=== PATIENT | female | born 1965 | race Hispanic/Latino ===

== ENCOUNTER → 2017-11-22 | Outpatient (CLI) | payer OTHER ==
[~2017-11-22] MED LIST: ADVAIR 250/501 EA INH; BUDESONIDE EC3 MG PO; CHLORDIAZEPOXI1 EACH PO; CIPROFLOXACIN750 MG PO; GLIMEPIRIDE2 MG PO; LANTUS 3ML100 UNITS/ SQ; LEVOTHYROXINE25 MCG PO; LISINOPRIL-HCT1 EAC2 PO; METFORMIN HCL500 MG PO; METOPROLOL TART50 MG PO; NORCO 5-325 TA1 EACH PO; OMEPRAZOLE20 MG PO; PENTASA500 MG PO; PRILOSEC OTC20 MG PO; PROBIOTIC ACID1 EACH PO; SYMBICORT 80-46.9 GM IH; TRAMADOL HCL50 MG PO; ULTRAM50 MG PO; VITAMIN D 1.25 MG PO; Z ACIDOPHILUS PO; Z VITAMIN D; Z.0.GLIMEPIRIDE4 MG PO; Z.0.GLUCOPHAGE850 MG PO; Z.0.LANTUS 3ML100 UN SQ; Z.0.LEVAQUIN500 MG PO; Z.0.LIBRAX CAPSULE1 PO; Z.0.LIPITOR10 MG PO; Z.0.MELOXICAM15 MG PO; Z.0.OMEPRAZOLE20 MG PO; Z.0.PENTASA500 MG PO; Z.0.PRINIVIL10 MG PO; ZOFRAN ODT8 MG PO; [UNRECOGNIZED DRUG - OTHER] PO
--- NOTE | 2017-11-22 18:59 | Diagnostic Imaging Report ---
PROCEDURE: Frontal and lateral views of the chest. COMPARISON: [facility], , CHEST 2 VIEWS, 03/01/2012, 22:37. INDICATIONS: cough, fever FINDINGS: Lines/tubes: None. Lungs: The lungs are well inflated. There is no evidence of pneumonia or pulmonary edema. Pleura: There is no pleural effusion or pneumothorax. Mild right apical pleural-parenchymal coarsening, which may represent scarring. Heart and mediastinum: The heart and the mediastinum are normal. Bones: No acute bony abnormality. IMPRESSION: 1. no consolidation or effusion. 2. Mild right apical pleural-parenchymal coarsening, which may represent scarring. Recommend followup chest, PA and lateral in 2 months to document stability. Adam Kearney M.D. Dictated by: Adam Kearney M.D. on 11/22/2017 at 19:01 Electronically approved by: Adam Kearney M.D. on 11/22/2017 at 19:01
== END ==
LOC: RAD 17:48
PROVIDERS: ATTEND Family Medicine
DX: R05 Cough (principal); R50.9 Fever, unspecified; J44.9 Chronic obstructive pulmonary disease, unspecified
CPT/HCPCS: 71046

== ENCOUNTER 2018-03-30 12:39 | Inpatient (IN) | payer SELFPAY ==
[~2018-03-30] VITALS: Ht 152.4 cm; Wt 89.4 kg
[2018-03-30] MEDS ORDERED: SODIUM CHLORIDE 0.9% 1000ML 1,000 ML IV SCH (13:00)
[2018-03-30] MEDS ORDERED: LIDOCAINE VISC 2% SOLN 15 ML UDC PO ONE (13:15)
[2018-03-30] MEDS ORDERED: MAGNESIUM/ALUMINUM/SIMETHICONE 30 ML UDC PO ONE (13:15)
[2018-03-30 13:34] LABS: BASOPHILS % 0.3 % (0.0-1.0); EOSINOPHILS # (AUTO) 0.1 (0.0-0.4); EOSINOPHILS % 0.7 % (0.0-6.0); HEMATOCRIT 42.4 % (34.2-44.1); HEMOGLOBIN 13.6 g/dL (12.0-16.0); LYMPHOCYTES # (AUTO) 3.7 (1.0-3.2); LYMPHOCYTES % 29.7 % (18.0-39.1); MEAN CORPUSCULAR HEMOGLOBIN 32.2 pg (28-32); MEAN CORPUSCULAR HGB CONC 32.1 g/dL (31-35); MEAN CORPUSCULAR VOLUME 100.2 fL (81-99); MONOCYTES # (AUTO) 1.1 (0.2-0.8); MONOCYTES % 8.6 % (4.4-11.3); NEUTROPHILS # (AUTO) 7.2 (2.1-6.9); NEUTROPHILS % 58.4 % (38.7-80.0); PLATELET COUNT 226 x10e3/uL (140-360); RED BLOOD COUNT 4.23 x10e6/uL (3.6-5.1); RED CELL DISTRIBUTION WIDTH 13.9 % (11.7-14.4)
[2018-03-30 13:45] LABS: INR 0.88; PROTHROMBIN TIME 12.8 seconds (11.9-14.5)
[2018-03-30 13:46] LABS: PARTIAL THROMBOPLASTIN TIME 23.8 seconds (23.8-35.5)
[2018-03-30 13:52] LABS: BLOOD UREA NITROGEN 24 mg/dL (7-26); BUN/CREATININE RATIO 26 (6-25); CARBON DIOXIDE 21 mmol/L (22-29); CHLORIDE 101 mmol/L (98-107); CREATININE, SERUM 0.91 mg/dL (0.57-1.11); EST GLOMERULAR FILTRATION RATE > 60 ML/MIN (60-); GLUCOSE 256 mg/dL (74-118); SODIUM 134 mmol/L (136-145)
[2018-03-30] MEDS ORDERED: MORPHINE SULFATE 2 MG/ML SYR IV STA (14:36)
[2018-03-30] MEDS ORDERED: DEXTROSE 50% SYRINGE 50 ML IV PRN (14:45)
[2018-03-30] MEDS ORDERED: ONDANSETRON HCL INJ 2 MG/ML VIAL IV PRN (14:45)
[2018-03-30] MEDS ORDERED: MORPHINE SULFATE 2 MG/ML SYR IV PRN (14:45)
[2018-03-30] MEDS: CLINDAMYCIN PHOS 900MG/ 50ML 50 ML IV SCH ×2 (15:35→21:00)
[2018-03-30] MEDS: VANCOMYCIN 1GM/NS 250 ML 250 ML IV SCH (16:11)
[2018-03-30] MEDS: INSULIN REGULAR, HUMAN 100 UNIT/1 ML 3ML VIAL SQ SCH ×2 (16:30→21:50)
[2018-03-30 17:06] LABS: LYMPHOCYTES % (MANUAL) 25 % (19-48); MICROCYTOSIS SLIGHT; MONOCYTES % (MANUAL) 6 % (3.4-9.0); NEUTROPHILS % (MANUAL) 66 % (40-74); PLATELET ESTIMATE ADEQUATE; PLATELET MORPHOLOGY COMMENT NORMAL; RBC MORPHOLOGY COMMENT NORMAL
[2018-03-30] MEDS ORDERED: HYDROMORPHONE 2MG/ML 2 MG/ML ML IV ONE (17:45)
[2018-03-30 19:18] VITALS: BP 128/85
[2018-03-30] MEDS: MORPHINE SULFATE INJ 4 MG/ML INJ IV PRN (20:44)
[2018-03-30] MEDS: SODIUM CHLORIDE 0.9% 1000ML 1,000 ML IV SCH (22:39)
[2018-03-30 22:57] VITALS: BP 128/85
[2018-03-30 23:50] VITALS: BP 131/74
[2018-03-31] MEDS: VANCOMYCIN 1GM/NS 250 ML 250 ML IV SCH (02:49)
[2018-03-31] MEDS: MORPHINE SULFATE INJ 4 MG/ML INJ IV PRN ×4 (02:49→16:30)
[2018-03-31] MEDS: CLINDAMYCIN PHOS 900MG/ 50ML 50 ML IV SCH ×4 (02:49→20:40)
[2018-03-31 04:10] VITALS: BP 104/64
[2018-03-31] MEDS: SODIUM CHLORIDE 0.9% 1000ML 1,000 ML IV SCH ×4 (06:21→22:39)
[2018-03-31] MEDS ORDERED: HYDROCODONE/APAP 5MG-325MG TAB PO PRN (07:15)
[2018-03-31] MEDS: INSULIN REGULAR, HUMAN 100 UNIT/1 ML 3ML VIAL SQ SCH ×4 (07:30→21:00)
[2018-03-31 08:00] VITALS: BP 130/99
[2018-03-31] MEDS ORDERED: PANTOPRAZOLE SOD 40 MG TABEC PO SCH (09:00)
[2018-03-31] MEDS ORDERED: FLUCONAZOLE 100 MG TAB PO SCH (09:00)
[2018-03-31] MEDS: BUDESONIDE 3 MG CAPCR PO SCH (09:03)
[2018-03-31] MEDS: HYDROCHLOROTHIAZIDE 25 MG TAB PO SCH (09:03)
[2018-03-31] MEDS: GLIMEPIRIDE 2 MG TAB PO SCH ×2 (09:03→16:48)
[2018-03-31] MEDS: LISINOPRIL 10 MG TAB PO SCH (09:04)
[2018-03-31] MEDS: METFORMIN HCL 500 MG TAB PO SCH ×2 (09:04→16:48)
[2018-03-31] MEDS: CHLORDIAZEPOXIDE/CLIDINIUM 1 CAP PO SCH ×3 (09:04→20:40)
[2018-03-31] MEDS: MESALAMINE 500 MG CAPCR PO SCH ×4 (09:05→20:40)
[2018-03-31] MEDS: PANTOPRAZOLE SOD 40 MG TABEC PO SCH ×2 (09:05→16:54)
[2018-03-31] MEDS: ATORVASTATIN 10 MG TAB PO SCH (09:05)
[2018-03-31] MEDS: METOPROLOL TARTRATE 50 MG TAB PO SCH ×2 (09:05→16:54)
[2018-03-31] MEDS: LEVOTHYROXINE SODIUM 25 MCG TABLET PO SCH (09:05)
[2018-03-31] MEDS: INSULIN DETEMIR 100 UNIT/ML PEN SQ SCH (09:06)
[2018-03-31 12:00] VITALS: BP 124/72
[2018-03-31] MEDS ORDERED: IPRATROPIUM BROMIDE 0.02% 2.5 ML NEB NEB SCH (13:00)
--- NOTE | 2018-03-31 15:19 | Consultation ---
DATE OF CONSULTATION: REASON FOR CONSULTATION: Cellulitis of the right upper extremity. HISTORY OF PRESENT ILLNESS: This patient is a 52-year-old female who denies any past medical history. She does have history of obesity, asthma, COPD, diabetes mellitus, hyperlipidemia, Crohn disease, hiatal hernia, gastroesophageal reflux disease, ulcerative colitis, chronic back pain and depression. PAST MEDICAL HISTORY: As above. PAST SURGICAL HISTORY: Appendectomy, , cholecystectomy and tonsillectomy. The patient comes in with redness and swelling of her arm which started a week ago. She remembered a week ago or so that a dog of her friend scratched her. She did not make too much of it, but started to have redness and swelling and pain and so she came to the hospital and she is being admitted because of redness and swelling of her right upper extremity. ALLERGIES: PENICILLIN, BUT SHE AN TAKE KEFLEX. SOCIAL HISTORY: Does not smoke, no drug abuse or alcohol abuse. FAMILY HISTORY: Otherwise unremarkable. REVIEW OF SYSTEMS: Beside the redness around the arm and the pain, she denies any. LABORATORY DATA: White count 12.37. Hemoglobin 13.6. Sodium 144, potassium 4.0, creatinine 0.9. PHYSICAL EXAMINATION: GENERAL: She is currently alert and oriented and does not seem to be in any acute distress. VITALS: Stable. Currently afebrile. HEENT: She is not icteric. NECK: Supple. CHEST: Clear bilaterally. HEART: S1 and S2. No murmurs. ABDOMEN: Soft. EXTREMITIES: There is erythema and edema involving the whole arm. IMPRESSION: Dog scratch, resulted with cellulitis in a patient who is obese with diabetes mellitus. RECOMMENDATIONS: I agree with the choice of clindamycin. Discontinue vancomycin. Keep the arm elevated. Await blood cultures. Recheck CBC. Recheck chem panel. Further recommendations to follow. Job#: [id number]
[2018-03-31 16:00] VITALS: BP 124/61
[2018-03-31 20:31] VITALS: BP 123/68
[2018-03-31] MEDS: HYDROCODONE/APAP 5MG-325MG TAB PO PRN (20:35)
[2018-04-01] VITALS (8 sets, daily range): BP systolic 101–109; BP diastolic 52–73
[2018-04-01] MEDS: MORPHINE SULFATE INJ 4 MG/ML INJ IV PRN ×3 (00:40→17:00)
[2018-04-01] MEDS: CLINDAMYCIN PHOS 900MG/ 50ML 50 ML IV SCH ×4 (03:00→21:50)
[2018-04-01 05:29] LABS: BASOPHILS % 0.2 % (0.0-1.0); EOSINOPHILS # (AUTO) 0.1 (0.0-0.4); EOSINOPHILS % 1.2 % (0.0-6.0); HEMATOCRIT 32.1 % (34.2-44.1); HEMOGLOBIN 10.4 g/dL (12.0-16.0); LYMPHOCYTES # (AUTO) 2.5 (1.0-3.2); LYMPHOCYTES % 26.1 % (18.0-39.1); MEAN CORPUSCULAR HEMOGLOBIN 32.4 pg (28-32); MEAN CORPUSCULAR HGB CONC 32.4 g/dL (31-35); MONOCYTES % 10.5 % (4.4-11.3); NEUTROPHILS # (AUTO) 5.8 (2.1-6.9); PLATELET COUNT 148 x10e3/uL (140-360); RED BLOOD COUNT 3.21 x10e6/uL (3.6-5.1); RED CELL DISTRIBUTION WIDTH 13.6 % (11.7-14.4)
[2018-04-01 05:50] LABS: ANION GAP 14.8 mmol/L (8-16); BLOOD UREA NITROGEN 8 mg/dL (7-26); BUN/CREATININE RATIO 12 (6-25); CALCIUM 8.3 mg/dL (8.4-10.2); CARBON DIOXIDE 22 mmol/L (22-29); CHLORIDE 106 mmol/L (98-107); CREATININE, SERUM 0.65 mg/dL (0.57-1.11); EST GLOMERULAR FILTRATION RATE > 60 ML/MIN (60-); GLUCOSE 109 mg/dL (74-118); POTASSIUM 3.8 mmol/L (3.5-5.1); SODIUM 139 mmol/L (136-145)
[2018-04-01] MEDS: SODIUM CHLORIDE 0.9% 1000ML 1,000 ML IV SCH ×3 (06:39→22:39)
[2018-04-01] MEDS: INSULIN REGULAR, HUMAN 100 UNIT/1 ML 3ML VIAL SQ SCH ×4 (07:30→21:00)
[2018-04-01] MEDS: NYSTATIN SUSPENSION 5 ML UDC PO SCH ×4 (10:25→21:50)
[2018-04-01] MEDS: INSULIN DETEMIR 100 UNIT/ML PEN SQ SCH (10:25)
[2018-04-01] MEDS: GLIMEPIRIDE 2 MG TAB PO SCH ×2 (10:25→17:00)
[2018-04-01] MEDS: HYDROCODONE/APAP 5MG-325MG TAB PO PRN ×2 (10:25→21:15)
[2018-04-01] MEDS: METOPROLOL TARTRATE 50 MG TAB PO SCH ×2 (10:25→17:00)
[2018-04-01] MEDS: METFORMIN HCL 500 MG TAB PO SCH ×2 (10:25→17:00)
[2018-04-01] MEDS: PANTOPRAZOLE SOD 40 MG TABEC PO SCH ×2 (10:25→17:00)
[2018-04-01] MEDS: BUDESONIDE 3 MG CAPCR PO SCH (10:25)
[2018-04-01] MEDS: HYDROCHLOROTHIAZIDE 25 MG TAB PO SCH (10:25)
[2018-04-01] MEDS: LISINOPRIL 10 MG TAB PO SCH (10:25)
[2018-04-01] MEDS: LEVOTHYROXINE SODIUM 25 MCG TABLET PO SCH (10:25)
[2018-04-01] MEDS: ATORVASTATIN 10 MG TAB PO SCH (10:25)
[2018-04-01] MEDS: MESALAMINE 500 MG CAPCR PO SCH ×4 (10:25→21:50)
[2018-04-01] MEDS: CHLORDIAZEPOXIDE/CLIDINIUM 1 CAP PO SCH ×3 (10:25→21:50)
[2018-04-02] VITALS: BP 124/74
[2018-04-02] MEDS: CLINDAMYCIN PHOS 900MG/ 50ML 50 ML IV SCH ×2 (03:00→08:50)
[2018-04-02] MEDS: MORPHINE SULFATE INJ 4 MG/ML INJ IV PRN ×3 (03:27→12:35)
[2018-04-02 04:00] VITALS: BP 118/74
[2018-04-02] MEDS: NYSTATIN SUSPENSION 5 ML UDC PO SCH ×3 (05:58→12:35)
[2018-04-02] MEDS: INSULIN REGULAR, HUMAN 100 UNIT/1 ML 3ML VIAL SQ SCH ×2 (07:30→12:35)
[2018-04-02 08:46] VITALS: BP 132/75
[2018-04-02 08:50] VITALS: BP 132/75
[2018-04-02] MEDS: PANTOPRAZOLE SOD 40 MG TABEC PO SCH (08:50)
[2018-04-02] MEDS: LEVOTHYROXINE SODIUM 25 MCG TABLET PO SCH (08:50)
[2018-04-02] MEDS: GLIMEPIRIDE 2 MG TAB PO SCH (08:50)
[2018-04-02] MEDS: LISINOPRIL 10 MG TAB PO SCH (08:50)
[2018-04-02] MEDS: CHLORDIAZEPOXIDE/CLIDINIUM 1 CAP PO SCH (08:50)
[2018-04-02] MEDS: INSULIN DETEMIR 100 UNIT/ML PEN SQ SCH (08:50)
[2018-04-02] MEDS: BUDESONIDE 3 MG CAPCR PO SCH (08:50)
[2018-04-02] MEDS: ATORVASTATIN 10 MG TAB PO SCH (08:50)
[2018-04-02] MEDS: HYDROCHLOROTHIAZIDE 25 MG TAB PO SCH (08:50)
[2018-04-02] MEDS: MESALAMINE 500 MG CAPCR PO SCH ×2 (08:50→12:35)
[2018-04-02] MEDS: METOPROLOL TARTRATE 50 MG TAB PO SCH (08:50)
[2018-04-02] MEDS: METFORMIN HCL 500 MG TAB PO SCH (08:50)
[2018-04-02] MEDS ORDERED: SUCRALFATE 1 GM TAB PO SCH (11:30)
[2018-04-02] MEDS: ALBUTEROL SULF 0.083% NEB SOLN 3 ML NEB NEB SCH ×2 (14:29→14:32)
[2018-04-02] MEDS ORDERED: CLINDAMYCIN HC150 MG PO (14:52)
--- OUTSIDE RECORDS SUMMARY | 2018-04-04 13:02 | XMS REPORT | Continuity of Care Document ---
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 [facility] HEMATOLOGY Eosinophils # 0.1 K/CMM 0.0 - 0.5 10/13/2011 Normal [facility] HEMATOLOGY Monocytes # 0.8 K/CMM 0.0 - 0.8 10/13/2011 Normal [facility] HEMATOLOGY Lymphocytes 23.3 % 20.0 - 40.0 10/13/2011 Normal [facility] HEMATOLOGY Segs 66.4 % 45.0 - 75.0 10/13/2011 Normal [facility] HEMATOLOGY INR 1.01 0.85 - 1.17 10/13/2011 Normal 2Interpretive Data: RECOMMENDED RANGES FOR PROTIME INR: 2.0-3.0 for most medical and surgical thromboembolic states. 2.5-3.5 for artificial heart valves and recurrent embolism.INR SHOULD BE USED ONLY FOR PATIENTS ON STABLE ANTICOAGULANT THERAPY. [facility] HEMATOLOGY PTT 29.2 s 22.9 - 35.8 10/13/2011 Normal 3Interpretive Data: Heparin Therapeutic Range: 57 - 92 Seconds [facility] HEMATOLOGY PT 13.3 s 12.0 - 14.7 10/13/2011 Normal [facility] HEMATOLOGY MCH 32.4 pg 27.0 - 31.0 10/13/2011 HI [facility] HEMATOLOGY MCV 94.9 fL 81.0 - 99.0 10/13/2011 Normal [facility] HEMATOLOGY MCHC 34.1 g/dL 32.0 - 36.0 10/13/2011 Normal [facility] HEMATOLOGY WBC 8.6 K/CMM 3.7 - 10.4 10/13/2011 Normal [facility] HEMATOLOGY Hgb 14.4 g/dL 12.0 - 16.0 10/13/2011 Normal [facility] HEMATOLOGY RBC 4.45 M/CMM 4.20 - 5.40 10/13/2011 Normal [facility] HEMATOLOGY Hct 42.3 % 36.0 - 48.0 10/13/2011 Normal [facility] HEMATOLOGY Platelet 237 K/CMM 133 - 450 10/13/2011 Normal [facility] HEMATOLOGY MPV 8.6 fL 7.4 - 10.4 10/13/2011 Normal [facility] HEMATOLOGY RDW 12.8 % 11.5 - 14.5 10/13/2011 Normal [facility] CHEMISTRY U Preg Negative (10/13/2011 10:02:00) Negative 10/13/2011 Normal [facility] URINALYSIS UA Color Yellow *NA* (10/13/2011 10:02:00) Yellow 10/13/2011 NA [facility] URINALYSIS UA Spec Grav 1.025 <=1.030 10/13/2011 Normal [facility] URINALYSIS UA Turbidity Clear (10/13/2011 10:02:00) Clear 10/13/2011 Normal [facility] URINALYSIS UA Blood Negative (10/13/2011 10:02:00) Negative 10/13/2011 Normal [facility] URINALYSIS UA Nitrite Negative (10/13/2011 10:02:00) Negative 10/13/2011 Normal [facility] URINALYSIS UA Bili Negative *NA* (10/13/2011 10:02:00) Negative 10/13/2011 NA [facility] URINALYSIS UA Ketones Trace *ABN* (10/13/2011 10:02:00) Negative 10/13/2011 ABN [facility] URINALYSIS UA Urobilinogen 0.2 EU/dL 0.1 - 1.0 10/13/2011 Normal [facility] URINALYSIS UA Protein 30 mg/dL *ABN* (10/13/2011 10:02:00) Negative 10/13/2011 ABN [facility] URINALYSIS UA Glucose >=1000 mg/dL *ABN* (10/13/2011 10:02:00) Negative 10/13/2011 ABN [facility] URINALYSIS UA pH 6.0 5.0 - 8.0 10/13/2011 Normal [facility] URINALYSIS UA Leuk Est Negative (10/13/2011 10:02:00) Negative 10/13/2011 Normal [facility] URINALYSIS UA Mucus Few /LPF (10/13/2011 10:02:00) None Seen 10/13/2011 Normal [facility] URINALYSIS UA Bacteria None Seen (10/13/2011 10:02:00) None Seen 10/13/2011 Normal [facility] URINALYSIS UA Sq Epi Rare /LPF (10/13/2011 10:02:00) Few 10/13/2011 Normal [facility] URINALYSIS Micro? Performed (10/13/2011 10:02:00) 10/13/2011 Normal [facility] URINALYSIS UA WBC 0-2 /HPF (10/13/2011 10:02:00) None Seen 10/13/2011 Normal [facility] URINALYSIS UA RBC None Seen (10/13/2011 10:02:00) 0 - 2 10/13/2011 Normal [facility] BEDSIDE GLUCOSE TESTING Comment1 Notify RN/MD 02/22/2011 NA [facility] BEDSIDE GLUCOSE TESTING Gluc POC Lifscn 112.0 mg/dL 65 - 110 02/22/2011 [place] 1Interpretive Data: Upper Reportable Limit: 200 mg/dL. [facility] BEDSIDE GLUCOSE TESTING Gluc POC Lifscn 243.0 mg/dL 65 - 110 02/22/2011 [place] 2Interpretive Data: Upper Reportable Limit: 200 mg/dL. [facility] BEDSIDE GLUCOSE TESTING Gluc POC Lifscn 128.0 mg/dL 65 - 110 02/22/2011 [place] 3Interpretive Data: Upper Reportable Limit: 200 mg/dL. [facility] HEMATOLOGY MPV 8.4 fL 7.4 - 10.4 02/22/2011 Normal [facility] HEMATOLOGY RDW 12.9 % 11.5 - 14.5 02/22/2011 Normal [facility] HEMATOLOGY Platelet 251.0 K/CMM 133 - 450 02/22/2011 Normal [facility] HEMATOLOGY MCH 31.7 pg 27.0 - 31.0 02/22/2011 HI [facility] MCHC 34.4 g/dL 32.0 - 36.0 02/22/2011 Normal [facility] HEMATOLOGY Hct 31.6 % 36.0 - 48.0 02/22/2011 LOW [facility] HEMATOLOGY Hgb 10.9 g/dL 12.0 - 16.0 02/22/2011 LOW [facility] HEMATOLOGY MCV 92.3 fL 81.0 - 99.0 02/22/2011 Normal [facility] HEMATOLOGY RBC 3.43 M/CMM 4.20 - 5.40 02/22/2011 [facility] HEMATOLOGY WBC 10.6 K/CMM 3.7 - 10.4 02/22/2011 [facility] HEMATOLOGY Basophils # 0.0 K/CMM 0.0 - 0.2 02/22/2011 Normal [facility] HEMATOLOGY Monocytes 9.2 % 2.0 - 12.0 02/22/2011 Normal [facility] HEMATOLOGY Eosinophils 1.1 % 0.0 - 4.0 02/22/2011 Normal [facility] HEMATOLOGY Monocytes # 1.0 K/CMM 0.0 - 0.8 02/22/2011 [facility] HEMATOLOGY Lymphocytes # 2.0 K/CMM 1.0 - 5.5 02/22/2011 Normal [facility] HEMATOLOGY Eosinophils # 0.1 K/CMM 0.0 - 0.5 02/22/2011 Normal [facility] HEMATOLOGY Segs-Bands # 7.5 K/CMM 1.5 - 8.1 02/22/2011 Normal [facility] HEMATOLOGY Basophils 0.2 % 0.0 - 1.0 02/22/2011 Normal [facility] HEMATOLOGY Segs 70.4 % 45.0 - 75.0 02/22/2011 Normal [facility] HEMATOLOGY Lymphocytes 19.1 % 20.0 - 40.0 02/22/2011 [facility] BEDSIDE GLUCOSE TESTING Comment1 Notify ТАТЬЯНА 02/22/2011 [facility] BEDSIDE GLUCOSE TESTING Comment1 Notify JONA/ 02/21/2011 [facility] CHEMISTRY Creatinine Lvl 0.7 mg/dL 0.5 - 1.4 02/21/2011 Normal [facility] CHEMISTRY Total Protein 6.2 g/dL 6.4 - 8.4 02/21/2011 [facility] CHEMISTRY Albumin Lvl 2.6 g/dL 3.5 - 5.0 02/21/2011 [facility] CHEMISTRY B/C Ratio 7.0 6 - 25 02/21/2011 Normal [facility] CHEMISTRY Calcium Lvl 7.8 mg/dL 8.5 - 10.5 02/21/2011 [facility] CHEMISTRY AGAP 12.7 meq/L 10.0 - 20.0 02/21/2011 Normal [facility] CHEMISTRY Bili Total 0.5 mg/dL 0.2 - 1.3 02/21/2011 Normal [facility] CHEMISTRY AST 14.0 U/L 0 - 37 02/21/2011 Normal [facility] CHEMISTRY Globulin 3.6 g/dL 2.0 - 4.0 02/21/2011 Normal [facility] CHEMISTRY ALT 23.0 U/L 0 - 65 02/21/2011 Normal [facility] CHEMISTRY Alk Phos 126.0 U/L 39 - 136 02/21/2011 Normal [facility] CHEMISTRY A/G Ratio 0.7 0.7 - 1.6 02/21/2011 Normal [facility] CHEMISTRY Chloride Lvl 104.0 meq/L 95 - 109 02/21/2011 Normal [facility] CHEMISTRY Sodium Lvl 139.0 meq/L 135 - 145 02/21/2011 Normal [facility] CHEMISTRY Potassium Lvl 3.7 meq/L 3.5 - 5.1 02/21/2011 Normal [facility] CHEMISTRY CO2 26.0 meq/L 24 - 32 02/21/2011 Normal [facility] CHEMISTRY Glucose Lvl 153.0 mg/dL 02/21/2011 NA 4Interpretive Data: Reference Ranges : 0 - 7 days : 41 - 90 mg/dL7 days - 150 yrs : 70 - 99 mg/dL (fasting), based on the clinical recommendations of the [place] [employer]. [facility] CHEMISTRY BUN 5.0 mg/dL 7 - 22 02/21/2011 LOW [facility] HEMATOLOGY WBC 14.1 K/CMM 3.7 - 10.4 02/21/2011 HI [facility] HEMATOLOGY RBC 3.68 M/CMM 4.20 - 5.40 02/21/2011 LOW [facility] HEMATOLOGY Hgb 11.6 g/dL 12.0 - 16.0 02/21/2011 LOW [facility] HEMATOLOGY Hct 33.6 % 36.0 - 48.0 02/21/2011 LOW [facility] HEMATOLOGY MCHC 34.5 g/dL 32.0 - 36.0 02/21/2011 Normal [facility] HEMATOLOGY MCV 91.3 fL 81.0 - 99.0 02/21/2011 Normal [facility] HEMATOLOGY MCH 31.5 pg 27.0 - 31.0 02/21/2011 HI [facility] HEMATOLOGY RDW 12.9 % 11.5 - 14.5 02/21/2011 Normal [facility] HEMATOLOGY Platelet 277.0 K/CMM 133 - 450 02/21/2011 Normal [facility] HEMATOLOGY MPV 8.4 fL 7.4 - 10.4 02/21/2011 Normal [facility] HEMATOLOGY Eosinophils # 0.1 K/CMM 0.0 - 0.5 02/21/2011 Normal [facility] HEMATOLOGY Eosinophils 0.9 % 0.0 - 4.0 02/21/2011 Normal [facility] HEMATOLOGY Basophils 0.3 % 0.0 - 1.0 02/21/2011 Normal [facility] HEMATOLOGY Segs-Bands # 10.3 K/CMM 1.5 - 8.1 02/21/2011 [place] [facility] HEMATOLOGY Lymphocytes # 2.4 K/CMM 1.0 - 5.5 02/21/2011 Normal [facility] HEMATOLOGY Monocytes # 1.2 K/CMM 0.0 - 0.8 02/21/2011 [place] [facility] HEMATOLOGY Basophils # 0.0 K/CMM 0.0 - 0.2 02/21/2011 Normal [facility] HEMATOLOGY Segs 73.1 % 45.0 - 75.0 02/21/2011 Normal [facility] HEMATOLOGY Lymphocytes 16.9 % 20.0 - 40.0 02/21/2011 LOW [facility] HEMATOLOGY Monocytes 8.8 % 2.0 - 12.0 02/21/2011 Normal [facility] CHEMISTRY Lipase Lvl 158.0 U/L 73 - 393 02/20/2011 Normal [facility] CHEMISTRY AST 19.0 U/L 0 - 37 02/20/2011 Normal [facility] CHEMISTRY Albumin Lvl 3.1 g/dL 3.5 - 5.0 02/20/2011 LOW [facility] CHEMISTRY ALT 30.0 U/L 0 - 65 02/20/2011 Normal [facility] CHEMISTRY Alk Phos 170.0 U/L 39 - 136 02/20/2011 [place] [facility] CHEMISTRY Bili Total 0.3 mg/dL 0.2 - 1.3 02/20/2011 Normal [facility] CHEMISTRY Total Protein 7.3 g/dL 6.4 - 8.4 02/20/2011 Normal [facility] CHEMISTRY Potassium Lvl 3.7 meq/L 3.5 - 5.1 02/20/2011 Normal [facility] CHEMISTRY Chloride Lvl 98.0 meq/L 95 - 109 02/20/2011 Normal [facility] CHEMISTRY CO2 25.0 meq/L 24 - 32 02/20/2011 Normal [facility] CHEMISTRY Calcium Lvl 8.8 mg/dL 8.5 - 10.5 02/20/2011 Normal [facility] CHEMISTRY Creatinine Lvl 0.9 mg/dL 0.5 - 1.4 02/20/2011 Normal [facility] CHEMISTRY Sodium Lvl 136.0 meq/L 135 - 145 02/20/2011 Normal [facility] CHEMISTRY Glucose Lvl 380.0 mg/dL 02/20/2011 NA 5Interpretive Data: Reference Ranges : 0 - 7 days : 41 - 90 mg/dL7 days - 150 yrs : 70 - 99 mg/dL (fasting), based on the clinical recommendations of the [place] [employer]. [facility] CHEMISTRY BUN 11.0 mg/dL 7 - 22 02/20/2011 Normal [facility] CHEMISTRY AGAP 16.7 meq/L 10.0 - 20.0 02/20/2011 Normal [facility] CHEMISTRY B/C Ratio 12.0 6 - 25 02/20/2011 Normal [facility] CHEMISTRY Globulin 4.2 g/dL 2.0 - 4.0 02/20/2011 [facility] CHEMISTRY A/G Ratio 0.7 0.7 - 1.6 02/20/2011 Normal [facility] CHEMISTRY Hgb A1C 11.5 % 02/20/2011 NA 6Interpretive Data: HbA1C% eAG(mg/dL) Interpretation 6.0 126 Very good control 6.5 140 Very good control 7.0 154 Good Control 7.5 169 Good Control 8.0 183 Marginal Control, take action to lower 8.5 197 Marginal Control, take action to lower 9.0 212 Poor Control, take action to lower 9.5 226 Poor Control, take action to lower10.0 240 Poor Control, take action to lower [facility] HEMATOLOGY RBC 4.06 M/CMM 4.20 - 5.40 02/20/2011 LOW [facility] HEMATOLOGY WBC 15.5 K/CMM 3.7 - 10.4 02/20/2011 [facility] HEMATOLOGY MCH 31.6 pg 27.0 - 31.0 02/20/2011 [facility] HEMATOLOGY MCHC 34.4 g/dL 32.0 - 36.0 02/20/2011 Normal [facility] HEMATOLOGY Hct 37.3 % 36.0 - 48.0 02/20/2011 Normal [facility] HEMATOLOGY MCV 91.8 fL 81.0 - 99.0 02/20/2011 Normal [facility] HEMATOLOGY Hgb 12.8 g/dL 12.0 - 16.0 02/20/2011 Normal [facility] HEMATOLOGY Platelet 306.0 K/CMM 133 - 450 02/20/2011 Normal [facility] HEMATOLOGY MPV 8.7 fL 7.4 - 10.4 02/20/2011 Normal [facility] HEMATOLOGY RDW 13.1 % 11.5 - 14.5 02/20/2011 Normal [facility] HEMATOLOGY Eosinophils # 0.1 K/CMM 0.0 - 0.5 02/20/2011 Normal [facility] HEMATOLOGY Basophils # 0.0 K/CMM 0.0 - 0.2 02/20/2011 Normal [facility] HEMATOLOGY Segs 77.1 % 45.0 - 75.0 02/20/2011 HI [facility] HEMATOLOGY Lymphocytes 16.5 % 20.0 - 40.0 02/20/2011 LOW [facility] HEMATOLOGY Plt Morph Normal (02/20/2011 11:35:00) ?? 02/20/2011 Normal [facility] HEMATOLOGY Eosinophils 0.9 % 0.0 - 4.0 02/20/2011 Normal [facility] HEMATOLOGY Lymphocytes # 2.6 K/CMM 1.0 - 5.5 02/20/2011 Normal [facility] HEMATOLOGY Monocytes # 0.8 K/CMM 0.0 - 0.8 02/20/2011 Normal [facility] HEMATOLOGY Monocytes 5.3 % 2.0 - 12.0 02/20/2011 Normal [facility] HEMATOLOGY Segs-Bands # 12.0 K/CMM 1.5 - 8.1 02/20/2011 HI [facility] HEMATOLOGY Basophils 0.2 % 0.0 - 1.0 02/20/2011 Normal [facility] HEMATOLOGY RBC Morph Normal (02/20/2011 11:35:00) ?? 02/20/2011 Normal [facility] URINALYSIS UA Ketones Negative mg/dL *NA* (02/20/2011 11:35:00) ?? >Negative 02/20/2011 [facility] URINALYSIS UA Glucose >=1000 mg/dL *ABN* (02/20/2011 11:35:00) ?? >Negative 02/20/2011 ABN [facility] URINALYSIS UA Spec Grav 1.015 <<=1.030 02/20/2011 Normal [facility] URINALYSIS UA Bili Negative *NA* (02/20/2011 11:35:00) ?? >Negative 02/20/2011 [facility] URINALYSIS UA Protein Negative mg/dL (02/20/2011 11:35:00) ?? >Negative 02/20/2011 Normal [facility] URINALYSIS UA pH 5.0 5.0 - 8.0 02/20/2011 Normal [facility] URINALYSIS UA Color Yellow *NA* (02/20/2011 11:35:00) ?? >Yellow 02/20/2011 NA [facility] URINALYSIS UA Turbidity Clear (02/20/2011 11:35:00) ?? >Clear 02/20/2011 Normal [facility] URINALYSIS UA Urobilinogen 0.2 EU/dL 0.1 - 1.0 02/20/2011 Normal [facility] URINALYSIS UA Blood Negative (02/20/2011 11:35:00) ?? >Negative 02/20/2011 Normal [facility] URINALYSIS UA Leuk Est Negative (02/20/2011 11:35:00) ?? >Negative 02/20/2011 Normal [facility] URINALYSIS UA Nitrite Negative (02/20/2011 11:35:00) ?? >Negative 02/20/2011 Normal [facility] URINALYSIS UA Mucus Few /LPF (02/20/2011 11:35:00) ?? >None Seen 02/20/2011 Normal [facility] URINALYSIS UA RBC None Seen (02/20/2011 11:35:00) ?? >0 - 2 02/20/2011 Normal [facility] URINALYSIS UA WBC 0-2 /HPF (02/20/2011 11:35:00) ?? >None Seen 02/20/2011 Normal [facility] URINALYSIS UA Sq Epi Few /LPF (02/20/2011 11:35:00) ?? >Few 02/20/2011 Normal [facility] URINALYSIS UA Bacteria Few /HPF (02/20/2011 11:35:00) ?? >None Seen 02/20/2011 Normal [facility] Vital Signs Vital Sign Value Date Comments Source Systolic (mm Hg) 104 01/10/2015 [facility] Diastolic (mm Hg) 60 01/10/2015 [facility] Respitory Rate 18 01/10/2015 [facility] Respitory Rate 18 01/10/2015 [facility] Systolic (mm Hg) 92 01/10/2015 [facility] Diastolic (mm Hg) 58 01/10/2015 [facility] Systolic (mm Hg) 94 01/10/2015 [facility] Diastolic (mm Hg) 51 01/10/2015 [facility] Respitory Rate 80 01/10/2015 [facility] Heart Rate 90 01/10/2015 [facility] Temperature Oral (F) 98.1 F 01/10/2015 [facility] Temperature Oral (F) 98 F 01/10/2015 [facility] Weight 78.636 01/09/2015 [facility] Heart Rate 98 01/09/2015 [facility] Temperature Oral (F) 97.7 F 01/09/2015 [facility] Systolic (mm Hg) 109 09/21/2013 [facility] Diastolic (mm Hg) 72 09/21/2013 [facility] Temperature Oral (F) 98.3 F 09/21/2013 [facility] Respitory Rate 20 09/21/2013 [facility] Heart Rate 93 09/21/2013 [facility] Diastolic (mm Hg) 72 09/21/2013 [facility] Heart Rate 106 09/21/2013 [facility] Respitory Rate 17 09/21/2013 [facility] Systolic (mm Hg) 127 09/21/2013 [facility] Temperature Oral (F) 98.5 F 09/21/2013 [facility] Respitory Rate 16 09/21/2013 [facility] Systolic (mm Hg) 112 09/21/2013 [facility] Heart Rate 95 09/21/2013 [facility] Temperature Oral (F) 98.0 F 09/21/2013 [facility] Diastolic (mm Hg) 73 09/21/2013 [facility] Weight 88.636 09/18/2013 [facility] BMI Calculated 38.16 09/18/2013 [facility] Height 152.4 cm 09/18/2013 [facility] Weight 88.636 09/18/2013 [facility] Height 152.4 cm 09/18/2013 [facility] BMI Calculated 38.16 09/18/2013 [facility] Weight 86.364 10/13/2011 [facility] Height 152.40 cm 10/13/2011 [facility] Systolic (mm Hg) 128.0 02/22/2011 [facility] Respitory Rate 18.0 02/22/2011 [facility] Diastolic (mm Hg) 75.0 02/22/2011 [facility] Peripheral Pulse Rate 81.0 02/22/2011 [facility] Temperature Oral (F) 98.0 F 02/22/2011 [facility] Diastolic (mm Hg) 69.0 02/22/2011 [facility] Systolic (mm Hg) 112.0 02/22/2011 [facility] Respitory Rate 20.0 02/22/2011 [facility] Temperature Oral (F) 98.0 F 02/22/2011 [facility] Peripheral Pulse Rate 76.0 02/22/2011 [facility] Respitory Rate 18.0 02/22/2011 [facility] Systolic (mm Hg) 102.0 02/22/2011 [facility] Diastolic (mm Hg) 47.0 02/22/2011 [facility] Peripheral Pulse Rate 89.0 02/22/2011 [facility] Temperature Oral (F) 97.4 F 02/22/2011 [facility] Height 152.4 cm 02/21/2011 [facility] Weight 86.364 02/21/2011 [facility] Height 152.4 cm 02/20/2011 [facility] Weight 86.364 02/20/2011 [facility] Encounters Location Location Details Encounter Type Encounter Number Reason For Visit Attending Provider ADM Date DC Date Status Source [facility] Emergency [id number] SORE THROAT MIN MENDEZ 03/01/2004 03/01/2004 Active [facility] Emergency [id number] ABDOMINAL PAIN FAITH IELLO 09/29/2005 09/29/2005 Active [facility] Inpatient [id number] KACECE FANG 02/20/2011 02/22/2011 Active [facility] Emergency [id number] JEFFERSON SANTILLNA 10/13/2011 10/13/2011 Active [facility] Emergency [id number] FALL DEVON MARJORIE 07/28/[address] [facility] Inpatient [id number] _[id number] Kaden Nina 09/18/2013 09/21/2013 [facility] [id number] Zenonsiddharth Yariel 01/09/2015 01/10/2015 [facility] Procedures Procedure Code Date Perfomer Comments Source Appendectomy [id number] [facility] section [id number] [facility] Cholecystectomy [id number] [facility] Tonsillectomy [id number] [facility]
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
--- OUTSIDE RECORDS SUMMARY | 2018-04-04 13:03 | XMS REPORT | CCD ---
Author Author Auto Generated Organization [facility] Address Unknown Phone Unavailable Care Team Providers Care Fur Drummer Name Role Phone Jaden Lab CP Unavailable Juan David Young CP Nereyda Gutierrez CP Unavailable Rachel Quezada CP Unavailable McmorrowEleni CP Meagan, William CP Unavailable Faisal Cartagena CP [phone] John Garcia CP Unavailable Little Seo CP [phone] Lillie Felipe CP Unavailable Karolyn Darden CP Unavailable Anastasiya Paz CP Unavailable Shayy Pierre CP [phone] Syd Olsen CP Roseanne Dan CP Unavailable SYSTEM, SYSTEM CP Unavailable Yuki Hsu CP Unavailable Winter Mena CP Unavailable Natalie Chapman CP [phone] Gurjit Balderas CP Unavailable Aishwarya Francis CP [phone] RossMor CP [phone] Bushra Cruz CP Unavailable Galina Nieto CP [phone] Kalie Aguilar CP [phone] Florencia Valles CP Unavailable Arleen Hull CP Kwadwo Oshea CP Unavailable Kashif Gary CP Bozena Gordon CP Unavailable Chuyita Varma CP [phone] Carly Stanford CP Unavailable Allergies, Adverse Reactions, Alerts Substance Reaction Status Flagyl ?? Active penicillins ?? Active Problem List Condition Effective Dates Status Colitis ?? Active Diabetes mellitus ?? Active Hypertension ?? Active Medications Medication Instructions Start Date End Date Status clindamycin 600 mg, 4 mL, Route: IVPB, [id number], 02/20/2011 02/22/2011 Discontinued Start date: 02/20/11 22:00:00, Duration: 30 day, Stop date: 03/22/11 14:00:00 balsalazide 750 mg 2,250 mg, 3 cap, PO, TID, 300 cap, 02/22/2011 ?? Ordered oral capsule 5, 5, Substitution Allowed, CAP omeprazole 20 mg 40 mg, 2 tab, PO, Daily, 120 tab, 02/20/2011 ?? Ordered oral enteric coated Substitution Allowed, ECTAB tablet ciprofloxacin 500 mg 500 mg, 1 tab, PO, Q12H, 20 tab, 02/22/2011 03/04/2011 Ordered oral tablet Substitution Allowed, TAB Cipro 400 mg, 200 mL, Route: IVPB, Drug 02/20/2011 02/22/2011 Discontinued form: INJ, [id number], Start date: 02/20/11 21:00:00, Duration: 30 day, Stop date: 03/22/11 9:00:00 Acidophilus 2 cap, PO, BID, Substitution 02/20/2011 ?? Ordered Probiotic Blend Allowed, Maintenance glimepiride 2 mg 2 mg, 1 tab, PO, Daily, 30 tab, 02/22/2011 ?? Ordered oral tablet Substitution Allowed, TAB morphine Sulfate 2 mg, 1 mL, Route: IVP, Drug form: 02/20/2011 02/20/2011 Completed INJ, ONCE, Priority: STAT, Start date: 02/20/11 11:38:00, Stop date: 02/20/11 11:38:00 Phenergan 12.5 mg 12.5 mg, 1 tab, PO, Q4H, PRN, 15 02/20/2011 02/20/2011 Completed oral tablet tab, Nausea & Vomiting, Substitution Allowed, TAB Flagyl 500 mg, 100 mL, Route: IVPB, Drug 02/20/2011 02/20/2011 Discontinued form: INJ, ABXQ8H, Start date: 02/20/11 18:00:00, Duration: 30 day, Stop date: 03/22/11 10:00:00 ceftriaxone 1 gm, Route: IVPB, [id number], Start 02/20/2011 02/20/2011 Discontinued date: 02/20/11 19:00:00, Duration: 30 day, Stop date: 03/21/11 19:00:00 Protonix 40 mg, 1 tab, Route: PO, Drug form: 02/21/2011 02/22/2011 Discontinued ECTAB, Before Dinner, Start date: 02/21/11 16:30:00, Duration: 30 day, Stop date: 03/22/11 16:30:00 lactobacillus 160 mg, 2 cap, Route: PO, Drug 02/21/2011 02/22/2011 Discontinued rhamnosus GG Form: CAP, BID, Start date: 02/21/11 9:00:00, Duration: 30 day, Stop date: 03/22/11 17:00:00 Zofran 4 mg, 2 mL, Route: IVP, Drug form: 02/20/2011 02/20/2011 Completed INJ, ONCE, Priority: STAT, Start date: 02/20/11 11:37:00, Stop date: 02/20/11 11:37:00 mesalamine 800 mg 1,600 mg, 4 tab, Route: PO, Drug 02/20/2011 02/20/2011 Completed oral enteric coated form: ECTAB, ONCE, Start date: tablet 02/20/11 11:37:00, Stop date: 02/20/11 11:37:00 Cipro 500 mg oral 500 mg, 1 tab, PO, Q12H, 14 tab, 02/20/2011 02/20/2011 Completed tablet Substitution Allowed, TAB Flagyl 500 mg oral 500 mg, 1 tab, PO, Q8H, 30 tab, 02/20/2011 02/20/2011 Completed tablet Substitution Allowed ondansetron 4 mg, Route: IVP, Drug form: INJ, 02/20/2011 02/20/2011 Completed ONCE, Priority: STAT, Start date: 02/20/11 16:36:00, Stop date: 02/20/11 16:36:00 Saline Flush 0.9% 5 ml, Route: IVP, Drug Form: INJ, 02/20/2011 02/20/2011 Discontinued PRN, PRN Line Flush, Start date: 02/20/11 11:28:00, Duration: 24 hr, Stop date: 02/21/11 11:27:00 mesalamine 500 mg 1,000 mg, 2 cap, PO, QID, 240 cap, 02/20/2011 02/20/2011 Completed oral capsule, Substitution Allowed extended release mesalamine 800 mg, 2 tab, Route: PO, Drug 02/21/2011 02/22/2011 Discontinued form: ECTAB, BID, Start date: 02/21/11 9:00:00, Duration: 30 day, Stop date: 03/22/11 17:00:00 Saline Flush 0.9% 5 ml, Route: IVP, Drug Form: INJ, 02/20/2011 02/22/2011 Discontinued PRN, PRN Line Flush, Start date: 02/20/11 18:29:00, Duration: 30 day, Stop date: 03/22/11 18:28:00 ondansetron 4 mg, 2 mL, Route: IVP, Drug form: 02/20/2011 02/22/2011 Discontinued INJ, Q6H, PRN Nausea & Vomiting, Start date: 02/20/11 18:29:00, Duration: 30 day, Stop date: 03/22/11 18:28:00 morphine Sulfate 2 mg, 1 mL, Route: IVP, Drug form: 02/20/2011 02/22/2011 Discontinued INJ, Q3H, PRN Pain Score 4-6, Start date: 02/20/11 18:29:00, Duration: 30 day, Stop date: 03/22/11 18:28:00 Sodium Chloride 0.9% 1,000 mL, Rate: 125 ml/hr, Infuse 02/20/2011 02/22/2011 Discontinued IV 1,000 mL over: 8 hr, Route: IV, Total Volume: 1,000, Start date: 02/20/11 18:29:00, Duration: 30 day, Stop date: 03/22/11 18:28:00 Apriso 0.375 g oral 4 cap, PO, QAM, 120 cap, 02/20/2011 02/22/2011 Discontinued capsule, extended Substitution Allowed, ERCAP release Reglan 10 mg, 2 mL, Route: IV, Drug form: 02/20/2011 02/22/2011 Discontinued INJ, Before Meals & Bedtime, Start date: 02/20/11 21:00:00, Duration: 30 day, Stop date: 03/22/11 16:30:00 omeprazole 40 mg, Route: PO, Drug form: ECTAB, 02/21/2011 02/20/2011 Deleted Daily, Start date: 02/21/11 9:00:00, Duration: 30 day, Stop date: 03/22/11 9:00:00 metFORmin 850 mg, 1 tab, Route: PO, Drug 02/21/2011 02/22/2011 Discontinued form: TAB, BID-Meals, Start date: 02/21/11 8:00:00, Duration: 30 day, Stop date: 03/22/11 17:00:00 lactobacillus 2 cap, Route: PO, BID, Start date: 02/21/2011 02/20/2011 Deleted acidophilus 02/21/11 9:00:00, Duration: 30 day, Stop date: 03/22/11 17:00:00 glimepiride 2 mg, 1 tab, Route: PO, Drug form: 02/21/2011 02/22/2011 Discontinued TAB, Daily, Start date: 02/21/11 9:00:00, Duration: 30 day, Stop date: 03/22/11 9:00:00 enalapril 10 mg, 1 tab, Route: PO, Drug form: 02/21/2011 02/22/2011 Discontinued TAB, Daily, Start date: 02/21/11 9:00:00, Duration: 30 day, Stop date: 03/22/11 9:00:00 morphine Sulfate 2 mg, Route: IVP, ONCE, PRN as 02/20/2011 02/20/2011 Completed needed for pain, Start date: 02/20/11 17:55:00, Stop date: 03/22/11 17:54:00 insulin aspart 1 unit, 0.01 mL, Route: SUB-Q, Drug 02/20/2011 02/22/2011 Discontinued form: SOLN, Bedtime, PRN Blood Glucose Results, Start date: 02/20/11 18:27:00, Duration: 30 day, Stop date: 03/22/11 18:26:00 glucagon 1 mg, Route: IM, Drug form: 02/20/2011 02/22/2011 Discontinued PDR/INJ, PRN, PRN Blood Glucose Results, Priority: STAT, Start date: 02/20/11 18:27:00, Duration: 30 day, Stop date: 03/22/11 18:26:00 Dextrose 50% Syringe 12.5 gm, 25 mL, Route: IVP, Drug 02/20/2011 02/22/2011 Discontinued Form: INJ, PRN, PRN Blood Glucose Results, Start date: 02/20/11 18:27:00, Duration: 30 day, Stop date: 03/22/11 18:26:00 Dextrose 50% Syringe 25 gm, 50 mL, Route: IVP, Drug 02/20/2011 02/22/2011 Discontinued Form: INJ, PRN, PRN Blood Glucose Results, Start date: 02/20/11 18:27:00, Duration: 30 day, Stop date: 03/22/11 18:26:00 insulin aspart 5 unit, 0.05 mL, Route: SUB-Q, Drug 02/20/2011 02/22/2011 Discontinued form: SOLN, TID-Before Meals, PRN Blood Glucose Results, Start date: 02/20/11 18:27:00, Duration: 30 day, Stop date: 03/22/11 18:26:00 insulin aspart 1 unit, 0.01 mL, Route: SUB-Q, Drug 02/20/2011 02/22/2011 Discontinued form: SOLN, TID-Before Meals, PRN Blood Glucose Results, Start date: 02/20/11 18:27:00, Duration: 30 day, Stop date: 03/22/11 18:26:00 insulin aspart 2 unit, 0.02 mL, Route: SUB-Q, Drug 02/20/2011 02/22/2011 Discontinued form: SOLN, Bedtime, PRN Blood Glucose Results, Start date: 02/20/11 18:27:00, Duration: 30 day, Stop date: 03/22/11 18:26:00 insulin aspart 4 unit, 0.04 mL, Route: SUB-Q, Drug 02/20/2011 02/22/2011 Discontinued form: SOLN, TID-Before Meals, PRN Blood Glucose Results, Start date: 02/20/11 18:27:00, Duration: 30 day, Stop date: 03/22/11 18:26:00 insulin aspart 3 unit, 0.03 mL, Route: SUB-Q, Drug 02/20/2011 02/22/2011 Discontinued form: SOLN, TID-Before Meals, PRN Blood Glucose Results, Start date: 02/20/11 18:27:00, Duration: 30 day, Stop date: 03/22/11 18:26:00 insulin aspart 2 unit, 0.02 mL, Route: SUB-Q, Drug 02/20/2011 02/22/2011 Discontinued form: SOLN, TID-Before Meals, PRN Blood Glucose Results, Start date: 02/20/11 18:27:00, Duration: 30 day, Stop date: 03/22/11 18:26:00 insulin aspart 4 unit, 0.04 mL, Route: SUB-Q, Drug 02/20/2011 02/22/2011 Discontinued form: SOLN, Bedtime, PRN Blood Glucose Results, Start date: 02/20/11 18:27:00, Duration: 30 day, Stop date: 03/22/11 18:26:00 insulin aspart 3 unit, 0.03 mL, Route: SUB-Q, Drug 02/20/2011 02/22/2011 Discontinued form: SOLN, Bedtime, PRN Blood Glucose Results, Start date: 02/20/11 18:27:00, Duration: 30 day, Stop date: 03/22/11 18:26:00 Lantus 100 units/mL 15 unit, SUB-Q, Daily, 10 mL, 2, 2, 02/22/2011 ?? Ordered subcutaneous Substitution Allowed, SOLN solution Levemir 15 unit, 0.15 mL, Route: SUB-Q, 02/20/2011 02/22/2011 Discontinued Drug form: INJ, Bedtime, Start date: 02/20/11 21:00:00, Duration: 30 day, Stop date: 03/21/11 21:00:00 Phenergan 25 mg oral 25 mg, 1 tab, PO, Q6H, PRN, 30 tab, 02/22/2011 ?? Ordered tablet 2, 2, Nausea, Substitution Allowed Sodium Chloride 0.9% 1,000 mL, Rate: 1,000 ml/hr, Infuse 02/20/2011 02/20/2011 Completed (Bolus) IV 1,000 mL over: 1 hr, Route: IV, Total Volume: 1,000, Bolus Dose, Priority: STAT, Start date: 02/20/11 16:09:00, Duration: 1 doses or times, Stop date: 02/20/11 17:08:00 Sodium Chloride 0.9% IV, 0 ml/hr, ONCE, Start date: 02/21/2011 02/21/2011 Completed IV 02/21/11 0:51:00, 500 ml Vital Signs Most recent to oldest [Reference Range]: 1 2 3 Height 152.40 cm (02/20/2011 19:26:00) ?? 152.40 cm (02/20/2011 11:20:00) ? Temperature Oral [96.4-99.1 DegF] 98.0 DegF (02/22/2011 12:00:00) ?? 98.0 DegF (02/22/2011 08:00:00) ?? 97.4 DegF (02/22/2011 05:04:00) ?? Systolic Blood Pressure [90-140 mmHg] 128 mmHg (02/22/2011 12:00:00) ?? 112 mmHg (02/22/2011 08:00:00) ?? 102 mmHg (02/22/2011 05:04:00) ?? Diastolic Blood Pressure [60-90 mmHg] 75 mmHg (02/22/2011 12:00:00) ?? 69 mmHg (02/22/2011 08:00:00) ?? 47 mmHg *LOW* (02/22/2011 05:04:00) ?? Respiratory Rate [14-20 BRMIN] 18 BRMIN (02/22/2011 12:00:00) ?? 20 BRMIN (02/22/2011 08:00:00) ?? 18 BRMIN (02/22/2011 05:04:00) ?? Peripheral Pulse Rate [60-100 bpm] 81 bpm (02/22/2011 12:00:00) ?? 76 bpm (02/22/2011 08:00:00) ?? 89 bpm (02/22/2011 05:04:00) ?? Weight 86.364 kg (02/20/2011 19:26:00) ?? 86.364 kg (02/20/2011 11:20:00) ? Results BEDSIDE GLUCOSE TESTING Most recent to oldest [Reference Range]: 1 2 3 Gluc POC Lifscn [65-110 mg/dL] 112 mg/dL 1 *HI* (02/22/2011 16:00:00) ?? 243 mg/dL 2 *HI* (02/22/2011 11:30:00) ?? 128 mg/dL 3 *HI* (02/22/2011 06:02:00) ?? Comment1 Notify RN/MD *NA* (02/22/2011 16:00:00) ?? Notify RN/MD *NA* (02/21/2011 20:43:00) ?? Notify RN/MD *NA* (02/21/2011 15:26:00) ?? 1Interpretive Data: Upper Reportable Limit: 200 mg/dL. 2Interpretive Data: Upper Reportable Limit: 200 mg/dL. 3Interpretive Data: Upper Reportable Limit: 200 mg/dL. URINALYSIS Most recent to oldest [Reference Range]: 1 2 3 UA Turbidity [>Clear] Clear (02/20/2011 11:35:00) ? UA Color [>Yellow] Yellow *NA* (02/20/2011 11:35:00) ? UA pH [5.0-8.0] 5.0 (02/20/2011 11:35:00) ? UA Spec Grav [<<=1.030] 1.015 (02/20/2011 11:35:00) ? UA Glucose [>Negative mg/dL] >=1000 mg/dL *ABN* (02/20/2011 11:35:00) ? UA Blood [>Negative] Negative (02/20/2011 11:35:00) ? UA Ketones [>Negative mg/dL] Negative mg/dL *NA* (02/20/2011 11:35:00) ? UA Protein [>Negative mg/dL] Negative mg/dL (02/20/2011 11:35:00) ? UA Urobilinogen [0.1-1.0 EU/dL] 0.2 EU/dL (02/20/2011 11:35:00) ? UA Bili [>Negative] Negative *NA* (02/20/2011 11:35:00) ? UA Leuk Est [>Negative] Negative (02/20/2011 11:35:00) ? UA Nitrite [>Negative] Negative (02/20/2011 11:35:00) ? UA WBC [>None Seen /HPF] 0-2 /HPF (02/20/2011 11:35:00) ? UA RBC [>0-2] None Seen (02/20/2011 11:35:00) ? UA Bacteria [>None Seen /HPF] Few /HPF (02/20/2011 11:35:00) ? UA Sq Epi [>Few /LPF] Few /LPF (02/20/2011 11:35:00) ? UA Mucus [>None Seen /LPF] Few /LPF (02/20/2011 11:35:00) ? CHEMISTRY Most recent to oldest [Reference Range]: 1 2 3 Sodium Lvl [135-145 mEq/L] 139 mEq/L (02/21/2011 03:52:00) ?? 136 mEq/L (02/20/2011 11:35:00) ? Potassium Lvl [3.5-5.1 mEq/L] 3.7 mEq/L (02/21/2011 03:52:00) ?? 3.7 mEq/L (02/20/2011 11:35:00) ? Chloride Lvl [95-109 mEq/L] 104 mEq/L (02/21/2011 03:52:00) ?? 98 mEq/L (02/20/2011 11:35:00) ? CO2 [24-32 mEq/L] 26 mEq/L (02/21/2011 03:52:00) ?? 25 mEq/L (02/20/2011 11:35:00) ? AGAP [10.0-20.0 mEq/L] 12.7 mEq/L (02/21/2011 03:52:00) ?? 16.7 mEq/L (02/20/2011 11:35:00) ? Creatinine Lvl [0.5-1.4 mg/dL] 0.7 mg/dL (02/21/2011 03:52:00) ?? 0.9 mg/dL (02/20/2011 11:35:00) ? BUN [7-22 mg/dL] 5 mg/dL *LOW* (02/21/2011 03:52:00) ?? 11 mg/dL (02/20/2011 11:35:00) ? B/C Ratio [6-25] 7 (02/21/2011 03:52:00) ?? 12 (02/20/2011 11:35:00) ? Glucose Lvl 153 mg/dL 4 *NA* (02/21/2011 03:52:00) ?? 380 mg/dL 5 *NA* (02/20/2011 11:35:00) ? Total Protein [6.4-8.4 g/dL] 6.2 g/dL *LOW* (02/21/2011 03:52:00) ?? 7.3 g/dL (02/20/2011 11:35:00) ? Albumin Lvl [3.5-5.0 g/dL] 2.6 g/dL *LOW* (02/21/2011 03:52:00) ?? 3.1 g/dL *LOW* (02/20/2011 11:35:00) ? Globulin [2.0-4.0 g/dL] 3.6 g/dL (02/21/2011 03:52:00) ?? 4.2 g/dL *HI* (02/20/2011 11:35:00) ? A/G Ratio [0.7-1.6] 0.7 (02/21/2011 03:52:00) ?? 0.7 (02/20/2011 11:35:00) ? Calcium Lvl [8.5-10.5 mg/dL] 7.8 mg/dL *LOW* (02/21/2011 03:52:00) ?? 8.8 mg/dL (02/20/2011 11:35:00) ? ALT [0-65 U/L] 23 U/L (02/21/2011 03:52:00) ?? 30 U/L (02/20/2011 11:35:00) ? AST [0-37 U/L] 14 U/L (02/21/2011 03:52:00) ?? 19 U/L (02/20/2011 11:35:00) ? Alk Phos [39-136 U/L] 126 U/L (02/21/2011 03:52:00) ?? 170 U/L *HI* (02/20/2011 11:35:00) ? Bili Total [0.2-1.3 mg/dL] 0.5 mg/dL (02/21/2011 03:52:00) ?? 0.3 mg/dL (02/20/2011 11:35:00) ? Lipase Lvl [73-393 U/L] 158 U/L (02/20/2011 11:35:00) ? Hgb A1C 11.5 % 6 *NA* (02/20/2011 11:35:00) ? 4Interpretive Data: Reference Ranges : 0 - 7 days : 41 - 90 mg/dL7 days - 150 yrs : 70 - 99 mg/dL (fasting), based on the clinical recommendations of the [employer] [employer]. 5Interpretive Data: Reference Ranges : 0 - 7 days : 41 - 90 mg/dL7 days - 150 yrs : 70 - 99 mg/dL (fasting), based on the clinical recommendations of the [place] [employer]. 6Interpretive Data: HbA1C% eAG(mg/dL) Interpretation 6.0 126 Very good control 6.5 140 Very good control 7.0 154 Good Control 7.5 169 Good Control 8.0 183 Marginal Control, take action to lower 8.5 197 Marginal Control, take action to lower 9.0 212 Poor Control, take action to lower 9.5 226 Poor Control, take action to lower10.0 240 Poor Control, take action to lower HEMATOLOGY Most recent to oldest [Reference Range]: 1 2 3 WBC [3.7-10.4 K/CMM] 10.6 K/CMM *HI* (02/22/2011 05:55:00) ?? 14.1 K/CMM *HI* (02/21/2011 03:52:00) ?? 15.5 K/CMM *HI* (02/20/2011 11:35:00) ?? RBC [4.20-5.40 M/CMM] 3.43 M/CMM *LOW* (02/22/2011 05:55:00) ?? 3.68 M/CMM *LOW* (02/21/2011 03:52:00) ?? 4.06 M/CMM *LOW* (02/20/2011 11:35:00) ?? Hgb [12.0-16.0 g/dL] 10.9 g/dL *LOW* (02/22/2011 05:55:00) ?? 11.6 g/dL *LOW* (02/21/2011 03:52:00) ?? 12.8 g/dL (02/20/2011 11:35:00) ?? Hct [36.0-48.0 %] 31.6 % *LOW* (02/22/2011 05:55:00) ?? 33.6 % *LOW* (02/21/2011 03:52:00) ?? 37.3 % (02/20/2011 11:35:00) ?? MCV [81.0-99.0 fL] 92.3 fL (02/22/2011 05:55:00) ?? 91.3 fL (02/21/2011 03:52:00) ?? 91.8 fL (02/20/2011 11:35:00) ?? MCH [27.0-31.0 pg] 31.7 pg *HI* (02/22/2011 05:55:00) ?? 31.5 pg *HI* (02/21/2011 03:52:00) ?? 31.6 pg *HI* (02/20/2011 11:35:00) ?? MCHC [32.0-36.0 g/dL] 34.4 g/dL (02/22/2011 05:55:00) ?? 34.5 g/dL (02/21/2011 03:52:00) ?? 34.4 g/dL (02/20/2011 11:35:00) ?? RDW [11.5-14.5 %] 12.9 % (02/22/2011 05:55:00) ?? 12.9 % (02/21/2011 03:52:00) ?? 13.1 % (02/20/2011 11:35:00) ?? Platelet [133-450 K/CMM] 251 K/CMM (02/22/2011 05:55:00) ?? 277 K/CMM (02/21/2011 03:52:00) ?? 306 K/CMM (02/20/2011 11:35:00) ?? MPV [7.4-10.4 fL] 8.4 fL (02/22/2011 05:55:00) ?? 8.4 fL (02/21/2011 03:52:00) ?? 8.7 fL (02/20/2011 11:35:00) ?? Segs [45.0-75.0 %] 70.4 % (02/22/2011 05:55:00) ?? 73.1 % (02/21/2011 03:52:00) ?? 77.1 % *HI* (02/20/2011 11:35:00) ?? Lymphocytes [20.0-40.0 %] 19.1 % *LOW* (02/22/2011 05:55:00) ?? 16.9 % *LOW* (02/21/2011 03:52:00) ?? 16.5 % *LOW* (02/20/2011 11:35:00) ?? Monocytes [2.0-12.0 %] 9.2 % (02/22/2011 05:55:00) ?? 8.8 % (02/21/2011 03:52:00) ?? 5.3 % (02/20/2011 11:35:00) ?? Eosinophils [0.0-4.0 %] 1.1 % (02/22/2011 05:55:00) ?? 0.9 % (02/21/2011 03:52:00) ?? 0.9 % (02/20/2011 11:35:00) ?? Basophils [0.0-1.0 %] 0.2 % (02/22/2011 05:55:00) ?? 0.3 % (02/21/2011 03:52:00) ?? 0.2 % (02/20/2011 11:35:00) ?? Segs-Bands # [1.5-8.1 K/CMM] 7.5 K/CMM (02/22/2011 05:55:00) ?? 10.3 K/CMM *HI* (02/21/2011 03:52:00) ?? 12.0 K/CMM *HI* (02/20/2011 11:35:00) ?? Lymphocytes # [1.0-5.5 K/CMM] 2.0 K/CMM (02/22/2011 05:55:00) ?? 2.4 K/CMM (02/21/2011 03:52:00) ?? 2.6 K/CMM (02/20/2011 11:35:00) ?? Monocytes # [0.0-0.8 K/CMM] 1.0 K/CMM *HI* (02/22/2011 05:55:00) ?? 1.2 K/CMM *HI* (02/21/2011 03:52:00) ?? 0.8 K/CMM (02/20/2011 11:35:00) ?? Eosinophils # [0.0-0.5 K/CMM] 0.1 K/CMM (02/22/2011 05:55:00) ?? 0.1 K/CMM (02/21/2011 03:52:00) ?? 0.1 K/CMM (02/20/2011 11:35:00) ?? Basophils # [0.0-0.2 K/CMM] 0.0 K/CMM (02/22/2011 05:55:00) ?? 0.0 K/CMM (02/21/2011 03:52:00) ?? 0.0 K/CMM (02/20/2011 11:35:00) ?? RBC Morph Normal (02/20/2011 11:35:00) ? Plt Morph Normal (02/20/2011 11:35:00) ?
--- OUTSIDE RECORDS SUMMARY | 2018-04-04 13:03 | XMS REPORT ---
Author Author [facility] Address Unknown Phone Unavailable Care Team Providers Care Lead Net Software Developer Name Role Phone Torres COONEY Unavailable Unavailable Problems This patient has no known problems. Allergies, Adverse Reactions, Alerts This patient has no known allergies or adverse reactions. Medications This patient has no known medications. Results Test Description Test Time Test Comments Text Results Atomic Results Result Comments CHEST 2 VIEWS [place] [address] Patient Name: NATALIA CARRILLO MR #: [id number] : 1965 Age/Sex: 52/F Req #: [id number] Adm Physician: Ordered by: ADONAY COONEY MD Report #: [id number] Location: [facility] Room/Bed: Procedure: DX/CHEST 2 VIEWS Exam Date: 11/22/17 Exam Time: 1805 REPORT STATUS: Signed PROCEDURE: Frontal and lateral views of the chest. COMPARISON: [facility], DX, CHEST 2 VIEWS, 03/01/2012, 22:37. INDICATIONS: cough, fever FINDINGS: Lines/tubes: None. Lungs: The lungs are well inflated. There is no evidence of pneumonia or pulmonary edema. Pleura: There is no pleural effusion or pneumothorax. Mild right apical pleural-parenchymal coarsening, which may represent scarring. Heart and mediastinum: The heart and the mediastinum are normal. Bones: No acute bony abnormality. IMPRESSION: 1. no consolidation or effusion. 2. Mild right apical pleural-parenchymal coarsening, which may represent scarring. Recommend followup chest, PA and lateral in 2 months to document stability. Marielos Morales M.D. Dictated by: Marielos Morales M.D. on 11/22/2017 at 19:01 Electronically approved by: Marielos Moraels M.D. on 11/22/2017 at 19:01 Dictated By: MARIELOS MORALES MD 00 Transcribed By: FRANK on 11/22/171900 COPY TO: ADONAY COONEY MD
--- OUTSIDE RECORDS SUMMARY | 2018-04-04 13:03 | XMS REPORT | Summary of Care ---
Author Organization Unknown Address Unknown Phone Unavailable Encounter Dates Location Diagnoses Discharge Providers [facility] Nina 09/21/2013 [id number] [place] Susan NinaKaden ocampo [address] , [facility] Reason for Visit VOMITING,ABD PAIN,CHRONIC COLITIS Vital Signs 1 2 3 Most recent to oldest [Reference Range]: 152.4 cm (09/18/2013 12:14:00 [facility]) 152.4 cm (09/18/2013 12:11:00 [facility]) Height 98.3 DegF (09/21/2013 17:02:00 [facility]) 98.5 DegF (09/21/2013 11:21:00 [facility]) 98.0 DegF (09/21/2013 08:00:00 [facility]) Temperature Oral [96.4-99.1 DegF] 109 mmHg (09/21/2013 17:02:00 [facility]) 127 mmHg (09/21/2013 11:21:00 [facility]) 112 mmHg (09/21/2013 08:00:00 [facility]) Systolic Blood Pressure [90-140 mmHg] 72 mmHg (09/21/2013 17:02:00 [facility]) 72 mmHg (09/21/2013 11:21:00 [facility]) 73 mmHg (09/21/2013 08:00:00 [facility]) Diastolic Blood Pressure [60-90 mmHg] 20 BRMIN (09/21/2013 17:02:00 [facility]) 17 BRMIN (09/21/2013 11:21:00 [facility]) 16 BRMIN (09/21/2013 08:00:00 [facility]) Respiratory Rate [14-20 BRMIN] 93 bpm (09/21/2013 17:02:00 [facility]) 106 bpm *HI* (09/21/2013 11:21:00 [facility]) 95 bpm (09/21/2013 08:00:00 [facility]) Peripheral Pulse Rate [60-100 bpm] 88.636 kg (09/18/2013 12:14:00 [facility]) 88.636 kg (09/18/2013 12:11:00 [facility]) Weight 38.16 m2 (09/18/2013 12:14:00 [facility]) 38.16 m2 (09/18/2013 12:11:00 [facility]) Body Mass Index Problem List Condition Effective Dates Status Health Status Informant Colitis(Confirmed) Active Crohn Resolved disease(Confirmed) Diabetes Active mellitus(Confirmed) Diabetes Resolved mellitus(Confirmed) High Resolved cholesterol(Confirme d) HTN - Resolved Hypertension(Confirm ed) Hypertension(Confirm Active ed) Allergies, Adverse Reactions, Alerts Status Substance Reaction Severity Active Flagyl 375 Active penicillins Medications Medication Instructions Start Date Stop Date Status atorvastatin PO, Daily, 0 Refill(s) 09/19/2013 Ordered atropine 0.5 mg, 5 mL, Route: IVP, Drug 09/18/2013 09/21/2013 Discontinued form: INJ, PRN, PRN Bradycardia, Start date: 09/18/13 13:49:00, Duration: 30 day, Stop date: 10/18/13 13:48:00 [id number]-cli 1 cap, PO, TID-Before Meals, 09/20/2013 Ordered dinium 5 mg-2.5 mg Indigestion, # 40 cap, 0 Refill(s) oral capsule D10W 1,000 mL 1,000 mL, Rate: 50 ml/hr, Infuse 09/19/2013 09/19/2013 Discontinued over: 20 hr, Route: IV, Dosing Weight 88.636 kg, Total Volume: 1,000, Start date: 09/19/13 0:30:00, Duration: 30 day, Stop date: 10/19/13 0:29:00 d50 syringe Route: INJ, Drug Form: INJ, Dosing 09/19/2013 09/19/2013 Completed Weight 88.636, kg, ONCE, Start date: 09/19/13 0:36:00, Stop date: 09/19/13 0:36:00 D50W 1000 mL 1,000 mL, Rate: 20 ml/hr, Infuse 09/19/2013 09/19/2013 Deleted over: 50 hr, Route: IV, Dosing Weight 88.636 kg, Total Volume: 1,000, Start date: 09/19/13 0:27:00, Duration: 30 day, Stop date: 10/19/13 0:26:00 D5NS 1,000 mL 1,000 mL, Rate: 50 ml/hr, Infuse 09/19/2013 09/21/2013 Discontinued over: 20 hr, Route: IV, Dosing Weight 88.636 kg, Total Volume: 1,000, Start date: 09/19/13 23:05:00, Duration: 30 day, Stop date: 10/19/13 23:04:00 Dextrose 5% with 1,000 mL, Rate: 100 ml/hr, Infuse 09/18/2013 09/19/2013 Discontinued 0.45% NaCl IV 1,000 over: 10 hr, Route: IV, Dosing mL Weight 88.636 kg, Total Volume: 1,000, Start date: 09/18/13 15:42:00, Stop date: 10/18/13 15:41:00 Dextrose 50% Syringe 25 gm, 50 mL, Route: IVP, Drug 09/19/2013 09/21/2013 Discontinued Form: INJ, Dosing Weight 88.636, kg, PRN, PRN Blood Glucose Results, Start date: 09/19/13 23:45:00, Duration: 30 day, Stop date: 10/19/13 23:44:00 Dextrose 50% Syringe 12.5 gm, 25 mL, Route: IVP, Drug 09/19/2013 09/21/2013 Discontinued Form: INJ, Dosing Weight 88.636, kg, PRN, PRN Blood Glucose Results, Start date: 09/19/13 23:45:00, Duration: 30 day, Stop date: 10/19/13 23:44:00 glimepiride PO, BID, 0 Refill(s) 09/19/2013 Ordered glucagon 1 mg, Route: IM, Drug form: 09/19/2013 09/21/2013 Discontinued PDR/INJ, PRN, Dosing Weight 88.636, kg, PRN Blood Glucose Results, Start date: 09/19/13 23:45:00, Duration: 30 day, Stop date: 10/19/13 23:44:00 insulin aspart 5 unit, 0.05 mL, Route: IV, Drug 09/19/2013 09/19/2013 Completed form: SOLN, ONCE, Dosing Weight 88.636, kg, Priority: STAT, Start date: 09/19/13 21:02:00, Stop date: 09/19/13 21:02:00 Roll in palms of hands gently; Do not shake vigorously. (Same as: NovoLOG)"single patient use only" Stable for 28 days at room temperature.Expires in days from Date insulin aspart 4 unit, 0.04 mL, Route: SUB-Q, Drug 09/19/2013 09/21/2013 Discontinued form: SOLN, TID-Before Meals, Dosing Weight 88.636, kg, PRN Blood Glucose Results, Start date: 09/19/13 23:45:00, Duration: 30 day, Stop date: 10/19/13 23:44:00 Roll in palms of hands gently; Do not shake vigorously. (Same as: NovoLOG)"single patient use only" Stable for 28 days at room temperature.Expires in days from Date insulin aspart 5 unit, 0.05 mL, Route: SUB-Q, Drug 09/19/2013 09/21/2013 Discontinued form: SOLN, TID-Before Meals, Dosing Weight 88.636, kg, PRN Blood Glucose Results, Start date: 09/19/13 23:45:00, Duration: 30 day, Stop date: 10/19/13 23:44:00 Roll in palms of hands gently; Do not shake vigorously. (Same as: NovoLOG)"single patient use only" Stable for 28 days at room temperature.Expires in days from Date insulin aspart 1 unit, 0.01 mL, Route: SUB-Q, Drug 09/19/2013 09/21/2013 Discontinued form: SOLN, TID-Before Meals, Dosing Weight 88.636, kg, PRN Blood Glucose Results, Start date: 09/19/13 23:45:00, Duration: 30 day, Stop date: 10/19/13 23:44:00 Roll in palms of hands gently; Do not shake vigorously. (Same as: NovoLOG)"single patient use only" Stable for 28 days at room temperature.Expires in days from Date insulin aspart 2 unit, 0.02 mL, Route: SUB-Q, Drug 09/19/2013 09/21/2013 Discontinued form: SOLN, TID-Before Meals, Dosing Weight 88.636, kg, PRN Blood Glucose Results, Start date: 09/19/13 23:45:00, Duration: 30 day, Stop date: 10/19/13 23:44:00 Roll in palms of hands gently; Do not shake vigorously. (Same as: NovoLOG)"single patient use only" Stable for 28 days at room temperature.Expires in days from Date insulin aspart 3 unit, 0.03 mL, Route: SUB-Q, Drug 09/19/2013 09/21/2013 Discontinued form: SOLN, TID-Before Meals, Dosing Weight 88.636, kg, PRN Blood Glucose Results, Start date: 09/19/13 23:45:00, Duration: 30 day, Stop date: 10/19/13 23:44:00 Roll in palms of hands gently; Do not shake vigorously. (Same as: NovoLOG)"single patient use only" Stable for 28 days at room temperature.Expires in days from Date insulin aspart 4 unit, 0.04 mL, Route: SUB-Q, Drug 09/19/2013 09/21/2013 Discontinued form: SOLN, Bedtime, Dosing Weight 88.636, kg, PRN Blood Glucose Results, Start date: 09/19/13 23:45:00, Duration: 30 day, Stop date: 10/19/13 23:44:00 Roll in palms of hands gently; Do not shake vigorously. (Same as: NovoLOG)"single patient use only" Stable for 28 days at room temperature.Expires in days from Date insulin aspart 2 unit, 0.02 mL, Route: SUB-Q, Drug 09/19/2013 09/21/2013 Discontinued form: SOLN, Bedtime, Dosing Weight 88.636, kg, PRN Blood Glucose Results, Start date: 09/19/13 23:45:00, Duration: 30 day, Stop date: 10/19/13 23:44:00 Roll in palms of hands gently; Do not shake vigorously. (Same as: NovoLOG)"single patient use only" Stable for 28 days at room temperature.Expires in days from Date insulin aspart 3 unit, 0.03 mL, Route: SUB-Q, Drug 09/19/2013 09/21/2013 Discontinued form: SOLN, Bedtime, Dosing Weight 88.636, kg, PRN Blood Glucose Results, Start date: 09/19/13 23:45:00, Duration: 30 day, Stop date: 10/19/13 23:44:00 Roll in palms of hands gently; Do not shake vigorously. (Same as: NovoLOG)"single patient use only" Stable for 28 days at room temperature.Expires in days from Date insulin aspart 1 unit, 0.01 mL, Route: SUB-Q, Drug 09/19/2013 09/21/2013 Discontinued form: SOLN, Bedtime, Dosing Weight 88.636, kg, PRN Blood Glucose Results, Start date: 09/19/13 23:45:00, Duration: 30 day, Stop date: 10/19/13 23:44:00 Roll in palms of hands gently; Do not shake vigorously. (Same as: NovoLOG)"single patient use only" Stable for 28 days at room temperature.Expires in days from Date Kayexalate 30 gm, 120 mL, Route: PO, Drug 09/19/2013 09/19/2013 Completed form: SUSP, ONCE, Dosing Weight 88.636, kg, Priority: STAT, Start date: 09/19/13 20:58:00, Stop date: 09/19/13 20:58:00 (sodium polystyrene sulfonate 15 gm/60 ml TARYN) Shake well before use. (Same as: Kayexalate, SPS) Kayexalate 30 gm, 120 mL, Route: PO, Drug 09/19/2013 09/19/2013 Completed form: SUSP, ONCE, Dosing Weight 88.636, kg, Start date: 09/19/13 11:40:00, Stop date: 09/19/13 11:40:00 (sodium polystyrene sulfonate 15 gm/60 ml TARYN) Shake well before use. (Same as: Kayexalate, SPS) Kayexalate 30 gm, 120 mL, Route: PO, Drug 09/19/2013 09/19/2013 Completed form: SUSP, ONCE, Dosing Weight 88.636, kg, Start date: 09/19/13 6:43:00, Stop date: 09/19/13 6:43:00 (sodium polystyrene sulfonate 15 gm/60 ml TARYN) Shake well before use. (Same as: Kayexalate, SPS) Lantus 18 unit, SUB-Q, Bedtime, 0 09/19/2013 Ordered Refill(s) Levaquin 500 mg, 100 mL, Route: IVPB, Drug 09/18/2013 09/21/2013 Discontinued form: INJ, [id number], Start date: 09/18/13 13:00:00, Duration: 30 day, Stop date: 10/17/13 13:00:00 (Same as:Levaquin) Librax oral capsule 1 cap, Route: PO, Drug Form: CAP, 09/20/2013 09/21/2013 Discontinued Dosing Weight 88.636, kg, QID-Before Meals, PRN Other -See Comment, Start date: 09/20/13 13:03:00, Duration: 30 day, Stop date: 10/20/13 13:02:00, abdominal pain (Same As: Librax) Lipitor 10 mg, 1 tab, Route: PO, Drug form: 09/18/2013 09/21/2013 Discontinued TAB, Bedtime, Start date: 09/18/13 21:00:00, Duration: 30 day, Stop date: 10/17/13 21:00:00 (Same As: Lipitor) magnesium sulfate 2 gm, 50 mL, Route: IVPB, Drug 09/20/2013 09/20/2013 Completed form: INJ, Q2H, Dosing Weight 88.636, kg, Total dose=6 gm, Priority: NOW, Start date: 09/20/13 6:51:00, Duration: 3 doses or times, Stop date: 09/20/13 10:51:00 magnesium sulfate 2 gm, Route: IVPB, Drug form: INJ, 09/20/2013 09/20/2013 Discontinued ONCE, Dosing Weight 88.636, kg, Total dose=2 gm, Start date: 09/20/13 12:02:00, Duration: 1 doses or times, Stop date: 09/20/13 12:02:00 magnesium sulfate 2 2 gm, 50 mL, Route: IVPB, Drug 09/18/2013 09/18/2013 Completed gm in Water 50 ml form: INJ, ONCE, Dosing Weight 88.636, kg, Start date: 09/18/13 15:41:00, Duration: 2 hr, Stop date: 09/18/13 15:41:00 meloxicam PO, Daily, 0 Refill(s) 09/19/2013 09/21/2013 Discontinued metoprolol extended 25 mg, 1 tab, Route: PO, Drug form: 09/18/2013 09/19/2013 Discontinued release ERTAB, Q24H, Start date: 09/18/13 21:00:00, Duration: 30 day, Stop date: 10/17/13 21:00:00 (Same as: Toprol XL) Do Not Crush metoprolol extended 50 mg, 1 tab, Route: PO, Drug form: 09/19/2013 09/21/2013 Discontinued release ERTAB, Daily, Start date: 09/19/13 9:00:00, Duration: 30 day, Stop date: 10/18/13 9:00:00 (Same as: Toprol XL) May split tab, but do not crush. morphine Sulfate Route: IV, Q4H, Dosing Weight 09/18/2013 09/18/2013 Deleted 88.636, kg, PRN as needed for pain, Start date: 09/18/13 21:19:00, Duration: 30 day, Stop date: 10/18/13 21:18:00 morphine Sulfate 2 mg, 1 mL, Route: IV, Drug form: 09/18/2013 09/21/2013 Discontinued INJ, Q4H, PRN Pain Score 7-10, Start date: 09/18/13 21:38:00, Duration: 30 day, Stop date: 10/18/13 21:37:00 (Same as:MORPhine Sulfate) morphine Sulfate 1 mg, 0.5 mL, Route: IV, Drug form: 09/18/2013 09/21/2013 Discontinued INJ, Q4H, PRN Pain Score 4-6, Start date: 09/18/13 21:37:00, Duration: 30 day, Stop date: 10/18/13 21:36:00 (Same as:MORPhine Sulfate) nitroglycerin 0.4 mg 0.4 mg, 1 tab, Route: SL, Drug 09/18/2013 09/21/2013 Discontinued sublingual tablet form: TAB, Q5Min, PRN Chest Pain, Start date: 09/18/13 13:49:00, Duration: 30 day, Stop date: 10/18/13 13:48:00 (Same as:Nitroquick, Nitrostat)"Do Not Crush" Sublingual tablet NS (Bolus) IV - - 500 mL, 500 ml/hr, Infuse Over: 1 09/18/2013 09/18/2013 Completed hr, Route: IV, 500, Drug form: INJ, ONCE, Priority: STAT, Dosing Weight 88.636 kg, Start date: 09/18/13 20:43:00, Duration: 1 doses or times, Stop date: 09/18/13 20:43:00 Pentasa 1,000 mg, 4 cap, Route: PO, Drug 09/19/2013 09/21/2013 Discontinued form: ERCAP, QID, Dosing Weight 88.636, kg, Start date: 09/19/13 12:00:00, Duration: 30 day, Stop date: 10/19/13 6:00:00 Pentasa 500 mg oral 3 caps TID with meals, PO, 0 09/19/2013 Ordered capsule, extended Refill(s) release predniSONE 40 mg, 2 tab, Route: PO, Drug form: 09/19/2013 09/21/2013 Discontinued TAB, Daily, Dosing Weight 88.636, kg, Start date: 09/19/13 9:00:00, Duration: 30 day, Stop date: 10/18/13 9:00:00 Take with food. predniSONE 10 mg See Special Instructions, PO, 09/21/2013 10/19/2013 Ordered oral tablet Daily, 28 day regimen: 1st week - 40 mg (4 tabs) daily 2nd week - 30 mg (3 tabs) daily 3rd week - 20 mg (2 tabs) daily 4th week - 10 mg (1 tab) daily, # 70 tab, 0 Refill(s) 28 day regimen:1st week - 40 mg (4 tabs) [id number] week - 30 mg (3 tabs) [id number] week - 20 mg (2 tabs) [id number] week - 10 mg (1 tab) daily predniSONE taper 10 mg, PO, Daily, Substitution 09/21/2013 10/21/2013 Ordered weekly Allowed Prinivil 40 mg, 2 tab, Route: PO, Drug form: 09/19/2013 09/19/2013 Canceled TAB, Daily, Start date: 09/19/13 9:00:00, Duration: 30 day, Stop date: 10/18/13 9:00:00 (Same as: Prinivil, Zestril) Protonix 40 mg, 1 tab, Route: PO, Drug form: 09/18/2013 09/21/2013 Discontinued ECTAB, Before Dinner, Dosing Weight 88.636, kg, Priority: NOW, Start date: 09/18/13 21:11:00, Duration: 30 day, Stop date: 10/18/13 16:30:00 Tablet should not be chewed or crushed.(Same as: Protonix) Restoril 15 mg, 1 cap, Route: PO, Drug form: 09/18/2013 09/21/2013 Discontinued CAP, Bedtime, Dosing Weight 88.636, kg, PRN Sleep, Start date: 09/18/13 15:32:00, Duration: 30 day, Stop date: 10/18/13 15:31:00 (Same As: Restoril) Sodium Chloride 0.9% 1,000 mL, Rate: 120 ml/hr, Infuse 09/18/2013 09/18/2013 Discontinued IV 1,000 mL over: 8.3 hr, Route: IV, Dosing Weight 88.636 kg, Total Volume: 1,000, Start date: 09/18/13 14:00:00, Duration: 30 day, Stop date: 10/18/13 13:59:00 Sodium Chloride 0.9% 500 mL, Rate: 500 ml/hr, Infuse 09/18/2013 09/18/2013 Completed IV 500 mL over: 1 hr, Route: IV, Dosing Weight 88.636 kg, Total Volume: 500, Start date: 09/18/13 13:00:00, Duration: 1 hr, Stop date: 09/18/13 13:59:00 Synthroid 50 microgram, 1 tab, Route: PO, 09/19/2013 09/21/2013 Discontinued Drug form: TAB, [id number], Dosing Weight 88.636, kg, Start date: 09/19/13 6:30:00, Duration: 30 day, Stop date: 10/18/13 6:30:00 Take 1 hour before or 2 hours after meal; Enteral feeds may interefere with the absorption of this medication.(Same as:Levothroid, Synthroid) Tylenol 650 mg, 2 tab, Route: PO, Drug 09/18/2013 09/21/2013 Discontinued form: TAB, Q4H, Dosing Weight 88.636, kg, PRN Pain, Start date: 09/18/13 19:32:00, Duration: 30 day, Stop date: 10/18/13 19:31:00 Do not exceed 4 gm/day. (Same as: Tylenol) Unknown Home 3 caps, PO, Daily, Refill(s) 0 09/19/2013 Ordered Medication Zofran 4 mg, 2 mL, Route: IV, Drug form: 09/18/2013 09/21/2013 Discontinued INJ, Q6H, Dosing Weight 88.636, kg, PRN Nausea, Start date: 09/18/13 15:32:00, Duration: 30 day, Stop date: 10/18/13 15:31:00 (Same as: Zofran) Results ELECTROLYTES 1 2 3 Most recent to oldest [Reference Range]: 138 mEq/L (09/21/2013 04:01:00 [facility]) 139 mEq/L (09/20/2013 03:44[facility] 131 mEq/L *LOW* (09/19/2013 17:18:00 [facility]) Sodium Lvl [135-145 mEq/L] 4.3 mEq/L (09/21/2013 04:01:00 [facility]) 4.4 mEq/L (09/20/2013 03:44:00 [facility]) 5.7 mEq/L *HI* (09/19/2013 17:18:00 [facility]) Potassium Lvl [3.5-5.1 mEq/L] 104 mEq/L (09/21/2013 04:01:00 [facility]) 106 mEq/L (09/20/2013 03:44:00 [facility]) 102 mEq/L (09/19/2013 17:18:00 [facility]) Chloride Lvl [95-109 mEq/L] 29 mEq/L (09/21/2013 04:01:00 [facility]) 26 mEq/L (09/20/2013 03:44:00 [facility]) 21 mEq/L *LOW* (09/19/2013 17:18:00 [facility]) CO2 [24-32 mEq/L] 9.3 mEq/L *LOW* (09/21/2013 04:01:00 [facility]) 11.4 mEq/L (09/20/2013 03:44:00 [facility]) 13.7 mEq/L (09/19/2013 17:18:00 [facility]) AGAP [10.0-20.0 mEq/L] CHEM PANEL 1 2 3 Most recent to oldest [Reference Range]: 1.1 mg/dL (09/21/2013 04:01:00 [facility]) 0.9 mg/dL (09/20/2013 03:44:00 [facility]) 1.2 mg/dL (09/19/2013 17:18:00 [facility]) Creatinine Lvl [0.5-1.4 mg/dL] 59 mL/min/1.73m2 1 *NA* (09/21/2013 04:01:00 [facility]) 75 mL/min/1.73m2 2 *NA* (09/20/2013 03:44:00 [facility]) 53 mL/min/1.73m2 3 *NA* (09/19/2013 17:18:00 [facility]) eGFR 20 mg/dL (09/21/2013 04:01:00 [facility]) 14 mg/dL (09/20/2013 03:44:00 [facility]) 18 mg/dL (09/19/2013 17:18:00 [facility]) BUN [7-22 mg/dL] 16 (09/20/2013 03:44:00 [facility]) 23 (09/19/2013 03:44:00 [facility]) 29 *HI* (09/18/2013 13:21:00 [facility]) B/C Ratio [6-25] 192 mg/dL 4 *HI* (09/21/2013 04:01:00 [facility]) 104 mg/dL 5 *HI* (09/20/2013 03:44:00 [facility]) 344 mg/dL 6 *HI* (09/19/2013 17:18:00 [facility]) Glucose Lvl [70-99 mg/dL] 6.1 g/dL *LOW* (09/20/2013 03:44:00 [facility]) 6.4 g/dL (09/19/2013 03:44:00 [facility]) 8.2 g/dL (09/18/2013 13:21:00 [facility]) Total Protein [6.4-8.4 g/dL] 3.3 g/dL *LOW* (09/20/2013 03:44:00 [facility]) 3.5 g/dL (09/19/2013 03:44:00 [facility]) 4.0 g/dL (09/18/2013 13:21:00 [facility]) Albumin Lvl [3.5-5.0 g/dL] 2.8 g/dL (09/20/2013 03:44:00 [facility]) 2.9 g/dL (09/19/2013 03:44:00 [facility]) 4.2 g/dL *HI* (09/18/2013 13:21:00 [facility]) Globulin [2.0-4.0 g/dL] 1.2 (09/20/2013 03:44:00 [facility]) 1.2 (09/19/2013 03:44:00 [facility]) 1.0 (09/18/2013 13:21:00 [facility] A/G Ratio [0.7-1.6] 8.2 mg/dL *LOW* (09/21/2013 04:01:00 [facility]) 8.9 mg/dL (09/20/2013 03:44:00 [facility]) 8.9 mg/dL (09/19/2013 17:18:00 [facility]) Calcium Lvl [8.5-10.5 mg/dL] 1.8 mg/dL (09/21/2013 04:01:00 [facility]) 1.3 mg/dL *LOW* (09/20/2013 03:44:00 [facility]) 1.9 mg/dL (09/19/2013 03:44:00 [facility]) Magnesium Lvl [1.8-2.4 mg/dL] 29 unit/L (09/20/2013 03:44:00 [facility]) 27 unit/L (09/19/2013 03:44:00 [facility]) 32 unit/L (09/18/2013 13:21:00 [facility]) ALT [0-65 unit/L] 14 unit/L (09/20/2013 03:44:00 [facility]) 15 unit/L (09/19/2013 03:44:00 [facility]) 13 unit/L (09/18/2013 13:21:00 [facility]) AST [0-37 unit/L] 90 unit/L (09/20/2013 03:44:00 [facility]) 95 unit/L (09/19/2013 03:44:00 [facility]) 110 unit/L (09/18/2013 13:21:00 [facility]) Alk Phos [39-136 unit/L] 0.4 mg/dL (09/20/2013 03:44:00 [facility]) 0.4 mg/dL (09/19/2013 03:44:00 [facility]) 0.3 mg/dL (09/18/2013 13:21:00 [facility]) Bili Total [0.2-1.3 mg/dL] 49 unit/L (09/18/2013 13:21:00 [facility]) Amylase Lvl [25-115 unit/L] 199 unit/L (09/18/2013 13:21:00 [facility]) Lipase Lvl [73-393 unit/L] 1Result Comment: The eGFR is calculated using [...] be mul tiplied by the estimated BMI. 2Result Comment: The eGFR is calculated using [...] be mul tiplied by the estimated BMI. 3Result Comment: The eGFR is calculated using [...] be mul tiplied by the estimated BMI. 4Interpretive Data: Adult reference range values reflect the clinical guidelines of the [place] [employer]. 5Interpretive Data: Adult reference range values reflect the clinical guidelines of the [place] [employer]. 6Interpretive Data: Adult reference range values reflect the clinical guidelines of the [place] [employer]. CARDIAC ENZYMES 1 2 3 Most recent to oldest [Reference Range]: 55 unit/L (09/19/2013 03:44:00 [facility]) 62 unit/L (09/18/2013 13:21:00 [facility]) Total CK [12-191 unit/L] 0.7 ng/mL (09/19/2013 03:44:00 [facility]) 1.0 ng/mL (09/18/2013 13:21:00 [facility]) CK MB [0.5-3.6 ng/mL] 1.3 (09/19/2013 03:44:00 [facility]) 1.6 (09/18/2013 13:21:00 [facility]) CK MB Index [0.0-2.5] <0.02 ng/mL (09/19/2013 03:44:00 [facility]) <0.02 ng/mL (09/18/2013 13:21:00 [facility]) Troponin-I [0.00-0.40 ng/mL] <2 pg/mL 7 (09/19/2013 03:44:00 [facility]) BNP [<=100 pg/mL] 7Interpretive Data: Elevated results are in line with increasing severity of congestive heart failure. Minor elevations between 100 and 300 may be seen with Myocardial Ischemia, Sodium retaining drugs, and compensated/treated heart failure. LIPIDS 1 2 3 Most recent to oldest [Reference Range]: 2.03 *LOW* (09/19/2013 03:44:00 [facility]) CHD Risk [3.90-5.80] 140 mg/dL (09/19/2013 03:44:00 [facility]) Chol [<=199 mg/dL] 137 mg/dL (09/19/2013 03:44:00 [facility]) Trig [<=149 mg/dL] 69 mg/dL (09/19/2013 03:44:00 [facility]) HDL [>=61 mg/dL] 44 mg/dL (09/19/2013 03:44:00 [facility]) LDL (Calculated) [<=99 mg/dL] 27 *NA* (09/19/2013 03:44:00 [facility]) VLDL SPECIAL CHEMISTRY 1 2 3 Most recent to oldest [Reference Range]: 7.1 % *HI* (09/18/2013 13:21:00 [facility]) Hgb A1C [<=5.6 %] THYROID PANEL 1 2 3 Most recent to oldest [Reference Range]: 4.090 uIU/mL *HI* (09/18/2013 13:21:00 [facility]) TSH [0.360-3.740 uIU/mL] URINE AND STOOL 1 2 3 Most recent to oldest [Reference Range]: Clear (09/19/2013 03:00:00 [facility]) UA Turbidity [Clear] Ltyellow *NA* (09/19/2013 03:00:00 [facility]) UA Color 5.0 (09/19/2013 03:00:00 [facility]) UA pH [5.0-8.0] 1.008 (09/19/2013 03:00:00 [facility]) UA Spec Grav [<=1.030] Negative mg/dL *NA* (09/19/2013 03:00:00 [facility]) UA Glucose [Negative mg/dL] Negative (09/19/2013 03:00:00 [facility]) UA Blood [Negative] Negative mg/dL *NA* (09/19/2013 03:00:00 [facility]) UA Ketones [Negative mg/dL] Negative mg/dL (09/19/2013 03:00:00 [facility]) UA Protein [Negative mg/dL] <=1.0 mg/dL *NA* (09/19/2013 03:00:00 [facility]) UA Urobilinogen [0.1-1.0 mg/dL] Negative *NA* (09/19/2013 03:00:00 [facility]) UA Bili [Negative] Negative (09/19/2013 03:00:00 [facility]) UA Leuk Est [Negative] Negative (09/19/2013 03:00:00 [facility]) UA Nitrite [Negative] <1 /HPF (09/19/2013 03:00:00 [facility]) UA WBC [0-5 /HPF] None Seen *NA* (09/19/2013 03:00:00 [facility]) UA Sq Epi 2 /LPF (09/19/2013 03:00:00 [facility]) UA Hyal Cast [0-2 /LPF] HEMATOLOGY 1 2 3 Most recent to oldest [Reference Range]: 12.0 K/CMM *HI* (09/21/2013 04:01:00 [facility]) 10.9 K/CMM *HI* (09/20/2013 03:44:00 [facility]) 10.8 K/CMM *HI* (09/19/2013 03:44:00 [facility]) WBC [3.7-10.4 K/CMM] 3.77 M/CMM *LOW* (09/21/2013 04:01:00 [facility]) 4.04 M/CMM *LOW* (09/20/2013 03:44:00 [facility]) 4.32 M/CMM (09/19/2013 03:44:00 [facility]) RBC [4.20-5.40 M/CMM] 11.5 g/dL *LOW* (09/21/2013 04:01:00 [facility]) 12.3 g/dL (09/20/2013 03:44:00 [facility]) 13.3 g/dL (09/19/2013 03:44:00 [facility]) Hgb [12.0-16.0 g/dL] 35.0 % *LOW* (09/21/2013 04:01:00 [facility]) 37.6 % (09/20/2013 03:44:00 [facility]) 39.6 % (09/19/2013 03:44:00 [facility]) Hct [36.0-48.0 %] 92.7 fL (09/21/2013 04:01:00 [facility]) 93.0 fL (09/20/2013 03:44:00 [facility]) 91.7 fL (09/19/2013 03:44:00 [facility]) MCV [81.0-99.0 fL] 30.5 pg (09/21/2013 04:01:00 [facility]) 30.5 pg (09/20/2013 03:44:00 [facility]) 30.8 pg (09/19/2013 03:44:00 [facility] MCH [27.0-31.0 pg] 32.9 g/dL (09/21/2013 04:01:00 [facility] 32.8 g/dL (09/20/2013 03:44:00 [facility]) 33.6 g/dL (09/19/2013 03:44:00 [facility]) MCHC [32.0-36.0 g/dL] 14.3 % (09/21/2013 04:01:00 [facility]) 14.2 % (09/20/2013 03:44:00 [facility]) 14.2 % (09/19/2013 03:44:00 [facility]) RDW [11.5-14.5 %] 264 K/CMM (09/21/2013 04:01:00 [facility]) 278 K/CMM (09/20/2013 03:44:00 [facility]) 291 K/CMM (09/19/2013 03:44:00 [facility]) Platelet [133-450 K/CMM] 8.0 fL (09/21/2013 04:01:00 [facility]) 8.3 fL (09/20/2013 03:44:00 [facility]) 8.1 fL (09/19/2013 03:44:00 [facility]) MPV [7.4-10.4 fL] 58.5 % (09/21/2013 04:01:00 [facility]) 57.1 % (09/20/2013 03:44:00 [facility]) 61.0 % (09/19/2013 03:44:00 [facility]) Segs [45.0-75.0 %] 32.4 % (09/21/2013 04:01:00 [facility]) 31.9 % (09/20/2013 03:44:00 [facility]) 28.4 % (09/19/2013 03:44:00 [facility]) Lymphocytes [20.0-40.0 %] 8.4 % (09/21/2013 04:01:00 [facility]) 9.6 % (09/20/2013 03:44:00 [facility]) 9.3 % (09/19/2013 03:44:00 [facility]) Monocytes [2.0-12.0 %] 0.5 % (09/21/2013 04:01:00 [facility]) 1.1 % (09/20/2013 03:44:00 [facility]) 1.0 % (09/19/2013 03:44:00 [facility]) Eosinophils [0.0-4.0 %] 0.2 % (09/21/2013 04:01:00 [facility]) 0.3 % (09/20/2013 03:44:00 [facility]) 0.3 % (09/19/2013 03:44:00 [facility]) Basophils [0.0-1.0 %] 7.0 K/CMM (09/21/2013 04:01:00 [facility]) 6.2 K/CMM (09/20/2013 03:44:00 [facility]) 6.6 K/CMM (09/19/2013 03:44:00 [facility]) Segs-Bands # [1.5-8.1 K/CMM] 3.9 K/CMM (09/21/2013 04:01:00 [facility]) 3.5 K/CMM (09/20/2013 03:44:00 [facility]) 3.1 K/CMM (09/19/2013 03:44:00 [facility]) Lymphocytes # [1.0-5.5 K/CMM] 1.0 K/CMM *HI* (09/21/2013 04:01:00 [facility]) 1.0 K/CMM *HI* (09/20/2013 03:44:00 [facility]) 1.0 K/CMM *HI* (09/19/2013 03:44:00 [facility]) Monocytes # [0.0-0.8 K/CMM] 0.1 K/CMM (09/21/2013 04:01:00 [facility]) 0.1 K/CMM (09/20/2013 03:44:00 [facility]) 0.1 K/CMM (09/19/2013 03:44:00 [facility]) Eosinophils # [0.0-0.5 K/CMM] 0.0 K/CMM (09/21/2013 04:01:00 [facility]) 0.0 K/CMM (09/20/2013 03:44:00 [facility]) 0.0 K/CMM (09/19/2013 03:44:00 [facility]) Basophils # [0.0-0.2 K/CMM] Slight *ABN* (09/18/2013 13:21:00 [facility]) [place] Cell [None Seen] Normal (09/18/2013 13:21:00 [facility]) Plt Morph Medications Administered During Your Visit No data available for this section Immunizations Vaccine Date Refusal Reason tetanus toxoid 07/28/2012 Procedures Procedure Type Body Site Date of Procedure Related Diagnosis Appendectomy section Cholecystectomy Tonsillectomy Social History Social History Type Response Smoking Status Use: Current every day smoker. Tobacco smoke exposure: Lives with someone who smokes. Did the Patient Smoke Cigarettes Anytime During the Last 365 Days? No. Cessation Counseling Provided? No. Assessment and Plan Extracted from: Title: Clinical Document Author: Kaden Nina Date: 09/21/2013 DISCHARGE SUMMARY Diagnosis: Chrons Exacerbation DM Continue home meds nausea/ vomiting resolve HTN Hospital Course: Patient was admitted with the above medical problems. Iv fluids and electrolyte replacement. GI and Cardiology called, Patient did well and was discharge home in stable condition. Diet: See E order Activity: See E order Follow Up: See E order Physical Examination: Genenral: Not in acute distress Neuro: Awake and alert CV: RRR , no rub , no gallop , no murmur Pulm: Clear to ascultation Abd: BS + , soft , not distented , not tender to palpation Ext: No edema Skin: Not mottle
--- OUTSIDE RECORDS SUMMARY | 2018-04-04 13:03 | XMS REPORT | CCD ---
Author Author Auto Generated Organization [facility] Address Unknown Phone Unavailable Care Team Providers Care Meeting/Event Planner Name Role Phone MAMIE Stanley Lab CP Unavailable Mahsa Huff CP Unavailable Juan David Young CP Nereyda Gutierrez CP Unavailable Rachel Quezada CP Unavailable Sheela Cheng CP Unavailable McmorrowEleni CP ChartServer, Login CP Unavailable Faisal Cartagena CP [phone] John Garcia CP Unavailable Little Seo CP [phone] Lillie Felipe CP Unavailable Karolyn Darden CP Unavailable Anastasiya Paz CP Unavailable Shayy Pierre CP [id number] Syd Olsen CP Roseanne Dan CP Unavailable SYSTEM, SYSTEM CP Unavailable Yuki Hsu CP Unavailable Winter Mena CP Unavailable Natalie Chapman CP [phone] Gurjit Balderas CP Unavailable Aishwarya Francis CP [phone] Mor Hawkins CP [phone] Bushra Cruz CP Unavailable Galina Nieto CP [phone] Kalie Aguilar CP [phone] Florencia Valles CP Unavailable Arleen Hull CP Kwadwo Oshea CP Unavailable Kashif Gary CP Bozena Gordon CP Unavailable Chuyita Varma CP [phone] Carly Stanford CP Unavailable Allergies, Adverse Reactions, [...] IVPB, Drug 02/20/2011 02/22/2011 Discontinued form: INJ, [id number], Start date: 02/20/11 21:00:00, Duration: 30 day, [...] 03/22/11 10:00:00 ceftriaxone 1 gm, Route: IVPB, [id number], Start 02/20/2011 02/20/2011 Discontinued date: 02/20/11 19:00:00, [...] based on the clinical recommendations of the [place] [employer]. 5Interpretive Data: Reference Ranges : 0 - 7 days : 41 - 90 mg/dL7 days - 150 yrs : 70 - 99 mg/dL (fasting), based on the clinical recommendations of the [place] [employer]. 6Interpretive Data: HbA1C% eAG(mg/dL) Interpretation [...]
--- OUTSIDE RECORDS SUMMARY | 2018-04-04 13:03 | XMS REPORT | CCD ---
Author Author Auto Generated Organization [facility] Address Unknown Phone Unavailable Care Team Providers Care Quad Stayer Name Role Phone Braxton Pro CP Allergies, Adverse Reactions, Alerts Substance Reaction Status Flagyl Canceled penicillins Active Problem List Condition Effective Dates Status Colitis Active Diabetes mellitus Active Hypertension Active Medications Medication Instructions Start Date End Date Status Flexeril 5 mg oral 5 mg, 1 tab, PO, TID, 12 tab, 10/13/2011 10/23/2011 Ordered tablet Substitution Allowed, TAB morphine Sulfate 2 mg, Route: IVP, ONCE, Priority: 10/13/2011 10/13/2011 Completed STAT, Start date: 10/13/11 11:44:00, Stop date: 10/13/11 11:44:00 ondansetron 4 mg, Route: PO, Drug form: TABDIS, 10/13/2011 10/13/2011 Completed ONCE, Priority: STAT, Start date: 10/13/11 11:49:00, Stop date: 10/13/11 11:49:00 Vital Signs Most recent to oldest [Reference Range]: 1 Height 152.40 cm (10/13/2011 08:53:00) Weight 86.364 kg (10/13/2011 08:53:00) Results URINALYSIS Most recent to oldest [Reference Range]: 1 UA Turbidity [Clear] Clear (10/13/2011 10:02:00) UA Color [Yellow] Yellow *NA* (10/13/2011 10:02:00) UA pH [5.0-8.0] 6.0 (10/13/2011 10:02:00) UA Spec Grav [<=1.030] 1.025 (10/13/2011 10:02:00) UA Glucose [Negative mg/dL] >=1000 mg/dL *ABN* (10/13/2011 10:02:00) UA Blood [Negative] Negative (10/13/2011 10:02:00) UA Ketones [Negative] Trace *ABN* (10/13/2011 10:02:00) UA Protein [Negative mg/dL] 30 mg/dL *ABN* (10/13/2011 10:02:00) UA Urobilinogen [0.1-1.0 EU/dL] 0.2 EU/dL (10/13/2011 10:02:00) UA Bili [Negative] Negative *NA* (10/13/2011 10:02:00) UA Leuk Est [Negative] Negative (10/13/2011 10:02:00) UA Nitrite [Negative] Negative (10/13/2011 10:02:00) UA WBC [None Seen /HPF] 0-2 /HPF (10/13/2011 10:02:00) UA RBC [0-2] None Seen (10/13/2011 10:02:00) UA Bacteria [None Seen] None Seen (10/13/2011 10:02:00) UA Sq Epi [Few /LPF] Rare /LPF (10/13/2011 10:02:00) UA Mucus [None Seen /LPF] Few /LPF (10/13/2011 10:02:00) Micro? Performed (10/13/2011 10:02:00) CHEMISTRY Most recent to oldest [Reference Range]: 1 Sodium Lvl [135-145 mEq/L] 140 mEq/L (10/13/2011 11:35:00) Potassium Lvl [3.5-5.1 mEq/L] 4.0 mEq/L (10/13/2011 11:35:00) Chloride Lvl [95-109 mEq/L] 102 mEq/L (10/13/2011 11:35:00) CO2 [24-32 mEq/L] 28 mEq/L (10/13/2011 11:35:00) AGAP [10.0-20.0 mEq/L] 14.0 mEq/L (10/13/2011 11:35:00) Creatinine Lvl [0.5-1.4 mg/dL] 0.8 mg/dL (10/13/2011 11:35:00) BUN [7-22 mg/dL] 6 mg/dL *LOW* (10/13/2011 11:35:00) B/C Ratio [6-25] 8 (10/13/2011 11:35:00) Glucose Lvl [70-99 mg/dL] 214 mg/dL 1 *HI* (10/13/2011 11:35:00) Total Protein [6.4-8.4 g/dL] 7.8 g/dL (10/13/2011 11:35:00) Albumin Lvl [3.5-5.0 g/dL] 3.2 g/dL *LOW* (10/13/2011 11:35:00) Globulin [2.0-4.0 g/dL] 4.6 g/dL *HI* (10/13/2011 11:35:00) A/G Ratio [0.7-1.6] 0.7 (10/13/2011 11:35:00) Calcium Lvl [8.5-10.5 mg/dL] 8.7 mg/dL (10/13/2011 11:35:00) ALT [0-65 U/L] 26 U/L (10/13/2011 11:35:00) AST [0-37 U/L] 17 U/L (10/13/2011 11:35:00) Alk Phos [39-136 U/L] 229 U/L *HI* (10/13/2011 11:35:00) Bili Total [0.2-1.3 mg/dL] 0.3 mg/dL (10/13/2011 11:35:00) U Preg [Negative] Negative (10/13/2011 10:02:00) 1Interpretive Data: Adult reference range values reflect the clinical guidelinesof the [place] [employer]. HEMATOLOGY Most recent to oldest [Reference Range]: 1 WBC [3.7-10.4 K/CMM] 8.6 K/CMM (10/13/2011 11:35:00) RBC [4.20-5.40 M/CMM] 4.45 M/CMM (10/13/2011 11:35:00) Hgb [12.0-16.0 g/dL] 14.4 g/dL (10/13/2011 11:35:00) Hct [36.0-48.0 %] 42.3 % (10/13/2011 11:35:00) MCV [81.0-99.0 fL] 94.9 fL (10/13/2011:35:00) MCH [27.0-31.0 pg] 32.4 pg *HI* (10/13/2011:35:00) MCHC [32.0-36.0 g/dL] 34.1 g/dL (10/13/2011:35:00) RDW [11.5-14.5 %] 12.8 % (10/13/2011 11:35:00) Platelet [133-450 K/CMM] 237 K/CMM (10/13/2011 11:35:00) MPV [7.4-10.4 fL] 8.6 fL (10/13/2011:35:00) Segs [45.0-75.0 %] 66.4 % (10/13/2011:35:00) Lymphocytes [20.0-40.0 %] 23.3 % (10/13/2011 11:35:00) Monocytes [2.0-12.0 %] 9.3 % (10/13/2011 11:35:00) Eosinophils [0.0-4.0 %] 0.6 % (10/13/2011:35:00) Basophils [0.0-1.0 %] 0.4 % (10/13/2011:35:00) Segs-Bands # [1.5-8.1 K/CMM] 5.7 K/CMM (10/13/2011 11:35:00) Lymphocytes # [1.0-5.5 K/CMM] 2.0 K/CMM (10/13/2011 11:35:00) Monocytes # [0.0-0.8 K/CMM] 0.8 K/CMM (10/13/2011 11:35:00) Eosinophils # [0.0-0.5 K/CMM] 0.1 K/CMM (10/13/2011 11:35:00) Basophils # [0.0-0.2 K/CMM] 0.0 K/CMM (10/13/2011 11:35:00) PT [12.0-14.7 seconds] 13.3 seconds (10/13/2011 11:35:00) INR [0.85-1.17] 1.01 2 (10/13/2011 11:35:00) PTT [22.9-35.8 seconds] 29.2 seconds 3 (10/13/2011 11:35:00) 2Interpretive Data: RECOMMENDED RANGES FOR PROTIME INR: 2.0-3.0 for most medical and surgical thromboembolic states. 2.5-3.5 for artificial heart valves and recurrent embolism.INR SHOULD BE USED ONLY FOR PATIENTS ON STABLE ANTICOAGULANT THERAPY. 3Interpretive Data: Heparin Therapeutic Range: 57 - 92 Seconds
--- OUTSIDE RECORDS SUMMARY | 2018-04-04 13:03 | XMS REPORT ---
Author Author Eligio Prescott [facility] eClinicalWorks Address Unknown Phone Unavailable Care Team Providers Care Loading Inspector Name Role Phone Eligio Prescott CP Unavailable Allergies No Known Allergies Problems Problem Type Condition Code Onset Dates Condition Status Problem Avascular necrosis M87.00 Active Problem Osteochondral defect M95.8 Active Problem Pain in right foot M79.671 Active Problem Joint stiffness of right foot M25.674 Active Medications No Known Medications Results No Known Results Summary Purpose eClinicalWorks Submission
--- NOTE | 2018-06-05 02:04 | Discharge Summary ---
HOSPITAL COURSE: The patient came in with cellulitis of the arm, on clindamycin q.6 h. Patient was started back on her diabetic medication also and also on hypothyroidism medicine. Patient's cellulitis did get better with IV clindamycin. Patient was discharged home on IV clindamycin, to be followed up on a later date by me. Patient also has additional history of dog scratch which started the cellulitis and also COPD which we started the patient on Solu-Medrol. The patient was discharged home on clindamycin, to be seen back by me in about 1 week's time. FINAL DIAGNOSES 1. Cellulitis of the upper extremity, status post dog scratch. 2. Diabetes mellitus. 3. Chronic obstructive pulmonary disease. 4. Hypertension. 5. Uncontrolled diabetes mellitus. For further information, look in the chart. For medicines on discharge, look in the medical reconciliation sheet. ADONAY COONEY MD Job#: [id number]
== END 2018-04-02 16:30 | disposition home or self-care (01) | DRG 603 ==
LOC: ER 12:39 → ERHOLD 14:52 → MED/SURG2 18:06
PROVIDERS: ADMIT Family Medicine; ATTEND Family Medicine
DX: L03.113 Cellulitis of right upper limb (principal); E87.1 Hypo-osmolality and hyponatremia; K50.90 Crohn's disease, unspecified, without complications; E86.0 Dehydration; E11.65 Type 2 diabetes mellitus with hyperglycemia; I10 Essential (primary) hypertension; J45.909 Unspecified asthma, uncomplicated; K21.9 Gastro-esophageal reflux disease without esophagitis; K44.9 Diaphragmatic hernia without obstruction or gangrene; S50.811A Abrasion of right forearm, initial encounter; W45.8XXA Other foreign body or object entering through skin, initial encounter; W22.8XXA Striking against or struck by other objects, initial encounter; I25.10 Atherosclerotic heart disease of native coronary artery without angina pectoris; E78.5 Hyperlipidemia, unspecified; E66.9 Obesity, unspecified; Z68.38 Body mass index [BMI] 38.0-38.9, adult; Z88.0 Allergy status to penicillin
CPT/HCPCS: 36415; 80048; 82948; 83605; 85025; 85610; 85730; 87040; 93971; 94640; 99284; J2270; J3370; J7030

== ENCOUNTER 2018-04-10 16:28 | Inpatient (IN) | payer SELFPAY ==
[~2018-04-10] VITALS: Ht 152.4 cm; Wt 88.5 kg
[~2018-04-10 16:28] MED LIST changes: +CLINDAMYCIN HC150 MG PO
[2018-04-10] MEDS ORDERED: IBUPROFEN 200 MG TAB PO PRN ×2 (17:00→18:30)
[2018-04-10] MEDS ORDERED: ONDANSETRON HCL INJ 2 MG/ML VIAL IV PRN ×2 (17:00→18:30)
[2018-04-10] MEDS ORDERED: ACETAMINOPHEN 325 MG TAB PO PRN ×2 (17:00→18:30)
[2018-04-10] MEDS ORDERED: HYDROCODONE/APAP 7.5MG-325MG 1 EA TAB PO PRN (17:00)
[2018-04-10] MEDS ORDERED: PROMETHAZINE 12.5MG/ NACL 0.9% 12.5 MG/50 ML BAG IV PRN (17:00)
[2018-04-10] MEDS ORDERED: NOVOLOG100 UNITS1 SQ (17:53)
[2018-04-10] MEDS ORDERED: PROAIR HFA INH8.5 GM (17:53)
[2018-04-10] MEDS ORDERED: XIFAXAN550 MG PO (17:53)
[2018-04-10] MEDS ORDERED: SYMBICORT 80-10.2 GM INH (17:53)
[2018-04-10] MEDS ORDERED: GABAPENTIN300 MG PO (17:53)
[2018-04-10] MEDS ORDERED: GLIMEPIRIDE4 MG PO (17:53)
[2018-04-10] MEDS ORDERED: CLONAZEPAM0.5 MG PO (17:53)
[2018-04-10] MEDS ORDERED: SUCRALFATE1 GM PO (17:53)
[2018-04-10] MEDS ORDERED: ASPIR 8181 MG PO (17:53)
[2018-04-10] MEDS ORDERED: LANTUS 3ML100 UNITS/ SQ (17:53)
[2018-04-10] MEDS ORDERED: CYCLOBENZAPRINE10 MG PO (17:53)
[2018-04-10] MEDS: MORPHINE SULFATE INJ 4 MG/ML INJ IV PRN ×2 (18:01→22:16)
[2018-04-10] MEDS: VANCOMYCIN 1GM/NS 250 ML 250 ML IV SCH (18:02)
[2018-04-10 18:15] LABS: BASOPHILS % 0.3 % (0.0-1.0); EOSINOPHILS # (AUTO) 0.1 (0.0-0.4); EOSINOPHILS % 1.1 % (0.0-6.0); HEMATOCRIT 35.2 % (34.2-44.1); HEMOGLOBIN 11.2 g/dL (12.0-16.0); LYMPHOCYTES # (AUTO) 2.6 (1.0-3.2); LYMPHOCYTES % 20.9 % (18.0-39.1); MEAN CORPUSCULAR HEMOGLOBIN 32.2 pg (28-32); MEAN CORPUSCULAR HGB CONC 31.8 g/dL (31-35); MEAN CORPUSCULAR VOLUME 101.1 fL (81-99); MONOCYTES # (AUTO) 1.2 (0.2-0.8); MONOCYTES % 10.1 % (4.4-11.3); PLATELET COUNT 390 x10e3/uL (140-360); RED BLOOD COUNT 3.48 x10e6/uL (3.6-5.1); RED CELL DISTRIBUTION WIDTH 13.8 % (11.7-14.4)
[2018-04-10] MEDS ORDERED: CLONIDINE HCL 0.1 MG TAB PO PRN (18:30)
[2018-04-10] MEDS ORDERED: ENALAPRILAT IV INJ 1.25 MG/ML VIAL IV PRN (18:30)
[2018-04-10] MEDS ORDERED: LACTULOSE SYRUP 20 GM/30 ML UDC PO PRN (18:30)
[2018-04-10] MEDS ORDERED: DIPHENHYDRAMINE HCL 25 MG CAP PO PRN (18:30)
[2018-04-10] MEDS ORDERED: DIPHENHYDRAMINE HCL INJ 50 MG/ML VIAL IV PRN (18:30)
[2018-04-10] MEDS ORDERED: SODIUM CHLORIDE FLUSH 10 ML SYR INJ PRN (18:30)
[2018-04-10] MEDS ORDERED: ZOLPIDEM TARTRATE 5 MG TAB PO PRN (18:30)
[2018-04-10 18:37] LABS: ALANINE AMINOTRANSFERASE 20 IU/L (0-55); ALBUMIN 2.8 g/dL (3.5-5.0); ALBUMIN/GLOBULIN RATIO 0.8 (0.8-2.0); ALKALINE PHOSPHATASE 91 IU/L (40-150); ANION GAP 18.7 mmol/L (8-16); BLOOD UREA NITROGEN 14 mg/dL (7-26); BUN/CREATININE RATIO 17 (6-25); CALCIUM 8.6 mg/dL (8.4-10.2); CARBON DIOXIDE 22 mmol/L (22-29); CHLORIDE 102 mmol/L (98-107); CREATININE, SERUM 0.82 mg/dL (0.57-1.11); EST GLOMERULAR FILTRATION RATE > 60 ML/MIN (60-); GLUCOSE 187 mg/dL (74-118); POTASSIUM 3.7 mmol/L (3.5-5.1); SODIUM 139 mmol/L (136-145)
[2018-04-10] MEDS ORDERED: MORPHINE SULFATE INJ 4 MG/ML INJ IV PRN (18:45)
[2018-04-10 18:57] LABS: HYPOCHROMASIA SLIGHT; LYMPHOCYTES % (MANUAL) 12 % (19-48); MONOCYTES % (MANUAL) 6 % (3.4-9.0); NEUTROPHILS % (MANUAL) 82 % (40-74); PLATELET ESTIMATE SLIGHTLY INCREASED; PLATELET MORPHOLOGY COMMENT NORMAL; RBC MORPHOLOGY COMMENT NORMAL
[2018-04-10] MEDS ORDERED: MORPHINE SULFATE 2 MG/ML SYR IV PRN (20:00)
[2018-04-10] MEDS: AZTREONAM 2GM/NS 100ML 100 ML IV SCH (20:21)
[2018-04-11] MEDS: AZTREONAM 2GM/NS 100ML 100 ML IV SCH (04:54)
[2018-04-11] MEDS: VANCOMYCIN 1GM/NS 250 ML 250 ML IV SCH ×2 (06:32→17:30)
[2018-04-11] MEDS ORDERED: ALBUTEROL SULFATE HFA 8GM INHALATION AEROSOL INH PRN (07:00)
[2018-04-11] MEDS ORDERED: HYDROCODONE/APAP 5MG-325MG TAB PO PRN (07:00)
--- NOTE | 2018-04-11 07:22 | History and Physical ---
A 52-year-old female who was recently discharged from the hospital comes back with complaint of right arm pain and redness. HISTORY OF PRESENT ILLNESS: This is Ms. Shayy Meraz who was recently admitted to the hospital for infection of the right arm, status post cat bite, and was given IV antibiotics, and was discharged home on clindamycin. The patient comes back here today with increased pain and tenderness in the area of the cat scratch, and also spreading lymphangitis on the right upper arm. The patient also complains of some weakness and tiredness, and also is very lethargic and came in, and was found to have increased white count and was admitted for cellulitis of the right upper arm. PAST MEDICAL HISTORY: History of hypertension, history of hyperlipidemia, history of ulcerative colitis, history of COPD, history of diabetes mellitus. PAST SURGICAL HISTORY: Gallbladder surgery, appendectomy, tonsillectomy, , and also history of left wrist broken. SOCIAL HISTORY: The patient is a current smoker of half a pack a day. No ETOH. No IV drug abuse either. MEDICATIONS: She takes: 1. Albuterol inhaler. 2. Aspirin 81 mg. 3. Atorvastatin. 4. Budesonide. 5. Clindamycin 3 times a day. 6. Clonazepam 0.5 mg daily. 7. Cyclobenzaprine 10 mg b.i.d. 8. Gabapentin 300 mg 3 times a day. 9. Hydrocodone q.4 h. as needed. 10. Insulin glargine and NovoLog. 11. Levothyroxine. 12. Pentasa. 13. Metformin. 14. Metoprolol. 15. Omeprazole. 16. Xifaxan. 17. Carafate. REVIEW OF SYSTEMS: Negative for chest pain. Positive for shortness of breath. No nausea, vomiting, diarrhea. No constipation. No rectal bleeding. No hematochezia. No hematemesis. PHYSICAL EXAM GENERAL: The patient is alert and oriented times 3. In no acute distress. VITAL SIGNS: Temperature is 98.5, pulse 106, respirations 20, blood pressure 128/87, pulse ox 99%. HEENT: Normocephalic and atraumatic. Pupils reactive to light and accommodation. CV: S1 and S2 normal. Regular rate and rhythm. LUNGS: Decreased air entry in all lung wing. ABDOMEN: Nontender and nondistended. EXTREMITIES: No clubbing. No cyanosis. No edema. Right upper extremity with multiple areas of small abscess like lesions. Small spreading lymphangitis . Positive for axillary lymph node in the right upper extremity. LABORATORY VALUES: Initial white count is 12.23. of 65. Chemistry shows sodium 139, glucose 187. MICROBIOLOGY: Blood cultures are pending. ASSESSMENT 1. Cellulitis of the right upper extremity: Status post right cat scratch. Will go ahead and start her back on Azactam and vancomycin. Troughs will be done. Infectious disease consult has been done. Blood cultures will be followed. Will restart all of her home medications for diabetes and chronic obstructive pulmonary disease. 2. The patient also has a history of coronary artery disease. Further recommendations per clinical course. Will continue monitoring the patient along with the consultants. Job#: [id number] THONY
[2018-04-11] MEDS: CYCLOBENZAPRINE HCL 10 MG TAB PO SCH ×3 (08:00→21:53)
[2018-04-11] MEDS: METOPROLOL TARTRATE 50 MG TAB PO SCH ×2 (08:00→17:00)
[2018-04-11] MEDS: PANTOPRAZOLE SOD 40 MG TABEC PO SCH ×2 (08:00→17:00)
[2018-04-11] MEDS: MESALAMINE 500 MG CAPCR PO SCH ×4 (08:00→21:52)
[2018-04-11] MEDS: SUCRALFATE 1 GM TAB PO SCH ×4 (08:00→21:52)
[2018-04-11] MEDS: ASPIRIN 81 MG CHEW TAB PO SCH (08:00)
[2018-04-11] MEDS: METFORMIN HCL 500 MG TAB PO SCH ×2 (08:00→17:00)
[2018-04-11] MEDS: GABAPENTIN 300 MG CAP PO SCH ×3 (08:00→21:54)
[2018-04-11] MEDS: FAMOTIDINE 20 MG TAB PO SCH ×2 (08:00→17:00)
[2018-04-11] MEDS: CLONAZEPAM 0.5 MG TAB PO SCH (08:00)
[2018-04-11] MEDS ORDERED: PANTOPRAZOLE SOD 40 MG TABEC PO SCH (09:00)
[2018-04-11] MEDS: BUDESONIDE/FORMOTEROL FUMARATE 80/4.5MCG 6.9 GM INH AEROSOL IH SCH ×2 (09:00→19:30)
[2018-04-11] MEDS ORDERED: LEVOTHYROXINE SODIUM 25 MCG TABLET PO SCH (09:00)
[2018-04-11] MEDS ORDERED: ATORVASTATIN 10 MG TAB PO SCH (09:00)
[2018-04-11 09:10] VITALS: BP 143/93
[2018-04-11] MEDS: MORPHINE SULFATE INJ 4 MG/ML INJ IV PRN ×2 (09:29→13:40)
[2018-04-11] MEDS ORDERED: LIDOCAINE 1% 5ML-MPF INJ ONE (11:38)
--- NOTE | 2018-04-11 12:09 | Diagnostic Imaging Report ---
EXAMINATION: CHEST XRAY LINE PLACEMENT INDICATION: PICC Placement COMPARISON: None FINDINGS: TUBES and LINES: Left sided PICC with tip coursing cranially into the neck, the tip is not seen, but likely in the internal jugular vein. LUNGS: Low lung volumes. Mild patchy bibasilar opacities, likely atelectasis. There is no evidence of pneumonia or pulmonary edema. PLEURA: No pleural effusion or pneumothorax. HEART AND MEDIASTINUM: The cardiomediastinal silhouette is unremarkable. BONES AND SOFT TISSUES: No acute osseous lesion. Soft tissues are unremarkable. UPPER ABDOMEN: No free air under the diaphragm. IMPRESSION: Left sided PICC with tip coursing cranially into the neck, the tip is not seen, but likely in the internal jugular vein. Findings discussed in person with PICC team, plan for fluoroscopic guided exchange/repositioning. No evidence of pneumothorax. Signed by: Dr. Kelley Barragan MD on 04/11/2018 12:06 PM
[2018-04-11 12:22] VITALS: BP 114/72
[2018-04-11 12:26] VITALS: BP 114/72
--- NOTE | 2018-04-11 12:37 | Diagnostic Imaging Report ---
PROCEDURE: Left PICC exchange with fluoroscopic guidance INDICATION: Malpositioned tip to previously inserted left sided PICC line OPERATORS: Kelley Barragan MD SEDATION: Local MEDICATION: 2 cc of 1% subcutaneous lidocaine RADIATION EXPOSURE: Fluoroscopy Time: 0.7 min, Dose:17.33 mGy, TECHNIQUE: Informed consent was obtained. Maximum sterile barrier technique was used throughout the procedure, with sterile gown and gloves, cap, mask and protective eye shielding. The skin of the left arm was sterilely prepped with chlorhexidine and was sterilely draped. Through the existing PICC, a 0.018 inch glide wire was advanced into the inferior vena cava, using fluoroscopic guidance. Over this wire, the previously inserted PICC was removed and a new peel away sheath was placed in the right arm. The PICC was re-measured and cut to length. Through the sheath, a 41 cm dual lumen PICC was inserted with its tip at the cavo-atrial junction, in satisfactory position. No evidence of kinking or pneumothorax. Final length is 41 cm with 1.5 cm external to the skin. IMPRESSION: Fluoroscopic exchange of left arm PICC with tip at the cavoatrial junction. Catheter is ready for use. Signed by: Dr. Kelley Barragan MD on 04/11/2018 12:34 PM
[2018-04-11 12:40] VITALS: BP 114/72
[2018-04-11] MEDS ORDERED: GADOBENATE DIMEGLUMINE 0 ML IV ONE (14:51)
[2018-04-11] MEDS: ALBUTEROL SULFATE HFA 8GM INHALATION AEROSOL INH PRN (14:52)
--- NOTE | 2018-04-11 15:44 | Consultation ---
DATE OF CONSULTATION: REASON FOR CONSULTATION: Cellulitis of the arm. HISTORY OF PRESENT ILLNESS: This patient who is recently here with infection of the arm after a dog bite. She received few days of IV antibiotic with improvement, discharged home with oral antibiotic. Patient apparently had a cat scratch. The patient who has underlying history of hypertension, hyperlipidemia, ulcerative colitis, COPD, diabetes mellitus, comes back with worsening condition of her arm. LABS: White count 12.23, hemoglobin 11, hematocrit 35. Sodium 139, potassium 3.7, creatinine 0.82. PHYSICAL EXAMINATION GENERAL: She is currently alert, oriented. Does not seem to be in acute distress. VITALS: Stable. Currently afebrile. HEENT: She does not appear icteric. NECK: Supple. CHEST: Clear. EXTREMITIES: The arm has erythema and edema. IMPRESSION: Cellulitis of the arm, worsening after initial improvement. We will put her on vancomycin 1 g q.12, meropenem 500 IV q.6. Obtain MRI of the hand and arm to rule out an abscess. Surgical evaluation. Job#: [id number] SARAVANAN
[2018-04-11 17:00] VITALS: BP 154/78
[2018-04-11] MEDS: MEROPENEM 500MG 500 MG in SODIUM CHLORIDE 0.9% 50ML 50 ML IV SCH (17:00)
[2018-04-11] MEDS ORDERED: SODIUM CHLORIDE 0.9% 250ML 250 ML ONE (17:24)
[2018-04-11 20:00] VITALS: BP 146/88
[2018-04-11] MEDS: ATORVASTATIN 10 MG TAB PO SCH (21:52)
[2018-04-11] MEDS: INSULIN DETEMIR 100 UNIT/ML PEN SQ SCH (21:56)
[2018-04-11] MEDS: HYDROCODONE/APAP 5MG-325MG TAB PO PRN (21:59)
[2018-04-12] VITALS (8 sets, daily range): BP systolic 98–156; BP diastolic 57–92
[2018-04-12] MEDS: MEROPENEM 500MG 500 MG in SODIUM CHLORIDE 0.9% 50ML 50 ML IV SCH ×5 (00:42→23:34)
[2018-04-12] MEDS: MORPHINE SULFATE INJ 4 MG/ML INJ IV PRN ×3 (04:12→19:44)
[2018-04-12] MEDS: VANCOMYCIN 1GM/NS 250 ML 250 ML IV SCH ×2 (05:28→18:20)
[2018-04-12] MEDS: LEVOTHYROXINE SODIUM 25 MCG TABLET PO SCH (07:29)
--- NOTE | 2018-04-12 08:52 | Diagnostic Imaging Report ---
TECHNIQUE: Magnetic resonance imaging of the RIGHT HAND and forearm was performed WITHOUT injected contrast. HISTORY: Pain, cellulitis, without fracture COMPARISON: None. FINDINGS: Bone marrow signal is normal. No edema or T1 replacement. Soft tissue edema throughout the forearm and hand within the subcutaneous tissues. No deep muscle edema. No foci of air visualized. No soft tissue abscess. No muscle atrophy. No joint effusions. IMPRESSION: Edema/cellulitis of the forearm and hand. No abscess or osteomyelitis. Signed by: Dr. James Love M.D. on 04/12/2018 8:49 AM
[2018-04-12] MEDS: CLONAZEPAM 0.5 MG TAB PO SCH (09:23)
[2018-04-12] MEDS: FAMOTIDINE 20 MG TAB PO SCH ×2 (09:23→17:28)
[2018-04-12] MEDS: SUCRALFATE 1 GM TAB PO SCH ×4 (09:23→21:49)
[2018-04-12] MEDS: CYCLOBENZAPRINE HCL 10 MG TAB PO SCH ×3 (09:23→21:49)
[2018-04-12] MEDS: MESALAMINE 500 MG CAPCR PO SCH ×4 (09:23→21:50)
[2018-04-12] MEDS: GABAPENTIN 300 MG CAP PO SCH ×3 (09:23→21:50)
[2018-04-12] MEDS: ASPIRIN 81 MG CHEW TAB PO SCH (09:23)
[2018-04-12] MEDS: BUDESONIDE 3 MG CAPCR PO SCH ×2 (09:23→09:24)
[2018-04-12] MEDS: METFORMIN HCL 500 MG TAB PO SCH ×2 (09:23→17:28)
[2018-04-12] MEDS: PANTOPRAZOLE SOD 40 MG TABEC PO SCH ×2 (09:23→17:28)
[2018-04-12] MEDS: METOPROLOL TARTRATE 50 MG TAB PO SCH ×2 (09:23→17:28)
[2018-04-12] MEDS: HYDROCODONE/APAP 5MG-325MG TAB PO PRN ×2 (15:22→23:33)
[2018-04-12] MEDS: BUDESONIDE/FORMOTEROL FUMARATE 80/4.5MCG 6.9 GM INH AEROSOL IH SCH (17:00)
[2018-04-12] MEDS: ATORVASTATIN 10 MG TAB PO SCH (21:49)
[2018-04-12] MEDS: INSULIN DETEMIR 100 UNIT/ML PEN SQ SCH (21:50)
[2018-04-13] VITALS (8 sets, daily range): BP systolic 110–149; BP diastolic 55–80
[2018-04-13] MEDS: MORPHINE SULFATE INJ 4 MG/ML INJ IV PRN ×6 (01:07→23:55)
[2018-04-13] MEDS: VANCOMYCIN 1GM/NS 250 ML 250 ML IV SCH ×2 (04:54→18:04)
[2018-04-13] MEDS: LEVOTHYROXINE SODIUM 25 MCG TABLET PO SCH (05:54)
[2018-04-13] MEDS: MEROPENEM 500MG 500 MG in SODIUM CHLORIDE 0.9% 50ML 50 ML IV SCH ×4 (06:40→23:18)
[2018-04-13] MEDS: ALBUTEROL SULFATE HFA 8GM INHALATION AEROSOL INH PRN (08:00)
[2018-04-13] MEDS: BUDESONIDE/FORMOTEROL FUMARATE 80/4.5MCG 6.9 GM INH AEROSOL IH SCH ×2 (08:12→19:36)
[2018-04-13] MEDS: GABAPENTIN 300 MG CAP PO SCH ×3 (08:25→21:12)
[2018-04-13] MEDS: METFORMIN HCL 500 MG TAB PO SCH ×2 (08:25→17:08)
[2018-04-13] MEDS: ASPIRIN 81 MG CHEW TAB PO SCH (08:25)
[2018-04-13] MEDS: BUDESONIDE 3 MG CAPCR PO SCH (08:25)
[2018-04-13] MEDS: PANTOPRAZOLE SOD 40 MG TABEC PO SCH ×2 (08:25→17:08)
[2018-04-13] MEDS: SUCRALFATE 1 GM TAB PO SCH ×4 (08:25→21:12)
[2018-04-13] MEDS: CLONAZEPAM 0.5 MG TAB PO SCH (08:25)
[2018-04-13] MEDS: MESALAMINE 500 MG CAPCR PO SCH ×4 (08:25→21:12)
[2018-04-13] MEDS: METOPROLOL TARTRATE 50 MG TAB PO SCH ×2 (08:25→17:08)
[2018-04-13] MEDS: FAMOTIDINE 20 MG TAB PO SCH ×2 (08:25→17:08)
[2018-04-13] MEDS: CYCLOBENZAPRINE HCL 10 MG TAB PO SCH ×3 (08:25→21:12)
[2018-04-13] MEDS ORDERED: DEXTROSE 50% SYRINGE 50 ML IV PRN (12:00)
[2018-04-13] MEDS: INSULIN REGULAR, HUMAN 100 UNIT/1 ML 3ML VIAL SQ SCH ×3 (12:03→21:12)
[2018-04-13] MEDS ORDERED: INSULIN REGULAR, HUMAN 100 UNIT/1 ML 3ML VIAL SQ SCH (16:30)
[2018-04-13] MEDS: ATORVASTATIN 10 MG TAB PO SCH (21:12)
[2018-04-13] MEDS: INSULIN DETEMIR 100 UNIT/ML PEN SQ SCH (21:13)
[2018-04-14 04:00] VITALS: BP 135/77
[2018-04-14] MEDS: VANCOMYCIN 1GM/NS 250 ML 250 ML IV SCH (04:41)
[2018-04-14] MEDS: MORPHINE SULFATE INJ 4 MG/ML INJ IV PRN ×2 (04:41→09:00)
[2018-04-14] MEDS: LEVOTHYROXINE SODIUM 25 MCG TABLET PO SCH (06:36)
[2018-04-14] MEDS: MEROPENEM 500MG 500 MG in SODIUM CHLORIDE 0.9% 50ML 50 ML IV SCH ×2 (06:36→12:00)
[2018-04-14] MEDS: INSULIN REGULAR, HUMAN 100 UNIT/1 ML 3ML VIAL SQ SCH ×2 (07:30→11:30)
[2018-04-14] MEDS: BUDESONIDE/FORMOTEROL FUMARATE 80/4.5MCG 6.9 GM INH AEROSOL IH SCH (08:26)
[2018-04-14] MEDS: FAMOTIDINE 20 MG TAB PO SCH (08:45)
[2018-04-14 08:53] VITALS: BP 153/85
[2018-04-14 09:00] VITALS: BP 140/75
[2018-04-14] MEDS: CYCLOBENZAPRINE HCL 10 MG TAB PO SCH (09:00)
[2018-04-14] MEDS: METOPROLOL TARTRATE 50 MG TAB PO SCH (09:00)
[2018-04-14] MEDS: SUCRALFATE 1 GM TAB PO SCH ×2 (09:00→13:15)
[2018-04-14] MEDS: MESALAMINE 500 MG CAPCR PO SCH ×2 (09:00→13:00)
[2018-04-14] MEDS: GABAPENTIN 300 MG CAP PO SCH (09:00)
[2018-04-14] MEDS: ASPIRIN 81 MG CHEW TAB PO SCH (09:00)
[2018-04-14] MEDS: BUDESONIDE 3 MG CAPCR PO SCH (09:00)
[2018-04-14] MEDS: PANTOPRAZOLE SOD 40 MG TABEC PO SCH (09:00)
[2018-04-14] MEDS: METFORMIN HCL 500 MG TAB PO SCH (09:00)
[2018-04-14] MEDS: CLONAZEPAM 0.5 MG TAB PO SCH (09:00)
[2018-04-14] MEDS ORDERED: LEVAQUIN500 MG PO (14:11)
[2018-04-14] MEDS ORDERED: CLEOCIN HCL150 MG PO (14:11)
[2018-04-14 16:43] VITALS: BP 116/65
--- NOTE | 2018-06-04 18:25 | Discharge Summary ---
This patient came in with cellulitis of the right upper extremity. Patient was placed on IV vancomycin and Merrem. Hypertension, continued to antihypertensive medication for COPD to give albuterol Atrovent treatments. Diabetes mellitus, continue insulin and patient was doing better. ID consult was done. Patient's swelling and erythema went down, and the patient was discharged home on clindamycin. Also, an MRI done of the right upper extremity did not show any abscess. Diagnosed of the cellulitis of the right upper extremity, diabetes mellitus uncontrolled, obesity, COPD, and history of dog scratch. For further information, look in the chart. For medicines on discharge, look in the medical reconciliation sheet. ADONAY COONEY MD Job#: [id number] CQ
== END 2018-04-14 17:01 | disposition home or self-care (01) | DRG 603 ==
LOC: ER 16:28 → ERHOLD 18:28 → MED/SURG3 04-11 12:09
PROVIDERS: ADMIT Family Medicine; ATTEND Family Medicine
PROC: 02HV33Z Insertion of Infusion Device into Superior Vena Cava, Percutaneous Approach (ICD-10-PCS; principal; 2018-04-10)
DX: L03.113 Cellulitis of right upper limb (principal); J44.9 Chronic obstructive pulmonary disease, unspecified; E11.9 Type 2 diabetes mellitus without complications; E78.5 Hyperlipidemia, unspecified; I10 Essential (primary) hypertension; E66.9 Obesity, unspecified; Z68.38 Body mass index [BMI] 38.0-38.9, adult; S50.871A Other superficial bite of right forearm, initial encounter; G89.11 Acute pain due to trauma; Z79.899 Other long term (current) drug therapy; W55.03XA Scratched by cat, initial encounter; Z79.4 Long term (current) use of insulin
CPT/HCPCS: 36415; 36569; 71045; 77001; 80053; 80202; 82948; 85025; 87040; 94640; 99284; C1769; J2185; J2270; J2405; J3370; J7050

== ENCOUNTER 2020-02-12 18:31 | Emergency (ER) | payer MEDICARE, OTHER ==
[~2020-02-12] VITALS: Ht 152.4 cm; Wt 88.5 kg
[~2020-02-12 18:31] MED LIST changes: +ASPIR 8181 MG PO; +CLEOCIN HCL150 MG PO; +CLONAZEPAM0.5 MG PO; +CYCLOBENZAPRINE10 MG PO; +GABAPENTIN300 MG PO; +GLIMEPIRIDE4 MG PO; +LEVAQUIN500 MG PO; +NOVOLOG100 UNITS1 SQ; +PROAIR HFA INH8.5 GM; +SUCRALFATE1 GM PO; +SYMBICORT 80-10.2 GM INH; +XIFAXAN550 MG PO
--- NOTE | 2020-02-12 18:39 | Emergency Department Note ---
History of Present Illnes History of Present Illness Chief Complaint: COVID PUI History of Present Illness This is a 54 year old female with one day h/o of cough and tactile fevers at home. Known h/o of tobacco abuse . 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 Any updates have been documented here. Past Medical History Recent Fever: Yes Clinical Suspicion of Infectio: Yes New/Unexplained Change in Ment: No Past Medical History: Hypertension, Diabetes, Asthma, Hypothyroidism, Hyperlipedemia, Chronic Back Pain Other Medical History: crohns, hiatal hernia, chronic hip pain, herniated disk Past Surgical History: Cholecysctectomy, Appendectomy, Other Surgery: tonsillectomy, kidney stent subclavian stent Social History Smoking Cessation: Current every day smoker Counseling Performed: Yes Alcohol Use: None Any Illegal Drug Use: No Other Last Tetanus: UNKNOWN Review of Systems Review of Systems Constitutional: Reports fever EENTM: Reports no symptoms Cardiovascular: Reports no symptoms Respiratory: Reports dyspnea Gastrointestinal: Reports no symptoms Genitourinary: Reports no symptoms Musculoskeletal: Reports no symptoms Integumentary: Reports no symptoms Neurological: Reports no symptoms Psychological: Reports no symptoms Endocrine: Reports no symptoms Hematological/Lymphatic: Reports no symptoms Physical Exam Related Data Allergies: Coded Allergies: Penicillins (Verified Allergy, Severe, TONGUE/THROAT SWELLS, 04/10/18) Metronidazole HCl (Verified Allergy, Unknown, VOMITING, 04/10/18) Triage Vital Signs Vital Signs Date Time Temp Pulse Resp B/P (MAP) Pulse Ox O2 Delivery O2 Flow Rate FiO2 02/12/20 18:34 98.8 117 24 156/87 99 Room Air Vital signs reviewed: Yes Physical Exam CONSTITUTIONAL Constitutional: Present obese, Present diaphoretic HENT HENT: Present normocephalic, Present atraumatic, Present oropharynx clear/moist, Present nose normal HENT L/R: Present left ext ear normal, Present right ext ear normal EYES Eyes: Reports PERRL, Reports conjunctivae normal NECK Neck: Present ROM normal PULMONARY Pulmonary: Present respiratory distress, Present other (decreased BS with wheezing) CARDIOVASCULAR Cardiovascular: Present regular rhythm, Present heart sounds normal, Present capillary refill normal, Present normal rate GASTROINTESTINAL Abdominal: Present soft, Present nontender, Present bowel sounds normal GENITOURINARY Genitourinary: Present exam deferred SKIN Skin: Present warm, Present dry MUSCULOSKELETAL Musculoskeletal: Present ROM normal NEUROLOGICAL Neurological: Present alert, Present oriented x 3, Present no gross motor or sensory deficits PSYCHOLOGICAL Psychological: Present mood/affect normal, Present judgement normal Results Laboratory Lab results reviewed: Yes Laboratory comments Laboratory Tests Test 02/12/20 21:21 02/12/20 19:40 02/12/20 19:27 02/12/20 18:56 Lactic Acid Level 3.7 mmol/L (0.5-2.0) B-Type Natriuretic Peptide 21.6 pg/mL (0-100) Coronavirus (PCR) Not detected (NOTDETECTED) White Blood Count 16.89 x10e3/uL (4.8-10.8) Red Blood Count 4.18 x10e6/uL (3.6-5.1) Hemoglobin 13.4 g/dL (12.0-16.0) Hematocrit 41.4 % (34.2-44.1) Mean Corpuscular Volume 99.0 fL (81-99) Mean Corpuscular Hemoglobin 32.1 pg (28-32) Mean Corpuscular Hemoglobin Concent 32.4 g/dL (31-35) Red Cell Distribution Width 13.2 % (11.7-14.4) Platelet Count 364 x10e3/uL (140-360) Neutrophils (%) (Auto) 78.2 % (38.7-80.0) Lymphocytes (%) (Auto) 13.0 % (18.0-39.1) Monocytes (%) (Auto) 6.4 % (4.4-11.3) Eosinophils (%) (Auto) 0.5 % (0.0-6.0) Basophils (%) (Auto) 0.4 % (0.0-1.0) Neutrophils # (Auto) 13.2 (2.1-6.9) Lymphocytes # (Auto) 2.2 (1.0-3.2) Monocytes # (Auto) 1.1 (0.2-0.8) Eosinophils # (Auto) 0.1 (0.0-0.4) Basophils # (Auto) 0.1 (0.0-0.1) Absolute Immature Granulocyte (auto 0.25 x10e3/uL (0-0.1) Sodium Level 137 mmol/L (136-145) Potassium Level 4.2 mmol/L (3.5-5.1) Chloride Level 101 mmol/L (98-107) Carbon Dioxide Level 19 mmol/L (22-29) Anion Gap 21.2 mmol/L (8-16) Blood Urea Nitrogen 14 mg/dL (7-26) Creatinine 1.11 mg/dL (0.57-1.11) Estimat Glomerular Filtration Rate 51 ML/MIN (60-) BUN/Creatinine Ratio 13 (6-25) Glucose Level 253 mg/dL (74-118) Calcium Level 9.5 mg/dL (8.4-10.2) Total Bilirubin 0.4 mg/dL (0.2-1.2) Aspartate Amino Transf (AST/SGOT) 26 IU/L (5-34) Alanine Aminotransferase (ALT/SGPT) 24 IU/L (0-55) Alkaline Phosphatase 127 IU/L (40-150) Creatine Kinase 51 IU/L (29-168) Creatine Kinase MB 1.10 ng/mL (0-5.0) Troponin I < 0.001 ng/mL (0-0.300) Total Protein 7.5 g/dL (6.5-8.1) Albumin 3.0 g/dL (3.5-5.0) Globulin 4.5 g/dL (2.3-3.5) Albumin/Globulin Ratio 0.7 (0.8-2.0) Imaging Imaging results reviewed: Yes Impressions [place] [id number] Patient Name: NATALIA CARRILLO MR #: [id number] : 1965 Age/Sex: 54/F Req #: [id number] Adm Physician: Ordered by: CHEYENNE BEAR DO Report #: [id number] Location: ER Room/Bed: Procedure: [id number] DX/CHEST SINGLE (PORTABLE) Exam Date: 02/12/20 Exam Time: 2040 REPORT STATUS: Signed EXAMINATION: CHEST SINGLE (PORTABLE) INDICATION: COMPARISON: Chest x-ray on 04/11/2018. FINDINGS: TUBES and LINES: None. LUNGS: There is patchy airspace consolidative opacity in the right lower lobe. PLEURA: No pleural effusion or pneumothorax. HEART AND MEDIASTINUM: The cardiomediastinal silhouette is unremarkable. BONES AND SOFT TISSUES: No acute osseous lesion. Soft tissues are unremarkable. UPPER ABDOMEN: No free air under the diaphragm. IMPRESSION: Right lower lobe pneumonia. Recommend follow-up chest radiograph in 6-8 weeks to ensure resolution. Signed by: Kemar Ramírez MD on 02/12/2020 9:50 PM Dictated By: KEMAR RAMÍREZ MD 49 Transcribed By: OR[place]O on 02/12/202149 COPY TO: CHEYENNE BEAR DO~ Procedures 12 Lead ECG Interpretation ECG Interpretation : ECG: ECG 1 Urban Gardening Specialist: Interpreted by ED physician Date: Feb 12, 2020 Time: 18:45 Prior ECG tracings: reviewed Rhythm: sinus tachycardia Ectopy: infrequent PVC's Rate: tachycardia BPM: 113 QRS axis: normal ST segments normal: Yes T waves normal: Yes Clinical Impression: abnormal ECG Critical Care Time Total Critical Care Time (min): 31 Critcal care necessary due to: respiratory failure, sepsis Critcal care time spent by me: develop tx plan w patient/surrogate, discussion w primary provider, examination of patient, obtaining hx from patient/surrogate, order/perform tx or interventions, order/review laboratory studies, order/review radiographic studies, pulse oximetry, re-evaluation of patient condition Assessment & Plan Medical Decision Making MDM 54 yof presents with dyspnea. CMP, CBC, EKG, and cardiac enzymes ordered for consideration of ACS, PE, costocondritis, COVID-19 URI , Sepsis ,Chest wall pain, pneumonia and pneumothorax considered. labs, imaging and EKG reviewed . Assessment & Plan Final Impression: (1) Severe sepsis (2) Right lower lobe pneumonia (3) COPD (chronic obstructive pulmonary disease) (4) Tobacco abuse Depart Disposition: [facility] Home Meds Reported Medications Clindamycin Hcl (CLEOCIN HCL) 150 Mg Capsule, 300 MG PO Q8H, CAP 04/14/18 Levofloxacin (LEVAQUIN) 500 Mg Tablet, 500 MG PO DAILY, TAB 04/14/18 Insulin Glargine (LANTUS 3ML PEN) 100 Units/1 Ml Inj, 25 SQ HS 04/10/18 Budesonide/Formoterol Fumarate (SYMBICORT 80-4.5 MCG INHALER) 10.2 Gm Hfa.aer.ad, 1 EACH INH, EACH 04/10/18 Albuterol Sulf* (PROAIR HFA INHALER*) 8.5 Gm Inh 04/10/18 Rifaximin (XIFAXAN) 550 Mg Tablet, MG PO QID 04/10/18 Sucralfate (SUCRALFATE) 1 Gm Tablet, 1 GM PO QID, TAB 04/10/18 Cyclobenzaprine Hcl (CYCLOBENZAPRINE HCL) 10 Mg Tablet, 10 MG PO TID, TAB 04/10/18 Aspirin (ASPIR 81) 81 Mg Tablet.dr, 81 MG PO 04/10/18 Gabapentin (GABAPENTIN) 300 Mg Capsule, 300 MG PO TID, #60 CAP 04/10/18 Clonazepam (CLONAZEPAM) 0.5 Mg Tablet, 0.5 MG PO DAILY, TAB 04/10/18 Glimepiride (GLIMEPIRIDE) 4 Mg Tablet, 4 MG PO BID 04/10/18 Insulin Aspart (NOVOLOG) 100 Units/1 Ml Inj, 5 SQ PC 04/10/18 Clindamycin Hcl (CLINDAMYCIN HCL) 150 Mg Capsule, 300 MG PO TID 04/02/18 Hydrocodone Bit/Acetaminophen (NORCO 5-325 TABLET) 1 Each Tablet, 1 EACH PO Q4, TAB 12/18/13 Levothyroxine Sodium (LEVOTHYROXINE SODIUM) 25 Mcg Tablet, 25 MCG PO DAILY 11/04/13 Omeprazole (OMEPRAZOLE) 20 Mg Capsule.dr, 20 MG PO BID 11/04/13 Budesonide (BUDESONIDE EC) 3 Mg Capdr...er, 3 MG PO DAILY 11/04/13 Metformin Hcl (METFORMIN HCL) 500 Mg Tablet, 500 MG PO BID 11/04/13 Metoprolol Tartrate (METOPROLOL TARTRATE) 50 Mg Tablet, 50 MG PO BID 11/04/13 Mesalamine (PENTASA) 500 Mg Capcr, 2 CAP PO QID 11/04/13 Atorvastatin Calcium (Lipitor) 10 Mg Tablet, 10 MG PO DAILY 10/10/11 CHEYENNE BEAR DO Feb 12, 2020 18:39
[2020-02-12] MEDS ORDERED: LEVOFLOXACIN 750MG/D5W 150ML 150 ML IV SCH (18:45)
[2020-02-12 19:04] LABS: BASOPHILS # (AUTO) 0.1 (0.0-0.1); BASOPHILS % 0.4 % (0.0-1.0); EOSINOPHILS # (AUTO) 0.1 (0.0-0.4); EOSINOPHILS % 0.5 % (0.0-6.0); HEMATOCRIT 41.4 % (34.2-44.1); HEMOGLOBIN 13.4 g/dL (12.0-16.0); LYMPHOCYTES # (AUTO) 2.2 (1.0-3.2); MEAN CORPUSCULAR HEMOGLOBIN 32.1 pg (28-32); MEAN CORPUSCULAR HGB CONC 32.4 g/dL (31-35); MONOCYTES # (AUTO) 1.1 (0.2-0.8); MONOCYTES % 6.4 % (4.4-11.3); NEUTROPHILS # (AUTO) 13.2 (2.1-6.9); NEUTROPHILS % 78.2 % (38.7-80.0); PLATELET COUNT 364 x10e3/uL (140-360); RED BLOOD COUNT 4.18 x10e6/uL (3.6-5.1); RED CELL DISTRIBUTION WIDTH 13.2 % (11.7-14.4)
--- OUTSIDE RECORDS SUMMARY | 2020-02-12 19:04 | XMS REPORT | Continuity of Care Document ---
Author Author [employer] Organization [employer] Address Unknown Phone Unavailable Care Team Providers Care Substance Abuse Technician Name Role Phone QR Artist Information [employer] Unavailable Un available Problems Problem Status Onset Date Classification Date Reported Comments Source Avascular necrosis Active Problem 03/21/2018 [facility] Osteochondral defect Active Problem 03/21/2018 [facility] Pain in right foot Active Problem 03/21/2018 [facility] Joint stiffness of right foot Active Problem 07/2017 [facility] Medications No Data Provided for This Section Allergies, Adverse Reactions, Alerts No Known Medication Allergies Immunizations No Data Provided for This Section Results No Data Provided for This Section Pathology Reports No Data Provided for This Section Diagnostic Reports No Data Provided for This Section Consultation Notes No Data Provided for This Section Discharge Summaries No Data Provided for This Section History and Physicals No Data Provided for This Section Vital Signs No Data Provided for This Section Encounters No Data Provided for This Section Procedures No Data Provided for This Section Assessment and Plan No Data Provided for This Section Plan of Care No Data Provided for This Section Social History No Data Provided for This Section Family History No Data Provided for This Section Advance Directives No Data Provided for This Section Functional Status No Data Provided for This Section
--- OUTSIDE RECORDS SUMMARY | 2020-02-12 19:05 | XMS REPORT | Continuity of Care Document ---
Author Author [facility] t Organization [facility] Address [address] [place] [address] Phone Unavailable Care Team Providers Care Insurance Loss Assessor Name Role Phone Torres COONEY MD PCP Torres COONEY Attphys Unavailable Torres COONEY Admphys Unavailable Payers Payer Name Policy Type Policy Number Effective Date Expiration Date Torres hernandez Aevladislavna Pos [id number] [facility] Problems Condition Name Condition Details Condition Category Status Onset Date Resolution Date Last Treatment Date Treating Clinician Comments Source Cellulitis of right forearm Cellulitis of right forearm Problem Active [facility] Hyperglycemia Hyperglycemia Problem Active [facility] Hyponatremia Hyponatremia Problem Active [facility] Leukocytosis Leukocytosis Problem Active [facility] Avascular necrosis Avas cular necrosis Active Problem 03/21/2018 [facility] Problem Active 2018-03-21 02 :45:44 Jacey Henson 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 03/21/2018 [facility] Problem Active 2018-03-21 02 :45:44 Jacey Henson Pain in right foot Pain in right foot Active Problem 03/21/2018 [facility] Problem Active 2018-03-21 02 :45:44 Jacey Henson Joint stiffness of right foot Joint stiffness of right foot Active Problem 03/21/2018 [facility] Problem Active 2018-03-21 02:45:44 Jacey Henson Allergies, Adverse Reactions, Alerts Allergy Name Allergy Type Status Severity Reaction(s) Onset Date Inacti ve Date Treating Clinician Comments Source Metronidazole HCl Allergy to Substance Active VOMITING 00:00:00 [facility] Penicillin Allergy to Substance Active Severe TONGUE/THROAT S WELLS 2018-03-30 00:00:00 [facility] Metronidazole Allergy to Substance Active VOMITING 2018-03-30 00:0 0:00 [facility] Penicillins DA Active SD 2015-05-23 00:00:00 [facility] metronidazole DA Active SD 2015-05-23 00:00:00 [facility] Medications Ordered Medication Name Filled Medication Name Start Date Stop Da te Current Medication? Ordering Clinician Indication Dosage Frequency Signature (SIG) Comments Components Source Atorvastatin Calcium (Lipitor) 10 Mg Tablet Atorvastat in Calcium (Lipitor) 10 Mg Tablet Yes 10 Daily [facility] Budesonide (Budesonide Ec) 3 Mg Capdr...er Budesonide (Budesonide Ec) 3 Mg Capdr...er Yes 3 Daily [facility] Chlordiazepoxide/Clidinium Br (Chlordiazepoxide-Clidin ium Cap) 1 Each Capsule Chlordiazepoxide/Clidinium Br (Chlordiazepoxide-Clidinium Cap) 1 Each Capsule Yes 1 Three Times A Day [facility] Clindamycin Hcl 150 Mg Capsule Clindamycin Hcl 150 Mg Capsule Yes 300 Three Times A Day [facility] Glimepiride 2 Mg Tablet Glimepiride 2 Mg Tablet Yes 2 Twice A Day [facility] Hydrocodone Bit/Acetaminophen (Wiley 5-325 Tablet) 1 E ach Tablet Hydrocodone Bit/Acetaminophen (Wiley 5-325 Tablet) 1 Each Tablet Yes 1 Every 4 Hours [facility] Insulin Glargine (Lantus 3ML Pen) 100 Units/1 Ml Inj I nsulin Glargine (Lantus 3ML Pen) 100 Units/1 Ml Inj Yes 20 Daily [facility] Janet/Rui.rhamn/B.bif/BIshalong (Probioti c Acidophilus Biobeads) 1 Each Tablet.dr L.acidoph/L.rhamn/B.bif/B.long (Probioti c Acidophilus Biobgove) 1 Each Tablet. Yes 1 Daily [facility] Levothyroxine Sodium 25 Mcg Tablet Levothyroxine Sodium 25 Mcg Tablet Yes 25 Daily [facility] Lisinopril/Hydrochlorothiazide (Lisinopril-Hctz 10-12. 5 Mg Tab) 1 Each Tablet Lisinopril/Hydrochlorothiazide (Lisinopril-Hctz 10-12.5 Mg Tab) 1 Each Tablet Yes 1 Daily [facility] Mesalamine (Pentasa) 500 Mg Capcr Mesalamine (Pentasa) 500 Mg Capcr Yes 2 Four Times Daily [facility] Metformin Hcl 500 Mg Tablet Metformin Hcl 500 Mg Tablet Yes 500 Twice A Day [facility] Metoprolol Tartrate 50 Mg Tablet Metoprolol Tartrate 50 Mg Tablet Yes 50 Twice A Day [facility] Omeprazole 20 Mg Capsule. Omeprazole 20 Mg Capsule.dr Molina 20 Twice A Day [facility] Omeprazole Magnesium (Prilosec Otc) 20 Mg Tablet. Om eprazole Magnesium (Prilosec Otc) 20 Mg Tablet.dr Molina 20 Daily [facility] Ondansetron (Zofran Odt) 8 Mg Tab.rapdis Ondansetron ( Zofran Odt) 8 Mg Tab.rapdis Yes 8 Daily [facility] Tramadol Hcl (Ultram) 50 Mg Tablet Tramadol Hcl (Ultram) 50 Mg Tablet Yes 5 Q6hrs [facility] Ciprofloxacin Hcl 750 Mg Tablet, 750 Mg Oral Ciproflox acin Hcl 750 Mg Tablet, 750 Mg Oral 2018-04-02 00:00:00 No 750 Twice A Day [facility] Balsalazide Disodium 750 Mg Capsule, 3 Cap Oral Balsal azide Disodium 750 Mg Capsule, 3 Cap Oral 2012-03-27 00:00:00 No 3 Thre e Times A Day [facility] Chlordiazepoxide/Clidinium Br (Librax Capsule) 1 Each Capsule, 1 Each Oral Chlordiazepoxide/Clidinium Br (Librax Capsule) 1 Each Capsule, 1 Each Oral 2012-03-27 00:00:00 No 1 Q 6 Hrs [facility] Salmeterol Xinaf/Fluticasone (Advair 250/50) 1 Ea Disk , 1 Inh Inhalation Salmeterol Xinaf/Fluticasone (Advair 250/50) 1 Ea Disk, 1 Inh Inhalation 2012-03-01 00:00:00 No 1 Twice A Day [facility] Vitamin D 1.25MG , 1.25 Mg Oral Vitamin D 1.25MG , 1.25 Mg Oral 2012-03-01 00:00:00 No 1.25 Every Week [facility] Cholecalciferol (Vitamin D) 400 Unit Capsule, Cholecal ciferol (Vitamin D) 400 Unit Capsule, 2011-10-10 00:00:00 No Daily [facility] Procedures Procedure Date / Time Performed Performing Clinician [facility] e X-ray of chest, two views 2017-11-22 00:00:00 ADONAY COONEY [facility] Encounters Start Date/Time End Date/Time Encounter Type Admission Type [facility] Facility Care Department Encounter ID Source 2018-03-30 14:52:00 2018-04-02 16:30:00 Discharged Inpatient [facility] [id number] [facility] 2018-03-17 10:36:00 2018-03-17 10:36:00 Outpatient [facility] [id number] [employer]ClinicalWorks 2017-11-22 17:48:00 2017-11-22 17:48:00 Registered Clinic 3 ADONAY COONEY [facility] [id number] [facility] Results Test Description Test Time Test Comments Results Result Comments Source Novel Coronavirus 2019 nCoV 2020-02-04 16:10:00 Test Item Novel Coronavirus 2019 nCoV (test code = COVID19) Negative Nega tive Does patient have the clinical criteria consistent with COVID-19? YIs the patien t going to be discharged home? YSTREPTOCOCCUS PCR [id number] 00:19:00* Test Item Value Reference Range Interpretation Comments STREPTOCOCCUS DYSGALACTIAE (test code = STREPGC) NEGATIVE FOR G/C N EGATIVE STREPA MOLECULAR (test code = STREPAMOL) NEGATIVE FOR GRP A NEGATIV E - XR FOOT 3 + V [id number] 20:37:00 Name: NATALIA CARRILLO [facility] : 1965 Age/S:53 /F [address] [facility] Unit#:[id number] Loc: [place] [address] Phys: Aditya Morgan LEADITE MAN Dis Date: PHONE #: [phone] Status: REG ER FAX #: [phone] Exam Date: 09/09/2018 Reason: 4TH TOE INJURY EXAMS: CPT CODE: [id number] XR FOOT 3 + [place] [id number] HISTORY: 4th toe injury. COMPARISON: None available. 3 views of the left foot: Nondisplaced oblique fracture of the distal diaphysis of the 4th proximal phalanx without intra-articular extension. Narrowed DIP and PIP joint spaces. Plantar calcaneal enthesophyte. Flatfoot deformity. No ankle joint fluid is noted. Marginal osteophytes from the tarsal bones. Soft tissue swelling. IMPRESSION: Nondisplaced oblique fracture of the distal diaphysis of the 4th proximal phalanx without intra-articular extension. at 2036 Reported and signed by: Yaron Lopez M.D. CC: Kaylee Rodriguez MD; Adonay Cooney; Aditya Morgan LEADITE MAN Technologist: RODNEY SCHULER CT Trnscrpt Data: 09/09/2018 (2036) [id number] Orig Print D/T: S: 09/09/2018 (2040) PAGE 1 Signed Report MRI FOREARM RIGHT [id number] 08:46:00 [place] [address] Patient Name: NATALIA CARRILLO MR #: [id number] : 1965 Age/Sex: 52/F Req #: [id number] Adm Physician: ADONAY COONEY MD Ordered by: SARAH MASSEY MD Report #: [id number] Location: MED/SURG3 Room/Bed: [facility] Procedure: [id number] MR I/MRI FOREARM RIGHT WO Exam Date: Exam Time: REPORT STATUS: Signed TECHNIQUE: Ma gnetic resonance imaging of the RIGHT HAND and forearm was performed WITHOUT i njected contrast. HISTORY: Pain, cellulitis, without fracture COMPARISO N: None. FINDINGS: Bone marrow signal is normal. No edema or T1 repla cement. Soft tissue edema throughout the forearm and hand within the subcut aneous tissues. No deep muscle edema. No foci of air visualized. No soft tissue abscess. No muscle atrophy. No joint effusions. IMPRESSION : Edema/cellulitis of the forearm and hand. No abscess or osteomyelit is. Signed by: Dr. Bladimir Mendenhall M.D. on 04/12/2018 8:49 AM Dictat ed By: BLADIMIR MENDENHALL MD 8 COPY TO: JACQUIE MASSEY MD MRI HAND RIGHT [id number] 08:46:00 [place] [address] Patient Name: NATALIA CARRILLO MR #: [id number] : 1965 Age/Sex: 52/F Req #: [id number] Adm Physician: ADONAY COONEY MD Ordered by: SARAH MASSEY MD Report #: [id number] Location: MED/SURG3 Room/Bed: 285-1 Procedure: [id number] MR I/MRI HAND RIGHT WO Exam Date: Exam Time: REPORT STATUS: Signed TECHNIQUE: Magne tic resonance imaging of the RIGHT HAND and forearm was performed WITHOUT inje cted contrast. HISTORY: Pain, cellulitis, without fracture COMPARISON: None. FINDINGS: Bone marrow signal is normal. No edema or T1 replacem ent. Soft tissue edema throughout the forearm and hand within the subcutane ous tissues. No deep muscle edema. No foci of air visualized. No soft tis becca abscess. No muscle atrophy. No joint effusions. IMPRESSION: Edema/cellulitis of the forearm and hand. No abscess or osteomyelitis. Signed by: Dr. Bladimir Mendenhall M.D. on 04/12/2018 8:49 AM Dictated By: BLADIMIR MENDENHALL MD 8 COPY TO: SARAH MASSEY MD FLUORO GUIDANCE [facility] [id number] 12:30:00 [place] [address] Patient Name: NATALIA CARRILLO MR #: [id number] : 1965 Age/Sex: 52/F Req #: [id number] Adm Physician: ADONAY COONEY MD Ordered by: ADONAY COONEY MD Report #: [id number] Location: MED/SURG3 Room/Bed: 285-1 Procedure: [id number] DX/FLUORO GUIDANCE [address]/REM Exam Date: 04/11/18 Exam Time: 1100 REPORT STATUS: Si gned PROCEDURE: Left PICC exchange with fluoroscopic guidance INDICATIO N: Malpositioned tip to previously inserted left sided PICC line OPERATORS : Issa Nelson MD SEDATION: Local MEDICATION: 2 cc of 1% subcutaneous lidocaine RADIATION EXPOSURE: Fluoroscopy Time: 0.7 min, Dose:17.33 mGy, TECHNIQUE: Informed consent was obtained. Maximum sterile esteban r technique was used throughout the procedure, with sterile gown and gloves, c ap, mask and protective eye shielding. The skin of the left arm was sterilely prepped with chlorhexidine and was sterilely draped. Through the existing P ICC, a 0.018 inch glide wire was advanced into the inferior vena cava, using f luoroscopic guidance. Over this wire, the previously inserted PICC was remove d and a new peel away sheath was placed in the right arm. The PICC was re-juan carlos ured and cut to length. Through the sheath, a 41 cm dual lumen PICC was insert ed with its tip at the cavo-atrial junction, in satisfactory position. No evid ence of kinking or pneumothorax. Final length is 41 cm with 1.5 cm exter nal to the skin. IMPRESSION: Fluoroscopic exchange of left arm PICC with tip at the cavoatrial junction. Catheter is ready for use. Signed by: Nimo Nelson MD on 04/11/2018 12:34 PM Dictated By: ISSA NELSON MD Elec tronically Signed By: ISSA NELSON MD on 04/11/18 1234 Transcribed By: ORLANDO on 04/11/18 1234 COPY TO: ADONAY COONEY MD PICC INSERT W OR W/O [id number] 12:30:00 [place] [address] Patient Name: NATALIA CARRILLO MR #: [id number] : 1965 Age/Sex: 52/F Req #: [id number] Adm Physician: ADONAY COONEY MD Ordered by: ADONAY COONEY MD Report #: [id number] Location: [facility] Room/Bed: [facility] Procedure: [id number] IR/PICC INSERT W OR W/O PORT Exam Date: 04/11/18 Exa m Time: 1100 REPORT STATUS: Signed PROCEDURE: Left PICC exchange with fluoroscopic guidance INDICATION: M alpositioned tip to previously inserted left sided PICC line OPERATORS: Torres Nelson MD SEDATION: Local MEDICATION: 2 cc of 1% subcutaneous lido martine RADIATION EXPOSURE: Fluoroscopy Time: 0.7 min, Dose:17.33 mGy, TECHNIQUE: Informed consent was obtained. Maximum sterile barrier jules hnique was used throughout the procedure, with sterile gown and gloves, cap, m ask and protective eye shielding. The skin of the left arm was sterilely prep ped with chlorhexidine and was sterilely draped. Through the existing PICC, a 0.018 inch glide wire was advanced into the inferior vena cava, using fluoro scopic guidance. Over this wire, the previously inserted PICC was removed and a new peel away sheath was placed in the right arm. The PICC was re-measured and cut to length. Through the sheath, a 41 cm dual lumen PICC was inserted wi th its tip at the cavo-atrial junction, in satisfactory position. No evidence of kinking or pneumothorax. Final length is 41 cm with 1.5 cm external t o the skin. IMPRESSION: Fluoroscopic exchange of left arm PICC with tip at the cavoatrial junction. Catheter is ready for use. Signed by: Dr. Chu Nelson MD on 04/11/2018 12:34 PM Dictated By: ISSA lincoln Signed By: ISSA NELSON MD on 04/11/18 1234 Transcribed By: ORLANDO on 03/21 09/04 1234 COPY TO: ADONAY COONEY MD CHEST XRAY LINE PLACEMENT 2018-04-11 12:04:00 [place] [address] Patient Name: NATALIA CARRILLO MR #: [id number] : 1965 Age/Sex: 52/F Req #: [id number] Adm Physician: ADONAY COONEY MD Ordered by: YULISSA WILKERSON MD Report #: [id number] Location: [facility] Room/Bed: [facility] Procedure: [id number] DX /CHEST XRAY LINE PLACEMENT Exam Date: Exam Time: REPORT STATUS: Signed EXAMINATION: CHEST XRAY LINE PLACEMENT INDICATION: PICC Placement COMPARISON: None FINDINGS: TUBES and LINES: Left sided PICC with tip coursing cranially into the neck, the tip is not seen, but likely in the internal jug ular vein. LUNGS: Low lung volumes. Mild patchy bibasilar opacities, like ly atelectasis. There is no evidence of pneumonia or pulmonary edema. PLE URA: No pleural effusion or pneumothorax. HEART AND MEDIASTINUM: The car diomediastinal silhouette is unremarkable. BONES AND SOFT TISSUES: No acu te osseous lesion. Soft tissues are unremarkable. UPPER ABDOMEN: No free air under the diaphragm. IMPRESSION: Left sided PICC with tip coursing cranially into the neck, the tip is not seen, but likely in the internal jugu lar vein. Findings discussed in person with PICC team, plan for fluoroscopic g uided exchange/repositioning. No evidence of pneumothorax. Signed by : Dr. Issa Nelson MD on 04/11/2018 12:06 PM Dictated By: ISSA NELSON MD E lectronically Signed By: ISSA NELSON MD on 04/11/181205 Transcribed By: ORLANDO on 04/11/181205 COPY TO: YULISSA WILKERSON MD Bedside Glucose 2018-04-02 15:56:00* Test Item Value Reference Range Interpretation Comments Bedside Glucose (test code = 57244-4) 166 70-120 H Meter ID: [id number] Health PlainviewBlood Culture 2018-04-02 13:29:00* Test Item Value Reference Range Interpretation Comments Blood Culture (test code = 32205310) NO GROWTH AFTER 72 HOURS [facility] [id number] 05:52:00* Test Item Value Reference Range Interpretation Comments Sodium Level (test code = 2951-2) 139 136-145 [facility]viewPotassium [id number] 05:52:00* Test Item Value Reference Range Interpretation Comments Potassium Level (test code = 2823-3) 3.8 3.5-5.1 [facility]viewChloride [id number] 05:52:00* Test Item Value Reference Range Interpretation Comments Chloride Level (test code = 2075-0) 106 98-107 [facility] PlainviewCarbon Dioxide [id number] 05:52:00* Test Item Value Reference Range Interpretation Comments Carbon Dioxide Level (test code = 2028-9) 22 22-29 [facility]viewAnion [id number] 05:52:00* Test Item Value Reference Range Interpretation Comments Anion Gap (test code = 01261-0) 14.8 8-16 [facility]viewBlood Urea [id number] 05:52:00* Test Item Value Reference Range Interpretation Comments Blood Urea Nitrogen (test code = 3094-0) 8 7-26 [facility]viewCreatinine2018-10-13 05:52:00* Test Item Value Reference Range Interpretation Comments Creatinine (test code = 2160-0) 0.65 0.57-1.11 [facility]viewBUN/Creatinine [id number] 05:52:00* Test Item Value Reference Range Interpretation Comments BUN/Creatinine Ratio (test code = 3097-3) 12 6-25 [facility] PlainviewEstimat Glomerular Filtration Rate 2018-04-01 05:52:00* Test Item Value Reference Range Interpretation Comments Estimat Glomerular Filtration Rate (test code = 462821418) 60- >60 Ranges were taken from the National Kidney Disease Education Program and the [facility] Kidney Foundation literature.Reference ranges:60 or greater: Hzeecx52-87 ( for 3 consecutive months): Chronic kidney disease 15 or less: Kidney failureCovenant Health PlainviewGlucose Uhqda9733-56-00 05:52:00* Test Item Value Reference Range Interpretation Comments Glucose Level (test code = THB5057) 109 74-118 [facility]viewCalcium Jnqoq7070-28-11 05:52:00* Test Item Value Reference Range Interpretation Comments Calcium Level (test code = 15061-5) 8.3 8.4-10.2 L [facility]viewWhite Blood [id number] 05:30:00* Test Item Value Reference Range Interpretation Comments White Blood Count (test code = 6690-2) 9.47 4.8-10.8 [facility]viewRed Blood [id number] 05:30:00* Test Item Value Reference Range Interpretation Comments Red Blood Count (test code = 789-8) 3.21 3.6-5.1 L [facility]viewHemoglobin2018-10-13 05:30:00* Test Item Value Reference Range Interpretation Comments Hemoglobin (test code = 66745-9) 10.4 12.0-16.0 L [facility]viewHematocrit2018-10-13 05:30:00* Test Item Value Reference Range Interpretation Comments Hematocrit (test code = 4544-3) 32.1 34.2-44.1 L [facility] PlainviewMean Corpuscular [id number] 05:30:00* Test Item Value Reference Range Interpretation Comments Mean Corpuscular Volume (test code = 787-2) 100.0 81-99 H [facility] PlainviewMean Corpuscular Wqqcnvmwpc9229-50-83 05:30:00* Test Item Value Reference Range Interpretation Comments Mean Corpuscular Hemoglobin (test code = 785-6) 32.4 28-32 H [facility] PlainviewMean Corpuscular Hemoglobin Concent 2018-04-01 05:30:00* Test Item Value Reference Range Interpretation Comments Mean Corpuscular Hemoglobin Concent (test code = 786-4) 32.4 31-35 [facility]viewRed Cell Distribution [id number] 05:30:00* Test Item Value Reference Range Interpretation Comments Red Cell Distribution Width (test code = 27109-6) 13.6 11.7 -14.4 [facility] PlainviewPlatelet [id number] 05:30:00* Test Item Value Reference Range Interpretation Comments Platelet Count (test code = 777-3) 148 140-360 [facility]viewNeutrophils (%) (Auto)2018-04-01 05:30:00 * Test Item Value Reference Range Interpretation Comments Neutrophils (%) (Auto) (test code = 21006-9) 61.0 38.7-80.0 [facility]viewLymphocytes (%) (Auto)2018-04-01 05:30:00 * Test Item Value Reference Range Interpretation Comments Lymphocytes (%) (Auto) (test code = 736-9) 26.1 18.0-39.1 [facility]viewMonocytes (%) (Auto)2018-04-01 05:30:00* Test Item Value Reference Range Interpretation Comments Monocytes (%) (Auto) (test code = 5905-5) 10.5 4.4-11.3 [facility]viewEosinophils (%) (Auto)2018-04-01 05:30:00 * Test Item Value Reference Range Interpretation Comments Eosinophils (%) (Auto) (test code = 713-8) 1.2 0.0-6.0 [facility]viewBasophils (%) (Auto)2018-04-01 05:30:00* Test Item Value Reference Range Interpretation Comments Basophils (%) (Auto) (test code = 706-2) 0.2 0.0-1.0 [facility] PlainviewIM GRANULOCYTES %2018-04-01 05:30:00* Test Item Value Reference Range Interpretation Comments IM GRANULOCYTES % (test code = IM GRANULOCYTES %) 1.0 0.0- 1.0 [facility]viewNeutrophils # (Auto)2018-04-01 05:30:00* Test Item Value Reference Range Interpretation Comments Neutrophils # (Auto) (test code = 751-8) 5.8 2.1-6.9 [facility]viewLymphocytes # (Auto)2018-04-01 05:30:00* Test Item Value Reference Range Interpretation Comments Lymphocytes # (Auto) (test code = 30225-9) 2.5 1.0-3.2 [facility]viewMonocytes # (Auto)2018-04-01 05:30:00* Test Item Value Reference Range Interpretation Comments Monocytes # (Auto) (test code = 742-7) 1.0 0.2-0.8 H [facility]viewEosinophils # (Auto)2018-04-01 05:30:00* Test Item Value Reference Range Interpretation Comments Eosinophils # (Auto) (test code = 711-2) 0.1 0.0-0.4 [facility]viewBasophils # (Auto)2018-04-01 05:30:00* Test Item Value Reference Range Interpretation Comments Basophils # (Auto) (test code = 704-7) 0.0 0.0-0.1 [facility]viewAbsolute Immature Granulocyte (auto 2018-04-01 05:30:00* Test Item Value Reference Range Interpretation Comments Absolute Immature Granulocyte (auto (mary t code = Absolute Immature Granulocyte (auto) 0.09 0-0.1 [facility] PlainviewDifferential Total Cells Counted 2018-03-30 17:06:00* Test Item Value Reference Range Interpretation Comments Differential Total Cells Counted (test code = Differen tial Total Cells Counted) 100 [facility]viewNeutrophils % (Manual)2018-03-30 17:06:00 * Test Item Value Reference Range Interpretation Comments Neutrophils % (Manual) (test code = 23943-9) 66 40-74 [facility] PlainviewLymphocytes % (Manual)2018-03-30 17:06:00 * Test Item Value Reference Range Interpretation Comments Lymphocytes % (Manual) (test code = 737-7) 25 19-48 [facility]viewMonocytes % (Manual)2018-03-30 17:06:00* Test Item Value Reference Range Interpretation Comments Monocytes % (Manual) (test code = 744-3) 6 3.4-9.0 [facility] PlainviewReactive Bsiwhznbrkb7253-29-88 17:06:00* Test Item Value Reference Range Interpretation Comments Reactive Lymphocytes (test code = 02090-9) 3 [facility] PlainviewPlatelet Fvppjfqz7394-39-81 17:06:00* Test Item Value Reference Range Interpretation Comments Platelet Estimate (test code = 15696-0) ADEQUATE [facility] PlainviewPlatelet Morphology [id number] 17:06:00* Test Item Value Reference Range Interpretation Comments Platelet Morphology Comment (test code = 10194-0) NORMAL [facility] PlainviewMicrocytosis2018-10-11 17:06:00* Test Item Value Reference Range Interpretation Comments Microcytosis (test code = 741-9) SLIGHT [facility] PlainviewRed Cell Morphology Uizrgng0502-11-84 17:06:00* Test Item Value Reference Range Interpretation Comments Red Cell Morphology Comment (test code = 6742-1) NORMAL [facility] PlainviewLactic Acid Mxvzb8399-63-51 13:50:00* Test Item Value Reference Range Interpretation Comments Lactic Acid Level (test code = Lactic Acid Level) 21.1 4.5- 19.8 HH Results called to SOFIA HAMMONDS at 1349 on 03/30/18 by DIONISIO DIXON. RB [place]. [facility] PlainviewProthrombin Lclh3914-92-55 13:46:00* Test Item Value Reference Range Interpretation Comments Prothrombin Time (test code = 5902-2) 12.8 11.9-14.5 [facility] PlainviewProthromb Time International Ratio 2018-03-30 13:46:00* Test Item Value Reference Range Interpretation Comments Prothromb Time International Ratio (test code = 6301-6) 0.88 Oral Anticoagulant Therapy INR Values:1. Low Intensity Therapy 1.5 - 2.02 . Moderate Intensity Therapy 2.0 - 3.03. High Intensity Therapy(1) 2.5 - 3. 54. High Intensity Therapy(2) 3.0 - 4.05. Panic Value INR > 5.0 [facility] 2018-03-30 13:46:00* Test Item Value Reference Range Interpretation Comments Activated Partial Thromboplast Time (test code = 87351-6) 23.8 23.8-35.5 [facility] [place] [id number] Patient Name: NATALIA CARRILLO MR #: [id number] : 1965 Age/Sex: 52/F Req #: [id number] Adm Physician: Ordered by: ADONAY COONEY MD Report #: [id number] Location: [facility] Room/Bed: Procedure: [id number] DX/CHEST 2 VIEWS Exam Date: 11/22/17 Exam Time: 1805 REPORT STATUS: Signed PROCEDURE: Frontal and lateral views of the chest. COMPARISON: [facility], DX, CHEST 2 VIEWS, 03/01/2012, 22:37. INDICATIONS: cough, fever FINDINGS: Lines/tubes: None. Lungs: The lungs are well inflated. There is no evidence of pneumonia or pulmonary edema. Pleura: There is no pleural effusion or pneumothorax. Mild right apical pl eural-parenchymal coarsening, which may represent scarring. Heart and medi astinum: The heart and the mediastinum are normal. Bones: No acute bony abnormality. IMPRESSION: 1. no consolidation or effusion. 2. Mild right apical pleural-parenchymal coarsening, which may represent scarring. R ecommend followup chest, PA and lateral in 2 months to document stability. Adam Morales M.D. Dictated by: Adam Morales M.D. on 10/2017 at 19:01 Electronically approved by: Adam Morales M.D. on 11/22/2017 at 19:01 Dictated By: ADAM MORALES MD Electronica lly Signed By: ADAM MORALES MD on 11/22/171900 Transcribed By: FRANK on 11/04 COPY TO: ADONAY COONEY MD
[2020-02-12 19:29] LABS: ALANINE AMINOTRANSFERASE 24 IU/L (0-55); ALBUMIN/GLOBULIN RATIO 0.7 (0.8-2.0); ALKALINE PHOSPHATASE 127 IU/L (40-150); ANION GAP 21.2 mmol/L (8-16); BLOOD UREA NITROGEN 14 mg/dL (7-26); BUN/CREATININE RATIO 13 (6-25); CALCIUM 9.5 mg/dL (8.4-10.2); CARBON DIOXIDE 19 mmol/L (22-29); CHLORIDE 101 mmol/L (98-107); CREATINE KINASE 51 IU/L (29-168); CREATININE, SERUM 1.11 mg/dL (0.57-1.11); EST GLOMERULAR FILTRATION RATE 51 ML/MIN (60-); GLUCOSE 253 mg/dL (74-118); POTASSIUM 4.2 mmol/L (3.5-5.1); SODIUM 137 mmol/L (136-145)
[2020-02-12] MEDS ORDERED: SODIUM CHLORIDE 0.9% 1000ML 1,000 ML IV STA (20:13)
[2020-02-12 20:29] LABS: B-TYPE NATRIURETIC PEPTIDE2 21.6 pg/mL (0-100)
[2020-02-12] MEDS ORDERED: ALBUTEROL SULF 0.083% NEB SOLN 3 ML NEB NEB NR (21:38)
[2020-02-12] MEDS ORDERED: METHYLPREDNISOLONE SOD SUCC 125 MG/2ML VIAL IV ONE (21:45)
--- NOTE | 2020-02-12 21:54 | Diagnostic Imaging Report ---
EXAMINATION: CHEST SINGLE (PORTABLE) INDICATION: COMPARISON: Chest x-ray on 04/11/2018. FINDINGS: TUBES and LINES: None. LUNGS: There is patchy airspace consolidative opacity in the right lower lobe. PLEURA: No pleural effusion or pneumothorax. HEART AND MEDIASTINUM: The cardiomediastinal silhouette is unremarkable. BONES AND SOFT TISSUES: No acute osseous lesion. Soft tissues are unremarkable. UPPER ABDOMEN: No free air under the diaphragm. IMPRESSION: Right lower lobe pneumonia. Recommend follow-up chest radiograph in 6-8 weeks to ensure resolution. Signed by: Dusty Bauman MD on 02/12/2020 9:50 PM
[2020-02-12] MEDS ORDERED: METOPROLOL TARTRATE INJ 1 MG/ML VIAL IV ONE (22:00)
[2020-02-12] MEDS ORDERED: KETOROLAC TROMETHAMINE 30 MG/ML VIAL IV STA (22:37)
[2020-02-12 22:57] LABS: BILIRUBIN,URINE NEGATIVE (NEGATIVE); CLARITY,URINE CLEAR (CLEAR); COLOR,URINE YELLOW (YELLOW); KETONES,URINE NEGATIVE (NEGATIVE); LEUKOCYTE ESTERASE ,URINE NEGATIVE (NEGATIVE); NITRITE,URINE NEGATIVE (NEGATIVE); PROTEIN,URINE DIPSTICK NEGATIVE (NEGATIVE); URINE UROBILINOGEN 0.2 mg/dL (0.2 - 1)
[2020-02-12 23:03] LABS: BACTERIA,URINE FEW /HPF; EPITHELIAL CELLS,URINE MODERATE /LPF; RBC,URINE 0-5 /HPF (0-5)
[2020-02-12 23:11] LABS: ABG HCO3 20 mmol/L (22-26); ABG PCO2 34 mmHg (35-45); ABG PH 7.38 (7.35-7.45); ABG PO2 87 mmHg (80-105); ABG TCO2 21
[2020-02-13 01:46] VITALS: BP 119/90
== END 2020-02-13 01:35 | disposition other institution (70) ==
LOC: ER 19:01
DX: A41.9 Sepsis, unspecified organism (principal); J18.9 Pneumonia, unspecified organism; R50.9 Fever, unspecified; R05 Cough; J44.9 Chronic obstructive pulmonary disease, unspecified; Z11.59 Encounter for screening for other viral diseases; F17.210 Nicotine dependence, cigarettes, uncomplicated
CPT/HCPCS: 36415; 36600; 71045; 80053; 81001; 82550; 82553; 82805; 83605; 83880; 84484; 85025; 87040; 93005; 99284; J1885; J2930; J7030; U0002

== ENCOUNTER 2020-02-24 22:21 | Inpatient (IN) | payer MEDICARE, OTHER ==
[~2020-02-24] VITALS: Ht 152.4 cm; Wt 81.4 kg
[2020-02-24] MEDS: ALBUTEROL SULFATE HFA 8GM INHALATION AEROSOL INH ONE (00:10)
[2020-02-24] MEDS ORDERED: SODIUM CHLORIDE 0.9% 1000ML 1,000 ML IV ONE ×3 (23:00→23:45)
[2020-02-24] MEDS ORDERED: CEFTRIAXONE SOD 1 GM/NS 50 ML 50 ML IV ONE (23:00)
[2020-02-24] MEDS ORDERED: METHYLPREDNISOLONE SOD SUCC 125 MG/2ML VIAL IV ONE (23:00)
--- NOTE | 2020-02-24 23:07 | Emergency Department Note ---
History of Present Illnes History of Present Illness Chief Complaint: Respiratory History of Present Illness This is a 54 year old female WITH H/O COPD AND RECENT ADMISSION TO [facility] FOR PNEUMONIA PRESENTS WITH SOB, COUGH, WORSE WITH EXERTION PT DISCHARGED FROM [facility] Tuesday02/16/20 AND FINISHED HE PO ANTIBIOTICS ON 02/20/20. STATES SHE HAS NEVER FELT BACK TO HER BASELINE AND FEELS SHE IS GETTING SOB AGAIN . Historian: Patient Arrival Mode: Car Onset (how long ago): hour(s) (151) Location: CHEST Quality: SOB, COUGH Radiation: Reports non-radiation Severity: moderate Onset quality: gradual Duration (how long): hour(s) (145) Timing of current episode: intermittent Progression: waxing and waning Chronicity: recurrent Context: Reports recent illness (PNEUMONIA DIAGNOSED ON 02/12/20) Relieving factors: rest Exacerbating factors: movement, other (COUGHING) Associated symptoms: Reports cough, Reports shortness of breath; Denies chest pain, Denies diaphoresis, Denies fever/chills, Denies headaches Treatments prior to arrival: none Past Medical/Family History Physician Review I have reviewed the patient's past medical and family history. Any updates have been documented here. Past Medical History Recent Fever: No Clinical Suspicion of Infectio: Yes New/Unexplained Change in Ment: No Past Medical History: Hypertension, Diabetes, COPD, Asthma, Hypothyroidism, CAD, Anemia, Depression, GERD, Hyperlipedemia, Chronic Back Pain, Osteoarthritis Other Medical History: crohns hiatal hernia chronic hip pain herniated disk +SMOKER Past Surgical History: Cholecysctectomy, Appendectomy, T&A, PCI, Other Surgery: kidney stent ARTERY CLOGGED PER PT subclavian stent ARTERY PLACEMENT Social History Smoking Cessation: Current some day smoker Alcohol Use: None Any Illegal Drug Use: No Family History Family history of heart diseas: No Other family history HTN,DM Other Last Tetanus: UNKNOWN Review of Systems Review of Systems Constitutional: Reports no symptoms EENTM: Reports no symptoms Cardiovascular: Reports no symptoms Respiratory: Reports as per HPI Gastrointestinal: Reports no symptoms Genitourinary: Reports no symptoms Musculoskeletal: Reports no symptoms Integumentary: Reports no symptoms Neurological: Reports no symptoms Psychological: Reports no symptoms Endocrine: Reports no symptoms Hematological/Lymphatic: Reports no symptoms Physical Exam Related Data Allergies: Coded Allergies: Penicillins (Verified Allergy, Severe, TONGUE/THROAT SWELLS, 04/10/18) Metronidazole HCl (Verified Allergy, Unknown, VOMITING, 04/10/18) Triage Vital Signs Vital Signs Date Time Temp Pulse Resp B/P (MAP) Pulse Ox O2 Delivery O2 Flow Rate FiO2 02/24/20 22:49 99.1 109 26 119/61 94 Room Air Vital signs reviewed: Yes Physical Exam CONSTITUTIONAL Constitutional: Present well-developed, Present well-nourished; Absent distressed HENT HENT: Present normocephalic, Present atraumatic, Present oropharynx clear/moist, Present nose normal HENT L/R: Present left ext ear normal, Present right ext ear normal EYES Eyes: Reports PERRL, Reports conjunctivae normal NECK Neck: Present ROM normal PULMONARY Pulmonary: Present effort normal, Present other (BREATH SOUNDS DECREASED AT BASES BILATERAL, FAINT WHEEZING NOTED); Absent respiratory distress CARDIOVASCULAR Cardiovascular: Present regular rhythm, Present heart sounds normal, Present capillary refill normal, Present tachycardia (110) GASTROINTESTINAL Abdominal: Present soft, Present nontender, Present bowel sounds normal GENITOURINARY Genitourinary: Present exam deferred SKIN Skin: Present warm, Present dry MUSCULOSKELETAL Musculoskeletal: Present ROM normal NEUROLOGICAL Neurological: Present alert, Present oriented x 3, Present no gross motor or sensory deficits PSYCHOLOGICAL Psychological: Present mood/affect normal, Present judgement normal Results Laboratory Laboratory Laboratory Tests Test 02/25/20 01:49 02/24/20 22:50 Lactic Acid Level 2.8 mmol/L (0.5-2.0) 5.9 mmol/L (0.5-2.0) White Blood Count 19.44 x10e3/uL (4.8-10.8) Red Blood Count 3.59 x10e6/uL (3.6-5.1) Hemoglobin 11.3 g/dL (12.0-16.0) Hematocrit 36.1 % (34.2-44.1) Mean Corpuscular Volume 100.6 fL (81-99) Mean Corpuscular Hemoglobin 31.5 pg (28-32) Mean Corpuscular Hemoglobin Concent 31.3 g/dL (31-35) Red Cell Distribution Width 13.5 % (11.7-14.4) Platelet Count 315 x10e3/uL (140-360) Neutrophils (%) (Auto) 79.6 % (38.7-80.0) Lymphocytes (%) (Auto) 9.5 % (18.0-39.1) Monocytes (%) (Auto) 7.7 % (4.4-11.3) Eosinophils (%) (Auto) 0.2 % (0.0-6.0) Basophils (%) (Auto) 0.4 % (0.0-1.0) Neutrophils # (Auto) 15.5 (2.1-6.9) Lymphocytes # (Auto) 1.9 (1.0-3.2) Monocytes # (Auto) 1.5 (0.2-0.8) Eosinophils # (Auto) 0.0 (0.0-0.4) Basophils # (Auto) 0.1 (0.0-0.1) Absolute Immature Granulocyte (auto 0.51 x10e3/uL (0-0.1) Sodium Level 146 mmol/L (136-145) Potassium Level 4.5 mmol/L (3.5-5.1) Chloride Level 107 mmol/L (98-107) Carbon Dioxide Level 17 mmol/L (22-29) Anion Gap 26.5 mmol/L (8-16) Blood Urea Nitrogen 13 mg/dL (7-26) Creatinine 0.86 mg/dL (0.57-1.11) Estimat Glomerular Filtration Rate > 60 ML/MIN (60-) BUN/Creatinine Ratio 15 (6-25) Glucose Level 69 mg/dL (74-118) Calcium Level 8.5 mg/dL (8.4-10.2) Total Bilirubin 0.4 mg/dL (0.2-1.2) Aspartate Amino Transf (AST/SGOT) 23 IU/L (5-34) Alanine Aminotransferase (ALT/SGPT) 15 IU/L (0-55) Alkaline Phosphatase 109 IU/L (40-150) Creatine Kinase 45 IU/L (29-168) Creatine Kinase MB 1.10 ng/mL (0-5.0) Troponin I 0.005 ng/mL (0-0.300) Total Protein 6.8 g/dL (6.5-8.1) Albumin 3.6 g/dL (3.5-5.0) Globulin 3.2 g/dL (2.3-3.5) Albumin/Globulin Ratio 1.1 (0.8-2.0) Coronavirus (PCR) Not detected (NOTDETECTED) Lab results reviewed: Yes Imaging Imaging results reviewed: Yes Impressions Procedure: DX/CHEST SINGLE (PORTABLE) Exam Date: 02/24/20 Exam Time: 2334 REPORT STATUS: Signed EXAMINATION: CHEST SINGLE (PORTABLE) INDICATION: ^Y ^SOB, RECENT PNEUMONIA, COPD ^[id number] ^2335 ^Y COMPARISON: 02/12/2020 FINDINGS: AP view TUBES and LINES: None. LUNGS: Limited by body habitus. Lungs are well inflated. Again seen bilateral airspace opacities, predominantly the lower lung wing. PLEURA: No significant pleural effusion or pneumothorax. HEART AND MEDIASTINUM: The cardiomediastinal silhouette is enlarged. BONES AND SOFT TISSUES: No acute osseous lesion. Soft tissues are unremarkable. UPPER ABDOMEN: No free air under the diaphragm. IMPRESSION: Enlarged cardiomediastinal silhouette with bilateral airspace opacities, probably [id number] interstitial edema. Underlying pneumonia cannot be excluded in the appropriate clinical context. Signed by: Dr. Bakari Mays MD on 02/25/2020 12:32 AM Dictated By: BAKARI MAYS MD Transcribed By: ORLANDO on 02/25/2031 COPY TO: JANNETTE QUINONES MD~ Procedures 12 Lead ECG Interpretation ECG Interpretation : ECG: ECG 1 Bench Molder: Interpreted by ED physician Date: Feb 24, 2020 Time: 23:13 Rhythm: sinus tachycardia Ectopy: atrial premature contractions Rate: tachycardia BPM: 105 QRS axis: normal ST segments normal: Yes T waves normal: Yes Clinical Impression: non-specific ECG Assessment & Plan Medical Decision Making MDM PT WITH H/O COPD AND RECENT PNEUMONIA WITH HOSPITALIZATION PRESENTS WITH SOB AND COUGH CBC, CMP, EKG, CARDIAC ENZYMES, CXR, BLOOD CULTURE, LACTIC ACID, COVID 19 ORDERED TO EVAL FOR COVID 19, PNEUMONIA, MYOCARDIAL INFARCTION, ELECTROLYTE ABNORMALITY, ROCEPHIN 1 GRAM IV ORDERED SOLU MEDROL 125 MG IV ORDERED NS 1 LITER IV BOLUS ORDERED PT WITH LACTIC ACID OF 5.9, NS BOLUS 30CC/KG ORDERED A TOTAL OF 3 LITERS NS IV ORDERED I SPOKE WITH DR EROS MCCARTY INPATIENT SECOND LACTIC ACID 2.8 0230 CURRENT VITALS Date Time Temp Pulse Resp B/P (MAP) Pulse Ox O2 Delivery O2 Flow Rate FiO2 02/25/20 02:01 99.1 100 24 122/76 97 Nasal Cannula 3.0 Reassessment Reassessment time: 00:57 Reassessment I DID A BEDSIDE FLUID RESUSCITATION EXAM Assessment & Plan Final Impression: (1) Pneumonia (2) Septic shock (3) Leukocytosis (4) COPD (chronic obstructive pulmonary disease) Depart Disposition: ADMITTED Last Vital Signs Date Time Temp Pulse Resp B/P (MAP) Pulse Ox O2 Delivery O2 Flow Rate FiO2 02/24/20 22:49 99.1 109 26 119/61 94 Room Air Home Meds Reported Medications Clindamycin Hcl (CLEOCIN HCL) 150 Mg Capsule, 300 MG PO Q8H, CAP 04/14/18 Levofloxacin (LEVAQUIN) 500 Mg Tablet, 500 MG PO DAILY, TAB 04/14/18 Insulin Glargine (LANTUS 3ML PEN) 100 Units/1 Ml Inj, 25 SQ HS 04/10/18 Budesonide/Formoterol Fumarate (SYMBICORT 80-4.5 MCG INHALER) 10.2 Gm Hfa.aer.ad, 1 EACH INH, EACH 04/10/18 Albuterol Sulf* (PROAIR HFA INHALER*) 8.5 Gm Inh 04/10/18 Rifaximin (XIFAXAN) 550 Mg Tablet, MG PO QID 04/10/18 Sucralfate (SUCRALFATE) 1 Gm Tablet, 1 GM PO QID, TAB 04/10/18 Cyclobenzaprine Hcl (CYCLOBENZAPRINE HCL) 10 Mg Tablet, 10 MG PO TID, TAB 04/10/18 Aspirin (ASPIR 81) 81 Mg Tablet.dr, 81 MG PO 04/10/18 Gabapentin (GABAPENTIN) 300 Mg Capsule, 300 MG PO TID, #60 CAP 04/10/18 Clonazepam (CLONAZEPAM) 0.5 Mg Tablet, 0.5 MG PO DAILY, TAB 04/10/18 Glimepiride (GLIMEPIRIDE) 4 Mg Tablet, 4 MG PO BID 04/10/18 Insulin Aspart (NOVOLOG) 100 Units/1 Ml Inj, 5 SQ PC 04/10/18 Clindamycin Hcl (CLINDAMYCIN HCL) 150 Mg Capsule, 300 MG PO TID 10/14/18 Hydrocodone Bit/Acetaminophen (NORCO 5-325 TABLET) 1 Each Tablet, 1 EACH PO Q4, TAB 12/18/13 Levothyroxine Sodium (LEVOTHYROXINE SODIUM) 25 Mcg Tablet, 25 MCG PO DAILY 11/04/13 Omeprazole (OMEPRAZOLE) 20 Mg Capsule.dr, 20 MG PO BID 11/04/13 Budesonide (BUDESONIDE EC) 3 Mg Capdr...er, 3 MG PO DAILY 11/04/13 Metformin Hcl (METFORMIN HCL) 500 Mg Tablet, 500 MG PO BID 11/04/13 Metoprolol Tartrate (METOPROLOL TARTRATE) 50 Mg Tablet, 50 MG PO BID 11/04/13 Mesalamine (PENTASA) 500 Mg Capcr, 2 CAP PO QID 11/04/13 Atorvastatin Calcium (Lipitor) 10 Mg Tablet, 10 MG PO DAILY 10/10/11 Medications in the ED Ceftriaxone Sodium 50 ml @ 100 mls/hr ONCE ONCE IV ; Start 02/24/20 at 23:00; Stop 02/24/20 at 23:29 Methylprednisolone Sodium Succinate 125 mg ONCE ONCE IV ; Start 02/24/20 at 23:00; Stop 02/24/20 at 23:01; Status DC Albuterol INHALE TWO PUFFS BY MOUTH ONCE ONCE ONCE INH ; Start 02/24/20 at 23:00; Stop 02/24/20 at 23:01; Status DC Sodium Chloride 1,000 ml @ 999 mls/hr Q1H1M ONCE IV ; Start 02/24/20 at 23:00; Stop 02/25/20 at 00:00 JANNETTE QUINONES MD Feb 24, 2020 23:07
--- OUTSIDE RECORDS SUMMARY | 2020-02-24 23:15 | XMS REPORT | Continuity of Care Document ---
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 Phone MD Torres COONEY MD PCP Douglas ZARATE Attphys Unavailable Douglas Zarate MD Attphys Volodymyr Boogie MD Attphys Ki Zuniga MD Attphys CHEYENNE BEAR Attphys Unavailable Torres COONEY Attphys Unavailable VOLODYMYR BOOGIE Admphys Unavailable Torres COONEY Admphys Unavailable Payers Payer Name Policy Type Policy Number Effective Date Expiration Date S mary [facility] - MEDICARE MGD CAREAARP/MEDICARE COMPLETEx xxxxxxxx xxxxxxxxx [facility] Aarp Medicare Complete [id number] [facility] Aetna Pos [id number] [facility] Problems Condition Name Condition Details Condition Category Status Onset Date Resolution Date Last Treatment Date Treating Clinician Comments Source Pneumonia Pneumonia Disease Active 2020-02-13 00:00:00 [facility] Cellulitis of right forearm Cellulitis of right forearm Problem Active [facility] Hyperglycemia Hyperglycemia Problem Active [facility] Hyponatremia Hyponatremia Problem Active [facility] Leukocytosis Leukocytosis Problem Active [facility] Severe sepsis Problem Active [facility] Chronic obstructive pulmonary disease Problem Active [facility] Right lower lobe pneumonia Problem Active [facility] Tobacco abuse Problem Active [facility] Avascular necrosis Avas cular necrosis Active Problem 03/21/2018 [facility] Problem Active 2018-03-21 02 :45:44 [facility] [address] 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 03/21/2018 [facility] Problem Active 2018-03-21 02 :45:44 [facility] [place] Pain in right foot Pain in right foot Active Problem 03/21/2018 [facility] Problem Active 2018-03-21 02 :45:44 [facility] [place] Joint stiffness of right foot Joint stiffness of right foot Active Problem 03/21/2018 [facility] Problem Active 2018-03-21 02:45:44 [facility] [place] Allergies, Adverse Reactions, Alerts Allergy Name Allergy Type Status Severity Reaction(s) Onset Date Inacti ve Date Treating Clinician Comments Source Metronidazole Hcl Propensity to adverse reactions Active 2020-02-13 00:00:00 vomit [facility] Penicillins Propensity to adverse reactions Active 2019 00:00:00 Throat swelling [facility] Metronidazole HCl Allergy to substance Active VOMITING 00:00:00 [facility] ical [place] Penicillin Allergy to substance Active Severe TONGUE/THROAT S WELLS 2018-04-10 00:00:00 [facility] Penicillins [place] Active [place] 2015-05-23 00:00:00 [facility] metronidazole [place] 2015-05-23 00:00:00 [facility] Social History Social Habit Start Date Stop Date Quantity Comments Source Sex Assigned At [facility] Smoking Status Start Date Stop Date Source Current every day smoker 2020-02-14 00:00:00 [facility] Medications Ordered Medication Name Filled Medication Name Start Date Stop Da te Current Medication? Ordering Clinician Indication Dosage Frequency Signature (SIG) Comments Components Source levoFLOXacin (LEVAQUIN) 750 MG tablet 2020-02-16 00:00 :00 2020-02-20 23:59:00 No 750mg QD Take 1 tablet (750 mg total) by mouth da mae for 4 days. [facility] predniSONE (DELTASONE) 20 MG tablet 2020-02-16 00:00:0 0 2020-02-18 23:59:00 No 20mg QD Take 1 tablet (20 mg total) by mouth taiwo ly for 2 days. [facility] levoFLOXacin (LEVAQUIN) 750 MG tablet 2020-02-16 00:00 :00 2020-02-15 00:00:00 No 750mg QD Take 1 tablet (750 mg total) by mouth da mae for 2 days. [facility] metoprolol tartrate (LOPRESSOR) 50 MG tablet 2020-02-13 04:25:31 Yes 50mg Q.5D Take 50 mg by mouth 2 (two) times daily. [facility] lisinopriL (PRINIVIL,ZESTRIL) 2.5 MG tablet 2020-02-13 04:23:17 Yes 2.5mg QD Take 2.5 mg by mouth daily. [facility] budesonide (ENTOCORT EC) 3 mg 24 hr capsule 2020-02-13 04:17:44 Yes 3mg QD Take 3 mg by mouth every morning. [facility] insulin lispro (HUMALOG) 100 unit/mL injection 2020-02-13 04:17: 43 Yes 8U Inject 8 Units subcutaneously 3 (three) times daily be fore meals. [facility] gabapentin (NEURONTIN) 300 MG capsule 2020-02-13 04:17:43 Yes 300mg Q.[id number] Take 300 mg by mouth 3 (three) times daily. [facility] albuterol HFA (PROVENTIL HFA) 90 mcg/actuation inhaler 2020-02-13 04:17:43 Yes 1{puff} Inhale 1 puff b y mouth via inhaler every 6 (six) hours as needed for Wheezing. [facility] budesonide-formoteroL (SYMBICORT) 80-4.5 mcg/actuation inhal er 2020-02-13 04:17:43 Yes 2{puff} Q.5D Inhale 2 p uffs by mouth via inhaler 2 (two) times daily. [facility] aspirin 81 MG EC tablet 2020-02-13 04:17:43 Yes 81mg QD Take 81 mg by mouth daily. [facility] HYDROcodone-acetaminophen (NORCO 5-325) 5-325 mg per tablet 2020-02-13 04:17:43 Yes 1{tbl} Take 1 tab let by mouth every 6 (six) hours as needed for Pain. [facility] cyclobenzaprine (FLEXERIL) 10 MG tablet 2020-02-13 04:17:43 Yes 10mg Take 10 mg by mouth 3 (three) times daily as needed for Muscle spasms. [facility] mesalamine (PENTASA) 500 MG CR capsule 2020-02-13 04:17:43 Yes 500mg Q.[id number] Take 500 mg by mouth 3 (three) times daily. [facility] atorvastatin (LIPITOR) 10 MG tablet 2020-02-13 04:17:42 Yes 10mg QD Take 10 mg by mouth daily. [facility] glimepiride (AMARYL) 4 MG tablet 2020-02-13 04:17:42 Yes 4mg Take 4 mg by mouth every morning before breakfast. [facility] levothyroxine (SYNTHROID, LEVOTHROID) 25 MCG tablet 02-12 04:17:42 Yes 25ug Take 25 mcg by mouth Every morning on an empty stomach. [facility] insulin detemir U-100 (LEVEMIR) 100 unit/mL (3 mL) InPn inje ction 2020-02-13 04:17:42 Yes 30U QD Inject 30 Units subcutaneousl y nightly. [facility] Albuterol Sulfate (Proair Hfa Inhaler*) 8.5 Gm INH Alb uterol Sulfate (Proair Hfa Inhaler*) 8.5 Gm INH Yes [facility] Aspirin (Aspir 81) 81 Mg TABLET. Aspirin (Aspir 81) 81 Mg TABLET. Yes 81 [facility] Atorvastatin Calcium (Lipitor) 10 Mg TABLET Atorvastat in Calcium (Lipitor) 10 Mg TABLET Yes 10 Daily [facility] Budesonide (Budesonide Ec) 3 Mg CAPDR...ER Budesonide (Budesonide Ec) 3 Mg CAPDR...ER Yes 3 Daily [facility] Budesonide/Formoterol Fumarate (Symbicor t 80-4.5 Mcg Inhaler) 10.2 Gm HFA.AER.AD Budesonide/Formoterol Fumarate (Symbicor t 80-4.5 Mcg Inhaler) 10.2 Gm HFA.AER.AD Yes 1 [facility] Clindamycin Hcl Clindamycin Hcl Yes 300 Three Ti mes A Day [facility] Clindamycin Hcl (Cleocin Hcl) 150 Mg CAPSULE Clindamyc in Hcl (Cleocin Hcl) 150 Mg CAPSULE Yes 300 Every 8 Hours [facility] Clonazepam Clonazepam Yes .5 Daily [facility] Cyclobenzaprine Hcl Cyclobenzaprine Hcl Yes 10 Three Times A Day [facility] Gabapentin Gabapentin Yes 300 Three Times A Day [facility] Glimepiride Glimepiride Yes 4 Twice A Day [facility] Hydrocodone Bit/Acetaminophen ([place] 5-325 Tablet) 1 E ach TABLET Hydrocodone Bit/Acetaminophen ([place] 5-325 Tablet) 1 Each TABLET Yes 1 Every 4 Hours [facility] Insulin Aspart (Novolog) 100 Units/1 Ml INJ Insulin As part (Novolog) 100 Units/1 Ml INJ Yes 5 After Meals [facility] Insulin Glargine (Lantus 3ML Pen) 100 Units/1 Ml INJ I nsulin Glargine (Lantus 3ML Pen) 100 Units/1 Ml INJ Yes 25 Bedtime [facility] Levofloxacin (Levaquin) 500 Mg TABLET Levofloxacin (Levaquin) 500 M g TABLET Yes 500 Daily [facility] Levothyroxine Sodium Levothyroxine Sodium Yes 25 Daily [facility] Mesalamine (Pentasa) 500 Mg CAPCR Mesalamine (Pentasa) 500 Mg CAPCR Yes 2 Four Times Daily [facility] Metformin Hcl Metformin Hcl Yes 500 Twice A Day [facility] Metoprolol Tartrate Metoprolol Tartrate Yes 50 Twice A Day [facility] Omeprazole Omeprazole Yes 20 Twice A Day [facility] Rifaximin (Xifaxan) 550 Mg TABLET Rifaximin (Xifaxan) 550 Mg TABLET Yes Four Times Daily [facility] Sucralfate Sucralfate Yes 1 Four Times Daily [facility] Chlordiazepoxide/Clidinium Br (Chlordiazepoxide-Clidin ium Cap) 1 Each CAPSULE Chlordiazepoxide/Clidinium Br (Chlordiazepoxide-Clidinium Cap) 1 Each CAPSULE 2018-04-10 00:00:00 No 1 Three Times A Day [facility] Glimepiride Glimepiride 2018-04-10 00:00:00 No 2 T wice A Day [facility] Insulin Glargine (Lantus 3ML Pen) 100 Units/1 Ml INJ I nsulin Glargine (Lantus 3ML Pen) 100 Units/1 Ml INJ 2018-04-10 00:00:00 No 20 Daily [facility] Janet/Yenniferrhamn/B.bif/B.long (Probioti c Acidophilus Biobeads) [address] Gonzales/Yenniferrhamn/B.bif/B.long (Probioti c Acidophilus Biobeads) 1 Each TABLET. 2018-04-10 00:00:00 No 1 Daily [facility] Lisinopril/Hydrochlorothiazide (Lisinopril-Hctz 10-12. 5 Mg Tab) 1 Each TABLET Lisinopril/Hydrochlorothiazide (Lisinopril-Hctz 10-12.5 Mg Tab) 1 Each TABLET 2018-04-10 00:00:00 No 1 Daily [facility] Omeprazole Magnesium (Prilosec Otc) 20 Mg [address]T.DR Villarreal eprazole Magnesium (Prilosec Otc) 20 Mg TABLET. 2018-04-10 00:00:00 No 20 Daily [facility] Ondansetron (Zofran Odt) 8 Mg TAB.RAPDIS Ondansetron ( Zofran Odt) 8 Mg TAB.RAPDIS 2018-04-10 00:00:00 No 8 Daily [facility] Tramadol Hcl (Ultram) 50 Mg TABLET Tramadol Hcl (Ultram) 50 Mg T ABLET 2018-04-10 00:00:00 No 5 Q6hrs [facility] Ciprofloxacin Hcl Ciprofloxacin Hcl 2018-04-02 00:00:00 No 750 Twice A Day [facility] Balsalazide Disodium Balsalazide Disodium 2012-03-27 00:00:00 No 3 Three Times A Day [facility] Chlordiazepoxide/Clidinium Br (Librax Capsule) 1 Each CAPSULE Chlordiazepoxide/Clidinium Br (Librax Capsule) 1 Each CAPSULE 2012-03-27 00:00:00 No 1 Q 6 Hrs [facility] Salmeterol Xinaf/Fluticasone (Advair 250/50) 1 Ea DISK Salmeterol Xinaf/Fluticasone (Advair 250/50) 1 Ea DISK 2012-03-01 00:00:00 No 1 Twice A Day [facility] Vitamin D 1.25MG Vitamin D 1.25MG 2012-03-01 00:00:00 No 1.25 Every Week [facility] Cholecalciferol (Vitamin D) 400 Unit CAPSULE Cholecalc iferol (Vitamin D) 400 Unit CAPSULE 2011-10-10 00:00:00 No Daily [facility] Vital Signs Vital Name Observation Time Observation Value Comments Source Systolic blood pressure 2020-02-15 16:11:00 135 mm[Hg] [facility] Diastolic blood pressure 2020-02-15 16:11:00 71 mm[Hg] [facility] Heart rate 2020-02-15 16:11:00 93 /min [facility] Body temperature 2020-02-15 16:11:00 36.83 Tisha [facility] Respiratory rate 2020-02-15 16:11:00 18 /min [facility] Oxygen saturation in Arterial blood by Pulse oximetry 02-14 16:11:00 93 /min [facility] Jiane r Body Temperature 2020-02-13 01:46:00 98.8 [degF] [facility] Weight 2020-02-12 18:34:00 195 [lb_av] [facility] BMI (Body Mass Index) 2020-02-12 18:34:00 38.1 kg/m2 [facility] Procedures Procedure Date / Time Performed Performing Clinician [facility] e REPORT OF PROCEDURE - ENDOSCOPY SCAN 2020-02-18 14:10:19 Pro vider, Default Scanning [facility] RHYTHM STRIP - SCAN 2020-02-18 14:10:18 Provider, Default Scanni jeimy [facility] POCT-GLUCOSE METER 2020-02-15 11:57:00 Mali Zuniga [facility] POCT-GLUCOSE METER 2020-02-15 09:00:00 Mali Zuniga [facility] POCT-GLUCOSE METER 2020-02-15 07:06:00 Volodymyr Boogie [facility] BASIC METABOLIC PANEL (7) 2020-02-15 04:23:00 Genesis Gutierrez sa [facility] CBC W/PLT COUNT & AUTO DIFFERENTIAL 2020-02-15 04:23:00 Genesis Gutierrez [facility] POCT-GLUCOSE METER 2020-02-14 20:55:00 Volodymyr Boogie [facility] POCT-GLUCOSE METER 2020-02-14 16:36:00 Volodymyr Boogie [facility] BASIC METABOLIC PANEL (7) 2020-02-14 15:39:00 Volodymyr Boogie [facility] POCT-GLUCOSE METER 2020-02-14 11:41:00 Keagan [facility] POCT-GLUCOSE METER 2020-02-14 07:37:[facility] (7[facility] 2020-02-14 01:01:00 Genesis Gutierrez [facility] CBC W/PLT COUNT & AUTO DIFFERENTIAL 2020-02-14 01:01:00 [facility] PO[facility]SE [facility]ER 2020-02-13 21:03:00 Keagan [facility] POCT-GLUCOSE METER 2020-02-13 17:21:00 [facility] 2020-02-13 12:39:00 [facility] 2020-02-13 07:58:00 [facility] BASIC METABOLIC PANEL (7) 2020-02-13 04:50:00 Genesis Gutierrez [facility] BLOOD GAS, VENOUS 2020-02-13 04:50:00 Genesis Guiterrez [facility] KETONE, BLOOD 2020-02-13 04:50:00 [facility] LACT[facility] ACID, VENOUS 2020-02-13 04:50:00 Genesis Gutierrez [facility] PROCALCITONIN 2020-02-13 04:50:00 Genesis Gutierrez [facility] CBC W/PLT COUNT & AUTO DIFFERENTIAL 2020-02-13 04:50:00 [facility]ST 1 VIEW PORTABLE/BEDSIDE 2020-02-13 04:27:00 Shobha Gutierrez ra [facility] Encounters Start Date/Time End Date/Time Encounter Type Admission Type Attendi [facility] Care Department Encounter ID Source 2020-02-12 19:01:00 2020-02-13 01:35:00 Departed Emergency Room 1 CHEYENNE BEAR [facility] [id number] [facility] 2018-03-30 14:52:00 2018-04-02 16:30:00 Discharged Inpatient [facility] [id number] [facility] 2018-03-17 10:36:00 2018-03-17 10:36:00 [facility]patient [facility] [id number] [employer] 2017-11-22 17:48:00 2017-11-22 17:48:00 Registered Clinic 3 ADONAY COONEY [facility] [id number] [facility] Results Test Description Test Time Test Comments Results Result Comments Source POCT-GLUCOSE METER 2020-02-16 07:14:00 Test Item POC-GLUCOSE METER (BEAKER) (test code = 1538) 397 mg/dL 70-110 H : TESTED AT [address], [address]: Slot Router/Drosser ID = [id number] for Chelle Zayas POC-Glucose [id number] 12:08:00* Test Item Value Reference Range Interpretation Comments POC-Glucose Meter (test code = 1538) 375 mg/dL 70-110 H : Notified RN/MD: TESTED AT [address], [address]: Slot Router/Drosser ID = [id number] for LEONILA JOSEDEBRA Lab Interpretation (test code = 52368-3) [facility]normal [facility] [id number] 12:08:00* Test Item Value Reference Range Interpretation Comments POC-GLUCOSE METER (BEAKER) (test code = 1538) 375 mg/dL 70-110 H : Notified RN/MD: TESTED AT [address], [address]: Slot Router/Drosser ID = [id number] for LEONILA DARNELL POCT-GLUCOSE [id number] 09:35:00* Test Item Value Reference Range Interpretation Comments POC-GLUCOSE METER (BEAKER) (test code = 1538) 153 mg/dL 70-110 H : TESTED AT [address], [address]: Slot Router/Drosser ID = [id number] for LEONILA DARNELL POCT-GLUCOSE [id number] 09:35:00* Test Item Value Reference Range Interpretation Comments POC-GLUCOSE METER (BEAKER) (test code = 1538) 105 mg/dL 70-110 : Notified RN/MD: TESTED AT [address], [address]: Slot Router/Drosser ID = [id number] for DARNELL KEEN POCT-GLUCOSE [id number] 05:50:00* Test Item Value Reference Range Interpretation Comments POC-GLUCOSE METER (BEAKER) (test code = 1538) 116 mg/dL 70-110 H : TESTED AT [address], [address]: Slot Router/Drosser ID = [id number] for YAIR COONEY POCT-GLUCOSE [id number] 05:50:00* Test Item Value Reference Range Interpretation Comments POC-GLUCOSE METER (BEAKER) (test code = 1538) 148 mg/dL 70-110 H : Notified RN/MD: TESTED AT [address], [address]: Slot Router/Drosser ID = [id number] for YAMEL CAREY POCT-GLUCOSE [id number] 05:49:00* Test Item Value Reference Range Interpretation Comments POC-GLUCOSE METER (BEAKER) (test code = 1538) 319 mg/dL 70-110 H : TESTED AT [address], [address]: Slot Router/Drosser ID = [id number] for ORESTELLESUKH, EVENS POCT-GLUCOSE [id number] 05:49:00* Test Item Value Reference Range Interpretation Comments POC-GLUCOSE METER (BEAKER) (test code = 1538) 252 mg/dL 70-110 H : TESTED AT [address], [address]: Slot Router/Drosser ID = [id number] for ORPHEY, EVENS POCT-GLUCOSE [id number] 05:49:00* Test Item Value Reference Range Interpretation Comments POC-GLUCOSE METER (BEAKER) (test code = 1538) 301 mg/dL 70-110 H : TESTED AT [address], [address]: Slot Router/Drosser ID = [id number] for ORPHEY, EVENS Basic Metabolic [id number] 05:21:00* Test Item Value Reference Range Interpretation Comments Sodium (test code = 2951-2) 135 meq/L 136-145 L Potassium (test code = 2823-3) 4.4 meq/L 3.5-5.1 Chloride (test code = 2075-0) 102 meq/L 98-107 CO2 (test code = 8-9) 23 meq/L 22-29 BUN (test code = 3094-0) 17 mg/dL 7-21 Creatinine (test code = 2160-0) 0.71 mg/dL 0.57-1.25 Glucose (test code = 2345-7) 129 mg/dL 70-105 H Calcium (test code = 17031-2) 9.0 mg/dL 8.4-10.2 EGFR (test code = 75181-6) 85 mL/min/1.73 sq m ESTIMATED GFR IS NOT ACCURATE CREATININE CLEARANCE IN PREDICTING GLOMERULAR FILTRATION RATE. ESTIMATED GFR IS NOT APPLICABLE FOR DIALYSIS PATIENTS. DEON (test code = DEON) Slot Router ID - PADMINI M Lab Interpretation (test code = 09280-0) [facility] [id number] 05:21:00* Test Item Value Reference Range Interpretation Comments SODIUM (BEAKER) (test code = 381) 135 meq/L 136-145 L POTASSIUM (BEAKER) (test code = 379) 4.4 meq/L 3.5-5.1 CHLORIDE (BEAKER) (test code = 382) 102 meq/L 98-107 CO2 (BEAKER) (test code = 355) 23 meq/L 22-29 BLOOD UREA NITROGEN (BEAKER) (test code = 354) 17 mg/dL 7-21 CREATININE (BEAKER) (test code = 358) 0.71 mg/dL 0.57-1.25 GLUCOSE RANDOM (BEAKER) (test code = 652) 129 mg/dL 70-105 H CALCIUM (BEAKER) (test code = 697) 9.0 mg/dL 8.4-10.2 EGFR (BEAKER) (test code = 1092) 85 mL/min/1.73 sq m ESTIMATED GFR IS NOT ACCURATE CREATININE CLEARANCE IN PREDICTING GLOMERULAR FILTRATION RATE. ESTIMATED GFR IS NOT APPLICABLE FOR DIALYSIS PATIENTS. Slot Router ID - PADMINI [facility]BC with platelet count + automated [id number] 05:09:00 * Test Item Value Reference Range Interpretation Comments WBC (test code = 6690-2) 14.4 3.5- 10.5 K/L H RBC (test code = 789-8) 3.72 3.93- 5.22 M/L L MCHC (test code = 786-4) 31.9 32.2- 35.5 GM/DL L Hematocrit (test code = 4544-3) 37.6 % 34.1-44.9 MCV (test code = 787-2) 101.1 fL 79.4-94.8 H MCH (test code = 785-6) 32.3 pg 25.6-32.2 H RDW (test code = 788-0) 13.0 % 11.7-14.4 Platelets (test code = 777-3) 361 150- 450 K/CU MM MPV (test code = 24106-5) 9.9 fL 9.4-12.3 nRBC (test code = 413) 0 0- 0 /100 WBC % Neutros (test code = 429) 63 % % Lymphs (test code = 430) 25 % % Monos (test code = 431) 9 % % Eos (test code = 432) 1 % % Baso (test code = 437) 0 % # Neutros (test code = 670) 9.07 1.56- 6.13 K/L H # Lymphs (test code = 414) 3.65 1.18- 3.74 K/L # Monos (test code = 415) 1.28 0.24- 0.36 K/L H # Eos (test code = 416) 0.09 0.04- 0.36 K/L # Baso (test code = 417) 0.06 0.01- 0.08 K/L Immature Granulocytes-Relative (test code = 2801) 2 % 0-1 H Lab Interpretation (test code = 79084-5) Abnormal [facility] W/PLT COUNT & AUTO [id number] 05:09:00* Test Item Value Reference Range Interpretation Comments WHITE BLOOD CELL COUNT (BEAKER) (test code = 775) 14.4 K/ L 3.5- 10.5 H RED BLOOD CELL COUNT (BEAKER) (test code = 761) 3.72 M/ L 3.93-5 .22 L HEMOGLOBIN (BEAKER) (test code = 410) 12.0 GM/DL 11.2-15.7 HEMATOCRIT (BEAKER) (test code = 411) 37.6 % 34.1-44.9 MEAN CORPUSCULAR VOLUME (BEAKER) (test code = 753) 101.1 fL 79. 4-94.8 H MEAN CORPUSCULAR HEMOGLOBIN (BEAKER) (test code = 751) 32.3 pg 25.6-32.2 H MEAN CORPUSCULAR HEMOGLOBIN CONC (BEAKER) (test code = 752) 31.9 GM/DL 32.2-35.5 L RED CELL DISTRIBUTION WIDTH (BEAKER) (test code = 412) 13.0 % 11.7-14.4 PLATELET COUNT (BEAKER) (test code = 756) 361 K/CU MM 150-450 MEAN PLATELET VOLUME (BEAKER) (test code = 754) 9.9 fL 9.4-12 .3 NUCLEATED RED BLOOD CELLS (BEAKER) (test code = 413) 0 /100 WBC 0 -0 NEUTROPHILS RELATIVE PERCENT (BEAKER) (test code = 429) 63 % LYMPHOCYTES RELATIVE PERCENT (BEAKER) (test code = 430) 25 % MONOCYTES RELATIVE PERCENT (BEAKER) (test code = 431) 9 % EOSINOPHILS RELATIVE PERCENT (BEAKER) (test code = 432) 1 % BASOPHILS RELATIVE PERCENT (BEAKER) (test code = 437) 0 % NEUTROPHILS ABSOLUTE COUNT (BEAKER) (test code = 670) 9.07 K/ L 1.56-6.13 H LYMPHOCYTES ABSOLUTE COUNT (BEAKER) (test code = 414) 3.65 K/ L 1.18-3.74 MONOCYTES ABSOLUTE COUNT (BEAKER) (test code = 415) 1.28 K/ L 0. 24-0.36 H EOSINOPHILS ABSOLUTE COUNT (BEAKER) (test code = 416) 0.09 K/ L 0.04-0.36 BASOPHILS ABSOLUTE COUNT (BEAKER) (test code = 417) 0.06 K/ L 0. 01-0.08 IMMATURE GRANULOCYTES-RELATIVE PERCENT (BEAKER) (test code = 2801) 2 % 0-1 H POCT-GLUCOSE [id number] 21:06:00* Test Item Value Reference Range Interpretation Comments POC-GLUCOSE METER (BEAKER) (test code = 1538) 289 mg/dL 70-110 H : TESTED AT [facility] [address] [facility], [address]: Slot Router/Drosser ID = [id number] for Chelle Zayas POCT-GLUCOSE [id number] 16:48:00* Test Item Value Reference Range Interpretation Comments POC-GLUCOSE METER (BEAKER) (test code = 1538) 278 mg/dL 70-110 H : TESTED AT [facility] [address] [facility], [address]: Slot Router/Drosser ID = [id number] for EVENS BALDERAS BASIC METABOLIC [id number] 16:48:00* Test Item Value Reference Range Interpretation Comments SODIUM (BEAKER) (test code = 381) 136 meq/L 136-145 POTASSIUM (BEAKER) (test code = 379) 5.2 meq/L 3.5-5.1 H CHLORIDE (BEAKER) (test code = 382) 102 meq/L 98-107 CO2 (BEAKER) (test code = 355) 24 meq/L 22-29 BLOOD UREA NITROGEN (BEAKER) (test code = 354) 22 mg/dL 7-21 H CREATININE (BEAKER) (test code = 358) 0.80 mg/dL 0.57-1.25 GLUCOSE RANDOM (BEAKER) (test code = 652) 289 mg/dL 70-105 H CALCIUM (BEAKER) (test code = 697) 9.1 mg/dL 8.4-10.2 EGFR (BEAKER) (test code = 1092) 74 mL/min/1.73 sq m ESTIMATED GFR IS NOT ACCURATE CREATININE CLEARANCE IN PREDICTING GLOMERULAR FILTRATION RATE. ESTIMATED GFR IS NOT APPLICABLE FOR DIALYSIS PATIENTS. Slot Router ID - [facility] METABOLIC [id number] 01:28:00* Test Item Value Reference Range Interpretation Comments SODIUM (BEAKER) (test code = 381) 132 meq/L 136-145 L POTASSIUM (BEAKER) (test code = 379) 5.2 meq/L 3.5-5.1 H Specimen slightly hemolyzed CHLORIDE (BEAKER) (test code = 382) 101 meq/L 98-107 CO2 (BEAKER) (test code = 355) 23 meq/L 22-29 BLOOD UREA NITROGEN (BEAKER) (test code = 354) 21 mg/dL 7-21 CREATININE (BEAKER) (test code = 358) 0.78 mg/dL 0.57-1.25 Specimen slightly hemolyzed GLUCOSE RANDOM (BEAKER) (test code = 652) 276 mg/dL 70-105 H CALCIUM (BEAKER) (test code = 697) 8.7 mg/dL 8.4-10.2 EGFR (BEAKER) (test code = 1092) 77 mL/min/1.73 sq m ESTIMATED GFR IS NOT ACCURATE CREATININE CLEARANCE IN PREDICTING GLOMERULAR FILTRATION RATE. ESTIMATED GFR IS NOT APPLICABLE FOR DIALYSIS PATIENTS. Slot Router SHUKRI YUSUF WCBC W/PLT COUNT & AUTO [id number] 01:24:00* Test Item Value Reference Range Interpretation Comments WHITE BLOOD CELL COUNT (BEAKER) (test code = 775) 17.8 K/ L 3.5- 10.5 H RED BLOOD CELL COUNT (BEAKER) (test code = 761) 3.52 M/ L 3.93-5 .22 L HEMOGLOBIN (BEAKER) (test code = 410) 11.2 GM/DL 11.2-15.7 HEMATOCRIT (BEAKER) (test code = 411) 35.2 % 34.1-44.9 MEAN CORPUSCULAR VOLUME (BEAKER) (test code = 753) 100.0 fL 79. 4-94.8 H MEAN CORPUSCULAR HEMOGLOBIN (BEAKER) (test code = 751) 31.8 pg 25.6-32.2 MEAN CORPUSCULAR HEMOGLOBIN CONC (BEAKER) (test code = 752) 31.8 GM/DL 32.2-35.5 L RED CELL DISTRIBUTION WIDTH (BEAKER) (test code = 412) 13.0 % 11.7-14.4 PLATELET COUNT (BEAKER) (test code = 756) 330 K/CU MM 150-450 MEAN PLATELET VOLUME (BEAKER) (test code = 754) 10.1 fL 9.4-12 .3 NUCLEATED RED BLOOD CELLS (BEAKER) (test code = 413) 0 /100 WBC 0 -0 NEUTROPHILS RELATIVE PERCENT (BEAKER) (test code = 429) 76 % LYMPHOCYTES RELATIVE PERCENT (BEAKER) (test code = 430) 15 % MONOCYTES RELATIVE PERCENT (BEAKER) (test code = 431) 7 % EOSINOPHILS RELATIVE PERCENT (BEAKER) (test code = 432) 0 % BASOPHILS RELATIVE PERCENT (BEAKER) (test code = 437) 0 % NEUTROPHILS ABSOLUTE COUNT (BEAKER) (test code = 670) 13.56 K/ L 1.56-6.13 H LYMPHOCYTES ABSOLUTE COUNT (BEAKER) (test code = 414) 2.68 K/ L 1.18-3.74 MONOCYTES ABSOLUTE COUNT (BEAKER) (test code = 415) 1.32 K/ L 0. 24-0.36 H EOSINOPHILS ABSOLUTE COUNT (BEAKER) (test code = 416) 0.00 K/ L 0.04-0.36 L BASOPHILS ABSOLUTE COUNT (BEAKER) (test code = 417) 0.02 K/ L 0. 01-0.08 IMMATURE GRANULOCYTES-RELATIVE PERCENT (BEAKER) (test code = 2801) 1 % 0-1 Bcuhhlplliyqx8290-02-09 07:12:00* Test Item Value Reference Range Interpretation Comments Procalcitonin (test code = 39694-5) 0.08 ng/mL <0.05 H DEON (test code = DEON) SEPSIS RISK (ng/mL)Low: 0.05-0.50Intermediate: 0.51-2.00High: >=2.01 Lab Interpretation (test code = 43726-2) [facility]normal [facility]ocvagCTQYFAXKDEIHK0398-47-08 07:12:00* Test Item Value Reference Range Interpretation Comments PROCALCITONIN (BEAKER) (test code = 3036) 0.08 ng/mL <0.05 H SEPSIS RISK (ng/mL)Low: 0.05-0.50Intermediate: 0.51-2.00High: > =2.01BASIC METABOLIC [id number] 06:00:00* Test Item Value Reference Range Interpretation Comments SODIUM (BEAKER) (test code = 381) 135 meq/L 136-145 L POTASSIUM (BEAKER) (test code = 379) 5.7 meq/L 3.5-5.1 H CHLORIDE (BEAKER) (test code = 382) 104 meq/L 98-107 CO2 (BEAKER) (test code = 355) 21 meq/L 22-29 L BLOOD UREA NITROGEN (BEAKER) (test code = 354) 17 mg/dL 7-21 CREATININE (BEAKER) (test code = 358) 0.86 mg/dL 0.57-1.25 GLUCOSE RANDOM (BEAKER) (test code = 652) 294 mg/dL 70-105 H CALCIUM (BEAKER) (test code = 697) 8.5 mg/dL 8.4-10.2 EGFR (BEAKER) (test code = 1092) 69 mL/min/1.73 sq m ESTIMATED GFR IS NOT ACCURATE CREATININE CLEARANCE IN PREDICTING GLOMERULAR FILTRATION RATE. ESTIMATED GFR IS NOT APPLICABLE FOR DIALYSIS PATIENTS. Slot Router ID - EDASICBC W/PLT COUNT & AUTO [id number] 05:45:00* Test Item Value Reference Range Interpretation Comments WHITE BLOOD CELL COUNT (BEAKER) (test code = 775) 12.4 K/ L 3.5- 10.5 H RED BLOOD CELL COUNT (BEAKER) (test code = 761) 3.61 M/ L 3.93-5 .22 L HEMOGLOBIN (BEAKER) (test code = 410) 11.7 GM/DL 11.2-15.7 HEMATOCRIT (BEAKER) (test code = 411) 36.4 % 34.1-44.9 MEAN CORPUSCULAR VOLUME (BEAKER) (test code = 753) 100.8 fL 79. 4-94.8 H MEAN CORPUSCULAR HEMOGLOBIN (BEAKER) (test code = 751) 32.4 pg 25.6-32.2 H MEAN CORPUSCULAR HEMOGLOBIN CONC (BEAKER) (test code = 752) 32.1 GM/DL 32.2-35.5 L RED CELL DISTRIBUTION WIDTH (BEAKER) (test code = 412) 13.1 % 11.7-14.4 PLATELET COUNT (BEAKER) (test code = 756) 310 K/CU MM 150-450 MEAN PLATELET VOLUME (BEAKER) (test code = 754) 9.8 fL 9.4-12 .3 NUCLEATED RED BLOOD CELLS (BEAKER) (test code = 413) 0 /100 WBC 0 -0 NEUTROPHILS RELATIVE PERCENT (BEAKER) (test code = 429) 91 % LYMPHOCYTES RELATIVE PERCENT (BEAKER) (test code = 430) 6 % MONOCYTES RELATIVE PERCENT (BEAKER) (test code = 431) 1 % EOSINOPHILS RELATIVE PERCENT (BEAKER) (test code = 432) 0 % BASOPHILS RELATIVE PERCENT (BEAKER) (test code = 437) 0 % NEUTROPHILS ABSOLUTE COUNT (BEAKER) (test code = 670) 11.27 K/ L 1.56-6.13 H LYMPHOCYTES ABSOLUTE COUNT (BEAKER) (test code = 414) 0.77 K/ L 1.18-3.74 L MONOCYTES ABSOLUTE COUNT (BEAKER) (test code = 415) 0.16 K/ L 0. 24-0.36 L EOSINOPHILS ABSOLUTE COUNT (BEAKER) (test code = 416) 0.00 K/ L 0.04-0.36 L BASOPHILS ABSOLUTE COUNT (BEAKER) (test code = 417) 0.02 K/ L 0. 01-0.08 IMMATURE GRANULOCYTES-RELATIVE PERCENT (BEAKER) (test code = 2801) 2 % 0-1 H Blood gas, mokshx9316-32-75 05:35:00* Test Item Value Reference Range Interpretation Comments pH, Damian (test code = 2746-6) 7.38 7.32-7.42 pCO2, Damian (test code = 755) 38 41- 51 mmHg L pO2, Damian (test code = 2705-2) 53 25- 40 mmHg H O2 Sat, Damian (test code = 2711-0) 89.4 % 40-70 H HCO3, Damian (test code = 24165-0) 22 mmol/L 21-29 Base Excess, Damian (test code = 1927-3) -3.4 mmol/L -2-3 L Patient Temperature (test code = 8310-5) 35.6 C Lab Interpretation (test code = 06512-4) Abnormal [facility] CenterBLOOD GAS, [id number] 05:35:00* Test Item Value Reference Range Interpretation Comments PH VENOUS (BEAKER) (test code = 701) 7.38 7.32-7.42 PCO2 VENOUS (BEAKER) (test code = 755) 38 mmHg 41-51 L PO2 VENOUS (BEAKER) (test code = 702) 53 mmHg 25-40 H O2 SATURATION VENOUS (BEAKER) (test code = 703) 89.4 % 40.0-7 0.0 H HCO3 VENOUS (BEAKER) (test code = 705) 22 mmol/L 21-29 BASE EXCESS VENOUS (BEAKER) (test code = 704) -3.4 mmol/L -2.0-3.0 L PATIENT TEMPERATURE (BEAKER) (test code = 1818) 35.6 C Lactic acid, zjyuqw6404-41-89 05:26:00* Test Item Value Reference Range Interpretation Comments Lactate, Venous (test code = 2872) 1.63 mmol/L 0.5-2.2 DEON (test code = DEON) Slot Router ID - EDASI Lab Interpretation (test code = 82325-8) Normal [facility] CenterLACTIC ACID, [id number] 05:26:00* Test Item Value Reference Range Interpretation Comments LACTATE BLOOD VENOUS (2) (BEAKER) (test code = 2872) 1.63 mmol/L 0 .50-2.20 Slot Router ID - Eric, [id number] 05:12:00* Test Item Value Reference Range Interpretation Comments Ketones, Blood (test code = 1103) 1.2 mmol/L <0.4 H Lab Interpretation (test code = 28736-8) [facility]normal [facility] CenterKETONE, [id number] 05:12:00* Test Item Value Reference Range Interpretation Comments KETONES, BLOOD (BEAKER) (test code = 1103) 1.2 mmol/L <0.4 H RAD, CHEST, 1 VIEW, NON [id number] 04:32:00Reason for exam:->reported PNAShould this be performed at the bedside?->YesFINAL REPORT Chest, 1 view. History: Pneumonia Comparison: None available. IMPRESSION: The cardiomediastinal silhouette and pulmonary vasculature are within normal limits for a portable exam. Heterogeneous airspace opacity in the right base is concerning for pneumonia. Recommend follow-up examination after treatment to ensure resolution. No pleural effusion or pneumothorax. No acute osseous abnormality. Signed: Aditi Ying Verified Date/Time: 02/13/2020 04:32:19 chest 1 view portable / [id number] 04:32:00 Interface, External Ris In - 02/13/2020 4:34 AM CDTFINAL REPORT PATIENT ID: [id number] Chest, 1 view. History: Pneumonia Comparison: None available. IMPRESSIO N: The cardiomediastinal silhouette and pulmonary vasculature are within normal limits for a portable exam. Heterogeneous airspace opacity in the right base is concerning for pneumonia. Recommend follow-up examination after treatment to en sure resolution. No pleural effusion or pneumothorax. No acute osseous abnormali ty. Signed: Aditi Ying Verified Date/Time: 02/13/2020 04:32:1 9 [facility] CenterUrine color cjorbuciyhhxl0620-83-92 22:48:00* Test Item Value Reference Range Interpretation Comments Urine Color (test code = 5778-6) YELLOW YELLOW [facility] CenterUrine skzpcbk4795-87-63 22:48:00* Test Item Value Reference Range Interpretation Comments Urine Clarity (test code = 15668-7) CLEAR CLEAR [facility] by Test strip 2020-02-12 22:48:00* Test Item Value Reference Range Interpretation Comments Urine Specific [place] (test code = 5811-5) 1.030 1.010-1.02 5 [facility] CenterUrine pH measurement by automated test lvgno8676-26-79 22:48:00* Test Item Value Reference Range Interpretation Comments Urine pH (test code = 42316-9) 5.5 5-7 [facility] CenterUrine leukocyte esterase detection by qfmlaupj8263-30-54 22:48:00* Test Item Value Reference Range Interpretation Comments Urine Leukocyte Esterase (test code = 5799-2) NEGATIVE NEGATIVE [facility] CenterUrine nitrite lcprvezps6927-63-37 22:48:00* Test Item Value Reference Range Interpretation Comments Urine Nitrite (test code = 49554-4) NEGATIVE NEGATIVE [facility] CenterUrine protein measurement by test strip (mass/volume)2020-02-12 22:48:00* Test Item Value Reference Range Interpretation Comments Urine Protein (test code = 5804-0) NEGATIVE NEGATIVE [facility] CenterUrine glucose iqqdyixal2148-68-43 22:48:00* Test Item Value Reference Range Interpretation Comments Urine Glucose (UA) (test code = 2349-9) 1+ NEGATIVE [facility] CenterUrine ketones detection by automated test kxryu6684-33-29 22:48:00* Test Item Value Reference Range Interpretation Comments Urine Ketones (test code = 60464-6) NEGATIVE NEGATIVE [facility] CenterUrine urobilinogen measurement by test strip (mass/volume)2020-02-12 22:48:00* Test Item Value Reference Range Interpretation Comments Urine Urobilinogen (test code = 87841-3) 0.2 0.2-1 [facility] CenterU[facility] total bilirubin measurement (mass/volume)2020-02-12 22:48:00* Test Item Value Reference Range Interpretation Comments Urine Bilirubin (test code = 1978-6) NEGATIVE NEGATIVE [facility] CenterUrine erythrocytes kszyqtfcl2535-85-25 22:48:00* Test Item Value Reference Range Interpretation Comments Urine Blood (test code = 92397-0) NEGATIVE NEGATIVE [facility] CenterAutomated urine sediment leukocyte count by microscopy (number/high power field)2020-02-12 22:48:00* Test Item Value Reference Range Interpretation Comments Urine WBC (test code = 5821-4) 6-10 0-5 [facility] CenterErythrocytes detection in urine sediment by light pqnfshfvzu4417-76-38 22:48:00* Test Item Value Reference Range Interpretation Comments Urine RBC (test code = 61647-8) 0-5 0-5 [facility] CenterBacteria detection in urine sediment by light qywbfofaaa5536-85-18 22:48:00* Test Item Value Reference Range Interpretation Comments Urine Bacteria (test code = 82439-3) FEW NONE [facility] CenterEpithelial cells detection in urine sediment by light dismgloxxc7385-33-97 22:48:00* Test Item Value Reference Range Interpretation Comments Urine Epithelial Cells (test code = 64258-2) MODERATE NONE [facility] CenterArterial blood pH mnddfffiurt8480-38-68 22:37:00* Test Item Value Reference Range Interpretation Comments Arterial Blood pH (test code = 2744-1) 7.38 7.35-7.45 [facility] CenterpCO2 TabO3281-52-68 22:37:00* Test Item Value Reference Range Interpretation Comments Arterial Blood Partial Pressure CO2 (test code = 2019-01) 34 35-45 [facility] CenterpCO2 AcaQ5094-44-06 22:37:00* Test Item Value Reference Range Interpretation Comments Arterial Blood Partial Pressure O2 (test code = 2019-01) 87 80-105 [facility] CenterArterial blood bicarbonate measurement (moles/volume)2020-02-12 22:37:00* Test Item Value Reference Range Interpretation Comments Arterial Blood HCO3 (test code = 1960-4) [facility] CenterArterial cord blood carbon dioxide, total measurement by calculation (moles/volume)2020-02-12 22:37:00* Test Item Value Reference Range Interpretation Comments Arterial Blood Total CO2 (test code = 51551-7) [facility] CenterArterial blood base excess by calculation 2020-02-12 22:37:00* Test Item Value Reference Range Interpretation Comments Arterial Blood Base Excess (test code = 1925-7) -5.0 -2-3 [facility] CenterArterial blood oxygen saturation faluysvwfhv5724-21-52 22:37:00* Test Item Value Reference Range Interpretation Comments Arterial Blood Oxygen Saturation (test code = 2708-6) 97.0 95-98 [facility] CenterFluoroscopic procedure less than one hour vhtuhcyn7891-16-66 22:37:00* Test Item Value Reference Range Interpretation Comments FiO2 (test code = FiO2) 28 Pt on 2L [facility]Flu[facility] less than one hour vfqoowqc9945-54-67 21:57:00* Test Item Value Reference Range Interpretation Comments Lactic Acid Level (test code = Lactic Acid Level) 3.4 0.5- 2.0 Results repeated and called to DR. BEAR at 2216 on 02/12/20 by DIONISIO DIXON. Read back and verified.[facility] CenterCHEST SINGLE (PORTABLE)2020-02-12 21:49:00 [place] [id number] Patient Name: NATALIA CARRILLO MR #: [id number] : 1965 Age/Sex: 54/F Req #: [id number] Adm Physician: Ordered by: CHEYENNE BEAR DO Report #: [id number] Location: ER Room/Bed: Procedure: [id number] DX/CHEST SING LE (PORTABLE) Exam Date: 02/12/20 Exam Time: 2040 REPORT STATUS: Signed EXAMINATION: CHEST SINGLE (PORTABLE) INDICATION: COMPARISON: Chest x-ray on 04/11/2018. FINDINGS: TUBES and LINES: None. LUNGS: Th ere is patchy airspace consolidative opacity in the right lower lobe. PLEUR A: No pleural effusion or pneumothorax. HEART AND MEDIASTINUM: The cardio mediastinal silhouette is unremarkable. BONES AND SOFT TISSUES: No acu te osseous lesion. Soft tissues are unremarkable. UPPER ABDOMEN: No free air under the diaphragm. IMPRESSION: Right lower lobe pneumonia. Recommend follow-up chest radiograph in 6-8 weeks to ensure resolution. Signed by: Dusty Ramírez MD on 02/12/2020 9:50 PM Dictated By: DUSTY RAMÍREZ MD 49 Transcr ibed By: ORLANDO on 02/12/202149 COPY TO: CHEYENNE BEAR DO Fluoroscopic procedure less than one hour vtadmdbj6616-31-32 21:21:00* Test Item Value Reference Range Interpretation Comments Coronavirus (PCR) (test code = Coronavirus (PCR)) NOT DETECTED NOTD ETECTED SARS-COV2/RT-PCR CEPHEIDResults are for the detection of SARS-COV-2 RNA. The SHAKA S-COV-2 RNA is generally detectable in nasopharyngeal swab specimens during the acute phase of infection. Positive results are indicitive of active infection wi th SARS-COV-2; clinical correlation with patient history and other diagnostic in formation is necessary to determine patient infection status. Positive results d o not rule out bacterial infection or co-infection with other viruses. The agent detected may not be the definite cause of the disease.The limit of detection fo r this assay is 250 copies/mLThe SARS-CoV-2 test is a rapid, real-time RT-PCR te st intended for the qualitative detection of nucleic acid from SARS-CoV-2 in natalie opharyngeal swab specimen collected from individuals suspected of COVID-19 by [facility] healthcare provider. This test has not been Food and Drug Administration (FD A) cleared or approved and has been authorized by FDA under an Emergency Use Aut horization (EUA). This EUA will be effective until the declaration that circumst ances exist justifying the authorization of the emergency use of in vitro diagno stic test for detection and or diagnosis of COVID-19 is terminated under section 564(b) of the Act, or the the EUA is revoked under 564(g) of the ACT.[facility] CenterBNP Ema-lGog0389-16-25 19:40:00* Test Item Value Reference Range Interpretation Comments B-Type Natriuretic Peptide (test code = 17016-3) 21.6 0-100 [facility] CenterBld[facility] leukocytes automated count (number/volume)2020-02-12 18:56:00* Test Item Value Reference Range Interpretation Comments White Blood Count (test code = 6690-2) 16.89 4.8-10.8 [facility] CenterBlood erythrocytes automated count (number/volume)2020-02-12 18:56:00* Test Item Value Reference Range Interpretation Comments Red Blood Count (test code = 789-8) 4.18 3.6-5.1 [facility] CenterBlood hemoglobin measurement (moles/volume)2020-02-12 18:56:00* Test Item Value Reference Range Interpretation Comments Hemoglobin (test code = 58806-0) 13.4 12.0-16.0 [facility] CenterAutomated blood hematocrit (volume fraction)2020-02-12 18:56:00* Test Item Value Reference Range Interpretation Comments Hematocrit (test code = 4544-3) 41.4 34.2-44.1 [facility] CenterAutomated erythrocyte mean corpuscular shyvft5283-66-96 18:56:00* Test Item Value Reference Range Interpretation Comments Mean Corpuscular Volume (test code = 787-2) 99.0 81-99 [facility] CenterAutomated erythrocyte mean corpuscular hemoglobin (mass per erythrocyte)2020-02-12 18:56:00* Test Item Value Reference Range Interpretation Comments Mean Corpuscular Hemoglobin (test code = 785-6) 32.1 28-32 [facility] CenterAutomated erythrocyte mean corpuscular hemoglobin concentration measurement (mass/volume)2020-02-12 18:56:00* Test Item Value Reference Range Interpretation Comments Mean Corpuscular Hemoglobin Concent (test code = 786-4) 32.4 31-35 [facility] CenterRDW ErxHe-Xpv3460-68-25 18:56:00* Test Item Value Reference Range Interpretation Comments Red Cell Distribution Width (test code = 77811-2) 13.2 11.7 -14.4 [facility] CenterAutomated blood platelet count (count/volume)2020-02-12 18:56:00* Test Item Value Reference Range Interpretation Comments Platelet Count (test code = 777-3) 364 140-360 [facility] CenterAutomated blood segmented neutrophil count as percentage of total zsphfyadrp0445-16-06 18:56:00* Test Item Value Reference Range Interpretation Comments Neutrophils (%) (Auto) (test code = 48904-4) 78.2 38.7-80.0 [facility] CenterAutomated blood lymphocyte count as percentage ot total oqcxsjdass7281-16-77 18:56:00* Test Item Value Reference Range Interpretation Comments Lymphocytes (%) (Auto) (test code = 736-9) 13.0 18.0-39.1 [facility] CenterAutomated blood monocyte count as percentage of total enrciiytfz7857-04-98 18:56:00* Test Item Value Reference Range Interpretation Comments Monocytes (%) (Auto) (test code = 5905-5) 6.4 4.4-11.3 [facility] CenterAutomated blood eosinophil count as percentage of total xqjpmiiyie9017-80-71 18:56:00* Test Item Value Reference Range Interpretation Comments Eosinophils (%) (Auto) (test code = 713-8) 0.5 0.0-6.0 [facility] CenterAutomated blood basophil count as percentage of total hkjhjdzghh9351-42-93 18:56:00* Test Item Value Reference Range Interpretation Comments Basophils (%) (Auto) (test code = 706-2) 0.4 0.0-1.0 [facility] CenterFluoroscopic procedure less than one hour adcuwokv8965-91-62 18:56:00* Test Item Value Reference Range Interpretation Comments IM GRANULOCYTES % (test code = IM GRANULOCYTES %) 1.5 0.0- 1.0 [facility] CenterAutomated blood neutrophil count 2020-02-12 18:56:00* Test Item Value Reference Range Interpretation Comments Neutrophils # (Auto) (test code = 751-8) 13.2 2.1-6.9 [facility] CenterBlood lymphocytes count (number/volume) 2020-02-12 18:56:00* Test Item Value Reference Range Interpretation Comments Lymphocytes # (Auto) (test code = 10352-7) 2.2 1.0-3.2 [facility] CenterBlood monocytes automated count (number/volume)2020-02-12 18:56:00* Test Item Value Reference Range Interpretation Comments Monocytes # (Auto) (test code = 742-7) 1.1 0.2-0.8 [facility] CenterAutomated blood eosinophil count 2020-02-12 18:56:00* Test Item Value Reference Range Interpretation Comments Eosinophils # (Auto) (test code = 711-2) 0.1 0.0-0.4 [facility] CenterAutomated blood basophil count (count/volume)2020-02-12 18:56:00* Test Item Value Reference Range Interpretation Comments Basophils # (Auto) (test code = 704-7) 0.1 0.0-0.1 [facility] CenterFluoroscopic procedure less than one hour wapgaxzl3428-83-74 18:56:00* Test Item Value Reference Range Interpretation Comments Absolute Immature Granulocyte (auto (mary t code = Absolute Immature Granulocyte (auto) 0.25 0-0.1 [facility]erum or plasma sodium measurement (moles/volume)2020-02-12 18:56:00* Test Item Value Reference Range Interpretation Comments Sodium Level (test code = 2951-2) 137 136-145 [facility]erum or plasma potassium measurement (moles/volume)2020-02-12 18:56:00* Test Item Value Reference Range Interpretation Comments Potassium Level (test code = 2823-3) 4.2 3.5-5.1 [facility]er[facility] plasma chloride measurement (moles/volume)2020-02-12 18:56:00* Test Item Value Reference Range Interpretation Comments Chloride Level (test code = 2075-0) 101 98-107 [facility]erum or plasma carbon dioxide, total measurement (moles/volume)2020-02-12 18:56:00* Test Item Value Reference Range Interpretation Comments Carbon Dioxide Level (test code = 2028-9) 19 22-29 [facility]erum or plasma anion fil2355-49-71 18:56:00* Test Item Value Reference Range Interpretation Comments Anion Gap (test code = 01217-7) 21.2 8-16 [facility]erum [facility] plasma urea nitrogen measurement (mass/volume)2020-02-12 18:56:00* Test Item Value Reference Range Interpretation Comments Blood Urea Nitrogen (test code = 3094-0) 14 7-26 [facility]erum [facility] plasma creatinine measurement (mass/volume)2020-02-12 18:56:00* Test Item Value Reference Range Interpretation Comments Creatinine (test code = 2160-0) 1.11 0.57-1.11 [facility]erum or plasma urea nitrogen/creatinine mass plsqe0677-10-78 18:56:00* Test Item Value Reference Range Interpretation Comments BUN/Creatinine Ratio (test code = 3097-3) 13 6-25 [facility] CenterEstimated glomerular filtration rate (GFR) xtgszkajhbpch7136-71-36 18:56:00* Test Item Value Reference Range Interpretation Comments Estimat Glomerular Filtration Rate (test code = 691335533) 51 >60 Ranges were taken from the National Kidney Disease Education Program and the [facility] [employer] literature.Reference ranges:60 or greater: Ybdqxf81-06 ( for 3 consecutive months): Chronic kidney disease 15 or less: Kidney failureLaredo Medical CenterGlucose dikctcutiuz8286-58-91 18:56:00* Test Item Value Reference Range Interpretation Comments Glucose Level (test code = YNN4503) 253 74-118 [facility]er[facility] or plasma calcium measurement (mass/volume)2020-02-12 18:56:00* Test Item Value Reference Range Interpretation Comments Calcium Level (test code = 42238-7) 9.5 8.4-10.2 [facility] plasma total bilirubin measurement (mass/volume)2020-02-12 18:56:00* Test Item Value Reference Range Interpretation Comments Total Bilirubin (test code = 1975-2) 0.4 0.2-1.2 [facility] CenterFluoroscopic procedure less than one hour fjszeejn4738-84-04 18:56:00* Test Item Value Reference Range Interpretation Comments Aspartate Amino Transf (AST/SGOT) (test code = Aspartate Amino Transf (AST/SGOT)) 26 5-34 [facility]erum or plasma alanine aminotransferase measurement (enzymatic activity/volume)2020-02-12 18:56:00* Test Item Value Reference Range Interpretation Comments Alanine Aminotransferase (ALT/SGPT) (test code = 1742-6) 24 0-55 [facility]erum [facility] plasma protein measurement (mass/volume)2020-02-12 18:56:00* Test Item Value Reference Range Interpretation Comments Total Protein (test code = 2885-2) 7.5 6.5-8.1 [facility]er[facility] plasma albumin measurement (mass/volume)2020-02-12 18:56:00* Test Item Value Reference Range Interpretation Comments Albumin (test code = 1751-7) 3.0 3.5-5.0 [facility] CenterPlasma globulin measurement (mass/volume) 2020-02-12 18:56:00* Test Item Value Reference Range Interpretation Comments Globulin (test code = 00761-7) 4.5 2.3-3.5 [facility] plasma albumin/globulin mass yvhba0842-28-91 18:56:00* Test Item Value Reference Range Interpretation Comments Albumin/Globulin Ratio (test code = 1759-0) 0.7 0.8-2.0 [facility]erum or plasma alkaline phosphatase measurement (enzymatic activity/volume)2020-02-12 18:56:00* Test Item Value Reference Range Interpretation Comments Alkaline Phosphatase (test code = 6768-6) 127 40-150 [facility]erum or plasma creatine kinase measurement (enzymatic activity/volume)2020-02-12 18:56:00* Test Item Value Reference Range Interpretation Comments Creatine Kinase (test code = 2157-6) 51 29-168 [facility] creatine kinase MB measurement (mass/volume)2020-02-12 18:56:00* Test Item Value Reference Range Interpretation Comments Creatine Kinase MB (test code = 89535-3) 1.10 0-5.0 [facility] CenterTroponin I measurement by highly sensitive enzyme vfifleeijxi3481-34-24 18:56:00* Test Item Value Reference Range Interpretation Comments Troponin I (test code = 55699-2) < 0.001 0-0.300 [facility] CenterNov Coronavirus 2019 yGgO5073-56-47 16:10:00* Test Item Value Reference Range Interpretation Comments Novel Coronavirus 2019 nCoV (test code = COVID19) Negative Nega tive Does patient have the clinical criteria consistent with COVID-19? YIs the patien t going to be discharged home? YSTREPTOCOCCUS PCR DXTTLT5408-80-82 00:19:00* Test Item Value Reference Range Interpretation Comments STREPTOCOCCUS DYSGALACTIAE (test code = STREPGC) NEGATIVE FOR G/C N EGATIVE STREPA MOLECULAR (test code = STREPAMOL) NEGATIVE FOR GRP A NEGATIV E - XR FOOT 3 + V WU8888-66-80 20:37:00 Name: LORENANATALIAXI ELIZABETH 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 COMPARISON: None available. [...] at 2036 Reported and signed by: Yaron contreras M.D. 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 Technologist: RODNEY SCHULER CT Trnscrpt Data: 09/09/2018 (2036) [email or web address] [facility] t D/T: S: 09/09/2018 (2040) PAGE 1 Signed Report MRI FOREARM RIGHT [id number] 08:46:00 [place] [address] Patient Name: NATALIA CARRILLO MR #: [id number] : 1965 Age/Sex: 52/F Req #: [id number] Adm Physician: ADONAY COONEY MD Ordered by: SARAH MASSEY MD Report #: [id number] Location: MED/SURG3 Room/Bed: [facility] Procedure: [id number] MR I/MRI FOREARM RIGHT WO Exam Date: [...] TO: JACQUIE MASSEY MD MRI HAND RIGHT [id number] 08:46:00 [place] [address] Patient Name: NATALIA CARRILLO MR #: [id number] : 1965 Age/Sex: 52/F Req #: [id number] Adm Physician: ADONAY COONEY MD Ordered by: SARAH MASSEY MD Report #: [id number] Location: [facility] Room/Bed: [facility] Procedure: [id number] MR I/MRI HAND RIGHT WO Exam Date: [...] COPY TO: SARAH MASSEY MD [employer] [address]/PZT9647-68-05 12:30:00 [place] [address] Patient Name: NATALIA CARRILLO MR #: [id number] : 1965 Age/Sex: 52/F Req #: [id number] Adm Physician: ADONAY COONEY MD Ordered by: ADONAY COONEY MD Report #: [id number] Location: MED/SURG3 Room/Bed: [facility] Procedure: [id number] DX/[employer] [address]/REM Exam Date: 04/11/18 Exam Time: 1100 [...] COONEY MD PICC INSERT W OR W/O [id number] 12:30:00 [place] [address] Patient Name: NATALIA CARRILLO MR #: [id number] : 1965 Age/Sex: 52/F Req #: [id number] Adm Physician: ADONAY COONEY MD Ordered by: ADONAY COONEY MD Report #: [id number] Location: MED/SURG3 Room/Bed: [facility] Procedure: [id number] IR/PICC INSERT W OR W/O PORT Exam [...] 12:34 PM Dictated By: ISSA NELSON MD [facility] Signed By: ISSA NELSON MD on 04/11/18 1234 Transcribed By: ORLANDO on 03/21 09/04 1234 COPY TO: ADONAY COONEY MD CHEST XRAY LINE PLACEMENT 2018-04-11 12:04:00 [place] [address] Patient Name: NATALIA CARRILLO MR #: [id number] : 1965 Age/Sex: 52/F Req #: [id number] Adm Physician: ADONAY COONEY MD Ordered by: YULISSA WILKERSON MD Report #: [id number] Location: MED/SURG3 Room/Bed: 2851 Procedure: [id number] DX /CHEST XRAY LINE PLACEMENT Exam Date: Exam Time: REPORT STATUS: Signed EXAMINATION : CHEST XRAY LINE PLACEMENT INDICATION: PICC Placement COMPARISON : None FINDINGS: TUBES and LINES: Left sided PICC with tip coursin g cranially into the neck, the tip is [...] Interpretation Comments Bedside Glucose (test code = 76268-9) 166 70-120 H Meter ID: [id number] Medical CenterBlood Culture 2018-04-02 13:29:00* Test Item Value Reference Range Interpretation Comments Blood Culture (test code = 48385269) NO GROWTH AFTER 72 HOURS [facility] Eyncy2611-06-81 05:52:00* Test Item Value Reference Range Interpretation Comments Sodium Level (test code = 2951-2) 139 136-145 [facility] CenterPotassium Pqzow6573-62-64 05:52:00* Test Item Value Reference Range Interpretation Comments Potassium Level (test code = 2823-3) 3.8 3.5-5.1 [facility] CenterChloride Fvelz2619-39-20 05:52:00* Test Item Value Reference Range Interpretation Comments Chloride Level (test code = 2075-0) 106 98-107 [facility] CenterCarbon Dioxide Gyjtr4082-32-92 05:52:00* Test Item Value Reference Range Interpretation Comments Carbon Dioxide Level (test code = 2028-9) 22 22-29 [facility] CenterAnion Nzu9896-54-71 05:52:00* Test Item Value Reference Range Interpretation Comments Anion Gap (test code = 00895-1) 14.8 8-16 [facility] CenterBlood Urea Zmduqpbg0802-22-08 05:52:00* Test Item Value Reference Range Interpretation Comments Blood Urea Nitrogen (test code = 3094-0) 8 7-26 [facility] CenterCreatinine2018-10-13 05:52:00* Test Item Value Reference Range Interpretation Comments Creatinine (test code = 2160-0) 0.65 0.57-1.11 [facility] CenterBUN/Creatinine Ntxcr1130-03-06 05:52:00* Test Item Value Reference Range Interpretation Comments BUN/Creatinine Ratio (test code = 3097-3) 12 6-25 [facility] CenterEstimat Glomerular Filtration Rate 2018-04-01 05:52:00* Test Item Value Reference Range Interpretation Comments Estimat Glomerular Filtration Rate (test code = 134072755) 60- >60 Ranges were taken from the National Kidney Disease Education Program and the [facility] [employer] literature.Reference ranges:60 or greater: Aujxhj10-63 ( for 3 consecutive months): Chronic kidney disease 15 or less: Kidney failureLaredo Medical CenterGlucose Aghuh2735-97-53 05:52:00* Test Item Value Reference Range Interpretation Comments Glucose Level (test code = LWD7021) 109 74-118 [facility] CenterCalcium Crtqw8533-48-74 05:52:00* Test Item Value Reference Range Interpretation Comments Calcium Level (test code = 63343-6) 8.3 8.4-10.2 L [facility] CenterWhite Blood Vbnkq9329-70-23 05:30:00* Test Item Value Reference Range Interpretation Comments White Blood Count (test code = 6690-2) 9.47 4.8-10.8 [facility] CenterRed Blood Samgz2064-99-58 05:30:00* Test Item Value Reference Range Interpretation Comments Red Blood Count (test code = 789-8) 3.21 3.6-5.1 L [facility] CenterHemoglobin2018-10-13 05:30:00* Test Item Value Reference Range Interpretation Comments Hemoglobin (test code = 72184-3) 10.4 12.0-16.0 L [facility] CenterHematocrit2018-10-13 05:30:00* Test Item Value Reference Range Interpretation Comments Hematocrit (test code = 4544-3) 32.1 34.2-44.1 L [facility] CenterMean Corpuscular Fhwhnv7524-39-23 05:30:00* Test Item Value Reference Range Interpretation Comments Mean Corpuscular Volume (test code = 787-2) 100.0 81-99 H [facility] CenterMean Corpuscular Waomkzrhmk4785-57-15 05:30:00* Test Item Value Reference Range Interpretation Comments Mean Corpuscular Hemoglobin (test code = 785-6) 32.4 28-32 H [facility] CenterMean Corpuscular Hemoglobin Concent 2018-04-01 05:30:00* Test Item Value Reference Range Interpretation Comments Mean Corpuscular Hemoglobin Concent (test code = 786-4) 32.4 31-35 [facility] CenterRed Cell Distribution Jivaj8811-93-27 05:30:00* Test Item Value Reference Range Interpretation Comments Red Cell Distribution Width (test code = 75714-3) 13.6 11.7 -14.4 [facility] CenterPlatelet Inzlw2000-94-06 05:30:00* Test Item Value Reference Range Interpretation Comments Platelet Count (test code = 777-3) 148 140-360 [facility] CenterNeutrophils (%) (Auto)2018-04-01 05:30:00 * Test Item Value Reference Range Interpretation Comments Neutrophils (%) (Auto) (test code = 58477-4) 61.0 38.7-80.0 [facility] CenterLymphocytes (%) (Auto)2018-04-01 05:30:00 * Test Item Value Reference Range Interpretation Comments Lymphocytes (%) (Auto) (test code = 736-9) 26.1 18.0-39.1 [facility] CenterMonocytes (%) (Auto)2018-04-01 05:30:00* Test Item Value Reference Range Interpretation Comments Monocytes (%) (Auto) (test code = 5905-5) 10.5 4.4-11.3 [facility] CenterEosinophils (%) (Auto)2018-04-01 05:30:00 * Test Item Value Reference Range Interpretation Comments Eosinophils (%) (Auto) (test code = 713-8) 1.2 0.0-6.0 [facility] CenterBasophils (%) (Auto)2018-04-01 05:30:00* Test Item Value Reference Range Interpretation Comments Basophils (%) (Auto) (test code = 706-2) 0.2 0.0-1.0 [facility] CenterIM GRANULOCYTES %2018-04-01 05:30:00* Test Item Value Reference Range Interpretation Comments IM GRANULOCYTES % (test code = IM GRANULOCYTES %) 1.0 0.0- 1.0 [facility] CenterNeutrophils # (Auto)2018-04-01 05:30:00* Test Item Value Reference Range Interpretation Comments Neutrophils # (Auto) (test code = 751-8) 5.8 2.1-6.9 [facility] CenterLymphocytes # (Auto)2018-04-01 05:30:00* Test Item Value Reference Range Interpretation Comments Lymphocytes # (Auto) (test code = 57605-3) 2.5 1.0-3.2 [facility] CenterMonocytes # (Auto)2018-04-01 05:30:00* Test Item Value Reference Range Interpretation Comments Monocytes # (Auto) (test code = 742-7) 1.0 0.2-0.8 H [facility] CenterEosinophils # (Auto)2018-04-01 05:30:00* Test Item Value Reference Range Interpretation Comments Eosinophils # (Auto) (test code = 711-2) 0.1 0.0-0.4 [facility] CenterBasophils # (Auto)2018-04-01 05:30:00* Test Item Value Reference Range Interpretation Comments Basophils # (Auto) (test code = 704-7) 0.0 0.0-0.1 [facility] CenterAbsolute Immature Granulocyte (auto 2018-04-01 05:30:00* Test Item Value Reference Range Interpretation Comments Absolute Immature Granulocyte (auto (mary t code = Absolute Immature Granulocyte (auto) 0.09 0-0.1 [facility] CenterDifferential Total Cells Counted 2018-03-30 17:06:00* Test Item Value Reference Range Interpretation Comments Differential Total Cells Counted (test code = Differen tial Total Cells Counted) 100 [facility] CenterNeutrophils % (Manual)2018-03-30 17:06:00 * Test Item Value Reference Range Interpretation Comments Neutrophils % (Manual) (test code = 72550-4) 66 40-74 [facility] CenterLymphocytes % (Manual)2018-03-30 17:06:00 * Test Item Value Reference Range Interpretation Comments Lymphocytes % (Manual) (test code = 737-7) 25 19-48 [facility] CenterMonocytes % (Manual)2018-03-30 17:06:00* Test Item Value Reference Range Interpretation Comments Monocytes % (Manual) (test code = 744-3) 6 3.4-9.0 [facility] CenterReactive Gcxaynkaucp9801-95-36 17:06:00* Test Item Value Reference Range Interpretation Comments Reactive Lymphocytes (test code = 06357-2) 3 [facility] CenterPlatelet Mperzzax3792-39-60 17:06:00* Test Item Value Reference Range Interpretation Comments Platelet Estimate (test code = 20080-3) ADEQUATE [facility] CenterPlatelet Morphology Ovxkyaa7762-19-63 17:06:00* Test Item Value Reference Range Interpretation Comments Platelet Morphology Comment (test code = 50859-3) NORMAL [facility] CenterMicrocytosis2018-10-11 17:06:00* Test Item Value Reference Range Interpretation Comments Microcytosis (test code = 741-9) SLIGHT [facility] CenterRed Cell Morphology Cxtrgkx8372-43-42 17:06:00* Test Item Value Reference Range Interpretation Comments Red Cell Morphology Comment (test code = 6742-1) NORMAL [facility] CenterLactic Acid Rgpxb4248-08-87 13:50:00* Test Item Value Reference Range Interpretation Comments Lactic Acid Level (test code = Lactic Acid Level) 21.1 4.5- 19.8 HH Results called to SOFIA HAMMONDS at 1349 on 03/30/18 by DIONISIO DIXON. RB [place]. [facility] CenterProthrombin Atmv9013-26-77 13:46:00* Test Item Value Reference Range Interpretation Comments Prothrombin Time (test code = 5902-2) 12.8 11.9-14.5 [facility] CenterProthromb Time International Ratio 2018-03-30 13:46:00* Test Item Value Reference Range Interpretation Comments Prothromb Time International Ratio (test code = 6301-6) 0.88 Oral Anticoagulant Therapy INR Values:1. Low Intensity Therapy 1.5 - 2.02 . Moderate Intensity Therapy 2.0 - 3.03. High Intensity Therapy(1) 2.5 - 3. 54. High Intensity Therapy(2) 3.0 - 4.05. Panic Value INR > 5.0 [facility] CenterActivated Partial Thromboplast Time 2018-03-30 13:46:00* Test Item Value Reference Range Interpretation Comments Activated Partial Thromboplast Time (test code = 51150-6) 23.8 23.8-35.5 [facility] [address] [place] [address] Patient Name: NATALIA CARRILLO MR #: [id number] : 1965 Age/Sex: 52/F Req #: [id number] Adm Physician: Ordered by: ADONAY COONEY MD Report #: [id number] Location: [facility] Room/Bed: Procedure: [id number] DX/CHEST 2 VIEWS Exam Date: 11/22/17 Exam Time: 1805 REPORT STATUS: Signed PROCEDURE: Frontal and lateral views of the chest. COMPARISON: [facility], DX, CHEST 2 VIEWS, 03/01/2012, 22:37. [...]
--- OUTSIDE RECORDS SUMMARY | 2020-02-24 23:15 | XMS REPORT | Clinical Summary ---
Author Author AMANDA [facility] Address Unknown Phone Unavailable Care Team Providers Care Medical Billing Representative Name Role Phone Kushal Burkett MD PCP [phone] Unavailable Allergies Comments Active Allergy Reactions Severity Noted Date vomit Metronidazole Hcl 02/13/2020 Throat swelling Penicillins 02/13/2020 Medications End Date Status Medication Sig Dispensed Refills Start Date Active atorvastatin (LIPITOR) 10 Take 10 mg by 0 MG tablet mouth daily. Active glimepiride (AMARYL) 4 MG Take 4 mg by 0 tablet mouth every morning before breakfast. Active levothyroxine (SYNTHROID, Take 25 mcg 0 LEVOTHROID) 25 MCG tablet by mouth Every morning on an empty stomach. Active insulin detemir U-100 Inject 30 0 (LEVEMIR) 100 unit/mL (3 Units mL) InPn injection subcutaneousl y nightly. Active insulin lispro (HUMALOG) Inject 8 0 100 unit/mL injection Units subcutaneousl y 3 (three) times daily before meals. Active gabapentin (NEURONTIN) Take 300 mg 0 300 MG capsule by mouth 3 (three) times daily. Active albuterol HFA (PROVENTIL Inhale 1 puff 0 HFA) 90 mcg/actuation by mouth via inhaler inhaler every 6 (six) hours as needed for Wheezing. Active budesonide-formoteroL Inhale 2 0 (SYMBICORT) 80-4.5 puffs by mcg/actuation inhaler mouth via inhaler 2 (two) times daily. Active aspirin 81 MG EC tablet Take 81 mg by 0 mouth daily. Active HYDROcodone-acetaminophen Take 1 tablet 0 (NORCO 5-325) 5-325 mg by mouth per tablet every 6 (six) hours as needed for Pain. Active cyclobenzaprine Take 10 mg by 0 (FLEXERIL) 10 MG tablet mouth 3 (three) times daily as needed for Muscle spasms. Active mesalamine (PENTASA) 500 Take 500 mg 0 MG CR capsule by mouth 3 (three) times daily. Active budesonide (ENTOCORT EC) Take 3 mg by 0 3 mg 24 hr capsule mouth every morning. Active lisinopriL Take 2.5 mg 0 (PRINIVIL,ZESTRIL) 2.5 MG by mouth tablet daily. Active metoprolol tartrate Take 50 mg by 0 (LOPRESSOR) 50 MG tablet mouth 2 (two) times daily. 02/18/2020 predniSONE (DELTASONE) 20 Take 1 tablet 2 tablet 0 MG tablet (20 mg total) 0 by mouth daily for 2 days. 02/15/2020 Discontinued levoFLOXacin (LEVAQUIN) Take 1 tablet 2 tablet 0 750 MG tablet (750 mg 0 total) by mouth daily for 2 days. 02/20/2020 levoFLOXacin (LEVAQUIN) Take 1 tablet 4 tablet 0 750 MG tablet (750 mg 0 total) by mouth daily for 4 days. Active Problems Problem Noted Date Pneumonia 02/13/2020 Encounters Care Team Description Date Type Specialty Tessa, MD Keagan Mcdaniel Shireen, MD Patel, [place] Emerson MD Pneumonia of right lower lobe due to inf ectious organism (Primary Dx); Type 2 diabetes mellitus without complication, with long-term current use of insulin (HCC); Chronic obstructive pulmonary disease, unspecified COPD type (HCC); COPD exacerbation (HCC); Smoker; Acute hypoxemic respiratory failure (HCC) 02/13/2020 Hospital Cardiology - Encounter 02/15/2020 after 02/23/2019 Social History Date Tobacco Use Types Packs/Day Years Used Current Every Day Smoker Smokeless Tobacco: Never Used Tobacco Cessation: Ready to Quit: No; Co unseling Given: No Sex Assigned at Date Recorded Not on file Industry Job Start Date Occupation Not on file Not on file Not on file Travel End Travel History Travel Start No recent travel history available. Last Filed Vital Signs Time Taken Vital Sign Reading 02/15/2020 4:11 PM CDT Blood Pressure 135/71 02/15/2020 4:11 PM CDT Pulse 93 02/15/2020 4:11 PM CDT Temperature 36.8 C (98.3 F) 02/15/2020 4:11 PM CDT Respiratory Rate 18 02/15/2020 4:11 PM CDT Oxygen Saturation 93% - Inhaled Oxygen - Concentration - Weight - - Height - - Body Mass Index - Plan of Treatment Not on file Procedures Comments Procedure Name Priority Date/Time Associated Diag nosis REPORT OF PROCEDURE - 02/18/2020 ENDOSCOPY SCAN 2:10 PM CDT RHYTHM STRIP - SCAN 02/18/2020 2:10 PM CDT POCT-GLUCOSE METER Routine 02/15/2020 11:57 AM CDT POCT-GLUCOSE METER Routine 02/15/2020 9:00 AM CDT POCT-GLUCOSE METER Routine 02/15/2020 7:06 AM CDT CBC W/PLT COUNT & AUTO Routine 02/15/2020 DIFFERENTIAL 4:23 AM CDT BASIC METABOLIC PANEL (7) Routine 02/15/2020 4:23 AM CDT CBC W/PLT COUNT & AUTO Routine 02/15/2020 DIFFERENTIAL 4:23 AM CDT POCT-GLUCOSE METER Routine 02/14/2020 8:55 PM CDT POCT-GLUCOSE METER Routine 02/14/2020 4:36 PM CDT BASIC METABOLIC PANEL (7) Routine 02/14/2020 3:39 PM CDT POCT-GLUCOSE METER Routine 02/14/2020 11:41 AM CDT POCT-GLUCOSE METER Routine 02/14/2020 7:37 AM CDT CBC W/PLT COUNT & AUTO Routine 02/14/2020 DIFFERENTIAL 1:01 AM CDT BASIC METABOLIC PANEL (7) Routine 02/14/2020 1:01 AM CDT CBC W/PLT COUNT & AUTO Routine 02/14/2020 DIFFERENTIAL 1:01 AM CDT POCT-GLUCOSE METER Routine 02/13/2020 9:03 PM CDT POCT-GLUCOSE METER Routine 02/13/2020 5:21 PM CDT POCT-GLUCOSE METER Routine 02/13/2020 12:39 PM CDT POCT-GLUCOSE METER Routine 02/13/2020 7:58 AM CDT CBC W/PLT COUNT & AUTO Routine 02/13/2020 DIFFERENTIAL 4:50 AM CDT PROCALCITONIN Routine 02/13/2020 4:50 AM CDT LACTIC ACID, VENOUS Routine 02/13/2020 4:50 AM CDT KETONE, BLOOD Routine 02/13/2020 4:50 AM CDT BLOOD GAS, VENOUS Routine 02/13/2020 4:50 AM CDT BASIC METABOLIC PANEL (7) Routine 02/13/2020 4:50 AM CDT CBC W/PLT COUNT & AUTO Routine 02/13/2020 DIFFERENTIAL 4:50 AM CDT XR CHEST 1 VIEW Routine 02/13/2020 PORTABLE/BEDSIDE 4:27 AM CDT after 02/23/2019 Results * EKG-SCANNED (02/18/2020 2:10 PM CDT) Narrative Performed At This result has an attachment that is n ot available. * RHYTHM STRIP - SCAN (02/18/2020 2:10 PM CDT) Narrative Performed At This result has an attachment that is n ot available. * POC-Glucose meter (02/15/2020 11:57 AM CDT) Only the most recent of 11 results within the time period is included. POC-Glucose Meter 375 (H)Comment: : Notified 70 - 110 mg/dL [facility] RN/MD: TESTED AT [address], [address]: Fire Management Technician/Produce Team for LEONILA DARNELL Specimen Blood Performing Organization Address City/State/Zipcode Ph one Number [address] [facility] * CBC with platelet count + automated diff (02/15/2020 4:23 AM CDT) Only the most recent of 3 results within the time period is included. WBC 14.4 (H) 3.5 - 10.5 K/L [facility] RBC 3.72 (L) 3.93 - 5.22 M/L [facility] Hemoglobin 12.0 11.2 - 15.7 GM/DL [facility] Hematocrit 37.6 34.1 - 44.9 % [facility] MCV 101.1 (H) 79.4 - 94.8 fL [facility] MCH 32.3 (H) 25.6 - 32.2 pg [facility] MCHC 31.9 (L) 32.2 - 35.5 GM/DL [facility] RDW 13.0 11.7 - 14.4 % [facility] Platelets 361 150 - 450 K/CU MM [facility] MPV 9.9 9.4 - 12.3 fL [facility] nRBC 0 0 - 0 /100 WBC [facility] % Neutros 63 % [facility] % Lymphs 25 % [facility] % Monos 9 % [facility] % Eos 1 % [facility] % Baso 0 % [facility] # Neutros 9.07 (H) 1.56 - 6.13 K/L [facility] # Lymphs 3.65 1.18 - 3.74 K/L [facility] # Monos 1.28 (H) 0.24 - 0.36 K/L [facility] # Eos 0.09 0.04 - 0.36 K/L [facility] # Baso 0.06 0.01 - 0.08 K/L [facility] Immature 2 (H) 0 - 1 % [facility] Granulocytes-[facility] Specimen Blood Performing Organization Address City/[facility] Ph one Number [facility] [address] [place] [address] [address] [facility] * Basic Metabolic Panel (02/15/2020 4:23 AM CDT) Only the most recent of 4 results within the time period is included. Sodium 135 (L) 136 - 145 meq/L [facility] Potassium 4.4 3.5 - 5.1 meq/L [facility] Chloride 102 98 - 107 meq/L [facility] CO2 23 22 - 29 meq/L [facility] BUN 17 7 - 21 mg/dL [facility] Creatinine 0.71 0.57 - 1.25 mg/dL [facility] Glucose 129 (H) 70 - 105 mg/dL [facility] Calcium 9.0 8.4 - 10.2 mg/dL [facility] EGFR 85Comment: ESTIMATED GFR IS mL/min/1.[address] [facility] NOT ACCURATE CREATININE [facility] CLEARANCE IN PREDICTING GLOMERULAR FILTRATION RATE. ESTIMATED GFR IS NOT APPLICABLE FOR DIALYSIS PATIENTS. Specimen Blood Narrative Performed At Fire Management Technician SHUKRI WASHINGTON Farhat [facility] Performing Organization Address [facility] Ph one Number [facility] [address] [place] [address] [facility] * Procalcitonin (02/13/2020 4:50 AM CDT) Procalcitonin 0.08 (H) <0.05 ng/mL [facility] Specimen Blood Narrative Performed At SEPSIS RISK (ng/mL) [facility] Low:0.05-0.[address] [facility] Intermediate: 0.51-2.00 High: >=2.01 Performing Organization Address [facility] one Number [place] [address] [facility] * Lactic acid, venous (02/13/2020 4:50 AM CDT) Lactate, Venous 1.63 0.50 - 2.20 mmol/L [facility] Specimen Blood Narrative Performed At Fire Management Technician ID - MARITZA [facility] Performing Organization Address [facility] Ph one Number [place] [address] [facility] * Blood gas, venous (02/13/2020 4:50 AM CDT) pH, Damian 7.38 7.32 - 7.42 [facility] pCO2, Damian 38 (L) 41 - 51 mmHg [facility] pO2, Damian 53 (H) 25 - 40 mmHg [facility] O2 Sat, Damian 89.4 (H) 40.0 - 70.0 % [facility] HCO3, Damian 22 21 - 29 mmol/L [facility] Base Excess, Damian -3.4 (L) -2.0 - 3.0 mmol/L [facility] Patient Temperature 35.6 C [facility] Specimen Blood Performing Organization Address [facility] Ph one Number [place] [address] [facility] * Ketone, blood (02/13/2020 4:50 AM CDT) Ketones, Blood 1.2 (H) <0.4 mmol/L [facility] Specimen Blood Performing Organization Address City/State/Zipcode Ph one Number [facility] [address] [place], [place] [address] [facility] * XR chest 1 view portable / bedside (02/13/2020 4:27 AM CDT) Specimen Narrative Performed At FINAL REPORT GE RIS Chest, 1 view. History: Pneumonia Comparison: None available. IMPRESSION: The cardiomediastinal silhouette and pu lmonary vasculature are within normal limits for a portable exam. Hete rogeneous airspace opacity in the right base is concerning for pneumo jud. Recommend follow-up examination after treatment to ensure r esolution. No pleural effusion or pneumothorax. No acute osseous abnor mality. Signed: Rian Ying MD Report Verified Date/Time: 0 04:32:19 Procedure Note Interface, External Ris In - 02/13/2020 4:34 AM CDT FINAL REPORT Chest, 1 view. History: Pneumonia Comparison: None available. IMPRESSION: The cardiomediastinal silhouette and pulmonary vasculature are within normal limits for a portable exam. Heterogeneous airspace opacity in the right base is concerning for pneumonia. Recommend follow-up examination after treatment to ensure resolution. No pleural effusion or pneumothorax. No acute osseous abnormality. Signed: Rian Ying MD Report Verified Date/Time: 02/13/2020 04:32:19 Performing Organization Address City/State/Zipcode Ph one Number RIS after 02/23/2019 Insurance Payer Benefit Subscriber ID Type Phone Address Plan / Group [facility] - AARP/MEDIC xxxxxxxxx MEDICARE MGD CARE ARE COMPLETE Advance Directives For more information, please contact: [place] [phone] [place] [address] Date Inactivated Comments Code Status Date Activated 02/15/2020 7:02 PM Full Code 02/13/2020 4:31 AM This code status was determined by: Patient
--- OUTSIDE RECORDS SUMMARY | 2020-02-24 23:15 | XMS REPORT | Continuity of Care Document ---
Author Author [employer] Address Unknown Phone Unavailable Care Team Providers Care Supervisor Publications Name Role Phone [employer] Information [place] Unavailable Un available Problems Problem Status Onset Date Classification Date Reported Comments Source Avascular necrosis Active Problem 03/21/2018 [facility] Osteochondral defect Active Problem 03/21/2018 [facility] Pain in right foot Active Problem 03/21/2018 [facility] Joint stiffness of right foot Active Problem 07/2017 [facility] Medications No Data Provided for [...]
[2020-02-24 23:21] LABS: BASOPHILS # (AUTO) 0.1 (0.0-0.1); BASOPHILS % 0.4 % (0.0-1.0); EOSINOPHILS % 0.2 % (0.0-6.0); HEMATOCRIT 36.1 % (34.2-44.1); HEMOGLOBIN 11.3 g/dL (12.0-16.0); LYMPHOCYTES # (AUTO) 1.9 (1.0-3.2); LYMPHOCYTES % 9.5 % (18.0-39.1); MEAN CORPUSCULAR HEMOGLOBIN 31.5 pg (28-32); MEAN CORPUSCULAR HGB CONC 31.3 g/dL (31-35); MEAN CORPUSCULAR VOLUME 100.6 fL (81-99); MONOCYTES # (AUTO) 1.5 (0.2-0.8); MONOCYTES % 7.7 % (4.4-11.3); NEUTROPHILS # (AUTO) 15.5 (2.1-6.9); NEUTROPHILS % 79.6 % (38.7-80.0); PLATELET COUNT 315 x10e3/uL (140-360); RED BLOOD COUNT 3.59 x10e6/uL (3.6-5.1); RED CELL DISTRIBUTION WIDTH 13.5 % (11.7-14.4)
[2020-02-24 23:40] LABS: ALANINE AMINOTRANSFERASE 15 IU/L (0-55); ALBUMIN 3.6 g/dL (3.5-5.0); ALBUMIN/GLOBULIN RATIO 1.1 (0.8-2.0); ALKALINE PHOSPHATASE 109 IU/L (40-150); ANION GAP 26.5 mmol/L (8-16); BLOOD UREA NITROGEN 13 mg/dL (7-26); BUN/CREATININE RATIO 15 (6-25); CALCIUM 8.5 mg/dL (8.4-10.2); CARBON DIOXIDE 17 mmol/L (22-29); CHLORIDE 107 mmol/L (98-107); CREATINE KINASE 45 IU/L (29-168); CREATININE, SERUM 0.86 mg/dL (0.57-1.11); EST GLOMERULAR FILTRATION RATE > 60 ML/MIN (60-); GLUCOSE 69 mg/dL (74-118); POTASSIUM 4.5 mmol/L (3.5-5.1); SODIUM 146 mmol/L (136-145)
[2020-02-25] VITALS (7 sets, daily range): BP systolic 100–121; BP diastolic 67–80
[2020-02-25] MEDS ORDERED: AZITHROMYCIN 500MG/NS 250 ML 250 ML IV ONE
[2020-02-25] MEDS ORDERED: VANCOMYCIN 1GM/NS 250 ML 250 ML IV ONE
--- NOTE | 2020-02-25 00:35 | Diagnostic Imaging Report ---
EXAMINATION: CHEST SINGLE (PORTABLE) INDICATION: ^Y ^SOB, RECENT PNEUMONIA, COPD ^[id number] ^[id number] ^Y COMPARISON: 02/12/2020 FINDINGS: AP view TUBES and LINES: None. LUNGS: Limited by body habitus. Lungs are well inflated. Again seen bilateral airspace opacities, predominantly the lower lung wing. PLEURA: No significant pleural effusion or pneumothorax. HEART AND MEDIASTINUM: The cardiomediastinal silhouette is enlarged. BONES AND SOFT TISSUES: No acute osseous lesion. Soft tissues are unremarkable. UPPER ABDOMEN: No free air under the diaphragm. IMPRESSION: Enlarged cardiomediastinal silhouette with bilateral airspace opacities, probably [id number] interstitial edema. Underlying pneumonia cannot be excluded in the appropriate clinical context. Signed by: Dr. Bakari Laboy MD on 02/25/2020 12:32 AM
[2020-02-25] MEDS: ALBUTEROL SULFATE HFA 8GM INHALATION AEROSOL INH ONE (00:43)
[2020-02-25] MEDS ORDERED: ONDANSETRON HCL INJ 2MG/ML 2ML 2 MG/ML VIAL IV STA ×2 (00:45→02:25)
[2020-02-25] MEDS ORDERED: VANCOMYCIN HCL 1GM/NS 250 ML BAG IV SCH (02:30)
[2020-02-25] MEDS ORDERED: ALBUTEROL SULF 0.083% NEB SOLN 3 ML NEB NEB SCH (02:30)
[2020-02-25] MEDS ORDERED: SODIUM CHLORIDE 0.9% 1000ML 1,000 ML IV SCH (02:30)
[2020-02-25] MEDS ORDERED: CEFTRIAXONE SOD 1 GRAM/0.9% SOD CHL 50ML BAG IV SCH (02:30)
--- OUTSIDE RECORDS SUMMARY | 2020-02-25 02:35 | XMS REPORT | Continuity of Care Document ---
Author Author [employer] Organization [employer] Address Unknown Phone Unavailable Care Team Providers Care Square Dance Caller Name Role Phone [employer] Information [place] Unavailable Un available Problems Problem Status Onset Date Classification Date Reported Comments Source Avascular necrosis Active Problem 03/21/2018 [facility] Osteochondral defect Active Problem 03/21/2018 [facility] Pain in right foot Active Problem 03/21/2018 [facility] Joint stiffness of right foot Active Problem 07/2017 [facility] Medications No Data Provided for [...]
--- OUTSIDE RECORDS SUMMARY | 2020-02-25 02:35 | XMS REPORT | Clinical Summary ---
Author Author AMANDA [facility] Address Unknown Phone Unavailable Care Team Providers Care Shoemaker Custom Name Role Phone Kushal Burkett MD PCP [phone] Unavailable Allergies Comments Active Allergy [...] 02/13/2020 Hospital Cardiology - Encounter 02/15/2020 after 02/24/2019 Social History Date Tobacco Use Types Packs/Day [...] Routine 02/13/2020 PORTABLE/BEDSIDE 4:27 AM CDT after 02/24/2019 Results * EKG-SCANNED (02/18/2020 2:10 PM CDT) [...] (H)Comment: : Notified 70 - 110 mg/dL [facility] RN/MD: TESTED AT [address], [address]: [employer] Member/Parts Professional ID = [id number] for LEONILA DARNELL Specimen Blood Performing Organization Address City/State/Zipcode Ph one Number [address] [facility] * CBC with platelet count + automated diff (02/15/2020 4:23 AM CDT) Only the most recent of 3 results within the time period is included. WBC 14.4 (H) 3.5 - 10.5 K/L [facility] RBC 3.72 (L) 3.93 - 5.22 M/L [facility] Hemoglobin 12.0 11.2 - 15.7 GM/DL [facility] Hematocrit 37.6 34.1 - 44.9 % [facility] MCV 101.1 (H) 79.4 - 94.8 fL [facility] MCH 32.3 (H) 25.6 - 32.2 pg [facility] MCHC 31.9 (L) 32.2 - 35.5 GM/DL [facility] RDW 13.0 11.7 - 14.4 % [facility] Platelets 361 150 - 450 K/CU MM [facility] MPV 9.9 9.4 - 12.3 fL [facility] nRBC 0 0 - 0 /100 WBC [facility] % Neutros 63 % [facility] % Lymphs 25 % [facility] % Monos 9 % [facility] % Eos 1 % [facility] % Baso 0 % [facility] # Neutros 9.07 (H) 1.56 - 6.13 K/L [facility] # Lymphs 3.65 1.18 - 3.74 K/L [facility] # Monos 1.28 (H) 0.24 - 0.36 K/L [facility] # Eos 0.09 0.04 - 0.36 K/L [facility] # Baso 0.06 0.01 - 0.08 K/L [facility] Immature 2 (H) 0 - 1 % [facility] Granulocytes-[facility] Specimen Blood Performing Organization Address City/[facility] Ph one Number [facility] [address] [place] [address] [address] [facility] * Basic Metabolic Panel (02/15/2020 4:23 AM CDT) Only the most recent of 4 results within the time period is included. Sodium 135 (L) 136 - 145 meq/L [facility] Potassium 4.4 3.5 - 5.1 meq/L [facility] Chloride 102 98 - 107 meq/L [facility] CO2 23 22 - 29 meq/L [facility] BUN 17 7 - 21 mg/dL [facility] Creatinine 0.71 0.57 - 1.25 mg/dL [facility] Glucose 129 (H) 70 - 105 mg/dL [facility] Calcium 9.0 8.4 - 10.2 mg/dL [facility] EGFR 85Comment: ESTIMATED GFR IS mL/min/1.[address] [facility] NOT ACCURATE CREATININE [facility] CLEARANCE IN PREDICTING GLOMERULAR FILTRATION RATE. ESTIMATED GFR IS NOT APPLICABLE FOR DIALYSIS PATIENTS. Specimen Blood Narrative Performed At [employer]let [employer] Member SHUKRI WASHINGTON Farhat [facility] Performing Organization Address [facility] Ph one Number [facility] [address] [place] [address] [address] [facility] * Procalcitonin (02/13/2020 4:50 AM CDT) Procalcitonin 0.08 (H) <0.05 ng/mL [facility] Specimen Blood Narrative Performed At SEPSIS RISK (ng/mL) [facility] Low:0.05-0.50 [facility] Intermediate: 0.51-2.00 High: >=2.[address] [facility] one Number [place] [address] [facility] * Lactic acid, venous (02/13/2020 4:50 AM CDT) Lactate, Venous 1.63 0.50 - 2.20 mmol/L [facility] Specimen Blood Narrative Performed At [employer] Member ID - MARITZA [facility] Performing Organization Address [facility] Ph one Number [place] [address] [facility] * Blood gas, venous (02/13/2020 4:50 AM CDT) pH, Damian 7.38 7.32 - 7.42 [facility] pCO2, Damian 38 (L) 41 - 51 mmHg [facility] pO2, Damian 53 (H) 25 - 40 mmHg [facility] O2 Sat, Damian 89.4 (H) 40.0 - 70.0 % [facility] HCO3, Damian 22 21 - 29 mmol/L [facility] Base Excess, Damian -3.4 (L) -2.0 - 3.0 mmol/L [facility] Patient Temperature 35.6 C [facility] Specimen Blood Performing Organization Address [facility] Ph one Number [place] [address] [facility] * Ketone, blood (02/13/2020 4:50 AM CDT) Ketones, Blood 1.2 (H) <0.4 mmol/L [facility] Specimen Blood Performing Organization Address City/State/Zipcode Ph one Number [facility] [address] [place], [place] [address] [facility] * XR chest 1 view portable [...] Address City/State/Zipcode Ph one Number RIS after 02/24/2019 Insurance Payer Benefit Subscriber ID Type Phone Address Plan / Group [facility] - AARP/MEDIC xxxxxxxxx MEDICARE MGD CARE ARE COMPLETE Advance Directives For more information, please contact: [place] [phone] [place] [address] Date Inactivated Comments Code Status Date Activated 02/15/2020 7:02 PM Full Code 02/13/2020 4:31 AM This code status was determined by: Patient
--- OUTSIDE RECORDS SUMMARY | 2020-02-25 02:35 | XMS REPORT | Continuity of Care Document ---
Author Author [facility] t Organization [facility] Address [address] [place] [address] Phone Unavailable Care Team Providers Care Wallpaperer Name Role Phone MD Torres COONEY MD PCP Rui QUINONES Attphys Unavailable Douglas THOMPSON Attphys Unavailable Tessa HESTER, Douglas Rose Attphys Keagan HESTER, Volodymyr Attphys Efrain HESTER, Ki Samson Attphys CHEYENNE BEAR Attphys Unavailable Torres COONEY Attphys Unavailable VOLODYMYR BOOGIE Admphys Unavailable Torres COONEY Admphys Unavailable Payers Payer Name Policy Type Policy Number Effective Date Expiration Date S mary [facility] - MEDICARE MGD CAREAARP/MEDICARE COMPLETEx xxxxxxxx xxxxxxxxx [facility] Aarp Medicare Complete [id number] [facility] Aetna Pos [id number] [facility] Problems Condition Name Condition Details Condition Category Status Onset Date Resolution Date Last Treatment Date Treating Clinician Comments Source Pneumonia Pneumonia Disease Active 2020-02-13 00:00:00 [facility] Cellulitis of right forearm Cellulitis of right forearm Problem Active [facility] Hyperglycemia Hyperglycemia Problem Active [facility] Hyponatremia Hyponatremia Problem Active [facility] Leukocytosis Leukocytosis Problem Active [facility] Severe sepsis Problem Active [facility] Chronic obstructive pulmonary disease Problem Active [facility] Right lower lobe pneumonia Problem Active [facility] Tobacco abuse Problem Active 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 03/21/2018 [facility] Problem Active 2018-03-21 02 :45:44 Jacey Henson Pain in right foot Pain in right foot Active Problem 03/21/2018 [facility] Problem Active 2018-03-21 02 :45:44 Jacey Henson Joint stiffness of right foot Joint stiffness of right foot Active Problem 03/21/2018 [facility] Problem Active 2018-03-21 02:45:44 Jacey Henson Allergies, Adverse Reactions, Alerts Allergy Name Allergy Type Status Severity Reaction(s) Onset Date Inacti ve Date Treating Clinician Comments Source Metronidazole Hcl Propensity to adverse reactions Active 2020-02-13 00:00:00 vomit [facility] Penicillins Propensity to adverse reactions Active 2019 00:00:00 Throat swelling [facility] Metronidazole HCl Allergy to substance Active VOMITING 00:00:00 [facility] [place] Penicillin Allergy to substance Active Severe TONGUE/THROAT S WELLS 2018-04-10 00:00:00 [facility] Penicillins DA Active SD 2015-05-23 00:00:00 [facility] metronidazole DA Active SD 2015-05-23 00:00:00 [facility] Social History Social Habit Start Date Stop Date Quantity Comments Source Sex Assigned At [facility] Smoking Status Start Date Stop Date Source Current every day smoker 2020-02-14 00:00:00 [facility] Medications Ordered Medication Name Filled Medication Name Start Date Stop Da te Current Medication? Ordering Clinician Indication Dosage Frequency Signature (SIG) Comments Components Source levoFLOXacin (LEVAQUIN) 750 MG tablet 2020-02-16 00:00 :00 2020-02-20 23:59:00 No 750mg QD Take 1 tablet (750 mg total) by mouth da mae for 4 days. [facility] predniSONE (DELTASONE) 20 MG tablet 2020-02-16 00:00:0 0 2020-02-18 23:59:00 No 20mg QD Take 1 tablet (20 mg total) by mouth taiwo ly for 2 days. [facility] levoFLOXacin (LEVAQUIN) 750 MG tablet 2020-02-16 00:00 :00 2020-02-15 00:00:00 No 750mg QD Take 1 tablet (750 mg total) by mouth da mae for 2 days. [facility] metoprolol tartrate (LOPRESSOR) 50 MG tablet 2020-02-13 04:25:31 Yes 50mg Q.5D Take 50 mg by mouth 2 (two) times daily. [facility] lisinopriL (PRINIVIL,ZESTRIL) 2.5 MG tablet 2020-02-13 04:23:17 Yes 2.5mg QD Take 2.5 mg by mouth daily. [facility] budesonide (ENTOCORT EC) 3 mg 24 hr capsule 2020-02-13 04:17:44 Yes 3mg QD Take 3 mg by mouth every morning. [facility] insulin lispro (HUMALOG) 100 unit/mL injection 2020-02-13 04:17: 43 Yes 8U Inject 8 Units subcutaneously 3 (three) times daily be fore meals. [facility] gabapentin (NEURONTIN) 300 MG capsule 2020-02-13 04:17:43 Yes 300mg Q.[id number] Take 300 mg by mouth 3 (three) times daily. [facility] albuterol HFA (PROVENTIL HFA) 90 mcg/actuation inhaler 2020-02-13 04:17:43 Yes 1{puff} Inhale 1 puff b y mouth via inhaler every 6 (six) hours as needed for Wheezing. [facility] budesonide-formoteroL (SYMBICORT) 80-4.5 mcg/actuation inhal er 2020-02-13 04:17:43 Yes 2{puff} Q.5D Inhale 2 p uffs by mouth via inhaler 2 (two) times daily. [facility] aspirin 81 MG EC tablet 2020-02-13 04:17:43 Yes 81mg QD Take 81 mg by mouth daily. [facility] HYDROcodone-acetaminophen (NORCO 5-325) 5-325 mg per tablet 2020-02-13 04:17:43 Yes 1{tbl} Take 1 tab let by mouth every 6 (six) hours as needed for Pain. [facility] cyclobenzaprine (FLEXERIL) 10 MG tablet 2020-02-13 04:17:43 Yes 10mg Take 10 mg by mouth 3 (three) times daily as needed for Muscle spasms. [facility] mesalamine (PENTASA) 500 MG CR capsule 2020-02-13 04:17:43 Yes 500mg Q.[id number] Take 500 mg by mouth 3 (three) times daily. [facility] atorvastatin (LIPITOR) 10 MG tablet 2020-02-13 04:17:42 Yes 10mg QD Take 10 mg by mouth daily. [facility] glimepiride (AMARYL) 4 MG tablet 2020-02-13 04:17:42 Yes 4mg Take 4 mg by mouth every morning before breakfast. [facility] levothyroxine (SYNTHROID, LEVOTHROID) 25 MCG tablet 02-12 04:17:42 Yes 25ug Take 25 mcg by mouth Every morning on an empty stomach. [facility] insulin detemir U-100 (LEVEMIR) 100 unit/mL (3 mL) InPn inje ction 2020-02-13 04:17:42 Yes 30U QD Inject 30 Units subcutaneousl y nightly. [facility] Albuterol Sulfate (Proair Hfa Inhaler*) 8.5 Gm INH Alb uterol Sulfate (Proair Hfa Inhaler*) 8.5 Gm INH Yes [facility] Aspirin (Aspir 81) 81 Mg TABLET. Aspirin (Aspir 81) 81 Mg TABLET. Yes 81 [facility] Atorvastatin Calcium (Lipitor) 10 Mg TABLET Atorvastat in Calcium (Lipitor) 10 Mg TABLET Yes 10 Daily [facility] Budesonide (Budesonide Ec) 3 Mg CAPDR...ER Budesonide (Budesonide Ec) 3 Mg CAPDR...ER Yes 3 Daily [facility] Budesonide/Formoterol Fumarate (Symbicor t 80-4.5 Mcg Inhaler) 10.2 Gm HFA.AER.AD Budesonide/Formoterol Fumarate (Symbicor t 80-4.5 Mcg Inhaler) 10.2 Gm HFA.AER.AD Yes 1 [facility] Clindamycin Hcl Clindamycin Hcl Yes 300 Three Ti mes A Day [facility] Clindamycin Hcl (Cleocin Hcl) 150 Mg CAPSULE Clindamyc in Hcl (Cleocin Hcl) 150 Mg CAPSULE Yes 300 Every 8 Hours [facility] Clonazepam Clonazepam Yes .5 Daily CH I [facility] Cyclobenzaprine Hcl Cyclobenzaprine Hcl Yes 10 Three Times A Day [facility] Gabapentin Gabapentin Yes 300 Three Times A Day [facility] Glimepiride Glimepiride Yes 4 Twice A Day [facility] Hydrocodone Bit/Acetaminophen ([place] 5-325 Tablet) 1 E ach TABLET Hydrocodone Bit/Acetaminophen ([place] 5-325 Tablet) 1 Each TABLET Yes 1 Every 4 Hours [facility] Insulin Aspart (Novolog) 100 Units/1 Ml INJ Insulin As part (Novolog) 100 Units/1 Ml INJ Yes 5 After Meals [facility] Insulin Glargine (Lantus 3ML Pen) 100 Units/1 Ml INJ I nsulin Glargine (Lantus 3ML Pen) 100 Units/1 Ml INJ Yes 25 Bedtime [facility] Levofloxacin (Levaquin) 500 Mg TABLET Levofloxacin (Levaquin) 500 M g TABLET Yes 500 Daily [facility] Levothyroxine Sodium Levothyroxine Sodium Yes 25 Daily [facility] Mesalamine (Pentasa) 500 Mg CAPCR Mesalamine (Pentasa) 500 Mg CAPCR Yes 2 Four Times Daily [facility] Metformin Hcl Metformin Hcl Yes 500 Twice A Day [facility] Metoprolol Tartrate Metoprolol Tartrate Yes 50 Twice A Day [facility] Omeprazole Omeprazole Yes 20 Twice A Day [facility] Rifaximin (Xifaxan) 550 Mg TABLET Rifaximin (Xifaxan) 550 Mg TABLET Yes Four Times Daily [facility] Sucralfate Sucralfate Yes 1 Four Times Daily [facility] Chlordiazepoxide/Clidinium Br (Chlordiazepoxide-Clidin ium Cap) 1 Each CAPSULE Chlordiazepoxide/Clidinium Br (Chlordiazepoxide-Clidinium Cap) 1 Each CAPSULE 2018-04-10 00:00:00 No 1 Three Times A Day [facility] Glimepiride Glimepiride 2018-04-10 00:00:00 No 2 T wice A Day [facility] Insulin Glargine (Lantus 3ML Pen) 100 Units/1 Ml INJ I nsulin Glargine (Lantus 3ML Pen) 100 Units/1 Ml INJ 2018-04-10 00:00:00 No 20 Daily [facility] Janet/Rui.rhamn/B.bif/B.long (Probioti c Acidophilus Biobeads) 1 Each [address]T.DR Gonzales/Rui.rhamn/B.bif/B.long (Probioti c Acidophilus Biobeads) 1 Each TABLET. 2018-04-10 00:00:00 No 1 Daily [facility] Lisinopril/Hydrochlorothiazide (Lisinopril-Hctz 10-12. 5 Mg Tab) 1 Each TABLET Lisinopril/Hydrochlorothiazide (Lisinopril-Hctz 10-12.5 Mg Tab) 1 Each TABLET 2018-04-10 00:00:00 No 1 Daily [facility] Omeprazole Magnesium (Prilosec Otc) 20 Mg TABLET.DR Villarreal eprazole Magnesium (Prilosec Otc) 20 Mg TABLET. 2018-04-10 00:00:00 No 20 Daily [facility] Ondansetron (Zofran Odt) 8 Mg TAB.RAPDIS Ondansetron ( Zofran Odt) 8 Mg TAB.RAPDIS 2018-04-10 00:00:00 No 8 Daily [facility] Tramadol Hcl (Ultram) 50 Mg TABLET Tramadol Hcl (Ultram) 50 Mg T ABLET 2018-04-10 00:00:00 No 5 Q6hrs [facility] Ciprofloxacin Hcl Ciprofloxacin Hcl 2018-04-02 00:00:00 No 750 Twice A Day [facility] Balsalazide Disodium Balsalazide Disodium 2012-03-27 00:00:00 No 3 Three Times A Day [facility] Chlordiazepoxide/Clidinium Br (Librax Capsule) 1 Each CAPSULE Chlordiazepoxide/Clidinium Br (Librax Capsule) 1 Each CAPSULE 2012-03-27 00:00:00 No 1 Q 6 Hrs [facility] Salmeterol Xinaf/Fluticasone (Advair 250/50) 1 Ea DISK Salmeterol Xinaf/Fluticasone (Advair 250/50) 1 Ea DISK 2012-03-01 00:00:00 No 1 Twice A Day [facility] Vitamin D 1.25MG Vitamin D 1.25MG 2012-03-01 00:00:00 No 1.25 Every Week [facility] Cholecalciferol (Vitamin D) 400 Unit CAPSULE Cholecalc iferol (Vitamin D) 400 Unit CAPSULE 2011-10-10 00:00:00 No Daily [facility] Vital Signs Vital Name Observation Time Observation Value Comments Source Systolic blood pressure 2020-02-15 16:11:00 135 mm[Hg] [facility] Diastolic blood pressure 2020-02-15 16:11:00 71 mm[Hg] [facility] Heart rate 2020-02-15 16:11:00 93 /min [facility] Body temperature 2020-02-15 16:11:00 36.83 Tisha [facility] Respiratory rate 2020-02-15 16:11:00 18 /min [facility] Oxygen saturation in Arterial blood by Pulse oximetry 02-14 16:11:00 93 /min [facility] Jiane r Body Temperature 2020-02-13 01:46:00 98.8 [degF] [facility] Weight 2020-02-12 18:34:00 195 [lb_av] [facility] BMI (Body Mass Index) 2020-02-12 18:34:00 38.1 kg/m2 [facility] Procedures Procedure Date / Time Performed Performing Clinician [facility] e REPORT OF PROCEDURE - ENDOSCOPY SCAN 2020-02-18 14:10:19 Pro vider, Default Scanning [facility] RHYTHM STRIP - SCAN 2020-02-18 14:10:18 Provider, Default Scanni jeimy [facility] POCT-GLUCOSE METER 2020-02-15 11:57:00 Mali Zuniga [facility] POCT-GLUCOSE METER 2020-02-15 09:00:00 Mali Zuniga Ki [facility] POCT-GLUCOSE METER 2020-02-15 07:06:00 Volodymyr Boogie [facility] BASIC METABOLIC PANEL (7) 2020-02-15 04:23:00 Genesis Gutierrez sa [facility] CBC W/PLT COUNT & AUTO DIFFERENTIAL 2020-02-15 04:23:00 Genesis Gutierrez [facility] POCT-GLUCOSE METER 2020-02-14 20:55:00 Volodymyr Boogie [facility] POCT-GLUCOSE METER 2020-02-14 16:36:00 Volodymyr Boogie [facility] BASIC METABOLIC PANEL (7) 2020-02-14 15:39:00 Volodymyr Boogie [facility] POCT-GLUCOSE METER 2020-02-14 11:41:00 Volodymyr Boogie [facility] POCT-GLUCOSE METER 2020-02-14 07:37:00 Keagan [facility] BASIC METABOLIC PANEL (7) 2020-02-14 01:01:00 Genesis Gutierrez [facility] CBC W/PLT COUNT & AUTO DIFFERENTIAL 2020-02-14 01:01:00 Genesis Gutierrez [facility] POCT-GLUCOSE METER 2020-02-13 21:03:00 [facility] POCT-GLUCOSE METER 2020-02-13 17:21:00 [facility] POCT-GLUCOSE METER 2020-02-13 12:39:00 [facility] POCT-GLUCOSE METER 2020-02-13 07:58:00 [facility] BASIC METABOLIC PANEL (7) 2020-02-13 04:50:00 Genesis Gutierrez [facility] BLOOD GAS, VENOUS 2020-02-13 04:50:00 Genesis Gutierrez [facility] KETONE, BLOOD 2020-02-13 04:50:00 Genesis Gutierrez [facility] LACTIC ACID, VENOUS 2020-02-13 04:50:00 Genesis Gutierrez [facility] PROCALCITONIN 2020-02-13 04:50:00 Genesis Gutierrez [facility] CBC W/PLT COUNT & AUTO DIFFERENTIAL 2020-02-13 04:50:00 Genesis Gutierrez [facility] XR CHEST 1 VIEW PORTABLE/BEDSIDE 2020-02-13 04:27:00 Shobha Gutierrez ra [facility] Encounters Start Date/Time End Date/Time Encounter Type Admission Type Att[facility] Care Department Encounter ID Source 2020-02-12 19:01:00 2020-02-13 01:35:00 Departed Emergency Room 1 CHEYENNE BEAR [facility] [id number] [facility] 2018-03-30 14:52:00 2018-04-02 16:30:00 Discharged Inpatient [facility] [id number] [facility] 2018-03-17 10:36:00 2018-03-17 10:36:00 Outpatient [facility] [place] [id number] [employer] 2017-11-22 17:48:00 2017-11-22 17:48:00 Registered Clinic 3 ADONAY COONEY [facility] [id number] [facility] Results Test Description Test Time Test Comments Results Result Comments Source CHEST SINGLE (PORTABLE) 2020-02-25 00:30:00 [facility] [address] [place] [address] Patient Name: NATALIA CARRILLO MR #: [id number] : 1965 Age/Sex: 54/F Req #: [id number] Adm Physician: Ordered by: JANNETTE QUINONES MD Report #: [id number] Location: ER Room/Bed: Procedure: [id number] DX/CHEST SINGLE (PORTABLE) Exam Date: 02/24/20 Exam Time: 2334 REPORT STATUS: Signed EXAMINATION: CHEST SINGLE (PORTABLE) INDICATION: Y SOB, RECENT PNEUMONIA, COPD 20200224 Y COMPARISON: 02/12/2020 FINDINGS: AP view TUBES and LINES: None. LUNGS: Limited by body habitus. Lungs are well inflated. Again seen bilateral airspace opacities, predominantly the lower lung wing. PLEURA: No significant pleural effusion or pneumothorax. HEART AND MEDIASTINUM: The cardiomediastinal silhouette is enlarged. BONES AND SOFT TISSUES: No acute osseous lesion. Soft tissues are unremarkable. UPPER ABDOMEN: No free air under the diaphragm. IMPRESSION: Enlarged cardiomediastinal silhouette with bilateral airspace opacities, probably agtw-vs-ecctcvwh interstitial edema. Underlying pneumonia cannot be excluded in the appropriate clinical context. Signed by: Dr. Praful Mays MD on 02/25/2020 12:32 AM Dictated By: PRAFUL MAYS MD Transcribed By: ORLANDO on 02/25/2031 COPY TO: JANNETTE QUINONES MD POCT-GLUCOSE METER 2020-02-16 07:14:00 Test Item POC-GLUCOSE METER (BEAKER) (test code = 1538) 397 mg/dL 70-110 H : TESTED AT [address], [address]: [employer]Architecture Internship ID = [id number] for Chelle Zayas POC-Glucose [id number] 12:08:00* Test Item Value Reference Range Interpretation Comments POC-Glucose Meter (test code = 1538) 375 mg/dL 70-110 H : Notified RN/MD: TESTED AT [address], [address]: [employer] Internship ID = [id number] for DARNELL KEEN Lab Interpretation (test code = 64872-3) [facility] [id number] 12:08:00* Test Item Value Reference Range Interpretation Comments POC-GLUCOSE METER (BEAKER) (test code = 1538) 375 mg/dL 70-110 H : Notified RN/MD: TESTED AT [address], [address]: [employer] Internship ID = [id number] for LEONILA JOSEDEBRA POCT-GLUCOSE [id number] 09:35:00* Test Item Value Reference Range Interpretation Comments POC-GLUCOSE METER (BEAKER) (test code = 1538) 153 mg/dL 70-110 H : TESTED AT [address], [address]: [employer] Internship ID = [id number] for DARNELL KEEN POCT-GLUCOSE [id number] 09:35:00* Test Item Value Reference Range Interpretation Comments POC-GLUCOSE METER (BEAKER) (test code = 1538) 105 mg/dL 70-110 : Notified RN/MD: TESTED AT [address], [address]: [employer] Internship ID = [id number] for DARNELL KEEN POCT-GLUCOSE [id number] 05:50:00* Test Item Value Reference Range Interpretation Comments POC-GLUCOSE METER (BEAKER) (test code = 1538) 116 mg/dL 70-110 H : TESTED AT [address], [address]: [employer] Internship ID = [id number] for YAIR COONEY POCT-GLUCOSE [id number] 05:50:00* Test Item Value Reference Range Interpretation Comments POC-GLUCOSE METER (BEAKER) (test code = 1538) 148 mg/dL 70-110 H : Notified RN/MD: TESTED AT [address], [address]: [employer] Internship ID = [id number] for YAMEL CAREY POCT-GLUCOSE [id number] 05:49:00* Test Item Value Reference Range Interpretation Comments POC-GLUCOSE METER (BEAKER) (test code = 1538) 319 mg/dL 70-110 H : TESTED AT [address], [address]: [employer]Architecture Internship ID = [id number] for ORHENRIQUE, EVENS POCT-GLUCOSE [id number] 05:49:00* Test Item Value Reference Range Interpretation Comments POC-GLUCOSE METER (BEAKER) (test code = 1538) 252 mg/dL 70-110 H : TESTED AT [address], [address]: [employer]Arch[employer] Internship ID = [id number] for ORPHEY, EVENS POCT-GLUCOSE [id number] 05:49:00* Test Item Value Reference Range Interpretation Comments POC-GLUCOSE METER (BEAKER) (test code = 1538) 301 mg/dL 70-110 H : TESTED AT [address], [address]: [employer] Internship ID = [id number] for ORPHEY, EVENS Basic Metabolic [id number] 05:21:00* Test Item Value Reference Range Interpretation Comments Sodium (test code = 2951-2) 135 meq/L 136-145 L Potassium (test code = 2823-3) 4.4 meq/L 3.5-5.1 Chloride (test code = 2075-0) 102 meq/L 98-107 CO2 (test code = 2027-9) 23 meq/L 22-29 BUN (test code = 3094-0) 17 mg/dL 7-21 Creatinine (test code = 2160-0) 0.71 mg/dL 0.57-1.25 Glucose (test code = 2345-7) 129 mg/dL 70-105 H Calcium (test code = 62086-8) 9.0 mg/dL 8.4-10.2 EGFR (test code = 33956-8) 85 mL/min/1.73 sq m ESTIMATED GFR IS NOT ACCURATE CREATININE CLEARANCE IN PREDICTING GLOMERULAR FILTRATION RATE. ESTIMATED GFR IS NOT APPLICABLE FOR DIALYSIS PATIENTS. DEON (test code = DEON) [employer] ID - PADMINI M Lab Interpretation (test code = 86387-0) [facility]normal [facility] [id number] 05:21:00* Test Item Value Reference Range Interpretation [...] GFR IS NOT APPLICABLE FOR DIALYSIS PATIENTS. [employer] ID - PADMINI [facility]BC with platelet count + automated [id number] 05:09:00 * Test Item Value Reference Range [...] 450 K/CU MM MPV (test code = 87844-6) 9.9 fL 9.4-12.3 nRBC (test code = [...] 0-1 H Lab Interpretation (test code = 07633-7) Abnormal [facility] W/PLT COUNT & AUTO [id number] 05:09:00* Test Item Value Reference Range Interpretation [...] = 2801) 2 % 0-1 H POCT-GLUCOSE [id number] 21:06:00* Test Item Value Reference Range Interpretation Comments POC-GLUCOSE METER (BEAKER) (test code = 1538) 289 mg/dL 70-110 H : TESTED AT [address], [address]: [employer]/Architecture Internship ID = [id number] for Chelle Zayas POCT-GLUCOSE [id number] 16:48:00* Test Item Value Reference Range Interpretation Comments POC-GLUCOSE METER (BEAKER) (test code = 1538) 278 mg/dL 70-110 H : TESTED AT [facility] [address] [facility], [address]: [employer]Arch[employer] Internship ID = [id number] for EVENS BALDERAS BASIC METABOLIC [id number] 16:48:00* Test Item Value Reference Range Interpretation [...] GFR IS NOT APPLICABLE FOR DIALYSIS PATIENTS. Sweatband Shaper ID - [facility] METABOLIC [id number] 01:28:00* Test Item Value Reference Range Interpretation [...] GFR IS NOT APPLICABLE FOR DIALYSIS PATIENTS. [employer] SHUKRI - MADELIN [facility]BC W/PLT COUNT & AUTO [id number] 01:24:00* Test Item Value Reference Range Interpretation [...] (test code = 2801) 1 % 0-1 [id number] 07:12:00* Test Item Value Reference Range Interpretation Comments Procalcitonin (test code = 68927-1) 0.08 ng/mL <0.05 H DEON (test code = DEON) SEPSIS RISK (ng/mL)Low: 0.05-0.50Intermediate: 0.51-2.00High: >=2.01 Lab Interpretation (test code = 98780-9) Abnormal [facility] [id number] 07:12:00* Test Item Value Reference Range Interpretation Comments PROCALCITONIN (BEAKER) (test code = 3036) 0.08 ng/mL <0.05 H SEPSIS RISK (ng/mL)Low: 0.05-0.50Intermediate: 0.51-2.00High: > =2.01BASIC METABOLIC [id number] 06:00:00* Test Item Value Reference Range Interpretation [...] GFR IS NOT APPLICABLE FOR DIALYSIS PATIENTS. Swe[employer]band Shaper ID - EDASICBC W/PLT COUNT & AUTO [id number] 05:45:00* Test Item Value Reference Range Interpretation [...] 2801) 2 % 0-1 H Blood gas, [id number] 05:35:00* Test Item Value Reference Range Interpretation Comments pH, Damian (test code = 2746-6) 7.38 7.32-7.42 pCO2, Damian (test code = 755) 38 41- 51 mmHg L pO2, Damian (test code = 2705-2) 53 25- 40 mmHg H O2 Sat, Damian (test code = 2711-0) 89.4 % 40-70 H HCO3, Damian (test code = 60804-6) 22 mmol/L 21-29 Base Excess, Damian (test code = 1927-3) -3.4 mmol/L -2-3 L Patient Temperature (test code = 8310-5) 35.6 C Lab Interpretation (test code = 25946-6) [facility] [id number] 05:35:00* Test Item Value Reference Range Interpretation [...] code = 1818) 35.6 C Lactic acid, [id number] 05:26:00* Test Item Value Reference Range Interpretation Comments Lactate, Venous (test code = 2872) 1.63 mmol/L 0.5-2.2 DEON (test code = DEON) Sweatband Shaper ID - EDASI Lab Interpretation (test code = 11895-4) Normal [facility], [id number] 05:26:00* Test Item Value Reference Range Interpretation Comments LACTATE BLOOD VENOUS (2) (BEAKER) (test code = 2872) 1.63 mmol/L 0 .50-2.20 [employer] Sh[employer] ID - Eric [id number] 05:12:00* Test Item Value Reference Range Interpretation Comments Ketones, Blood (test code = 1103) 1.2 mmol/L <0.4 H Lab Interpretation (test code = 74839-2) Abnormal [facility], [id number] 05:12:00* Test Item Value Reference Range Interpretation Comments KETONES, BLOOD (BEAKER) (test code = 1103) 1.2 mmol/L <0.4 H RAD, CHEST, 1 VIEW, NON YTIE1193-07-13 04:32:00Reason for exam:->reported PNAShould this be performed [...] 02/13/2020 04:32:19 chest 1 view portable / foifgds4424-90-23 04:32:00 Interface, External Ris In - 02/13/2020 4:34 AM CDTFINAL REPORT PATIENT ID: [id number] Chest, 1 view. History: Pneumonia Comparison: None available. IMPRESSIO N: The cardiomediastinal silhouette and pulmonary vasculature are within normal limits for a portable exam. Heterogeneous airspace opacity in the right base is concerning for pneumonia. Recommend follow-up examination after treatment to en sure resolution. No pleural effusion or pneumothorax. No acute osseous abnormali ty. Signed: Aditi Ying Verified Date/Time: 02/13/2020 04:32:1 9 [facility] fxqnbbktlihsq7310-45-27 22:48:00* Test Item Value Reference Range Interpretation Comments Urine Color (test code = 5778-6) YELLOW YELLOW [facility] CenterUrine ukfesjq8082-20-63 22:48:00* Test Item Value Reference Range Interpretation Comments Urine Clarity (test code = 96506-2) CLEAR CLEAR [facility] Urine by Test strip 2020-02-12 22:48:00* Test Item Value Reference Range Interpretation Comments Urine Specific Goldonna (test code = 5811-5) 1.030 1.010-1.02 5 [facility] CenterUrine pH measurement by automated test hbpvq2890-69-86 22:48:00* Test Item Value Reference Range Interpretation Comments Urine pH (test code = 09003-4) 5.5 5-7 [facility] CenterUrine leukocyte esterase detection by ropmluwk8933-64-43 22:48:00* Test Item Value Reference Range Interpretation Comments Urine Leukocyte Esterase (test code = 5799-2) NEGATIVE NEGATIVE [facility] CenterUrine nitrite yxxmgijlz7136-09-65 22:48:00* Test Item Value Reference Range Interpretation Comments Urine Nitrite (test code = 15342-0) NEGATIVE NEGATIVE [facility] CenterUrine protein measurement by test strip (mass/volume)2020-02-12 22:48:00* Test Item Value Reference Range Interpretation Comments Urine Protein (test code = 5804-0) NEGATIVE NEGATIVE [facility] CenterUrine glucose plvzxxiro6771-10-83 22:48:00* Test Item Value Reference Range Interpretation Comments Urine Glucose (UA) (test code = 2349-9) 1+ NEGATIVE [facility] CenterUrine ketones detection by automated test akttf0593-29-32 22:48:00* Test Item Value Reference Range Interpretation Comments Urine Ketones (test code = 73205-4) NEGATIVE NEGATIVE [facility] CenterUrine urobilinogen measurement by test strip (mass/volume)2020-02-12 22:48:00* Test Item Value Reference Range Interpretation Comments Urine Urobilinogen (test code = 26606-8) 0.2 0.2-1 [facility] CenterUrine total bilirubin measurement (mass/volume)2020-02-12 22:48:00* Test Item Value Reference Range Interpretation Comments Urine Bilirubin (test code = 1978-6) NEGATIVE NEGATIVE [facility] CenterUrine erythrocytes njdgsyvkj4547-27-79 22:48:00* Test Item Value Reference Range Interpretation Comments Urine Blood (test code = 58143-4) NEGATIVE NEGATIVE [facility] CenterAutomated urine sediment leukocyte count by microscopy (number/high power field)2020-02-12 22:48:00* Test Item Value Reference Range Interpretation Comments Urine WBC (test code = 5821-4) 6-10 0-5 [facility] CenterErythrocytes detection in urine sediment by light gxxyhcnksj4229-58-20 22:48:00* Test Item Value Reference Range Interpretation Comments Urine RBC (test code = 57850-8) 0-5 0-5 [facility] CenterBacteria detection in urine sediment by light hlrczsxhyo3266-94-37 22:48:00* Test Item Value Reference Range Interpretation Comments Urine Bacteria (test code = 52764-6) FEW NONE [facility] CenterEpithelial cells detection in urine sediment by light phwuslnbsu8232-46-90 22:48:00* Test Item Value Reference Range Interpretation Comments Urine Epithelial Cells (test code = 85611-2) MODERATE NONE [facility] CenterArterial blood pH jyeddnqzjkm1564-01-76 22:37:00* Test Item Value Reference Range Interpretation Comments Arterial Blood pH (test code = 2744-1) 7.38 7.35-7.45 [facility] CenterpCO2 KxzN4105-14-65 22:37:00* Test Item Value Reference Range Interpretation Comments Arterial Blood Partial Pressure CO2 (test code = 2019-01) 34 35-45 [facility] CenterpCO2 VizN5450-80-05 22:37:00* Test Item Value Reference Range Interpretation Comments Arterial Blood Partial Pressure O2 (test code = 2019-01) 87 80-105 [facility] CenterArterial blood bicarbonate measurement (moles/volume)2020-02-12 22:37:00* Test Item Value Reference Range Interpretation Comments Arterial Blood HCO3 (test code = 1960-4) [facility] CenterArterial cord blood carbon dioxide, total measurement by calculation (moles/volume)2020-02-12 22:37:00* Test Item Value Reference Range Interpretation Comments Arterial Blood Total CO2 (test code = 34250-9) 21 [facility] CenterArterial blood base excess by calculation 2020-02-12 22:37:00* Test Item Value Reference Range Interpretation Comments Arterial Blood Base Excess (test code = 1925-7) -5.0 -2-3 [facility] CenterArterial blood oxygen saturation fjdrvfdhbmb4342-06-32 22:37:00* Test Item Value Reference Range Interpretation Comments Arterial Blood Oxygen Saturation (test code = 2708-6) 97.0 95-98 [facility] CenterFluoroscopic procedure less than one hour rqqmjoby8463-07-94 22:37:00* Test Item Value Reference Range Interpretation Comments FiO2 (test code = FiO2) 28 Pt on 2L [facility]Fluoroscopic procedure less than one hour ykawfpyn4941-91-94 21:57:00* Test Item Value Reference Range Interpretation Comments Lactic Acid Level (test code = Lactic Acid Level) 3.4 0.5- 2.0 Results repeated and called to DR. BEAR at 2216 on 02/12/20 by DIONISIO DIXON. Read back and verified.[facility] CenterCHES SINGLE (PORTABLE)2020-02-12 21:49:00 [place] [address] Patient Name: NATALIA CARRILLO MR #: [id number] : 1965 Age/Sex: 54/F Req #: [id number] Adm Physician: Ordered by: CHEYENNE BEAR DO Report #: [id number] Location: ER Room/Bed: Procedure: [id number] DX/CHEST SING LE (PORTABLE) Exam Date: 02/12/20 [...] DO Fluoroscopic procedure less than one hour dharpplb8698-37-13 21:21:00* Test Item Value Reference Range Interpretation Comments Coronavirus (PCR) (test code = Coronavirus (PCR)) NOT DETECTED NOTD ETECTED SARS-COV2/RT-PCR CEPHEIDResults are for the detection of SARS-COV-2 RNA. The SHAKA S-COV-2 RNA is generally detectable in nasopharyngeal swab specimens during the acute phase of infection. Positive results are indicitive of active infection wi SARS-COV-2; clinical correlation with patient history and other diagnostic in formation is necessary to determine patient infection status. Positive results d o not rule out bacterial infection or co-infection with other viruses. The agent detected may not be the definite cause of the disease.The limit of detection fo r this assay is 250 copies/mLThe SARS-CoV-2 test is a rapid, real-time RT-PCR te intended for the qualitative detection of nucleic acid from SARS-CoV-2 in natalie opharyngeal swab specimen collected from individuals suspected of COVID-19 by th eir healthcare provider. This test has not been [...] EUA is revoked under 564(g) of the ACT.[facility] CenterBNP Dje-bCrb1591-38-25 19:40:00* Test Item Value Reference Range Interpretation Comments B-Type Natriuretic Peptide (test code = 08391-3) 21.6 0-100 [facility] CenterBlood leukocytes automated count (number/volume)2020-02-12 18:56:00* Test Item Value Reference Range Interpretation Comments White Blood Count (test code = 6690-2) 16.89 4.8-10.8 [facility] CenterBlood erythrocytes automated count (number/volume)2020-02-12 18:56:00* Test Item Value Reference Range Interpretation Comments Red Blood Count (test code = 789-8) 4.18 3.6-5.1 [facility] CenterBlood hemoglobin measurement (moles/volume)2020-02-12 18:56:00* Test Item Value Reference Range Interpretation Comments Hemoglobin (test code = 53737-6) 13.4 12.0-16.0 [facility] CenterAutomated blood hematocrit (volume fraction)2020-02-12 18:56:00* Test Item Value Reference Range Interpretation Comments Hematocrit (test code = 4544-3) 41.4 34.2-44.1 [facility] CenterAutomated erythrocyte mean corpuscular lcymfh8183-25-85 18:56:00* Test Item Value Reference Range Interpretation Comments Mean Corpuscular Volume (test code = 787-2) 99.0 81-99 [facility] CenterAutomated erythrocyte mean corpuscular hemoglobin (mass per erythrocyte)2020-02-12 18:56:00* Test Item Value Reference Range Interpretation Comments Mean Corpuscular Hemoglobin (test code = 785-6) 32.1 28-32 [facility] CenterAutomated erythrocyte mean corpuscular hemoglobin concentration measurement (mass/volume)2020-02-12 18:56:00* Test Item Value Reference Range Interpretation Comments Mean Corpuscular Hemoglobin Concent (test code = 786-4) 32.4 31-35 [facility] CenterRDW VwtRk-Xwv0830-92-25 18:56:00* Test Item Value Reference Range Interpretation Comments Red Cell Distribution Width (test code = 25962-0) 13.2 11.7 -14.4 [facility] CenterAutomated blood platelet count (count/volume)2020-02-12 18:56:00* Test Item Value Reference Range Interpretation Comments Platelet Count (test code = 777-3) 364 140-360 [facility] CenterAutomated blood segmented neutrophil count as percentage of total ojlkgvfkey4678-00-28 18:56:00* Test Item Value Reference Range Interpretation Comments Neutrophils (%) (Auto) (test code = 38832-9) 78.2 38.7-80.0 [facility] CenterAutomated blood lymphocyte count as percentage ot total wylrogxloy4786-19-45 18:56:00* Test Item Value Reference Range Interpretation Comments Lymphocytes (%) (Auto) (test code = 736-9) 13.0 18.0-39.1 [facility] CenterAutomated blood monocyte count as percentage of total unhfgreutf2238-92-87 18:56:00* Test Item Value Reference Range Interpretation Comments Monocytes (%) (Auto) (test code = 5905-5) 6.4 4.4-11.3 [facility] CenterAutomated blood eosinophil count as percentage of total wmrvmmtkch2479-12-37 18:56:00* Test Item Value Reference Range Interpretation Comments Eosinophils (%) (Auto) (test code = 713-8) 0.5 0.0-6.0 [facility] CenterAutomated blood basophil count as percentage of total sihowxocnd9026-80-42 18:56:00* Test Item Value Reference Range Interpretation Comments Basophils (%) (Auto) (test code = 706-2) 0.4 0.0-1.0 [facility] CenterFluoroscopic procedure less than one hour uxhdqhni4979-46-77 18:56:00* Test Item Value Reference Range Interpretation Comments IM GRANULOCYTES % (test code = IM GRANULOCYTES %) 1.5 0.0- 1.0 [facility] CenterAutomated blood neutrophil count 2020-02-12 18:56:00* Test Item Value Reference Range Interpretation Comments Neutrophils # (Auto) (test code = 751-8) 13.2 2.1-6.9 [facility] CenterBlood lymphocytes count (number/volume) 2020-02-12 18:56:00* Test Item Value Reference Range Interpretation Comments Lymphocytes # (Auto) (test code = 03911-4) 2.2 1.0-3.2 [facility] CenterBlood monocytes automated count (number/volume)2020-02-12 18:56:00* Test Item Value Reference Range Interpretation Comments Monocytes # (Auto) (test code = 742-7) 1.1 0.2-0.8 [facility] CenterAutomated blood eosinophil count 2020-02-12 18:56:00* Test Item Value Reference Range Interpretation Comments Eosinophils # (Auto) (test code = 711-2) 0.1 0.0-0.4 [facility] CenterAutomated blood basophil count (count/volume)2020-02-12 18:56:00* Test Item Value Reference Range Interpretation Comments Basophils # (Auto) (test code = 704-7) 0.1 0.0-0.1 [facility] CenterFluoroscopic procedure less than one hour normldmq0616-31-96 18:56:00* Test Item Value Reference Range Interpretation Comments Absolute Immature Granulocyte (auto (mary t code = Absolute Immature Granulocyte (auto) 0.25 0-0.1 [facility] Hospitalerum or plasma sodium measurement (moles/volume)2020-02-12 18:56:00* Test Item Value Reference Range Interpretation Comments Sodium Level (test code = 2951-2) 137 136-145 [facility] Hospitalerum or plasma potassium measurement (moles/volume)2020-02-12 18:56:00* Test Item Value Reference Range Interpretation Comments Potassium Level (test code = 2823-3) 4.2 3.5-5.1 [facility] Hospitalerum or plasma chloride measurement (moles/volume)2020-02-12 18:56:00* Test Item Value Reference Range Interpretation Comments Chloride Level (test code = 2075-0) 101 98-107 [facility] Hospitalerum or plasma carbon dioxide, total measurement (moles/volume)2020-02-12 18:56:00* Test Item Value Reference Range Interpretation Comments Carbon Dioxide Level (test code = 2028-9) 19 22-29 [facility] Hospitalerum or plasma anion lax8387-95-51 18:56:00* Test Item Value Reference Range Interpretation Comments Anion Gap (test code = 17384-1) 21.2 8-16 [facility] Hospitalerum or plasma urea nitrogen measurement (mass/volume)2020-02-12 18:56:00* Test Item Value Reference Range Interpretation Comments Blood Urea Nitrogen (test code = 3094-0) 14 7-26 [facility] Hospitalerum or plasma creatinine measurement (mass/volume)2020-02-12 18:56:00* Test Item Value Reference Range Interpretation Comments Creatinine (test code = 2160-0) 1.11 0.57-1.11 [facility] Hospitalerum or plasma urea nitrogen/creatinine mass sinke2217-85-91 18:56:00* Test Item Value Reference Range Interpretation Comments BUN/Creatinine Ratio (test code = 3097-3) 13 6-25 [facility] CenterEstimated glomerular filtration rate (GFR) evejntzkpntnz2077-86-31 18:56:00* Test Item Value Reference Range Interpretation Comments Estimat Glomerular Filtration Rate (test code = 926565042) 51 >60 Ranges were taken from the National Kidney Disease Education Program and the [facility] Kid[facility] Foundation literature.Reference ranges:60 or greater: Fmqowz48-22 ( for 3 consecutive months): Chronic kidney disease 15 or less: Kidney failureNacogdoches Medical CenterGlucose uqafsyesnsg7372-23-28 18:56:00* Test Item Value Reference Range Interpretation Comments Glucose Level (test code = CUW4861) 253 74-118 [facility] Hospitalerum or plasma calcium measurement (mass/volume)2020-02-12 18:56:00* Test Item Value Reference Range Interpretation Comments Calcium Level (test code = 35202-2) 9.5 8.4-10.2 [facility] Hospitalerum or plasma total bilirubin measurement (mass/volume)2020-02-12 18:56:00* Test Item Value Reference Range Interpretation Comments Total Bilirubin (test code = 1975-2) 0.4 0.2-1.2 [facility] CenterFluoroscopic procedure less than one hour xbndphek3008-76-79 18:56:00* Test Item Value Reference Range Interpretation Comments Aspartate Amino Transf (AST/SGOT) (test code = Aspartate Amino Transf (AST/SGOT)) 26 5-34 [facility] Hospitalerum or plasma alanine aminotransferase measurement (enzymatic activity/volume)2020-02-12 18:56:00* Test Item Value Reference Range Interpretation Comments Alanine Aminotransferase (ALT/SGPT) (test code = 1742-6) 24 0-55 [facility] Hospitalerum or plasma protein measurement (mass/volume)2020-02-12 18:56:00* Test Item Value Reference Range Interpretation Comments Total Protein (test code = 2885-2) 7.5 6.5-8.1 [facility] Hospitalerum or plasma albumin measurement (mass/volume)2020-02-12 18:56:00* Test Item Value Reference Range Interpretation Comments Albumin (test code = 1751-7) 3.0 3.5-5.0 [facility] CenterPlasma globulin measurement (mass/volume) 2020-02-12 18:56:00* Test Item Value Reference Range Interpretation Comments Globulin (test code = 42682-1) 4.5 2.3-3.5 [facility] Hospitalerum or plasma albumin/globulin mass fzqff9958-77-62 18:56:00* Test Item Value Reference Range Interpretation Comments Albumin/Globulin Ratio (test code = 1759-0) 0.7 0.8-2.0 [facility] Hospitalerum or plasma alkaline phosphatase measurement (enzymatic activity/volume)2020-02-12 18:56:00* Test Item Value Reference Range Interpretation Comments Alkaline Phosphatase (test code = 6768-6) 127 40-150 [facility] Hospitalerum or plasma creatine kinase measurement (enzymatic activity/volume)2020-02-12 18:56:00* Test Item Value Reference Range Interpretation Comments Creatine Kinase (test code = 2157-6) 51 29-168 [facility] Hospitalerum or plasma creatine kinase MB measurement (mass/volume)2020-02-12 18:56:00* Test Item Value Reference Range Interpretation Comments Creatine Kinase MB (test code = 92470-5) 1.10 0-5.0 [facility] CenterTroponin I measurement by highly sensitive enzyme adrkbnymahs4991-51-97 18:56:00* Test Item Value Reference Range Interpretation Comments Troponin I (test code = 74033-4) < 0.001 0-0.300 [facility] CenterNovel Coronavirus 2019 gLcQ7142-55-17 16:10:00* Test Item Value Reference Range Interpretation Comments Novel Coronavirus 2019 nCoV (test code = COVID19) Negative Nega tive Does patient have the clinical criteria consistent with COVID-19? YIs the patien t going to be discharged home? YSTREPTOCOCCUS PCR BAXHTE7857-61-46 00:19:00* Test Item Value Reference Range Interpretation Comments STREPTOCOCCUS DYSGALACTIAE (test code = STREPGC) NEGATIVE FOR G/C N EGATIVE STREPA MOLECULAR (test code = STREPAMOL) NEGATIVE FOR GRP A NEGATIV E - XR FOOT 3 + V JW3045-98-21 20:37:00 Name: LORENANATALIAXI ELIZABETH [facility] : 1965 Age/S:53 /F [address] [facility] Unit#:[id number] Loc: [place] [address] Phys: Aditya Morgan WHIP SAWYER Dis Date: PHONE #: [phone] Status: REG ER FAX #: [phone] Exam Date: 09/09/2018 Reason: 4TH TOE INJURY EXAMS: CPT CODE: [id number] XR FOOT 3 + [place] [address] HISTORY: 4th toe injury. COMPARISON: None available. [...] Rodriguez MD; Adonay Cooney; Aditya De Guzman Technologist: RODNEY SCHULER CT Trnscrpt Data: 09/09/2018 (2036) [email or web address] [facility] D/T: S: 09/09/2018 (2040) PAGE 1 Signed Report MRI FOREARM RIGHT JQ3424-43-66 08:46:00 [place] [address] Patient Name: NATALIA CARRILLO MR #: [id number] : 1965 Age/Sex: 52/F Req #: [id number] Adm Physician: ADONAY COONEY MD Ordered by: SARAH MASSEY MD Report #: [id number] Location: MED/SURG3 Room/Bed: [facility] Procedure: [id number] MR I/MRI FOREARM RIGHT WO Exam Date: [...] TO: JACQUIE MASSEY MD MRI HAND RIGHT ZD4972-16-69 08:46:00 [place] [address] Patient Name: NATALIA CARRILLO MR #: [id number] : 1965 Age/Sex: 52/F Req #: [id number] Adm Physician: ADONAY COONEY MD Ordered by: SARAH MASSEY MD Report #: [id number] Location: MED/SURG3 Room/Bed: [facility] Procedure: [id number] MR I/MRI HAND RIGHT WO Exam Date: [...] SARAH MASSEY MD FLUORO GUIDANCE [address]/VOC6603-85-93 12:30:00 [place] [address] Patient Name: NATALIA CARRILLO MR #: [id number] : 1965 Age/Sex: 52/F Req #: [id number] Adm Physician: ADONAY COONEY MD Ordered by: ADONAY COONEY MD Report #: [id number] Location: MED/SURG3 Room/Bed: [facility] Procedure: [id number] DX/FLUORO GUIDANCE [address]/REM Exam Date: [...] COONEY MD PICC INSERT W OR W/O VEAU3943-98-73 12:30:00 [place] [address] Patient Name: NATALIA CARRILLO MR #: [id number] : 1965 Age/Sex: 52/F Req #: [id number] Adm Physician: ADONAY COONEY MD Ordered by: ADONAY COONEY MD Report #: [id number] Location: MED/SURG3 Room/Bed: [facility] Procedure: [id number] IR/PICC INSERT W OR W/O PORT Exam Date: 04/11/18 [place] Time: 1100 REPORT STATUS: Signed PROCEDURE: Left [...] MD CHEST XRAY LINE PLACEMENT 2018-04-11 12:04:00 [place] [address] Patient Name: NATALIA CARRILLO MR #: [id number] : 1965 Age/Sex: 52/F Req #: [id number] Adm Physician: ADONAY COONEY MD Ordered by: YULISSA WILKERSON MD Report #: [id number] Location: MED/SURG3 Room/Bed: [facility] Procedure: [id number] DX /CHEST XRAY LINE PLACEMENT Exam Date: [...] Interpretation Comments Bedside Glucose (test code = 96548-1) 166 70-120 H Meter ID: [id number] Medical CenterBlood Culture 2018-04-02 13:29:00* Test Item Value Reference Range Interpretation Comments Blood Culture (test code = 23757417) NO GROWTH AFTER 72 HOURS [facility] Zciiv8553-63-18 05:52:00* Test Item Value Reference Range Interpretation Comments Sodium Level (test code = 2951-2) 139 136-145 [facility] CenterPotassium Zxujo7731-53-20 05:52:00* Test Item Value Reference Range Interpretation Comments Potassium Level (test code = 2823-3) 3.8 3.5-5.1 [facility] CenterChloride Gmklz3027-99-69 05:52:00* Test Item Value Reference Range Interpretation Comments Chloride Level (test code = 2075-0) 106 98-107 [facility] CenterCarbon Dioxide Rhych8671-12-88 05:52:00* Test Item Value Reference Range Interpretation Comments Carbon Dioxide Level (test code = 2028-9) 22 22-29 [facility] CenterAnion Fxk8366-99-75 05:52:00* Test Item Value Reference Range Interpretation Comments Anion Gap (test code = 05717-1) 14.8 8-16 [facility] CenterBlood Urea Rsoyfstu0699-71-95 05:52:00* Test Item Value Reference Range Interpretation Comments Blood Urea Nitrogen (test code = 3094-0) 8 7-26 [facility] CenterCreatinine2018-10-13 05:52:00* Test Item Value Reference Range Interpretation Comments Creatinine (test code = 2160-0) 0.65 0.57-1.11 [facility] CenterBUN/Creatinine Etzxp7147-78-68 05:52:00* Test Item Value Reference Range Interpretation Comments BUN/Creatinine Ratio (test code = 3097-3) 12 6-25 [facility] CenterEstimat Glomerular Filtration Rate 2018-04-01 05:52:00* Test Item Value Reference Range Interpretation Comments Estimat Glomerular Filtration Rate (test code = 704383670) 60- >60 Ranges were taken from the National Kidney Disease Education Program and the [facility] Kid[facility] Foundation literature.Reference ranges:60 or greater: Lcvlwl14-06 ( for 3 consecutive months): Chronic kidney disease 15 or less: Kidney failureNacogdoches Medical CenterGlucose Mumaq6372-80-28 05:52:00* Test Item Value Reference Range Interpretation Comments Glucose Level (test code = EIA1988) 109 74-118 [facility] CenterCalcium Acwdm4441-11-20 05:52:00* Test Item Value Reference Range Interpretation Comments Calcium Level (test code = 88468-4) 8.3 8.4-10.2 L [facility] CenterWhite Blood Ehrrg4950-90-66 05:30:00* Test Item Value Reference Range Interpretation Comments White Blood Count (test code = 6690-2) 9.47 4.8-10.8 [facility] CenterRed Blood Hiuzb4905-83-70 05:30:00* Test Item Value Reference Range Interpretation Comments Red Blood Count (test code = 789-8) 3.21 3.6-5.1 L [facility] CenterHemoglobin2018-10-13 05:30:00* Test Item Value Reference Range Interpretation Comments Hemoglobin (test code = 10944-4) 10.4 12.0-16.0 L [facility] CenterHematocrit2018-10-13 05:30:00* Test Item Value Reference Range Interpretation Comments Hematocrit (test code = 4544-3) 32.1 34.2-44.1 L [facility] CenterMean Corpuscular Lfqgkk5193-32-80 05:30:00* Test Item Value Reference Range Interpretation Comments Mean Corpuscular Volume (test code = 787-2) 100.0 81-99 H [facility] CenterMean Corpuscular Gecpofpnir7651-64-03 05:30:00* Test Item Value Reference Range Interpretation Comments Mean Corpuscular Hemoglobin (test code = 785-6) 32.4 28-32 H [facility] CenterMean Corpuscular Hemoglobin Concent 2018-04-01 05:30:00* Test Item Value Reference Range Interpretation Comments Mean Corpuscular Hemoglobin Concent (test code = 786-4) 32.4 31-35 [facility] CenterRed Cell Distribution Quaxj5682-94-43 05:30:00* Test Item Value Reference Range Interpretation Comments Red Cell Distribution Width (test code = 10073-6) 13.6 11.7 -14.4 [facility] CenterPlatelet Gejbr1677-66-86 05:30:00* Test Item Value Reference Range Interpretation Comments Platelet Count (test code = 777-3) 148 140-360 [facility] CenterNeutrophils (%) (Auto)2018-04-01 05:30:00 * Test Item Value Reference Range Interpretation Comments Neutrophils (%) (Auto) (test code = 35282-4) 61.0 38.7-80.0 [facility] CenterLymphocytes (%) (Auto)2018-04-01 05:30:00 * Test Item Value Reference Range Interpretation Comments Lymphocytes (%) (Auto) (test code = 736-9) 26.1 18.0-39.1 [facility] (%) (Auto)2018-04-01 05:30:00* Test Item Value Reference Range Interpretation Comments Monocytes (%) (Auto) (test code = 5905-5) 10.5 4.4-11.3 [facility]Eosinophils (%) (Auto)2018-04-01 05:30:00 * Test Item Value Reference Range Interpretation Comments Eosinophils (%) (Auto) (test code = 713-8) 1.2 0.0-6.0 [facility]Basophils (%) (Auto)2018-04-01 05:30:00* Test Item Value Reference Range Interpretation Comments Basophils (%) (Auto) (test code = 706-2) 0.2 0.0-1.0 [facility] CenterIM GRANULOCYTES %2018-04-01 05:30:00* Test Item Value Reference Range Interpretation Comments IM GRANULOCYTES % (test code = IM GRANULOCYTES %) 1.0 0.0- 1.0 [facility] CenterNeutrophils # (Auto)2018-04-01 05:30:00* Test Item Value Reference Range Interpretation Comments Neutrophils # (Auto) (test code = 751-8) 5.8 2.1-6.9 [facility] CenterLymphocytes # (Auto)2018-04-01 05:30:00* Test Item Value Reference Range Interpretation Comments Lymphocytes # (Auto) (test code = 63943-3) 2.5 1.0-3.2 [facility]Monocytes # (Auto)2018-04-01 05:30:00* Test Item Value Reference Range Interpretation Comments Monocytes # (Auto) (test code = 742-7) 1.0 0.2-0.8 H [facility] CenterEosinophils # (Auto)2018-04-01 05:30:00* Test Item Value Reference Range Interpretation Comments Eosinophils # (Auto) (test code = 711-2) 0.1 0.0-0.4 [facility] CenterBasophils # (Auto)2018-04-01 05:30:00* Test Item Value Reference Range Interpretation Comments Basophils # (Auto) (test code = 704-7) 0.0 0.0-0.1 [facility] CenterAbsolute Immature Granulocyte (auto 2018-04-01 05:30:00* Test Item Value Reference Range Interpretation Comments Absolute Immature Granulocyte (auto (mary t code = Absolute Immature Granulocyte (auto) 0.09 0-0.1 [facility] CenterDifferential Total Cells Counted 2018-03-30 17:06:00* Test Item Value Reference Range Interpretation Comments Differential Total Cells Counted (test code = Differen tial Total Cells Counted) 100 [facility] CenterNeutrophils % (Manual)2018-03-30 17:06:00 * Test Item Value Reference Range Interpretation Comments Neutrophils % (Manual) (test code = 66976-2) 66 40-74 [facility] CenterLymphocytes % (Manual)2018-03-30 17:06:00 * Test Item Value Reference Range Interpretation Comments Lymphocytes % (Manual) (test code = 737-7) 25 19-48 [facility] CenterMonocytes % (Manual)2018-03-30 17:06:00* Test Item Value Reference Range Interpretation Comments Monocytes % (Manual) (test code = 744-3) 6 3.4-9.0 [facility] CenterReactive [id number] 17:06:00* Test Item Value Reference Range Interpretation Comments Reactive Lymphocytes (test code = 00124-6) 3 [facility] CenterPlatelet [id number] 17:06:00* Test Item Value Reference Range Interpretation Comments Platelet Estimate (test code = 99844-6) ADEQUATE [facility] CenterPlatelet Morphology [id number] 17:06:00* Test Item Value Reference Range Interpretation Comments Platelet Morphology Comment (test code = 57540-7) NORMAL [facility] CenterMicrocytosis2018-10-11 17:06:00* Test Item Value Reference Range Interpretation Comments Microcytosis (test code = 741-9) SLIGHT [facility] CenterRed Cell Morphology [id number] 17:06:00* Test Item Value Reference Range Interpretation Comments Red Cell Morphology Comment (test code = 6742-1) NORMAL [facility] CenterLactic Acid [id number] 13:50:00* Test Item Value Reference Range Interpretation Comments Lactic Acid Level (test code = Lactic Acid Level) 21.1 4.5- 19.8 HH Results called to SOFIA HAMMONDS at 1349 on 03/30/18 by DIONISIO DIXON. RB OK. [facility] CenterProthrombin [id number] 13:46:00* Test Item Value Reference Range Interpretation Comments Prothrombin Time (test code = 5902-2) 12.8 11.9-14.5 [facility] CenterProthromb Time International Ratio 2018-03-30 13:46:00* Test Item Value Reference Range Interpretation Comments Prothromb Time International Ratio (test code = 6301-6) 0.88 Oral Anticoagulant Therapy INR Values:1. Low Intensity Therapy 1.5 - 2.02 . Moderate Intensity Therapy 2.0 - 3.03. High Intensity Therapy(1) 2.5 - 3. 54. High Intensity Therapy(2) 3.0 - 4.05. Panic Value INR > 5.0 [facility] CenterActivated Partial Thromboplast Time 2018-03-30 13:46:00* Test Item Value Reference Range Interpretation Comments Activated Partial Thromboplast Time (test code = 20245-2) 23.8 23.8-35.5 [facility] [address] [facility] [address] [address] Patient Name: NATALIA CARRILLO MR #: [id number] : 1965 Age/Sex: 52/F Req #: [id number] Adm Physician: Ordered by: ADONAY COONEY MD Report #: [id number] Location: [facility] Room/Bed: Procedure: [id number] DX/CHEST 2 VIEWS Exam Date: 11/22/17 Exam Time: 1805 REPORT STATUS: Signed PROCEDURE: Frontal and lateral views of the chest. COMPARISON: [facility], DX, CHEST 2 VIEWS, 03/01/2012, 22:37. [...] lly Signed By: ADAM MORALES MD on 11/22/17 190 Transcribed By: FRANK on 11/04 COPY TO: ADONAY COONEY MD
[2020-02-25] MEDS ORDERED: ONDANSETRON HCL INJ 2MG/ML 2ML 2 MG/ML VIAL IV PRN (03:00)
[2020-02-25] MEDS: ALBUTEROL SULF 0.083% NEB SOLN 3 ML NEB NEB SCH ×6 (03:20→22:38)
[2020-02-25] MEDS ORDERED: METFORMIN HCL1000 MG PO (04:14)
[2020-02-25] MEDS ORDERED: NORCO 10-325 T1 EACH PO (04:14)
[2020-02-25] MEDS ORDERED: METOPROLOL TART25 MG PO (04:14)
[2020-02-25] MEDS ORDERED: GLIMEPIRIDE2 MG PO (04:16)
[2020-02-25] MEDS ORDERED: LISINOPRIL2.5 MG PO (04:18)
[2020-02-25] MEDS ORDERED: LEVEMIR FL100 UNIT/1 SC (04:18)
[2020-02-25] MEDS ORDERED: HUMALOG100 UNIT/1 SC (04:19)
[2020-02-25] MEDS ORDERED: MONTELUKAST SOD10 MG PO (04:20)
[2020-02-25] MEDS ORDERED: NYSTATIN100000 UNI PO (04:20)
[2020-02-25] MEDS ORDERED: SERTRALINE HCL50 MG PO (04:20)
[2020-02-25 05:38] LABS: BASOPHILS % 0.2 % (0.0-1.0); HEMATOCRIT 33.3 % (34.2-44.1); HEMOGLOBIN 10.4 g/dL (12.0-16.0); LYMPHOCYTES # (AUTO) 0.7 (1.0-3.2); MEAN CORPUSCULAR HEMOGLOBIN 31.9 pg (28-32); MEAN CORPUSCULAR HGB CONC 31.2 g/dL (31-35); MEAN CORPUSCULAR VOLUME 102.1 fL (81-99); MONOCYTES # (AUTO) 0.4 (0.2-0.8); MONOCYTES % 2.4 % (4.4-11.3); NEUTROPHILS % 91.1 % (38.7-80.0); PLATELET COUNT 274 x10e3/uL (140-360); RED BLOOD COUNT 3.26 x10e6/uL (3.6-5.1); RED CELL DISTRIBUTION WIDTH 13.7 % (11.7-14.4)
[2020-02-25 05:41] LABS: ALANINE AMINOTRANSFERASE 29 IU/L (0-55); ALBUMIN 3.1 g/dL (3.5-5.0); ALBUMIN/GLOBULIN RATIO 1.1 (0.8-2.0); ALKALINE PHOSPHATASE 102 IU/L (40-150); ANION GAP 17.9 mmol/L (8-16); BLOOD UREA NITROGEN 13 mg/dL (7-26); BUN/CREATININE RATIO 19 (6-25); CALCIUM 7.1 mg/dL (8.4-10.2); CARBON DIOXIDE 15 mmol/L (22-29); CHLORIDE 112 mmol/L (98-107); EST GLOMERULAR FILTRATION RATE > 60 ML/MIN (60-); GLUCOSE 172 mg/dL (74-118); POTASSIUM 4.9 mmol/L (3.5-5.1); SODIUM 140 mmol/L (136-145)
--- NOTE | 2020-02-25 06:59 | NUR ---
CALLED DR COONEY AND ORDERED TO RESTART HOME MEDS LISTED TO AND BEGIN PT ON MED SLIDING SCALE INSULIN. NOTIFIED ONCOMING NURSE JARAD OF ORDERS PUT IN AND PT NEED FOR BEDSIDE COMMODE, THAT PT HAS THRUSH WHICH IS WHY SHE HAS NYSTATIN ORDERED DUE TO ANTIBIOTIC USE FROM RECENT HOSPITALIZATION AND THAT PT HAS BAG OF MEDS IN ROOM THAT INCLUDES NARCOTICS AND PT HAS NO ONE TO SHIP MATE MEDS, PLACED FAR AWAY FROM PT DUE TO PHARMACY NOT BEING HERE YET TO CHECK MEDS INTO. NOTIFIED JARAD THAT PHARMACY NEEDS TO TAKE THESE MEDS AND LOCK THEM UP AND GIVE RECIEPT FOR THE MEDS. JARAD IN THE PT ROOM TO CHECK ON HER.
[2020-02-25] MEDS ORDERED: DEXTROSE 50% SYRINGE 50 ML IV PRN (07:00)
[2020-02-25] MEDS: INSULIN LISPRO 100 UNIT/1 ML 3ML VIAL SQ SCH ×4 (07:30→21:40)
[2020-02-25] MEDS: LEVOTHYROXINE SODIUM 25 MCG TABLET PO SCH (08:10)
[2020-02-25] MEDS: NYSTATIN SUSPENSION 5 ML UDC PO SCH ×5 (08:10→20:34)
[2020-02-25] MEDS: ASPIRIN 81 MG CHEW TAB PO SCH (08:11)
[2020-02-25] MEDS: PANTOPRAZOLE SOD 40 MG TABEC PO SCH (08:11)
[2020-02-25] MEDS: GABAPENTIN 300 MG CAP PO SCH ×3 (08:11→20:34)
[2020-02-25] MEDS: METFORMIN HCL 500 MG TAB PO SCH ×2 (08:11→16:53)
[2020-02-25] MEDS: GLIMEPIRIDE 2 MG TAB PO SCH ×2 (08:11→16:53)
[2020-02-25] MEDS: SERTRALINE HCL 50 MG TAB PO SCH (08:12)
[2020-02-25] MEDS: MONTELUKAST SODIUM 10 MG TAB PO SCH (08:12)
[2020-02-25] MEDS: IPRATROPIUM BROMIDE 0.02% 2.5 ML NEB NEB SCH ×3 (08:13→18:25)
[2020-02-25] MEDS ORDERED: FUROSEMIDE INJ 10 MG/ML 2 ML VIAL IV ONE (08:30)
[2020-02-25] MEDS ORDERED: METHYLPREDNISOLONE SOD SUCC 40 MG/ML VIAL 1ML IV ONE (08:45)
[2020-02-25] MEDS: BUDESONIDE 3 MG CAPCR PO SCH (09:00)
[2020-02-25] MEDS ORDERED: OMEPRAZOLE 20 MG CAP PO SCH (09:00)
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
[2020-02-25] MEDS: LISINOPRIL 2.5 MG TAB PO SCH (11:31)
[2020-02-25] MEDS: METOPROLOL TARTRATE 25 MG TAB PO SCH ×2 (11:31→16:54)
[2020-02-25] MEDS: CYCLOBENZAPRINE HCL 10 MG TAB PO PRN ×2 (12:32→21:01)
[2020-02-25] MEDS: MESALAMINE 500 MG CAPCR PO SCH ×4 (12:37→20:34)
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
[2020-02-25 12:47] LABS: CREATINE KINASE MB 1.2 ng/mL (0-5.0)
[2020-02-25] MEDS: AZTREONAM 1 GM/NS 50 ML 50 ML IV SCH ×2 (14:12→22:08)
[2020-02-25] MEDS: METHYLPREDNISOLONE SOD SUCC 40 MG/ML VIAL 1ML IV SCH ×2 (14:12→22:22)
--- NOTE | 2020-02-25 15:05 | Consultation ---
DATE OF CONSULTATION: Pulmonary Consultation REASON FOR CONSULT: Shortness of breath and wheezing. HISTORY OF PRESENT ILLNESS: Ms. Meraz is a 54-year-old female. She presented to the emergency room with shortness of breath and wheezing. She reports that she was recently at [facility] and she was discharged after four days. She started having trouble breathing, coughing and wheezing, so she then came to the emergency room. She reports that these symptoms went on for 4-5 days and progressively got worse. She has been a smoker for 25+ years a pack a day. She denies any alcohol use. 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 REVIEW OF SYSTEMS: GENERAL: Denies any fever or chills. HEAD: Denies any head trauma. ENT: Denies any earache. CVS: Denies any chest pain. RESPIRATORY: Shortness of breath. The rest of the review of systems are negative except as in HPI. PAST MEDICAL HISTORY: Hypertension. PAST SURGICAL HISTORY: Stent in subclavian and stent in renal artery, diabetes and hypertension. FAMILY AND SOCIAL HISTORY: She has been a smoker for 25 years one-pack per day. Denies any alcohol use. PHYSICAL EXAMINATION: VITAL SIGNS: Temperature 97.9, pulse of 117, blood pressure 111/80, respiratory rate is 22, O2 saturation 97% on 3 L. HEENT: Head is atraumatic, normocephalic. NECK: Supple. CHEST: Wheezing and crackles bilaterally. HEART: S1, S2 audible. ABDOMEN: Soft. EXTREMITIES: No pedal edema. NEUROLOGICAL: Awake and alert. LABORATORY DATA: Sodium 140, potassium 4.9, bicarb, anion gap of 17.9, this was 4 o'clock this morning. The patient's lactic acid was high, then repeat lactic acid is normal. Chest x-ray showing bilateral congestion, possibly right middle lobe infiltrate. ASSESSMENT/PLAN: Ms. Meraz is a 54-year-old female with shortness of breath likely COPD exacerbation, underlying pneumonia cannot be ruled out. Agree with IV antibiotics. We will change the Rocephin to IV Zosyn for broader coverage as the patient had recent hospitalization. Continue the patient on nebulizer treatment. I will start the patient on IV steroids. Thank you for this consult. MD SUSAN Rabago/JUAN /[id number]
[2020-02-25] MEDS: HYDROCODONE/APAP 10MG-325MG TAB PO PRN (16:35)
[2020-02-25] MEDS: BUDESONIDE/FORMOTEROL FUMARATE 80/4.5MCG 6.9 GM INH AEROSOL IH SCH (18:25)
--- NOTE | 2020-02-25 19:30 | NUR ---
Pt. alert and oriented. Oxygen on 3L per nasal cannula.Respirations are even, unlabored. Lying quietly.
[2020-02-25] MEDS: ATORVASTATIN 10 MG TAB PO SCH (20:34)
[2020-02-25 21:08] LABS: CREATINE KINASE MB 1.2 ng/mL (0-5.0)
[2020-02-25] MEDS: INSULIN GLARGINE 100 UNITS/ML VIAL SQ SCH (21:41)
[2020-02-25] MEDS ORDERED: CEFTRIAXONE SOD 1 GM/NS 50 ML 50 ML IV SCH (23:00)
[2020-02-26] VITALS (8 sets, daily range): BP systolic 121–162; BP diastolic 82–103
[2020-02-26] MEDS ORDERED: AZITHROMYCIN 500MG/SOD CHL 0.9% 250ML BAG IV SCH
[2020-02-26] MEDS: AZITHROMYCIN IV SCH (00:06)
[2020-02-26] MEDS: SODIUM CHLORIDE 0.9% IV SCH (00:06)
[2020-02-26] MEDS: HYDROCODONE/APAP 10MG-325MG TAB PO PRN ×3 (01:50→18:34)
[2020-02-26] MEDS ORDERED: VANCOMYCIN HCL 1 GM in SODIUM CHLORIDE 0.9% 250ML 250 ML IV SCH (02:00)
[2020-02-26] MEDS: IPRATROPIUM BROMIDE 0.02% 2.5 ML NEB NEB SCH ×4 (02:36→19:40)
[2020-02-26] MEDS: ALBUTEROL SULF 0.083% NEB SOLN 3 ML NEB NEB SCH ×6 (02:36→23:20)
[2020-02-26 04:43] LABS: BASOPHILS % 0.2 % (0.0-1.0); HEMATOCRIT 31.2 % (34.2-44.1); HEMOGLOBIN 9.9 g/dL (12.0-16.0); LYMPHOCYTES # (AUTO) 1.2 (1.0-3.2); LYMPHOCYTES % 5.9 % (18.0-39.1); MEAN CORPUSCULAR HEMOGLOBIN 31.5 pg (28-32); MEAN CORPUSCULAR HGB CONC 31.7 g/dL (31-35); MEAN CORPUSCULAR VOLUME 99.4 fL (81-99); MONOCYTES # (AUTO) 0.8 (0.2-0.8); MONOCYTES % 4.1 % (4.4-11.3); NEUTROPHILS # (AUTO) 17.6 (2.1-6.9); NEUTROPHILS % 87.6 % (38.7-80.0); PLATELET COUNT 295 x10e3/uL (140-360); RED BLOOD COUNT 3.14 x10e6/uL (3.6-5.1); RED CELL DISTRIBUTION WIDTH 13.5 % (11.7-14.4)
[2020-02-26 05:09] LABS: ALANINE AMINOTRANSFERASE 21 IU/L (0-55); ALBUMIN 3.1 g/dL (3.5-5.0); ALBUMIN/GLOBULIN RATIO 1.1 (0.8-2.0); ALKALINE PHOSPHATASE 97 IU/L (40-150); ANION GAP 17.2 mmol/L (8-16); BLOOD UREA NITROGEN 21 mg/dL (7-26); BUN/CREATININE RATIO 30 (6-25); CALCIUM 7.2 mg/dL (8.4-10.2); CARBON DIOXIDE 17 mmol/L (22-29); CHLORIDE 108 mmol/L (98-107); CREATININE, SERUM 0.71 mg/dL (0.57-1.11); EST GLOMERULAR FILTRATION RATE > 60 ML/MIN (60-); GLUCOSE 219 mg/dL (74-118); POTASSIUM 5.2 mmol/L (3.5-5.1); SODIUM 137 mmol/L (136-145)
[2020-02-26] MEDS: NYSTATIN SUSPENSION 5 ML UDC PO SCH ×5 (06:44→20:37)
[2020-02-26] MEDS: AZTREONAM 1 GM/NS 50 ML 50 ML IV SCH ×3 (06:44→21:35)
[2020-02-26] MEDS: METHYLPREDNISOLONE SOD SUCC 40 MG/ML VIAL 1ML IV SCH ×3 (06:44→21:35)
[2020-02-26] MEDS: LEVOTHYROXINE SODIUM 25 MCG TABLET PO SCH (06:45)
--- NOTE | 2020-02-26 07:35 | NUR ---
Unable to administer influenza vaccine,per pharmacy not available.
[2020-02-26] MEDS: BUDESONIDE/FORMOTEROL FUMARATE 80/4.5MCG 6.9 GM INH AEROSOL IH SCH ×2 (07:40→23:20)
[2020-02-26] MEDS: INSULIN LISPRO 100 UNIT/1 ML 3ML VIAL SQ SCH ×4 (07:50→21:36)
[2020-02-26] MEDS: PANTOPRAZOLE SOD 40 MG TABEC PO SCH (08:10)
[2020-02-26] MEDS: METFORMIN HCL 500 MG TAB PO SCH ×2 (08:10→16:50)
[2020-02-26] MEDS: ASPIRIN 81 MG CHEW TAB PO SCH (08:10)
[2020-02-26] MEDS: GLIMEPIRIDE 2 MG TAB PO SCH ×2 (08:10→16:50)
[2020-02-26] MEDS: GABAPENTIN 300 MG CAP PO SCH ×3 (08:15→20:36)
[2020-02-26] MEDS: MESALAMINE 500 MG CAPCR PO SCH ×4 (08:15→20:37)
[2020-02-26] MEDS: METOPROLOL TARTRATE 25 MG TAB PO SCH ×2 (08:15→16:50)
--- NOTE | 2020-02-26 08:18 | Progress Note ---
DATE: SUBJECTIVE: The patient is a 54-year-old female with a history of recent pneumonia, COPD exacerbation, recently . Cardiac etiology has been ruled out. BNP was normal. Echo was done. The patient is currently feeling some better. No chest pain. Positive shortness of breath, on O2. No overnight problems. OBJECTIVE: VITAL SIGNS: Temperature is 98.7, pulse is 110, respirations of 24, blood pressure is 135/84, pulse oximetry of 94% on 3 L of oxygen. HEENT: Normocephalic, atraumatic. Pupils are reactive. CVS: S1 and S2 normal. Tachy. ABDOMEN: Soft, nontender, and nondistended. LUNGS: Positive for rhonchi bilaterally. Positive for decreased air entry. EXTREMITIES: No clubbing, no cyanosis, trace amount of edema. LABORATORY VALUES: White count is 20,000 today, hemoglobin of 9.9, hematocrit 31.2. Chemistry shows sodium 137, BUN of 21 and creatinine 0.91, glucose has been running in 255. The patient has been started on steroids. Serology; coronavirus not detected. Microbiology; blood culture, no growth in 24 hours and the re-draw was still pending. ASSESSMENT: This is Ms. Shayy Cox: 1. Chronic obstructive pulmonary disease exacerbation. 2. Right middle lobe pneumonia. 3. Hypertension. 4. Coronary artery disease. 5. Hyperlipidemia. 6. Uncontrolled diabetes mellitus. 7. Generalized debility. PLAN: Continue with current antibiotic. The patient is on Zosyn at this time and IV steroids. We will continue monitoring the patient's echo. Dr. Robledo is on the case. Blood pressure is stable. Tachycardic secondary to infection and shortness of breath. We will continue to monitor the patient. Further recommendation per clinical course. Labs will be ordered for tomorrow, CBC and BMP. MD BENJY Mcwilliams/MODL /[id number]
[2020-02-26] MEDS: SERTRALINE HCL 50 MG TAB PO SCH (08:19)
[2020-02-26] MEDS: MONTELUKAST SODIUM 10 MG TAB PO SCH (08:19)
[2020-02-26] MEDS: LISINOPRIL 2.5 MG TAB PO SCH (08:19)
[2020-02-26] MEDS: CYCLOBENZAPRINE HCL 10 MG TAB PO PRN ×2 (08:21→16:59)
[2020-02-26] MEDS: BUDESONIDE 3 MG CAPCR PO SCH (08:48)
[2020-02-26] MEDS: VARENICLINE 1 MG TAB PO SCH (14:42)
--- NOTE | 2020-02-26 14:46 | NUR ---
Report called to JONA Malcolm for Room 295.
--- NOTE | 2020-02-26 15:25 | NUR ---
RECEIVED PATIENT FROM [facility] VIA WHEELCHAIR . PT AMBULATED TO BED WITH MINIMUM ASSIST. PT IS ALERT, ORIENTED X3, NO S/S OF DISTRESS. CALL LIGHT WITHIN REACH AND INSTRUCTED PT TO CALL RN IF HELP IS NEEDED.
--- NOTE | 2020-02-26 19:15 | NUR ---
report given to pm nurse.
[2020-02-26] MEDS: ATORVASTATIN 10 MG TAB PO SCH (20:36)
[2020-02-26] MEDS: ACETAMINOPHEN 325 MG TAB PO PRN (20:45)
[2020-02-26] MEDS: CALCIUM CARBONATE 500 MG CHEWABLE TABS PO SCH (21:35)
[2020-02-26] MEDS: INSULIN GLARGINE 100 UNITS/ML VIAL SQ SCH (21:36)
[2020-02-26] MEDS ORDERED: SODIUM CHLORIDE 0.9% 250ML 250 ML ONE (21:55)
--- NOTE | 2020-02-26 22:02 | NUR ---
PATIENT REPORTS LEAKING TO IV. REDNESS TO SKIN. D/C IV TO LEFT AC CATHETER TIP INTACT. CDI DRESING PLACED. STAFF NURSE START NEW IV TO R FA. SALINE FLUSH. CDI DRESSING. TOLERATED PROCEDURE WELL.
[2020-02-27] VITALS (8 sets, daily range): BP systolic 123–156; BP diastolic 72–100
[2020-02-27] MEDS: AZITHROMYCIN IV SCH ×2 (00:13→23:15)
[2020-02-27] MEDS: SODIUM CHLORIDE 0.9% IV SCH ×2 (00:13→23:15)
[2020-02-27] MEDS: VANCOMYCIN 1GM/NS 250 ML 250 ML IV SCH (01:47)
[2020-02-27] MEDS: CALCIUM CARBONATE 500 MG CHEWABLE TABS PO SCH ×6 (01:48→22:00)
[2020-02-27] MEDS: HYDROCODONE/APAP 10MG-325MG TAB PO PRN ×4 (01:52→22:49)
[2020-02-27] MEDS: IPRATROPIUM BROMIDE 0.02% 2.5 ML NEB NEB SCH ×4 (03:15→15:05)
[2020-02-27] MEDS: ALBUTEROL SULF 0.083% NEB SOLN 3 ML NEB NEB SCH ×4 (03:15→15:05)
[2020-02-27] MEDS: NYSTATIN SUSPENSION 5 ML UDC PO SCH ×5 (05:15→20:40)
[2020-02-27] MEDS: AZTREONAM 1 GM/NS 50 ML 50 ML IV SCH ×3 (05:15→21:15)
[2020-02-27] MEDS: LEVOTHYROXINE SODIUM 25 MCG TABLET PO SCH (05:15)
[2020-02-27] MEDS: METHYLPREDNISOLONE SOD SUCC 40 MG/ML VIAL 1ML IV SCH (05:17)
[2020-02-27] MEDS: BUDESONIDE/FORMOTEROL FUMARATE 80/4.5MCG 6.9 GM INH AEROSOL IH SCH ×2 (07:20→07:30)
--- NOTE | 2020-02-27 07:20 | NUR ---
REPORT GIVEN TO DAYSHIFT NURSE. ALERT AND RESTING IN BED. NO SIGNS IV INFILTRATION. BED LOCKED AND IN LOW POSITION. CALL LIGHT WITHIN REACH. BED ALARM ACTIVATED.
[2020-02-27 07:28] LABS: BASOPHILS % 0.2 % (0.0-1.0); HEMATOCRIT 33.7 % (34.2-44.1); HEMOGLOBIN 10.8 g/dL (12.0-16.0); LYMPHOCYTES # (AUTO) 1.4 (1.0-3.2); LYMPHOCYTES % 7.8 % (18.0-39.1); MEAN CORPUSCULAR VOLUME 99.7 fL (81-99); MONOCYTES # (AUTO) 0.9 (0.2-0.8); MONOCYTES % 5.1 % (4.4-11.3); NEUTROPHILS # (AUTO) 15.6 (2.1-6.9); NEUTROPHILS % 84.1 % (38.7-80.0); PLATELET COUNT 298 x10e3/uL (140-360); RED BLOOD COUNT 3.38 x10e6/uL (3.6-5.1); RED CELL DISTRIBUTION WIDTH 13.2 % (11.7-14.4)
[2020-02-27 07:54] LABS: ANION GAP 20.5 mmol/L (8-16); BLOOD UREA NITROGEN 19 mg/dL (7-26); BUN/CREATININE RATIO 28 (6-25); CARBON DIOXIDE 17 mmol/L (22-29); CHLORIDE 106 mmol/L (98-107); CREATININE, SERUM 0.67 mg/dL (0.57-1.11); EST GLOMERULAR FILTRATION RATE > 60 ML/MIN (60-); GLUCOSE 148 mg/dL (74-118); POTASSIUM 4.5 mmol/L (3.5-5.1); SODIUM 139 mmol/L (136-145)
[2020-02-27] MEDS: ACETAMINOPHEN 325 MG TAB PO PRN (08:15)
[2020-02-27] MEDS: PANTOPRAZOLE SOD 40 MG TABEC PO SCH (08:16)
[2020-02-27] MEDS: METOPROLOL TARTRATE 25 MG TAB PO SCH ×2 (08:17→17:50)
[2020-02-27] MEDS: GABAPENTIN 300 MG CAP PO SCH ×3 (08:17→20:40)
[2020-02-27] MEDS: GLIMEPIRIDE 2 MG TAB PO SCH ×2 (08:17→17:49)
[2020-02-27] MEDS: VARENICLINE 1 MG TAB PO SCH (08:17)
[2020-02-27] MEDS: ASPIRIN 81 MG CHEW TAB PO SCH (08:17)
[2020-02-27] MEDS: BUDESONIDE 3 MG CAPCR PO SCH (08:17)
[2020-02-27] MEDS: METFORMIN HCL 500 MG TAB PO SCH ×2 (08:17→17:49)
[2020-02-27] MEDS: LISINOPRIL 2.5 MG TAB PO SCH (08:18)
[2020-02-27] MEDS: SERTRALINE HCL 50 MG TAB PO SCH (08:18)
[2020-02-27] MEDS: MONTELUKAST SODIUM 10 MG TAB PO SCH (08:18)
[2020-02-27] MEDS: MESALAMINE 500 MG CAPCR PO SCH ×4 (08:18→20:40)
[2020-02-27] MEDS: CYCLOBENZAPRINE HCL 10 MG TAB PO PRN ×2 (09:04→20:52)
[2020-02-27] MEDS: INSULIN LISPRO 100 UNIT/1 ML 3ML VIAL SQ SCH ×4 (09:30→20:29)
--- NOTE | 2020-02-27 10:13 | Progress Note ---
DATE: SUBJECTIVE: The patient is a 54-year-old female, who came in with COPD exacerbation, uncontrolled diabetes mellitus, and also multifocal pneumonia. The patient is currently on antibiotics, steroids, and CHF has been ruled out, currently feeling better. No chest pain. Positive for shortness of breath on exertion. No nausea, no vomiting. Does have some lower extremity swelling. Did walk to bathroom yesterday with oxygen, felt fine. She is on 3 L of oxygen. OBJECTIVE: VITAL SIGNS: Temperature is 97.9, pulse of 114, respirations of 22, blood pressure is 122/72, pulse ox of 93% on 3 L of oxygen. HEENT: Normocephalic, atraumatic. There is some facial puffiness present and redness. CHEST: Decreased air entry into all lung wing. Positive for rhonchi bilaterally. ABDOMEN: Soft, nontender, nondistended. EXTREMITIES: Trace edema present. LABORATORY VALUES: Still pending. [place] [address] post steroids. Chemistries; BUN and creatinine have been normal 21 and 0.71, glucoses have been running in the 120s to 130s. Microbiology, blood cultures, no growth x2. No imaging studies were done yesterday. ASSESSMENT AND PLAN: Ms. Shayy Meraz with: 1. Chronic obstructive pulmonary disorder with acute exacerbation. Continue with IV antibiotics. Continue with IV steroids. 2. Middle lobe pneumonia. Continue with antibiotics. 3. Hypertension, controlled. 4. Tachycardia secondary to treatment and also secondary to steroids. 5. Hyperlipidemia and uncontrolled diabetes mellitus. Continue with current management. The patient also has generalized debility, which physical therapy will be ordered today to mobilize the patient. Further recommendation per clinical course. We will continue to follow and trending the lab. Kushal Burkett MD ASJ/MODL /[id number]
--- NOTE | 2020-02-27 11:58 | Diagnostic Imaging Report ---
EXAM: CHEST 2 VIEWS DATE: 02/27/2020 11:25 AM INDICATION: Pneumonia, septic shock COMPARISON: 02/24/2020 FINDINGS: The trachea is midline. Again identified are bilateral interstitial/airspace opacities with a lower lung predominance, similar to the prior examination. There is no evidence for pneumothorax or significant volume pleural effusion. The cardiomediastinal silhouette is stable in appearance. No acute osseous abnormality is identified. IMPRESSION: The significant interval change from 02/24/2020. Unchanged bilateral, lower lung zone predominant airspace opacities which are nonspecific but can be seen in setting of a multifocal infectious process. Signed by: Dr. Darin Fonseca MD on 02/27/2020 11:55 AM
--- NOTE | 2020-02-27 14:11 | NUR ---
Discontinuing PT services since patient is Mod I in functional mobility. Thank you Addendum: 02/27/20 at 1412 by Teodoro orlando PT Amended: Links added.
--- NOTE | 2020-02-27 19:30 | NUR ---
Patient visited in room during nursing rounds. Patient alert and oriented x3. Ambulatory in room prn. Pt on 3L NC. On scheduled IV antibiotics and breathing treatments. Patient has intermittent pain on lower back and will be medicated accordingly. Call mena within reach. Will monitor closely.
[2020-02-27] MEDS ORDERED: METHYLPREDNISOLONE SOD SUCC 40 MG/ML VIAL 1ML IV ONE (20:00)
[2020-02-27] MEDS: INSULIN GLARGINE 100 UNITS/ML VIAL SQ SCH (20:29)
[2020-02-27] MEDS: ATORVASTATIN 10 MG TAB PO SCH (20:40)
[2020-02-28] VITALS (8 sets, daily range): BP systolic 137–157; BP diastolic 81–101
[2020-02-28] MEDS: CALCIUM CARBONATE 500 MG CHEWABLE TABS PO SCH ×6 (02:00→22:00)
[2020-02-28] MEDS: VANCOMYCIN 1GM/NS 250 ML 250 ML IV SCH (02:00)
[2020-02-28] MEDS: NYSTATIN SUSPENSION 5 ML UDC PO SCH ×5 (04:40→20:30)
[2020-02-28] MEDS: LEVOTHYROXINE SODIUM 25 MCG TABLET PO SCH (05:56)
[2020-02-28] MEDS: AZTREONAM 1 GM/NS 50 ML 50 ML IV SCH ×3 (05:57→22:30)
[2020-02-28] MEDS: INSULIN LISPRO 100 UNIT/1 ML 3ML VIAL SQ SCH ×4 (07:30→20:45)
[2020-02-28] MEDS: BUDESONIDE/FORMOTEROL FUMARATE 80/4.5MCG 6.9 GM INH AEROSOL IH SCH ×2 (07:40→19:00)
[2020-02-28] MEDS: ALBUTEROL SULF 0.083% NEB SOLN 3 ML NEB NEB SCH ×4 (07:40→23:00)
[2020-02-28] MEDS: IPRATROPIUM BROMIDE 0.02% 2.5 ML NEB NEB SCH ×2 (07:40→16:23)
--- NOTE | 2020-02-28 08:29 | Progress Note ---
DATE: SUBJECTIVE: The patient is a 54-year-old female, who came in COPD exacerbation and pneumonia. The patient is feeling better, walk with physical therapy about 100 feet, did feel tired out and also needed oxygen increased. Currently, the patient is still tachypneic on talking. OBJECTIVE: VITAL SIGNS: Temperature is 98.2, T-max of 99, pulse of 110, respirations of 20, blood pressure is 137/81, pulse oximetry of 95%. HEENT: Normocephalic and atraumatic. Pupils are reactive to light and accommodation. CVS: S1 and S2, tachycardic. ABDOMEN: Soft and nontender. LUNGS: Decreased air entry. Rhonchi present bilaterally. EXTREMITIES: No clubbing, no cyanosis, trace amount of edema. LABORATORY STUDIES: White count from yesterday 18.58, hemoglobin of 10.8, hematocrit of 33.7. Sodium 139, BUN of 19 and creatinine is normalized to 0.67. ASSESSMENT: Ms. Shayy Meraz with: 1. Chronic obstructive pulmonary disease exacerbation. 2. Pneumonia. 3. Hypertension. 4. Tachycardia. 5. Hyperlipidemia. 6. Diabetes mellitus. 7. Generalized debility. PLAN: Continue on IV steroids. Continue on IV antibiotics. The patient is on vancomycin, azithromycin, and Solu-Medrol. The patient has also been on Chantix for smoking cessation, atorvastatin, and insulin sliding scale for diabetes. The patient is also on aztreonam for pneumonia. Further recommendation per clinical course. We will continue to monitor the patient. Therapy ordered. Progression will be monitored. The patient still requires hospitalization and continuous treatment. MD BENJY Mcwilliams/MODL /[id number]
[2020-02-28] MEDS: HYDROCODONE/APAP 10MG-325MG TAB PO PRN ×2 (09:10→17:24)
[2020-02-28] MEDS: GLIMEPIRIDE 2 MG TAB PO SCH ×2 (09:11→17:12)
[2020-02-28] MEDS: METFORMIN HCL 500 MG TAB PO SCH ×2 (09:11→17:12)
[2020-02-28] MEDS: ASPIRIN 81 MG CHEW TAB PO SCH (09:12)
[2020-02-28] MEDS: BUDESONIDE 3 MG CAPCR PO SCH (09:13)
[2020-02-28] MEDS: VARENICLINE 1 MG TAB PO SCH ×2 (09:13→20:30)
[2020-02-28] MEDS: GABAPENTIN 300 MG CAP PO SCH ×3 (09:14→20:30)
[2020-02-28] MEDS: MESALAMINE 500 MG CAPCR PO SCH ×4 (09:15→20:30)
[2020-02-28] MEDS: MONTELUKAST SODIUM 10 MG TAB PO SCH (09:15)
[2020-02-28] MEDS: METOPROLOL TARTRATE 25 MG TAB PO SCH ×2 (09:17→17:00)
[2020-02-28] MEDS: LISINOPRIL 2.5 MG TAB PO SCH (09:17)
[2020-02-28] MEDS: SERTRALINE HCL 50 MG TAB PO SCH (09:17)
[2020-02-28] MEDS: METHYLPREDNISOLONE SOD SUCC 40 MG/ML VIAL 1ML IV SCH ×2 (09:17→17:12)
[2020-02-28] MEDS: PANTOPRAZOLE SOD 40 MG TABEC PO SCH (09:17)
[2020-02-28] MEDS: CYCLOBENZAPRINE HCL 10 MG TAB PO PRN (18:29)
--- NOTE | 2020-02-28 19:50 | NUR ---
report given to oncoming nurse. walking rounds complete.
--- NOTE | 2020-02-28 20:10 | NUR ---
Patient visited in room during nursing rounds. Patient alert and oriented x3. Ambulatory in room prn. Pt on 3L NC. On scheduled IV antibiotics and breathing treatments. Call mena within reach. Will monitor closely.
[2020-02-28] MEDS: ATORVASTATIN 10 MG TAB PO SCH (20:30)
[2020-02-28] MEDS: INSULIN GLARGINE 100 UNITS/ML VIAL SQ SCH (20:45)
[2020-02-28] MEDS ORDERED: SODIUM CHLORIDE 0.9% 250ML 250 ML ONE (22:27)
[2020-02-29] VITALS (9 sets, daily range): BP systolic 113–160; BP diastolic 75–97
[2020-02-29] MEDS: SODIUM CHLORIDE 0.9% IV SCH
[2020-02-29] MEDS: AZITHROMYCIN IV SCH
[2020-02-29] MEDS: IPRATROPIUM BROMIDE 0.02% 2.5 ML NEB NEB SCH ×6 (00:32→15:27)
[2020-02-29] MEDS: ALBUTEROL SULF 0.083% NEB SOLN 3 ML NEB NEB SCH ×7 (00:33→15:27)
[2020-02-29] MEDS: CALCIUM CARBONATE 500 MG CHEWABLE TABS PO SCH ×6 (02:00→21:46)
[2020-02-29] MEDS: VANCOMYCIN 1GM/NS 250 ML 250 ML IV SCH (02:54)
[2020-02-29] MEDS: NYSTATIN SUSPENSION 5 ML UDC PO SCH ×5 (05:00→21:46)
[2020-02-29] MEDS: AZTREONAM 1 GM/NS 50 ML 50 ML IV SCH ×3 (05:51→21:46)
[2020-02-29] MEDS: LEVOTHYROXINE SODIUM 25 MCG TABLET PO SCH (05:51)
[2020-02-29] MEDS: VARENICLINE 1 MG TAB PO SCH ×2 (06:43→21:46)
[2020-02-29 06:45] LABS: BASOPHILS % 0.2 % (0.0-1.0); EOSINOPHILS # (AUTO) 0.1 (0.0-0.4); EOSINOPHILS % 0.6 % (0.0-6.0); HEMATOCRIT 35.2 % (34.2-44.1); HEMOGLOBIN 11.5 g/dL (12.0-16.0); LYMPHOCYTES # (AUTO) 3.1 (1.0-3.2); LYMPHOCYTES % 17.2 % (18.0-39.1); MEAN CORPUSCULAR HEMOGLOBIN 31.7 pg (28-32); MEAN CORPUSCULAR HGB CONC 32.7 g/dL (31-35); MONOCYTES # (AUTO) 1.2 (0.2-0.8); MONOCYTES % 6.4 % (4.4-11.3); NEUTROPHILS # (AUTO) 13.1 (2.1-6.9); NEUTROPHILS % 72.4 % (38.7-80.0); PLATELET COUNT 303 x10e3/uL (140-360); RED BLOOD COUNT 3.63 x10e6/uL (3.6-5.1); RED CELL DISTRIBUTION WIDTH 13.1 % (11.7-14.4)
[2020-02-29] MEDS: BUDESONIDE/FORMOTEROL FUMARATE 80/4.5MCG 6.9 GM INH AEROSOL IH SCH (07:00)
[2020-02-29 07:14] LABS: ANION GAP 20.3 mmol/L (8-16); BLOOD UREA NITROGEN 18 mg/dL (7-26); BUN/CREATININE RATIO 29 (6-25); CALCIUM 8.6 mg/dL (8.4-10.2); CARBON DIOXIDE 22 mmol/L (22-29); CHLORIDE 102 mmol/L (98-107); CREATININE, SERUM 0.63 mg/dL (0.57-1.11); EST GLOMERULAR FILTRATION RATE > 60 ML/MIN (60-); GLUCOSE 76 mg/dL (74-118); POTASSIUM 4.3 mmol/L (3.5-5.1); SODIUM 140 mmol/L (136-145)
[2020-02-29] MEDS: INSULIN LISPRO 100 UNIT/1 ML 3ML VIAL SQ SCH ×4 (07:30→21:46)
--- NOTE | 2020-02-29 07:39 | NUR ---
Blood sugar is 50 by bedside glucose check. Was 76 on blood draw around 5 am. Given 2 apple juice and RT at bedside to do treatment. Patient denies feeling like her BS is low. Will cont to monitor
[2020-02-29] MEDS: GLIMEPIRIDE 2 MG TAB PO SCH ×2 (08:25→17:58)
[2020-02-29] MEDS: METHYLPREDNISOLONE SOD SUCC 40 MG/ML VIAL 1ML IV SCH (08:25)
[2020-02-29] MEDS: METFORMIN HCL 500 MG TAB PO SCH ×2 (08:25→17:58)
[2020-02-29] MEDS: PANTOPRAZOLE SOD 40 MG TABEC PO SCH (08:25)
[2020-02-29] MEDS: ASPIRIN 81 MG CHEW TAB PO SCH (08:25)
[2020-02-29] MEDS: METOPROLOL TARTRATE 25 MG TAB PO SCH ×2 (08:26→17:59)
[2020-02-29] MEDS: GABAPENTIN 300 MG CAP PO SCH ×3 (08:26→21:46)
[2020-02-29] MEDS: MESALAMINE 500 MG CAPCR PO SCH ×4 (08:27→21:46)
[2020-02-29] MEDS: LISINOPRIL 2.5 MG TAB PO SCH (08:27)
[2020-02-29] MEDS: SERTRALINE HCL 50 MG TAB PO SCH (08:28)
[2020-02-29] MEDS: MONTELUKAST SODIUM 10 MG TAB PO SCH (08:28)
[2020-02-29] MEDS: HYDROCODONE/APAP 10MG-325MG TAB PO PRN ×2 (08:41→22:41)
[2020-02-29] MEDS: BUDESONIDE 3 MG CAPCR PO SCH (09:00)
--- NOTE | 2020-02-29 19:00 | NUR ---
Resumed care of patient. Patient awake and resting in bed, respirations even and unlabored on 2L NC, no s/s of distress at this time. Bed locked and in lowest position, side rails up x3, call light placed within reach. Patient instructed to call for assistance if needed, verbalized understanding. All safety measures in place.
--- NOTE | 2020-02-29 20:34 | Progress Note ---
DATE: SUBJECTIVE: The patient is a 54-year-old female, who came in with acute COPD exacerbation, pneumonia. Currently doing better. The patient has been walking and pacing. OBJECTIVE: VITAL SIGNS: Temperature 98.2, pulse 105, respirations of 19, and blood pressure is 113/97. HEENT: Normocephalic and atraumatic. Pupils are reactive to light and accommodation. CVS: S1 and S2 normal. Regular rhythm. LUNGS: Decreased air entry. Positive for rhonchi. EXTREMITIES: No clubbing. No cyanosis. Trace amount of edema. ASSESSMENT: Ms. Shayy Meraz with: 1. Chronic obstructive pulmonary disease exacerbation. 2. Pneumonia. 3. Tachycardia. 4. Diabetes mellitus. 5. Generalized debility. PLAN: Continue with IV antibiotics. Home O2 will be ordered. ordered. Continue with azithromycin, vancomycin, and Solu-Medrol. Chantix has been on-board. Continue with insulin sliding scale, atorvastatin, and smoking cessation advised. Further recommendation per clinical course. Disposition depending on progression and home O2 evaluation will be done. Kushal Burkett MD ASJ/MODL /[id number]
[2020-02-29] MEDS: INSULIN GLARGINE 100 UNITS/ML VIAL SQ SCH (21:46)
[2020-02-29] MEDS: ATORVASTATIN 10 MG TAB PO SCH (21:46)
--- NOTE | 2020-02-29 21:46 | NUR ---
Home O2 eval completed and placed on patient's chart.
[2020-03-01] VITALS (8 sets, daily range): BP systolic 108–145; BP diastolic 60–94
[2020-03-01] MEDS: SODIUM CHLORIDE 0.9% IV SCH ×2 (00:04→23:22)
[2020-03-01] MEDS: AZITHROMYCIN IV SCH ×2 (00:04→23:22)
[2020-03-01] MEDS: CYCLOBENZAPRINE HCL 10 MG TAB PO PRN ×3 (00:07→23:23)
[2020-03-01] MEDS: VANCOMYCIN 1GM/NS 250 ML 250 ML IV SCH (02:25)
[2020-03-01] MEDS: CALCIUM CARBONATE 500 MG CHEWABLE TABS PO SCH ×6 (02:25→21:18)
[2020-03-01] MEDS: AZTREONAM 1 GM/NS 50 ML 50 ML IV SCH ×3 (05:58→21:18)
[2020-03-01] MEDS: LEVOTHYROXINE SODIUM 25 MCG TABLET PO SCH (05:58)
[2020-03-01] MEDS: NYSTATIN SUSPENSION 5 ML UDC PO SCH ×5 (05:58→21:18)
[2020-03-01] MEDS: IPRATROPIUM BROMIDE 0.02% 2.5 ML NEB NEB SCH ×3 (06:35→19:10)
[2020-03-01] MEDS: ALBUTEROL SULF 0.083% NEB SOLN 3 ML NEB NEB SCH ×5 (06:35→23:35)
[2020-03-01] MEDS: BUDESONIDE/FORMOTEROL FUMARATE 80/4.5MCG 6.9 GM INH AEROSOL IH SCH ×3 (07:12→16:55)
[2020-03-01] MEDS: INSULIN LISPRO 100 UNIT/1 ML 3ML VIAL SQ SCH ×4 (07:30→21:18)
[2020-03-01] MEDS: HYDROCODONE/APAP 10MG-325MG TAB PO PRN ×3 (08:25→21:18)
[2020-03-01] MEDS: GLIMEPIRIDE 2 MG TAB PO SCH ×2 (08:27→16:55)
[2020-03-01] MEDS: PANTOPRAZOLE SOD 40 MG TABEC PO SCH (08:27)
[2020-03-01] MEDS: ASPIRIN 81 MG CHEW TAB PO SCH (08:27)
[2020-03-01] MEDS: METHYLPREDNISOLONE SOD SUCC 40 MG/ML VIAL 1ML IV SCH (08:27)
[2020-03-01] MEDS: METFORMIN HCL 500 MG TAB PO SCH ×2 (08:27→16:55)
[2020-03-01] MEDS: VARENICLINE 1 MG TAB PO SCH ×2 (08:27→19:17)
[2020-03-01] MEDS: GABAPENTIN 300 MG CAP PO SCH ×3 (08:28→21:18)
[2020-03-01] MEDS: MESALAMINE 500 MG CAPCR PO SCH ×4 (08:28→21:18)
[2020-03-01] MEDS: BUDESONIDE 3 MG CAPCR PO SCH (08:28)
[2020-03-01] MEDS: SERTRALINE HCL 50 MG TAB PO SCH (08:28)
[2020-03-01] MEDS: METOPROLOL TARTRATE 25 MG TAB PO SCH ×2 (08:30→18:10)
[2020-03-01] MEDS: MONTELUKAST SODIUM 10 MG TAB PO SCH (08:30)
[2020-03-01] MEDS: LISINOPRIL 2.5 MG TAB PO SCH (08:30)
--- NOTE | 2020-03-01 13:56 | NUR ---
Nutrition Screen Note RD Recommendation for Physician: Continue diet as ordered Plan of Care: RD following, monitoring for tolerance and adequacy Nutrition reason for involvement: LOS Primary Diagnose(s): Pneumonia, septic shock Ht:60 in Wt:179.38lb BMI:35 kg/m2 IBW:100lb RD Assessment:(03/01/2020) Initial encounter with patient. Diet Hx: Pt has no known food allergies. Pt denies and difficulty chewing or swallowing, Pt has some nausea, no significant wt changes or appetite [employer]. Pt states she is eating well. Current Diet:1800 ADA Malnutrition Evaluation (03/01/2020) The patient does not meet criteria for a specified degree of malnutrition at this time. Will re-evaluate at follow-up as appropriate. Diet Education Needs Assessment: Diet education not indicated. Diet Adequacy: Meeting calorie needs, Meeting protein needs, Meeting fluid needs. Tolerance: Tolerating PO Nutrition Care Level: Dread Menard RD,LD,CNSC
--- NOTE | 2020-03-01 19:19 | NUR ---
walking rounds complete , report given to oncoming nurse.
[2020-03-01] MEDS: ATORVASTATIN 10 MG TAB PO SCH (21:18)
[2020-03-01] MEDS: INSULIN GLARGINE 100 UNITS/ML VIAL SQ SCH (21:18)
[2020-03-02] VITALS (8 sets, daily range): BP systolic 97–137; BP diastolic 56–85
[2020-03-02] MEDS: CALCIUM CARBONATE 500 MG CHEWABLE TABS PO SCH ×6 (02:03→21:59)
[2020-03-02] MEDS: VANCOMYCIN 1GM/NS 250 ML 250 ML IV SCH (02:03)
--- NOTE | 2020-03-02 02:03 | NUR ---
Patient O2 sat dropped to 77% on RA while ambulating from bed to restroom. Came up to 94% on 2L NC.
[2020-03-02] MEDS: IPRATROPIUM BROMIDE 0.02% 2.5 ML NEB NEB SCH ×4 (03:10→23:50)
[2020-03-02] MEDS: ALBUTEROL SULF 0.083% NEB SOLN 3 ML NEB NEB SCH ×6 (03:10→23:50)
[2020-03-02] MEDS: LEVOTHYROXINE SODIUM 25 MCG TABLET PO SCH (05:38)
[2020-03-02] MEDS: AZTREONAM 1 GM/NS 50 ML 50 ML IV SCH ×3 (05:38→21:59)
[2020-03-02] MEDS: NYSTATIN SUSPENSION 5 ML UDC PO SCH ×5 (05:38→21:59)
[2020-03-02] MEDS ORDERED: SODIUM CHLORIDE 0.9% 250ML 250 ML ONE (06:18)
[2020-03-02 07:03] LABS: BASOPHILS % 0.3 % (0.0-1.0); EOSINOPHILS # (AUTO) 0.3 (0.0-0.4); EOSINOPHILS % 1.7 % (0.0-6.0); HEMATOCRIT 34.5 % (34.2-44.1); HEMOGLOBIN 11.1 g/dL (12.0-16.0); LYMPHOCYTES % 20.1 % (18.0-39.1); MEAN CORPUSCULAR HEMOGLOBIN 32.8 pg (28-32); MEAN CORPUSCULAR HGB CONC 32.2 g/dL (31-35); MEAN CORPUSCULAR VOLUME 102.1 fL (81-99); MONOCYTES # (AUTO) 1.1 (0.2-0.8); MONOCYTES % 7.2 % (4.4-11.3); NEUTROPHILS # (AUTO) 9.9 (2.1-6.9); NEUTROPHILS % 65.9 % (38.7-80.0); PLATELET COUNT 272 x10e3/uL (140-360); RED BLOOD COUNT 3.38 x10e6/uL (3.6-5.1); RED CELL DISTRIBUTION WIDTH 13.3 % (11.7-14.4)
--- NOTE | 2020-03-02 07:04 | NUR ---
Bedside report given to oncoming nurse. Patient resting in bed, respirations even and unlabored on 2L NC, no s/s of distress at this time. All safety measures in place.
[2020-03-02] MEDS: INSULIN LISPRO 100 UNIT/1 ML 3ML VIAL SQ SCH ×4 (07:30→21:59)
[2020-03-02 07:40] LABS: ALANINE AMINOTRANSFERASE 32 IU/L (0-55); ALBUMIN 3.3 g/dL (3.5-5.0); ALBUMIN/GLOBULIN RATIO 1.3 (0.8-2.0); ALKALINE PHOSPHATASE 123 IU/L (40-150); ANION GAP 18.1 mmol/L (8-16); BLOOD UREA NITROGEN 19 mg/dL (7-26); BUN/CREATININE RATIO 29 (6-25); CALCIUM 8.3 mg/dL (8.4-10.2); CARBON DIOXIDE 22 mmol/L (22-29); CHLORIDE 101 mmol/L (98-107); CREATININE, SERUM 0.66 mg/dL (0.57-1.11); EST GLOMERULAR FILTRATION RATE > 60 ML/MIN (60-); GLUCOSE 65 mg/dL (74-118); MAGNESIUM 1.2 MG/DL (1.3-2.1); POTASSIUM 4.1 mmol/L (3.5-5.1); SODIUM 137 mmol/L (136-145)
[2020-03-02] MEDS: METHYLPREDNISOLONE SOD SUCC 40 MG/ML VIAL 1ML IV SCH (10:51)
[2020-03-02] MEDS: PANTOPRAZOLE SOD 40 MG TABEC PO SCH (10:51)
[2020-03-02] MEDS: VARENICLINE 1 MG TAB PO SCH ×2 (10:51→19:43)
[2020-03-02] MEDS: MONTELUKAST SODIUM 10 MG TAB PO SCH (10:52)
[2020-03-02] MEDS: BUDESONIDE 3 MG CAPCR PO SCH (10:52)
[2020-03-02] MEDS: ASPIRIN 81 MG CHEW TAB PO SCH (10:52)
[2020-03-02] MEDS: GLIMEPIRIDE 2 MG TAB PO SCH ×2 (10:52→17:25)
[2020-03-02] MEDS: GABAPENTIN 300 MG CAP PO SCH ×3 (10:52→21:59)
[2020-03-02] MEDS: METFORMIN HCL 500 MG TAB PO SCH ×2 (10:52→17:25)
[2020-03-02] MEDS: MESALAMINE 500 MG CAPCR PO SCH ×4 (10:52→21:59)
[2020-03-02] MEDS: LISINOPRIL 2.5 MG TAB PO SCH (10:52)
[2020-03-02] MEDS: SERTRALINE HCL 50 MG TAB PO SCH (10:52)
[2020-03-02] MEDS: METOPROLOL TARTRATE 25 MG TAB PO SCH ×2 (10:57→17:26)
[2020-03-02] MEDS: HYDROCODONE/APAP 10MG-325MG TAB PO PRN ×3 (10:57→23:50)
[2020-03-02] MEDS: CYCLOBENZAPRINE HCL 10 MG TAB PO PRN (17:25)
--- NOTE | 2020-03-02 19:00 | NUR ---
Resumed care of patient. Patient awake and resting in bed, no s/s of distress at this time. All safety measures in place.
[2020-03-02] MEDS ORDERED: NYSTATIN 15 GM POWDER UD BTL TOP PRN (19:30)
[2020-03-02] MEDS: BUDESONIDE/FORMOTEROL FUMARATE 80/4.5MCG 6.9 GM INH AEROSOL IH SCH (19:42)
[2020-03-02] MEDS: ATORVASTATIN 10 MG TAB PO SCH (21:59)
[2020-03-02] MEDS: INSULIN GLARGINE 100 UNITS/ML VIAL SQ SCH (21:59)
[2020-03-02] MEDS: SODIUM CHLORIDE 0.9% IV SCH (23:50)
[2020-03-02] MEDS: AZITHROMYCIN IV SCH (23:50)
[2020-03-03] VITALS: BP 118/76
[2020-03-03] MEDS: CALCIUM CARBONATE 500 MG CHEWABLE TABS PO SCH ×3 (01:53→09:53)
[2020-03-03] MEDS: VANCOMYCIN 1GM/NS 250 ML 250 ML IV SCH (01:53)
[2020-03-03] MEDS: CYCLOBENZAPRINE HCL 10 MG TAB PO PRN ×2 (01:53→10:00)
[2020-03-03] MEDS: ALBUTEROL SULF 0.083% NEB SOLN 3 ML NEB NEB SCH ×3 (03:02→11:50)
[2020-03-03 04:00] VITALS: BP 131/78
[2020-03-03] MEDS: NYSTATIN SUSPENSION 5 ML UDC PO SCH (06:10)
[2020-03-03] MEDS: AZTREONAM 1 GM/NS 50 ML 50 ML IV SCH (06:10)
[2020-03-03] MEDS: LEVOTHYROXINE SODIUM 25 MCG TABLET PO SCH (06:10)
[2020-03-03] MEDS: IPRATROPIUM BROMIDE 0.02% 2.5 ML NEB NEB SCH (07:30)
[2020-03-03] MEDS: INSULIN LISPRO 100 UNIT/1 ML 3ML VIAL SQ SCH ×2 (07:30→12:51)
[2020-03-03] MEDS: METHYLPREDNISOLONE SOD SUCC 40 MG/ML VIAL 1ML IV SCH (07:30)
[2020-03-03] MEDS: BUDESONIDE/FORMOTEROL FUMARATE 80/4.5MCG 6.9 GM INH AEROSOL IH SCH (07:45)
[2020-03-03 08:30] VITALS: BP 135/80
[2020-03-03 09:00] VITALS: BP 135/80
[2020-03-03] MEDS ORDERED: FLUCONAZOLE 100 MG TAB PO SCH (09:00)
[2020-03-03] MEDS: VARENICLINE 1 MG TAB PO SCH (09:49)
[2020-03-03] MEDS: PANTOPRAZOLE SOD 40 MG TABEC PO SCH (09:50)
[2020-03-03] MEDS: METFORMIN HCL 500 MG TAB PO SCH (09:51)
[2020-03-03] MEDS: ASPIRIN 81 MG CHEW TAB PO SCH (09:51)
[2020-03-03] MEDS: GLIMEPIRIDE 2 MG TAB PO SCH (09:51)
[2020-03-03] MEDS: MESALAMINE 500 MG CAPCR PO SCH (09:52)
[2020-03-03] MEDS: BUDESONIDE 3 MG CAPCR PO SCH (09:52)
[2020-03-03] MEDS: GABAPENTIN 300 MG CAP PO SCH (09:52)
[2020-03-03] MEDS: METOPROLOL TARTRATE 25 MG TAB PO SCH (09:52)
[2020-03-03] MEDS: LISINOPRIL 2.5 MG TAB PO SCH (09:53)
[2020-03-03] MEDS: SERTRALINE HCL 50 MG TAB PO SCH (09:53)
[2020-03-03] MEDS: MONTELUKAST SODIUM 10 MG TAB PO SCH (09:53)
[2020-03-03] MEDS ORDERED: ONDANSETRON HCL 4 MG ORAL DISINTEGRATING TAB PO PRN (10:45)
--- NOTE | 2020-03-03 10:50 | NUR ---
CM MET W THE PT AT THE BEDSIDE. DISCUSSED DME COMPANIES FOR HOME O2. OSMEL NAVAS STATES SHE WILL USE [facility]. DEMOGRAPHICS VERIFIED. PT INSTRUCTED TO CALL [facility]; # ON FROM OF O2 [place], PRIOR TO LEAVING THE HOSPITAL. REFERRAL FAXED TO [facility] @ OFF: [phone] / FAX: [phone]. IMM LETTER EXPLAINED TO PT. PT VERBALIZED UNDERSTANDING. IMM LETTER SIGNED. COPY TO PT AND COPY TO CHART.
[2020-03-03 12:00] VITALS: BP 140/87
--- NOTE | 2020-03-03 14:18 | NUR ---
PATIENT DISCHARGED HOME WITH OXYGEN @ 2 LPM/NC. PATIENT OFF THE UNITE @ 1401 VIA WHEELCHAIR ACCOMPANIED BY THE PCT TO THE LOBBY. PATIENT IN STABLE CONDITION, NO S/S OF DISTRESS NOTED. NO PAIN VOICED. IV ACCESS REMOVED WITH TIP INTACT. ALL PERSONAL ITEMS TAKEN WITH THE PATIENT. DISCHARGE TEACHING AND INSTRUCTION GIVEN TO THE PATIENT. PATIENT VERBALIZED UNDERSTANDING.
--- NOTE | 2020-03-03 17:41 | Progress Note ---
DATE: SUBJECTIVE: A 54-year-old female, who has multiple admissions to the hospital for pneumonia, comes in with shortness of breath, slightly better. Still needs oxygen for ambulation. No chest pain. Positive for some yeast infection. OBJECTIVE: VITAL SIGNS: Temperature is 98.2, still tachy at 108, respirations of 19, blood pressure is 131/78, and pulse oximetry of 99% on 2 L of oxygen. HEENT: Normocephalic and atraumatic. Pupils reactive. CVS: S1 and S2 normal. Regular rate and rhythm. ABDOMEN: Soft and nontender. LUNGS: Decreased air entry plus rhonchi. EXTREMITIES: No clubbing. No cyanosis. Trace edema. LABORATORY STUDIES: White count is 15,113, hemoglobin of 11.1, and hematocrit of 34.4. Chemistries; BUN is 19, gap was high at 18.1, glucose is running low 288 to 316. Bicarb was 22. ASSESSMENT AND PLAN: This is Ms. Shayy Meraz with: 1. Chronic obstructive pulmonary disorder with exacerbation. 2. Pneumonia. 3. Tachycardia. 4. Generalized debility. PLAN: Continue with IV antibiotics. Dose of nystatin and home with O2 to be ordered. Currently, on aztreonam, vancomycin, and azithromycin. Continue current management. O2 to be delivered at home. Discharge planning also to be started. We will need home health. Further recommendation per clinical course. We will continue to monitor the patient and also we will give a dose of Diflucan. MD BENJY Mcwilliams/RANIL /[id number]
== END 2020-03-03 14:01 | disposition home or self-care (01) | DRG 193 ==
LOC: ER 22:33 → ERHOLD 02-25 02:31 → IMCU 02-25 03:04 → MED/SURG3 02-26 15:19
PROVIDERS: ADMIT Family Medicine; ATTEND Family Medicine
DX: J18.9 Pneumonia, unspecified organism (principal); J96.01 Acute respiratory failure with hypoxia; J44.1 Chronic obstructive pulmonary disease with (acute) exacerbation; J44.0 Chronic obstructive pulmonary disease with (acute) lower respiratory infection; K50.90 Crohn's disease, unspecified, without complications; E03.9 Hypothyroidism, unspecified; I25.10 Atherosclerotic heart disease of native coronary artery without angina pectoris; D64.9 Anemia, unspecified; K21.9 Gastro-esophageal reflux disease without esophagitis; E78.5 Hyperlipidemia, unspecified; K44.9 Diaphragmatic hernia without obstruction or gangrene; F17.210 Nicotine dependence, cigarettes, uncomplicated; Z83.3 Family history of diabetes mellitus; Z82.49 Family history of ischemic heart disease and other diseases of the circulatory system; Z88.0 Allergy status to penicillin; Z88.8 Allergy status to other drugs, medicaments and biological substances; I11.0 Hypertensive heart disease with heart failure; I50.9 Heart failure, unspecified; R53.81 Other malaise; Z11.59 Encounter for screening for other viral diseases; R00.0 Tachycardia, unspecified; T38.0X5A Adverse effect of glucocorticoids and synthetic analogues, initial encounter; I73.9 Peripheral vascular disease, unspecified; E13.8 Other specified diabetes mellitus with unspecified complications; E66.9 Obesity, unspecified; Z68.34 Body mass index [BMI] 34.0-34.9, adult
CPT/HCPCS: 36415; 71045; 71046; 80048; 80053; 80202; 82550; 82553; 82948; 83605; 83735; 83880; 84443; 84484; 85025; 87040; 93005; 93306; 94640; 94664; 96372; 97139; 99284; J0456; J0696; J1815; J1940; J2405; J2920; J2930; J3370; J7030; J7050; Q0162